=== PATIENT | female | born 1960 | race Caucasian/White ===

== ENCOUNTER 2017-10-02 09:56 | Emergency (ER) | payer MEDICARE, MEDICAID, SELFPAY ==
[2017-10-02 10:23] VITALS: BP 128/69; PULSE 80; RESP 22; TEMP 39.1; O2SAT 97; BMI 37.1
--- NOTE | 2017-10-02 10:34 | HMH.EDUTC ---
[facility] [place] Disposition Clinical Impression: Influenza Disposition: Home, Self-Care Condition on Discharge: Good Instructions: Influenza (Alternative Therapy), Influenza, DI for Influenza -- Adult Additional Instructions: Take Tamiflu as prescribed, although there is no cure for the flu Tamiflu may help to lesson the days of the flu by 1-1 1/2 days Over the counter Motrin or Tylenol as needed for fever Follow up with family doctor Rest Drink plenty of fluids REturn if needed Straight to ER if you began to have any trouble breathing or worsening symptoms Prescriptions: Dextromethorphan Polistirex [Delsym] 10 ml PO NEEDED PRN #200 [email or web address] PRN Reason: Cough Oseltamivir Phosphate [Tamiflu 75mg Capsule] 75 mg PO BID 5 Days #10 capsule Referrals: Reny Del Rio APRN [Primary Care Provider] - Time of Disposition: 10:56 Medical Decision Making Vital Signs: 10/02/17 10:23 Temperature 102.3 F H Temperature Source Oral Pulse Rate [Right Brachial] 80 Respiratory Rate 22 Blood Pressure [Right Arm] 128/69 Blood Pressure Mean [Right Arm] 88 Blood Pressure Source [Right Arm] Automatic Cuff Blood Pressure Position [Right Arm] Sitting 02 Sat by Pulse Oximetry 97 Oxygen Delivery Method Room Air - Lab Data Lab results reviewed: Yes: I reviewed the patient's lab results. - Bryan Inquiry Pt receiving controlled substance: No Bryan was queried for this patient: No [facility] [place] HPI - General Chief complaint: Urgent Treatment Center Stated complaint: fever diarrhea cough Time Seen by Provider: 10/02/17 10:37 Mode of Arrival: Ambulatory Source of Information: Patient Limitations: No Limitations Description of Symptoms (Recalled from Triage Doc. by RN): FEVER, CHILLS, COUGH, VOMITIING, AND DIARRHEA FOR 2 DAYS. HEENT Symptoms (Recalled from RN notes): Yes (sore throat runny nose) Resp Symptoms (Recalled from RN notes): Yes (COUGH) Skin Symptoms (Recalled from RN notes): Yes (FEVER, CHILLS) GI/ Symptoms (Recalled from RN notes): No MS Symptoms (Recalled from RN notes): No Functional Status (Recalled from RN notes): NA - History of Present Illness Provider Complaint: Patient state that she has been having flu like symptoms since yesterday that has contined to get worse over night State that she began running a fever in the middle of the night and this morning she felt worse so she came in to get checked for the flu Onset (ago): day(s) (1) Location: head Radiation: non-radiation Severity: mild, moderate Severity scale (1-10): 5 Consistency: constant, intermittent Exacerbating factors: other (has been taking over the counter Motrin and Tylenol as needed for fever) - Related Data Previous Rx's Medication Instructions Recorded Dextromethorphan Polistirex 10 ml PO NEEDED PRN #200 10/02/17 [Delsym] [email or web address] Oseltamivir Phosphate [Tamiflu 75 mg PO BID 5 Days #10 capsule 10/02/17 75mg Capsule] Allergies Allergy/AdvReac Type Severity Reaction Status Date / Time levofloxacin [From LEVAQUIN] Allergy Unknown Unverified 09/18/17 15:09 Sulfa (Sulfonamide Allergy Unknown Verified 10/02/17 10:21 Antibiotics) [SULFA (SULFONAMIDE ANTIBIOTICS)] - Worker's Comp Is this a Worker's Comp case?: No Is this an [employer] Worker's Comp?: No Is this a [employer] Worker's Comp?: No [facility] History Medical History: Reports:: Diabetes Mellitus Type 2 Amputation: No Fractures: No - *Social History Smoking Status: Current every day smoker Tobacco Type: cigarettes Alcohol Intake: never - Psychiatric History Expresses thoughts of harming self/others: None Suicide Plan Description: No Plan *Family Hx:: Unable to obtain - Constitutional Reports body ache(s), Reports chills, Reports fever(s), Reports headache(s) - Eyes Denies change in vision - ENT Reports headache(s), Reports nasal congestion, Reports nasal discharge, Reports sinus pain, Reports sore throat - Cardiovascular Denies bluish discoloration of h
--- NOTE | 2017-10-02 10:37 | ED_ITS ---
[facility] [place] Clinical Impression: Influenza Disposition: Home, Self-Care Condition on Discharge: Good Instructions: Influenza (Alternative Therapy), Influenza, DI for Influenza -- Adult Additional Instructions: Take Tamiflu as prescribed, although there is no cure for the flu Tamiflu may help to lesson the days of the flu by 1-1 1/2 days Over the counter Motrin or Tylenol as needed for fever Follow up with family doctor Rest Drink plenty of fluids REturn if needed Straight to ER if you began to have any trouble breathing or worsening symptoms Prescriptions: Dextromethorphan Polistirex [Delsym] 10 ml PO NEEDED PRN #200 [email or web address] PRN Reason: Cough Oseltamivir Phosphate [Tamiflu 75mg Capsule] 75 mg PO BID 5 Days #10 capsule Referrals: Reny Del Rio APRN [Primary Care Provider] - Time of Disposition: 10:56 Medical Decision Making Vital Signs: 10/02/17 10:23 Temperature 102.3 F H Temperature Source Oral Pulse Rate [Right Brachial] 80 Respiratory Rate 22 Blood Pressure [Right Arm] 128/69 Blood Pressure Mean [Right Arm] 88 Blood Pressure Source [Right Arm] Automatic Cuff Blood Pressure Position [Right Arm] Sitting 02 Sat by Pulse Oximetry 97 Oxygen Delivery Method Room Air - Lab Data Lab results reviewed: Yes: I reviewed the patient's lab results. - Bryan Inquiry Pt receiving controlled substance: No Bryan was queried for this patient: No [facility] [place] - General Chief complaint: Urgent [facility] Stated complaint: fever diarrhea cough Time Seen by Provider: 10/02/17 10:37 Mode of Arrival: Ambulatory Source of Information: Patient Limitations: No Limitations Description of Symptoms (Recalled from Triage Doc. by RN): FEVER, CHILLS, COUGH , VOMITIING, AND DIARRHEA FOR 2 DAYS. HEENT Symptoms (Recalled from RN notes): Yes (sore throat runny nose) Resp Symptoms (Recalled from RN notes): Yes (COUGH) Skin Symptoms (Recalled from RN notes): Yes (FEVER, CHILLS) GI/ Symptoms (Recalled from RN notes): No MS Symptoms (Recalled from RN notes): No Functional Status (Recalled from RN notes): NA - History of Present Illness Provider Complaint: Patient state that she has been having flu like symptoms since yesterday that has contined to get worse over night State that she began running a fever in the middle of the night and this morning she felt worse so she came in to get checked for the flu Onset (ago): day(s) (1) Location: head Radiation: non-radiation Severity: mild, moderate Severity scale (1-10): 5 Consistency: constant, intermittent Exacerbating factors: other (has been taking over the counter Motrin and Tylenol as needed for fever) - Related Data Previous Rx's Medication Instructions Recorded Dextromethorphan Polistirex 10 ml PO NEEDED PRN #200 10/02/17 [Delsym] [email or web address] Oseltamivir Phosphate [Tamiflu 75 mg PO BID 5 Days #10 capsule 10/02/17 75mg Capsule] Allergies Allergy/AdvReac Type Severity Reaction Status Date / Time levofloxacin [From LEVAQUIN] Allergy Unknown Unverified 09/18/17 15:09 Sulfa (Sulfonamide Allergy Unknown Verified 10/02/17 10:21 Antibiotics) [SULFA (SULFONAMIDE ANTIBIOTICS)] - Worker's Comp Is this a Worker's Comp case?: No Is this an H Worker's Comp?: No Is this a [employer] Worker's Comp?: No [facility] History Medical Hi
[2017-10-02 10:50] LABS: UTC Influenza A Antigen Negative (Negative); UTC Influenza B Antigen Negative (Negative)
== END 2017-10-02 11:11 | disposition home or self-care (01) ==
LOC: UTC 10:53
PROVIDERS: Emergency Provider Nurse Practitioner; Family Provider Nurse Practitioner Family; PCP Nurse Practitioner Family
DX: J11.1 Influenza due to unidentified influenza virus with other respiratory manifestations (principal); Z88.2 Allergy status to sulfonamides; R50.9 Fever, unspecified
CPT/HCPCS: 87276; 87804; 99201

== ENCOUNTER 2017-10-06 00:21 | Emergency (ER) | payer MEDICARE, MEDICAID, SELFPAY ==
[2017-10-06 00:31] VITALS: BP 114/60; PULSE 67; RESP 22; TEMP 36.9; O2SAT 96; BMI 37.1
--- NOTE | 2017-10-06 01:01 | XR_ITS ---
XR chest 2V HISTORY: ITS.REASON: cough ORDERING PHYSICIAN: Andrea Blackburn MD PATIENT AGE: 56 years COMPARISON: 04/11/2017 FINDINGS: The cardiomediastinal silhouette and pulmonary vascularity are within normal limits. The lungs are clear without infiltrates, suspicious nodules, or pleural effusions. No acute bony abnormalities. IMPRESSION: No change with no acute finding
--- NOTE | 2017-10-06 01:22 | HMH.EDGENADL ---
ED Disposition Clinical Impression: Serous otitis media Qualifiers: Chronicity: acute Laterality: bilateral Recurrence: not specified as recurrent Qualified Code(s): H65.03 - Acute serous otitis media, bilateral Acute bronchitis Qualifiers: Bronchitis organism: unspecified organism Qualified Code(s): J20.9 - Acute bronchitis, unspecified Acute sinusitis Qualifiers: Sinusitis location: unspecified location Recurrence: not specified as recurrent Qualified Code(s): J01.90 - Acute sinusitis, unspecified Disposition: Home, Self-Care Condition on Discharge: Good Instructions: Middle Ear Infection, DI for Sinusitis, DI for Acute Bronchitis Additional Instructions: Use your inhaler and nebulizer for wheezing. Tylenol for fever. Zithromax and Tessalon Perles as prescribed. Additional instructions for ACUTE BRONCHITIS: Rest and plenty of fluids. Return immediately if you have an uncontrollable fever greater than 102 degrees, severe headache or neck stiffness, difficulty breathing or shortness of breath, persistent vomiting, severe sore throat or inability to swallow. See your physician if not improving in 4-5 days. Prescriptions: Azithromycin [Zithromax 250mg tab] 250 mg PO DAILY #4 tablet Benzonatate [Tessalon Perle 100mg Cap] 100 mg PO TIDP PRN #20 cap PRN Reason: Cough Referrals: Reny Del Rio APRN [Primary Care Provider] - - Critical Care Critical Care Time: No Attestation: On 10/06/17, the high probability of a clinically significant, sudden or life threatening deterioration of the following system(s) required my full and direct attention, intervention and personal management. The time I documented below is in addition to time spent performing reported procedures but includes the following listed in this critical care notation. Medical Decision Making Vital Signs: 10/06/17 00:31 Temperature 98.5 F Temperature Source Oral Pulse Rate [Left Radial] 67 Respiratory Rate 22 Blood Pressure [Right Arm] 114/60 Blood Pressure Mean [Right Arm] 78 Blood Pressure Source [Right Arm] Automatic Cuff Blood Pressure Position [Right Arm] Sitting 02 Sat by Pulse Oximetry 96 Oxygen Delivery Method Room Air - Lab Data Lab Results 10/06/17 01:03: Influenza Type A Ag Negative, Influenza Type B Ag Negative Orders (Tests/Meds): ED MEDICATIONS Discontinued Medications Generic Name Dose Route Start Last Admin Trade Name Freq PRN Reason Stop Dose Admin Albuterol Sulfate 2.5 mg 10/06/17 00:48 10/06/17 01:04 Albuterol 0.083% 2.5mg/3ml Neb IH 10/06/17 00:49 2.5 mg ONCE ONE Administration Azithromycin 500 mg 10/06/17 01:49 Zithromax 250mg Tablet PO 10/06/17 01:50 ONCE ONE Benzonatate 100 mg 10/06/17 01:50 Tessalon Perles 100mg Capsule PO 10/06/17 01:51 ONCE ONE ORDERS Category Date Time Status XR chest 2V Stat Exams 10/06/17 01:01 Taken - Radiology Data #1 Image(s): Chest Chest x-ray interpreted by Andrea Blackburn M.D. No infiltrate, pneumothorax, pleural effusion, or wide mediastinum. - Bryan Inquiry Pt receiving controlled substance: No Medical Decision Making Narrative: states improved with Albuterol HHN tx in ED. General Adult HPI - General Chief complaint: Weakness Stated complaint: HEADACHE,COUGHING Mode of Arrival: Ambulatory Limitations: No Limitations Description of Symptoms (Recalled from ER Triage Doc. by RN): flu dx 3 days ago, cough , sternal rib pain - History of Present Illness HPI narrative: The patient states that she was diagnosed with influenza at the urgent treatment center on 10/02/17. She was started on Tamiflu, but states she is no better. She complains of a productive cough, rhinorrhea, sinus pain, congested ears, wheezing, and tussive vomiting. She is a smoker and has COPD. She has an albuterol inhaler and a nebulizer with medication, but says she has not been using them. - Related Data Home Medic
[2017-10-06 02:13] LABS: POC Glucose,Bedside 203 mg/dL
[2017-10-06 02:24] VITALS: BP 178/82; PULSE 72; RESP 22; TEMP 36.9; O2SAT 97
== END 2017-10-06 02:25 | disposition home or self-care (01) ==
PROVIDERS: Emergency Provider Emergency Medicine; Family Provider Internal Medicine Adolescent Medicine; PCP Nurse Practitioner Family
DX: J20.9 Acute bronchitis, unspecified (principal); J44.0 Chronic obstructive pulmonary disease with (acute) lower respiratory infection; F17.210 Nicotine dependence, cigarettes, uncomplicated; H65.03 Acute serous otitis media, bilateral; J01.90 Acute sinusitis, unspecified; E11.9 Type 2 diabetes mellitus without complications; Z79.4 Long term (current) use of insulin
CPT/HCPCS: 71046; 82962; 87275; 87276; 99282

== ENCOUNTER → 2017-10-23 15:05 | Outpatient (CLI) | payer MEDICARE, MEDICAID, SELFPAY ==
--- NOTE | 2017-10-23 15:32 | XR_ITS ---
XR chest 2V HISTORY: ITS.REASON: LEFT CHEST PAIN,COUGH,COPD ORDERING PHYSICIAN: Jesus Ott PATIENT AGE: 56 years COMPARISON: 10/06/2017 FINDINGS: The cardiomediastinal silhouette and pulmonary vascularity are within normal limits. The lungs are clear without infiltrates, suspicious nodules, or pleural effusions. There are degenerative changes in the thoracic spine with mild thoracic curvature convex right. Surgical clips are present in the left paratracheal region.. IMPRESSION: No acute finding
[2017-10-23 15:48] LABS: Troponin I < 0.02 ng/ml (0.00-0.06)
== END ==
PROVIDERS: PCP Internal Medicine; Visit Provider Internal Medicine
DX: R07.89 Other chest pain (principal); R05 Cough; J44.9 Chronic obstructive pulmonary disease, unspecified
CPT/HCPCS: 36415; 71046; 84484; 93005

== ENCOUNTER → 2017-11-05 10:35 | Outpatient (CLI) | payer MEDICARE, MEDICAID, SELFPAY ==
--- NOTE | 2017-11-05 10:40 | XR_ITS ---
XR DEXA axial skeleton HISTORY: ITS.REASON: POST MENOPAUSAL ORDERING PHYSICIAN: Jesus Ott PATIENT AGE: 56 years COMPARISON: 02/19/2013 FINDINGS: The BMD measured at the Right femoral neck is 0.700 g/cm squared with a T score of -2.4 . This is considered Osteopenic according to the World Health Organization criteria. Fracture risk is Moderate. Treatment is advised. The hip density has decreased 12% compared to the previous exam. L-spine density has a T score of 0.0. IMPRESSION: Osteopenia with moderate fracture risk with decrease in the hip density by 12% compared to the previous exam. Recommend follow-up exam November 2019
== END ==
PROVIDERS: Family Provider Internal Medicine Adolescent Medicine; PCP Internal Medicine; Visit Provider Internal Medicine
DX: Z78.0 Asymptomatic menopausal state (principal); M48.56XA Collapsed vertebra, not elsewhere classified, lumbar region, initial encounter for fracture
CPT/HCPCS: 77080

== ENCOUNTER 2017-11-05 17:45 | Emergency (ER) | payer MEDICARE, MEDICAID, SELFPAY ==
[2017-11-05 17:45] VITALS: BP 150/64; PULSE 69; RESP 18; TEMP 36.8; O2SAT 96; BMI 36.6
--- NOTE | 2017-11-05 17:51 | XR_ITS ---
XR chest portable Ordering Physician: Percy Argueta MD Patient Age: 56 years: Female HISTORY: ITS.REASON: chest pain. Chest pain TECHNIQUE: AP portable upright chest COMPARISON : 10/23/1979 CXR FINDINGS No significant change lungs otherwise fairly clear with nothing definitely acute. Heart, polly and mediastinal structures satisfactory.. Normal pulmonary vascularity. No pleural effusion no pneumothorax. Chest wall unremarkable on this limited portable study. Mild dextroscoliosis and marginal osteophytes throughout T-spine IMPRESSION: Stable chest with nothing definitely acute
--- NOTE | 2017-11-05 18:07 | HMH.EDCP ---
ED Disposition Clinical Impression: Chest pain Qualifiers: Chest pain type: chest pain on breathing Qualified Code(s): R07.1 - Chest pain on breathing; R07.81 - Pleurodynia Disposition: Admitted As Inpatient Condition on Discharge: Good Referrals: Jesus Ott [Primary Care Provider] - Time of Disposition: 18:45 - Critical Care Critical Care Time: No Attestation: On , the high probability of a clinically significant, sudden or life threatening deterioration of the following system(s) required my full and direct attention, intervention and personal management. The time I documented below is in addition to time spent performing reported procedures but includes the following listed in this critical care notation. Medical Decision Making - Medical Records Medical records reviewed: Yes: I reviewed the patient's medical records. Vital Signs: 11/05/17 17:45 Temperature 98.2 F Temperature Source Oral Pulse Rate [Right Brachial] 69 Respiratory Rate 18 Blood Pressure [Right Arm] 150/64 Blood Pressure Mean [Right Arm] 92 Blood Pressure Source [Right Arm] Automatic Cuff Blood Pressure Position [Right Arm] Sitting 02 Sat by Pulse Oximetry 96 Oxygen Delivery Method Room Air - Lab Data Lab results reviewed: Yes: I reviewed the patient's lab results. Lab Results 11/05/17 18:15: WBC 15.9 H, RBC 4.36, Hgb 12.0 L, Hct 36.0 L, MCV 82.6, MCH 27.7, MCHC 33.5, RDW 14.9, Plt Count 385, MPV 6.7 L, Neut % (Auto) 57.8, Lymph % (Auto) 34.7, [place] % (Auto) 5.2, Eos % (Auto) 1.9, Baso % (Auto) 0.5, Neut # (Auto) 9.2 H, Lymph # (Auto) 5.5 H, [place] # (Auto) 0.8, Eos # (Auto) 0.3, Baso # (Auto) 0.1 Result diagrams: 11/05/17 18:15 Orders (Tests/Meds): ED MEDICATIONS Discontinued Medications Generic Name Dose Route Start Last Admin Trade Name Freq PRN Reason Stop Dose Admin Ceftriaxone Sodium 1 gm/ 50 mls @ 100 mls/hr 11/05/17 18:07 Sodium Chloride IV 11/05/17 18:36 ONCE ONE Ketorolac Tromethamine 30 mg 11/05/17 18:06 Toradol 30mg/Ml Vial IV 11/05/17 18:07 ONCE ONE Ondansetron HCl 4 mg 11/05/17 18:06 Zofran 4mg/2ml Vial IV 11/05/17 18:07 ONCE ONE ORDERS Category Date Time Status XR chest portable Stat Exams 11/05/17 17:51 Taken Cardiac Enzymes Stat Lab 11/05/17 18:15 Received Complete Blood Count Auto Diff Stat Lab 11/05/17 18:15 Results Comprehensive Metabolic Panel Stat Lab 11/05/17 18:15 Received Lactic Acid Stat Lab 11/05/17 18:30 Received Blood Culture Stat Micro 11/05/17 18:30 Received - Radiology Data #1 Image(s): Chest Image Reviewed: Yes I reviewed the patient's radiology results no significant changes from previous - ECG Data Tracing #1 I reviewed this ECG and interpreted as documented below: ECG normal with no acute: arrhythmias, ischemia, conduction abnormalities, chamber hypertrophy Normal Sinus Rhythm: Yes - Physician Consults Physician Consulted: Dr Vázquez Time: 19:00 Reason -: Pt condition, Other (assumed care of this patient) - Bryan Inquiry Pt receiving controlled substance: No - Reevaluation(s) Time: 18:46 Reevaluation #1: Patient reevaluated, seems less discomfort after resolved Zofran. Workup pending at this turned over to Dr. Vázquez at 7 PM. Chest Pain HPI - General Chief Complaint: Chest Pain Stated Complaint: chest pain Time Seen by Provider: 11/05/17 18:00 Mode of Arrival: Family Vehicle Source of Information: Patient Limitations: No Limitations Description of Symptoms (Recalled from ER Triage Doc. by RN): hurting in my titties and around below them and through chest - History of Present Illness HPI narrative: This is a 56-year-old female patient presenting to the emergency room by POV complaining with not feeling well for the past 3 weeks. She had the flu 2-3 weeks ago, and afterwards fluid in both my ears . Since then patient has been feeling weak, hoarse voice, nonprod
[2017-11-05 18:29] LABS: Basophils # 0.1 K/mm3 (0-0.2); Basophils % 0.5 % (0.1-2.0); Eosinophils # 0.3 K/mm3 (0.0-0.4); Eosinophils % 1.9 % (0.1-12.0); Lymphocytes # 5.5 K/mm3 (0.7-4.5); Lymphocytes % 34.7 K/mm3 (10-50); Mean Corpuscular HGB Conc 33.5 g/dL (31.8-35.4); Mean Corpuscular Hemoglobin 27.7 pg (27.0-31.2); Mean Corpuscular Volume 82.6 fl (81-99); Mean Platelet Volume 6.7 fl (7.4-10.4); Monocytes # 0.8 K/mm3 (0.1-1.0); Monocytes % 5.2 % (1.7-9.3); Neutrophils # 9.2 K/mm3 (1.8-7.8); Neutrophils % 57.8 % (37.0-80.0); Platelet Count 385 K/mm3 (142-424); Red Blood Count 4.36 M/mm3 (4.20-5.40); Red Cell Distribution Width 14.9 % (11.5-17.5); White Blood Count 15.9 K/mm3 (4.8-10.8)
[2017-11-05 18:30] LABS: MANUAL DIFFERENTIAL MANUAL DIFFERENTIAL (MANUAL DIFF)
[2017-11-05 18:51] LABS: Alanine Aminotransferase 21 U/L (12-78); Albumin/Globulin Ratio 1.2 (1.1-1.8); Alkaline Phosphatase 75 U/L (46-116); Anion Gap 9.1 mEq/L (5-15); Aspartate Amino Transferase 6 U/L (15-37); Bilirubin,Total 0.4 mg/dL (0.2-1.0); Blood Urea Nitrogen 15 mg/dL (7-18); Calcium 9.2 mg/dL (8.5-10.1); Carbon Dioxide 27 mmol/L (21.0-32.0); Chloride 100 mmol/L (98-107); Creatine Kinase 44 U/L (26-192); Creatinine Clearance Estimated 122 mL/min (0-300); Creatinine,Serum 0.82 mg/dL (0.55-1.02); Estimated Glomerular Filt Rate 72 ml/min (>60); GFR (African American) 87 ML/MIN (>60); Globulin 3.3 gm/dl (1.3-3.2); Glucose 167 mg/dL (74-106); Potassium 3.1 mmoL/L (3.5-5.1); Sodium 133 mmol/L (136-145); Total Protein,Serum 7.3 gm/dL (6.4-8.2); Troponin I < 0.02 ng/ml (0.00-0.06)
[2017-11-05 18:53] LABS: CKMB Relative Index 1.1 U/L (0-4.0); Creatine Kinase MB < 0.5 mg/ml (0.0-3.6)
[2017-11-05 18:56] LABS: Lactic Acid 1.8 mmol/L (0.4-2.0)
[2017-11-05 19:13] LABS: Eosinophils % 2 % (0-3); Lymphocytes % 32 % (10-50); Monocytes % 4 % (2-9); Neutrophils % 62 % (42-76); Platelet Estimate Normal; Total Cells Counted 100
[2017-11-05 19:53] VITALS: BP 113/67; PULSE 62; RESP 20; O2SAT 96
[2017-11-05 20:25] VITALS: BP 113/67; PULSE 62; RESP 16; TEMP 36.8; O2SAT 96
== END 2017-11-05 20:27 | disposition admitted as inpatient to this hospital (09) ==
PROVIDERS: Emergency Medicine; Emergency Provider Emergency Medicine; Family Provider Internal Medicine Adolescent Medicine; PCP Internal Medicine
DX: R07.1 Chest pain on breathing (principal); R07.81 Pleurodynia; I10 Essential (primary) hypertension; Z82.49 Family history of ischemic heart disease and other diseases of the circulatory system; Z72.0 Tobacco use
CPT/HCPCS: 71045; 77080; 80053; 82550; 82553; 83605; 84484; 85007; 85025; 87040; 87275; 87276; 93005; 96365; 96375; 99282; 99283; J2405

== ENCOUNTER → 2017-11-17 20:00 | Outpatient (CLI) | payer MEDICARE, MEDICAID, SELFPAY | PROVIDERS: PCP Internal Medicine; Visit Provider Internal Medicine | DX: K42.9 Umbilical hernia without obstruction or gangrene (principal) | CPT/HCPCS: 87205 ==

== ENCOUNTER → 2017-11-19 15:05 | Outpatient (CLI) | payer MEDICARE, MEDICAID, SELFPAY ==
[2017-11-19 15:30] VITALS: BP 95/45; PULSE 54; RESP 18; TEMP 36.5; O2SAT 96
[2017-11-19 15:58] VITALS: BMI 35.8
[2017-11-19 16:00] VITALS: BP 102/54; PULSE 56; RESP 18; O2SAT 95
[2017-11-19 16:04] LABS: Adenovirus F 40/41, stool Not Detected (NotDetected); Astrovirus Not Detected (NotDetected); Campylobacter Not Detected (NotDetected); Clostridium Difficile A/B, PCR Not Detected (NotDetected); Cryptosporidium Not Detected (NotDetected); Cyclospora Cayetanesis Not Detected (NotDetected); Entamoeba histolytica Not Detected (NotDetected); Enteroaggregative E coli Not Detected (NotDetected); Enteropathogenic E coli Not Detected (NotDetected); Enterotoxigenic E coli Not Detected (NotDetected); Giardia lamblia Not Detected (NotDetected); Norovirus Not Detected (NotDetected); Plesimonas Shigalloides, PCR Not Detected (NotDetected); Rotavirus A Not Detected (NotDetected); Salmonella, PCR Not Detected (NotDetected); Sapovirus Not Detected (NotDetected); Shiga-like toxin E coli Not Detected (NotDetected); Shigella Enterovasive E coli Not Detected (NotDetected); Vibrio Cholerae Not Detected (NotDetected); Vibrio, PCR Not Detected (NotDetected); Yersinia Entercolitica, PCR Not Detected (NotDetected)
[2017-11-19 16:10] LABS: Basophils # 0.1 K/mm3 (0-0.2); Basophils % 0.6 % (0.1-2.0); Eosinophils # 0.4 K/mm3 (0.0-0.4); Eosinophils % 3.6 % (0.1-12.0); Hematocrit 34.6 % (37.0-47.0); Hemoglobin 11.8 g/dL (12.2-16.2); Lymphocytes # 2.6 K/mm3 (0.7-4.5); Lymphocytes % 26.9 K/mm3 (10-50); Mean Corpuscular HGB Conc 34.1 g/dL (31.8-35.4); Mean Corpuscular Hemoglobin 27.9 pg (27.0-31.2); Mean Corpuscular Volume 81.9 fl (81-99); Mean Platelet Volume 7.5 fl (7.4-10.4); Monocytes # 0.3 K/mm3 (0.1-1.0); Monocytes % 3.4 % (1.7-9.3); Neutrophils # 6.4 K/mm3 (1.8-7.8); Neutrophils % 65.3 % (37.0-80.0); Platelet Count 331 K/mm3 (142-424); Red Blood Count 4.23 M/mm3 (4.20-5.40); Red Cell Distribution Width 14.5 % (11.5-17.5); White Blood Count 9.8 K/mm3 (4.8-10.8)
[2017-11-19 16:30] VITALS: BP 98/55; PULSE 54; RESP 18; O2SAT 96
[2017-11-19 17:00] VITALS: BP 97/58; PULSE 58; RESP 16; TEMP 36.6; O2SAT 95
[2017-11-19 17:20] LABS: Anion Gap 14.1 mEq/L (5-15); Blood Urea Nitrogen 10 mg/dL (7-18); Carbon Dioxide 22 mmol/L (21.0-32.0); Chloride 107 mmol/L (98-107); Creatinine Clearance Estimated 104 mL/min (0-300); Creatinine,Serum 0.94 mg/dL (0.55-1.02); Estimated Glomerular Filt Rate 61 ml/min (>60); GFR (African American) 74 ML/MIN (>60); Glucose 187 mg/dL (74-106); Potassium 4.1 mmoL/L (3.5-5.1); Sodium 139 mmol/L (136-145)
[2017-11-19 17:25] VITALS: BP 99/52; PULSE 59; RESP 18; TEMP 36.7; O2SAT 96
--- NOTE | 2017-11-19 18:03 | PC.NURSE ---
11/19/17 [id number] Report called to En Eisenberg RN 2nd floor med surg at this time. Pt transported via wheelchair to 2nd floor per QAMAR Cifuentes for continuation of IVF infusion as ordered. Pt stable/talking with staff. Pt left in care of En Eisenberg RN at bedside/stable.
[2017-11-19 20:12] VITALS: BP 95/61; PULSE 61; RESP 18; TEMP 37.1; O2SAT 99
== END ==
PROVIDERS: PCP Internal Medicine; Visit Provider Internal Medicine
DX: A09 Infectious gastroenteritis and colitis, unspecified (principal); E86.0 Dehydration
CPT/HCPCS: 80048; 85025; 87507; J2405

== ENCOUNTER 2017-11-27 09:35 | Outpatient (CLI) | payer MEDICARE, MEDICAID, SELFPAY ==
[2017-11-27 09:45] VITALS: BMI 36.4
[2017-11-27 10:00] VITALS: BP 85/51; PULSE 68; RESP 20; TEMP 36.3; O2SAT 96
[2017-11-27 10:21] LABS: Hematocrit 31.8 % (37.0-47.0)
[2017-11-27 10:22] LABS: Anion Gap 12.3 mEq/L (5-15); Blood Urea Nitrogen 19 mg/dL (7-18); Carbon Dioxide 28 mmol/L (21.0-32.0); Chloride 103 mmol/L (98-107); Creatinine Clearance Estimated 131 mL/min (0-300); Creatinine,Serum 0.76 mg/dL (0.55-1.02); Estimated Glomerular Filt Rate 78 ml/min (>60); GFR (African American) 95 ML/MIN (>60); Glucose 110 mg/dL (74-106); Potassium 4.3 mmoL/L (3.5-5.1); Sodium 139 mmol/L (136-145)
[2017-11-27 11:00] VITALS: BP 120/57; PULSE 68; RESP 20; TEMP 36.6; O2SAT 96
[2017-11-27 12:00] VITALS: BP 105/57; PULSE 66; RESP 20; TEMP 36.4; O2SAT 96
[2017-11-27 13:00] VITALS: BP 106/78; PULSE 68; RESP 20; TEMP 36.4; O2SAT 96
[2017-11-27 14:05] VITALS: BP 108/70; PULSE 68; RESP 20; TEMP 36.9; O2SAT 96
== END 2017-11-27 14:10 | disposition home or self-care (01) ==
LOC: INF 09:36
PROVIDERS: PCP Internal Medicine; Visit Provider Internal Medicine
DX: E86.0 Dehydration (principal)
CPT/HCPCS: 80048; 85014; 96365; 96366; J2405

== ENCOUNTER 2017-12-06 14:29 | Emergency (ER) | payer MEDICARE, MEDICAID, SELFPAY ==
[2017-12-06 14:42] VITALS: BP 114/47; PULSE 61; RESP 20; TEMP 36.5; O2SAT 99; BMI 36.6
--- NOTE | 2017-12-06 15:04 | HMH.EDUTC ---
[facility] [place] Clinical Impression: Insulin dependent diabetes mellitus, Vomiting and diarrhea Abdominal pain Qualifiers: Abdominal location: unspecified location Qualified Code(s): R10.9 - Unspecified abdominal pain Decubitus ulcer Qualifiers: Pressure ulcer location: other site Pressure ulcer stage: unspecified pressure ulcer stage Qualified Code(s): L89.899 - Pressure ulcer of other site, unspecified stage Disposition: Still a Patient Condition on Discharge: Fair Time of Disposition: 15:35 (transfer to ER bed 10) Medical Decision Making Vital Signs: 12/06/17 14:42 Temperature 97.7 F Temperature Source Temporal Artery Scan Pulse Rate [Brachial] 61 Respiratory Rate 20 Blood Pressure [Right Arm] 114/47 Blood Pressure Mean [Right Arm] 69 Blood Pressure Source [Right Arm] Automatic Cuff Blood Pressure Position [Right Arm] Sitting 02 Sat by Pulse Oximetry 99 Oxygen Delivery Method Room Air - Bryan Inquiry Pt receiving controlled substance: No - Reevaluation(s) Time: 15:10 Reevaluation #1: Discussed HPI, PMHx, possible differentials and [facility] guidelines with patient. Agreeable to transfer to ER. Attempted to call report. No staff available to take call. 1521: Report called to WALE Manuel RN. Bed 10 available. Report also given to Dr. carr ER . Pt assisted over by Sheila [facility] monty. [facility] [place] - General Stated complaint: v/d Time Seen by Provider: 12/06/17 15:04 Mode of Arrival: Ambulatory Source of Information: Patient Limitations: No Limitations Description of Symptoms (Recalled from Triage Doc. by RN): V/D X 1 WEEK. SPOT ON ABD THAT CAME UP 2 DAYS AGO HEENT Symptoms (Recalled from RN notes): No Resp Symptoms (Recalled from RN notes): No Skin Symptoms (Recalled from RN notes): Yes MS Symptoms (Recalled from RN notes): No Functional Status (Recalled from RN notes): NA - History of Present Illness Provider Complaint: c/o nonstop vomiting and diarrhea again for 2-3 days. Pt reports started with flu 2 weeks ago. That resolved then virus in my gut last week. Saw Dr. Ott. Got medicine for diarrhea. Seemed to improve. Sunday symptoms returned. Saw Dr. Ott again and got more unknown medication for vomiting and diarrhea but not getting any better. Abdominal pain with Watery diarrhea and now dry heaving every 5 minutes . Unable to tolerate any food and minimal fluids. Hx of IDDM. FSBG this morning 94. 2-3 days ago, noticed a wound to abdomen. Has continued to get larger since first noticing it. No fever. - Related Data Home Medications Medication Instructions Recorded Confirmed Furosemide [Furosemide 40MG tAB] 1 tab PO DAILY 10/06/17 11/19/17 Ibuprofen [Ibuprofen 600mg Tab] 1 tab PO Q6HP PRN 10/06/17 11/19/17 Insulin NPH Human Isophane 60 unit SQ BID 10/06/17 11/19/17 [Humulin N] Lisinopril [Lisinopril 5mg Tablet] 1 tab PO DAILY 10/06/17 11/19/17 Lovastatin [Lovastatin] 1 tab PO DAILY 10/06/17 11/19/17 Metformin HCl [Metformin HCl] 1 tab PO BID 10/06/17 11/19/17 Oxybutynin Chloride [Oxybutynin 10 mg PO DAILY 10/06/17 11/19/17 Chloride ER] Potassium Chloride [Micro-K 10mEq 1 tab PO DAILY 10/06/17 11/19/17 cap] hydrOXYzine HCl [Hydroxyzine HCl] 25 mg PO Q8HP PRN 10/06/17 11/19/17 raNITIdine HCl [Ranitidine HCl] 150 mg PO DAILY 10/06/17 11/19/17 aspirin 81 mg tablet,delayed 81 mg PO ONCE 11/06/17 11/19/17 release Isosorbide Mononitrate [Imdur 30mg 30 mg PO QAM 11/19/17 11/19/17 ER tablet] Previous Rx's Medication Instructions Recorded Benzonatate [Tessalon Perle 100mg 100 mg PO TIDP PRN #20 cap 10/06/17 Cap] levothyroxine 100 mcg tablet 100 mcg PO DAILY #90 tab 11/09/17 bisoprolol fumarate 5 mg tablet 5 mg PO DAILY #90 tab 12/03/17 escitalopram 20 mg tablet 20 mg PO QDAY 90 Days #90 tab 12/03/17 Allergies Allergy/AdvReac Type Severity Reaction Status Date / Time Sulfa (Sulfonamide Allergy Mild Verified 11/05/17 18:06 Antibiotics) [SULFA (SULFONAMI
--- NOTE | 2017-12-06 15:11 | ED_ITS ---
[facility] [place] Clinical Impression: Insulin dependent diabetes mellitus, Vomiting and diarrhea Abdominal pain Qualifiers: Abdominal location: unspecified location Qualified Code(s): R10.9 - Unspecified abdominal pain Decubitus ulcer Qualifiers: Pressure ulcer location: other site Pressure ulcer stage: unspecified pressure ulcer stage Qualified Code(s): L89.899 - Pressure ulcer of other site, unspecified stage Disposition: Still a Patient Condition on Discharge: Fair Time of Disposition: 15:35 (transfer to ER bed 10) Medical Decision Making Vital Signs: 12/06/17 14:42 Temperature 97.7 F Temperature Source Temporal Artery Scan Pulse Rate [Brachial] 61 Respiratory Rate 20 Blood Pressure [Right Arm] 114/47 Blood Pressure Mean [Right Arm] 69 Blood Pressure Source [Right Arm] Automatic Cuff Blood Pressure Position [Right Arm] Sitting 02 Sat by Pulse Oximetry 99 Oxygen Delivery Method Room Air - Bryan Inquiry Pt receiving controlled substance: No - Reevaluation(s) Time: 15:10 Reevaluation #1: Discussed HPI, PMHx, possible differentials and [facility] guidelines with patient. Agreeable to transfer to ER. Attempted to call report. No staff available to take call. 1521: Report called to WALE Manuel RN. Bed 10 available. Report also given to Dr. carr ER . Pt assisted over by Sheila [facility] monty. [facility] [place] - General Stated complaint: v/d Time Seen by Provider: 12/06/17 15:04 Mode of Arrival: Ambulatory Source of Information: Patient Limitations: No Limitations Description of Symptoms (Recalled from Triage Doc. by RN): V/D X 1 WEEK. SPOT ON ABD THAT CAME UP 2 DAYS AGO HEENT Symptoms (Recalled from RN notes): No Resp Symptoms (Recalled from RN notes): No Skin Symptoms (Recalled from RN notes): Yes MS Symptoms (Recalled from RN notes): No Functional Status (Recalled from RN notes): NA - History of Present Illness Provider Complaint: c/o nonstop vomiting and diarrhea again for 2-3 days. Pt reports started with flu 2 weeks ago. That resolved then virus in my gut last week. Saw Dr. Ott. Got medicine for diarrhea. Seemed to improve. Sunday symptoms returned. Saw Dr. Ott again and got more unknown medication for vomiting and diarrhea but not getting any better. Abdominal pain with Watery diarrhea and now dry heaving every 5 minutes . Unable to tolerate any food and minimal fluids. Hx of IDDM. FSBG this morning 94. 2-3 days ago, noticed a wound to abdomen. Has continued to get larger since first noticing it. No fever. - Related Data Home Medications Medication Instructions Recorded Confirmed Furosemide [Furosemide 40MG tAB] 1 tab PO DAILY 10/06/17 11/19/17 Ibuprofen [Ibuprofen 600mg Tab] 1 tab PO Q6HP PRN 10/06/17 11/19/17 Insulin NPH Human Isophane 60 unit SQ BID 10/06/17 11/19/17 [Humulin N] Lisinopril [Lisinopril 5mg Tablet] 1 tab PO DAILY 10/06/17 11/19/17 Lovastatin [Lovastatin] 1 tab PO DAILY 10/06/17 11/19/17 Metformin HCl [Metformin HCl] 1 tab PO BID 10/06/17 11/19/17 Oxybutynin Chloride [Oxybutynin 10 mg PO DAILY 10/06/17 11/19/17 Chloride ER] Potassium Chloride [Micro-K 10mEq 1 tab PO DAILY 10/06/17 11/19/17 cap] hydrOXYzine HCl [Hydroxyzine HCl] 25 mg PO Q8HP PRN 10/06/17 11/19/17 raNITIdine HCl [Ranitidine HCl] 150 mg PO DAILY 10/06/17 11/19/17 aspirin 81 mg tablet,delayed 81 mg PO ONCE 11/06/17 11/19/17 re
[2017-12-06 15:33] VITALS: BP 88/38; PULSE 57; RESP 20; TEMP 37.3; O2SAT 97; BMI 36.4
--- NOTE | 2017-12-06 15:52 | CT_ITS ---
CT abdomen pelvis wo con CLINICAL INDICATION: Nausea, vomiting, diarrhea ITS.REASON: n/v/d ORDERING PHYSICIAN: Anaid Diggs MD PATIENT AGE: 56 years COMPARISON: 09/06/2017 TECHNIQUE: Axial images obtained with sagittal and coronal reformats. PROCEDURE: Oral Contrast: None IV Contrast: None . FINDINGS: No acute finding Bases. Prior cholecystectomy without ductal dilatation. The liver, spleen, adrenal glands, and left kidney have an unremarkable unenhanced CT appearance. There is cortical scarring of the right kidney. No hydronephrosis or ureteral calculi. There is fatty infiltration of the pancreas. No intestinal obstruction or free air is evident. No evidence of appendicitis. No evidence of diverticulitis. There has been prior hysterectomy. No pelvic mass or abnormal fluid collection. There is mild stranding of the anterior abdominal wall fat not significantly changed consistent with postsurgical changes. No acute bony anomalies. IMPRESSION: 1. No acute abdominal or pelvic findings. 2. Postsurgical changes
[2017-12-06 16:15] LABS: Hematocrit 33.4 % (37.0-47.0); Hemoglobin 11.2 g/dL (12.2-16.2); Mean Corpuscular Volume 87.1 fl (81-99); Red Blood Count 3.84 M/mm3 (4.20-5.40); White Blood Count 10.8 K/mm3 (4.8-10.8)
[2017-12-06 16:16] LABS: Basophils % 0.7 % (0.1-2.0); Eosinophils # 0.4 K/mm3 (0.0-0.4); Eosinophils % 3.5 % (0.1-12.0); Lymphocytes # 3.3 K/mm3 (0.7-4.5); Lymphocytes % 30.2 K/mm3 (10-50); Mean Corpuscular HGB Conc 33.5 g/dL (31.8-35.4); Mean Corpuscular Hemoglobin 29.2 pg (27.0-31.2); Mean Platelet Volume 7.4 fl (7.4-10.4); Monocytes # 0.4 K/mm3 (0.1-1.0); Monocytes % 4.1 % (1.7-9.3); Neutrophils # 6.7 K/mm3 (1.8-7.8); Neutrophils % 61.6 % (37.0-80.0); Platelet Count 272 K/mm3 (142-424); Red Cell Distribution Width 14.2 % (11.5-17.5)
[2017-12-06 16:17] LABS: Basophils # 0.1 K/mm3 (0-0.2)
[2017-12-06 16:27] LABS: Lipase 64 u/L (73-393)
[2017-12-06 16:34] LABS: Alanine Aminotransferase 25 U/L (12-78); Albumin Level 3.3 gm/dL (3.4-5.0); Alkaline Phosphatase 70 U/L (46-116); Anion Gap 11.1 mEq/L (5-15); Aspartate Amino Transferase 10 U/L (15-37); Bilirubin,Total 0.1 mg/dL (0.2-1.0); Blood Urea Nitrogen 10 mg/dL (7-18); Calcium 8.8 mg/dL (8.5-10.1); Carbon Dioxide 26 mmol/L (21.0-32.0); Chloride 105 mmol/L (98-107); Creatinine Clearance Estimated 106 mL/min (0-300); Creatinine,Serum 0.94 mg/dL (0.55-1.02); Estimated Glomerular Filt Rate 61 ml/min (>60); GFR (African American) 74 ML/MIN (>60); Globulin 3.4 gm/dl (1.3-3.2); Glucose 175 mg/dL (74-106); Potassium 4.1 mmoL/L (3.5-5.1); Sodium 138 mmol/L (136-145); Total Protein,Serum 6.7 gm/dL (6.4-8.2)
--- NOTE | 2017-12-06 17:15 | HMH.EDNVD ---
ED Disposition Clinical Impression: Insulin dependent diabetes mellitus, Vomiting and diarrhea, UTI (urinary tract infection) Abdominal pain Qualifiers: Abdominal location: unspecified location Qualified Code(s): R10.9 - Unspecified abdominal pain Decubitus ulcer Qualifiers: Pressure ulcer location: other site Pressure ulcer stage: unspecified pressure ulcer stage Qualified Code(s): L89.899 - Pressure ulcer of other site, unspecified stage Disposition: Home, Self-Care Condition on Discharge: Good Instructions: DI for Diarrhea and Traveler's Diarrhea -- Adult, How to Prevent Pressure Ulcers, Pressure Sores Additional Instructions: Bentyl for cramping, Rx Keflex, see Dr. Ott one to three days for recheck abdomen and recheck ulcer Prescriptions: Ondansetron [Zofran 4mg ODT] 4 mg PO Q8HP PRN #10 tab.rapdis PRN Reason: nausea/vomiting cephALEXin [Keflex 500mg Cap] 500 mg PO QID #40 cap cephALEXin [Keflex 500mg Cap] 500 mg PO QID #40 cap Dicyclomine HCl [Bentyl 10mg capsule] 0 mg PO TID PRN #10 cap PRN Reason: Cramping Referrals: Jesus Ott [Staff Physician] - - Critical Care Critical Care Time: No Attestation: On 12/06/17, the high probability of a clinically significant, sudden or life threatening deterioration of the following system(s) required my full and direct attention, intervention and personal management. The time I documented below is in addition to time spent performing reported procedures but includes the following listed in this critical care notation. Medical Decision Making - Medical Records Medical records reviewed: Yes: I reviewed the patient's medical records. Vital Signs: 12/06/17 14:42 12/06/17 15:33 Temperature 97.7 F 99.1 F Temperature Source Temporal Artery Scan Oral Pulse Rate [Brachial] 61 57 L Respiratory Rate 20 20 Blood Pressure [Right Arm] 114/47 88/38 Blood Pressure Mean [Right Arm] 69 54 Blood Pressure Source [Right Arm] Automatic Cuff Automatic Cuff Blood Pressure Position [Right Arm] Sitting Supine 02 Sat by Pulse Oximetry 99 97 Oxygen Delivery Method Room Air Room Air - Lab Data Lab results reviewed: Yes: I reviewed the patient's lab results. Lab Results 12/06/17 16:05: WBC 10.8, RBC 3.84 L, Hgb 11.2 L, Hct 33.4 L, MCV 87.1, MCH 29.2, MCHC 33.5, RDW 14.2, Plt Count 272, MPV 7.4, Neut % (Auto) 61.6, Lymph % (Auto) 30.2, [place] % (Auto) 4.1, Eos % (Auto) 3.5, Baso % (Auto) 0.7, Neut # (Auto) 6.7, Lymph # (Auto) 3.3, [place] # (Auto) 0.4, Eos # (Auto) 0.4, Baso # (Auto) 0.1 12/06/17 16:05: Sodium 138, Potassium 4.1, Chloride 105, Carbon Dioxide 26, Anion Gap 11.1, BUN 10, Creatinine 0.94, Estimated Creat Clear 106, Estimated GFR 61, Est GFR ( Amer) 74, Glucose 175 H, Calcium 8.8, Total Bilirubin 0.1 L, AST 10 L, ALT 25, Alkaline Phosphatase 70, Total Protein 6.7, Albumin 3.3 L, Globulin 3.4 H, Albumin/Globulin Ratio 1.0 L 12/06/17 16:05: Lipase 64 L 12/06/17 17:30: Urine Color Yellow, Urine Appearance Cloudy, Urine pH 5.5, Ur Specific [place] 1.025, Urine Protein 1+, Urine Glucose (UA) Negative, Urine Ketones Trace, Urine Blood Negative, Urine Nitrate Negative, Urine Bilirubin Negative, Urine Urobilinogen 0.2, Ur Leukocyte Esterase 3+ A Result diagrams: 12/06/17 16:05 12/06/17 16:05 Orders (Tests/Meds): ED MEDICATIONS Discontinued Medications Generic Name Dose Route Start Last Admin Trade Name Freq PRN Reason Stop Dose Admin Dicyclomine HCl 20 mg 12/06/17 17:18 12/06/17 17:22 Bentyl 10mg Capsule PO 12/06/17 17:19 20 mg ONCE ONE Administration Sodium Chloride 1,000 mls @ 999 mls/hr 12/06/17 16:15 12/06/17 16:45 Sod Chlor 0.9% 1000ml Bag IV 12/06/17 17:15 999 mls/hr .Q1H1M CARLITOS Administration Ondansetron HCl 4 mg 12/06/17 17:18 12/06/17 17:22 Zofran 4mg/2ml Vial IV 12/06/17 17:19 4 mg ONCE ONE Administration ORDERS Category Date Time Status CT abdomen pelvis wo con Stat Cat Scan 12/06/17 15:52 Taken U
--- NOTE | 2017-12-06 17:18 | ED_ITS ---
ED Disposition Clinical Impression: Insulin dependent diabetes mellitus, Vomiting and diarrhea, UTI (urinary tract infection) Abdominal pain Qualifiers: Abdominal location: unspecified location Qualified Code(s): R10.9 - Unspecified abdominal pain Decubitus ulcer Qualifiers: Pressure ulcer location: other site Pressure ulcer stage: unspecified pressure ulcer stage Qualified Code(s): L89.899 - Pressure ulcer of other site, unspecified stage Disposition: Home, Self-Care Condition on Discharge: Good Instructions: DI for Diarrhea and Traveler's Diarrhea -- Adult, How to Prevent Pressure Ulcers, Pressure Sores Additional Instructions: Bentyl for cramping, Rx Keflex, see Dr. Ott one to three days for recheck abdomen and recheck ulcer Prescriptions: Ondansetron [Zofran 4mg ODT] 4 mg PO Q8HP PRN #10 tab.rapdis PRN Reason: nausea/vomiting cephALEXin [Keflex 500mg Cap] 500 mg PO QID #40 cap cephALEXin [Keflex 500mg Cap] 500 mg PO QID #40 cap Dicyclomine HCl [Bentyl 10mg capsule] 0 mg PO TID PRN #10 cap PRN Reason: Cramping Referrals: Jesus Ott [Staff Physician] - - Critical Care Critical Care Time: No Attestation: On 12/06/17, the high probability of a clinically significant, sudden or life threatening deterioration of the following system(s) required my full and direct attention, intervention and personal management. The time I documented below is in addition to time spent performing reported procedures but includes the following listed in this critical care notation. Medical Decision Making - Medical Records Medical records reviewed: Yes: I reviewed the patient's medical records. Vital Signs: 12/06/17 14:42 12/06/17 15:33 Temperature 97.7 F 99.1 F Temperature Source Temporal Artery Scan Oral Pulse Rate [Brachial] 61 57 L Respiratory Rate 20 20 Blood Pressure [Right Arm] 114/47 88/38 Blood Pressure Mean [Right Arm] 69 54 Blood Pressure Source [Right Arm] Automatic Cuff Automatic Cuff Blood Pressure Position [Right Arm] Sitting Supine 02 Sat by Pulse Oximetry 99 97 Oxygen Delivery Method Room Air Room Air - Lab Data Lab results reviewed: Yes: I reviewed the patient's lab results. Lab Results 12/06/17 16:05: WBC 10.8, RBC 3.84 L, Hgb 11.2 L, Hct 33.4 L, MCV 87.1, MCH 29.2 , MCHC 33.5, RDW 14.2, Plt Count 272, MPV 7.4, Neut % (Auto) 61.6, Lymph % (Auto ) 30.2, [place] % (Auto) 4.1, Eos % (Auto) 3.5, Baso % (Auto) 0.7, Neut # (Auto) 6.7, Lymph # (Auto) 3.3, [place] # (Auto) 0.4, Eos # (Auto) 0.4, Baso # (Auto) 0.1 12/06/17 16:05: Sodium 138, Potassium 4.1, Chloride 105, Carbon Dioxide 26, Anion Gap 11.1, BUN 10, Creatinine 0.94, Estimated Creat Clear 106, Estimated GFR 61, Est GFR ( Amer) 74, Glucose 175 H, Calcium 8.8, Total Bilirubin 0.1 L, AST 10 L, ALT 25, Alkaline Phosphatase 70, Total Protein 6.7, Albumin 3.3 L, Globulin 3.4 H, Albumin/Globulin Ratio 1.0 L 12/06/17 16:05: Lipase 64 L 12/06/17 17:30: Urine Color Yellow, Urine Appearance Cloudy, Urine pH 5.5, Ur Specific [place] 1.025, Urine Protein 1+, Urine Glucose (UA) Negative, Urine Ketones Trace, Urine Blood Negative, Urine Nitrate Negative, Urine Bilirubin Negative, Urine Urobilinogen 0.2, Ur Leukocyte Esterase 3+ A Result diagrams: 12/06/17 16:05 12/06/17 16:05 Orders (Tests/Meds): ED MEDICATIONS Discontinued Medications Generic Name Dose Route Start Last Admin Trade Name Freq PRN Reason Stop Dose Admin Dicy
[2017-12-06 18:15] LABS: Microscopic, Urine URINE MICROSCOPIC (MICROSCOPIC)
[2017-12-06 18:20] LABS: Appearance,Urine CLOUDY (Clear); Bilirubin,Urine Negative (Negative); Blood, Urine Negative (Negative); Color,Urine YELLOW (Yellow); Glucose,Urine (UA) Negative (Negative); Ketones,Urine TRACE (Negative); Leukocyte Esterase,Urine 3+ (Negative); Nitrate,Urine Negative (Negative); PH,Urine 5.5 (5.0-8.5); Protein,Urine 1+ (Negative); Specific Gravity, Urine 1.025 (1.005-1.030); Urobilinogen,Urine 0.2 EU/dl (0.2)
[2017-12-06 18:43] LABS: Bacteria,Urine 4+ /lpf; WBC,Urine TNTC #/hpf (0-3)
[2017-12-06 19:09] VITALS: BP 113/57; PULSE 50; RESP 16; TEMP 37.2; O2SAT 97
== END 2017-12-06 18:15 | disposition home or self-care (01) ==
LOC: UTC 14:40 → ER 15:25
PROVIDERS: Emergency Provider Emergency Medicine
DX: N39.0 Urinary tract infection, site not specified (principal); E11.65 Type 2 diabetes mellitus with hyperglycemia; Z79.4 Long term (current) use of insulin; Z79.84 Long term (current) use of oral hypoglycemic drugs; L89.899 Pressure ulcer of other site, unspecified stage; I10 Essential (primary) hypertension; K21.9 Gastro-esophageal reflux disease without esophagitis; I50.9 Heart failure, unspecified; J44.9 Chronic obstructive pulmonary disease, unspecified; Z79.82 Long term (current) use of aspirin; Z88.2 Allergy status to sulfonamides; Z88.1 Allergy status to other antibiotic agents
CPT/HCPCS: 74176; 80053; 81001; 83690; 85025; 87070; 87077; 87086; 87088; 87186; 87205; 96365; 96375; 99291; J2405

== ENCOUNTER → 2017-12-11 10:04 | Outpatient (CLI) | payer MEDICARE, MEDICAID, SELFPAY ==
--- NOTE | 2017-12-11 10:14 | XR_ITS ---
XR hip LT 2-3V w/pelvis HISTORY: Left hip pain ORDERING PHYSICIAN: Jesus Ott PATIENT AGE: 56 years COMPARISON: 05/18/2016 FINDINGS: No acute fracture or dislocation. There are mild osteoarthritic changes of the left hip with either ununited ossification centers or old avulsion fracture of the greater tuberosity superiorly and hypertrophic changes of the greater tuberosity inferiorly. These findings are unchanged IMPRESSION: 1. No acute fracture. 2. Osteoarthritis
--- NOTE | 2017-12-11 10:14 | XR_ITS ---
XR chest 2V HISTORY: ITS.REASON: COUGH,SOA,COPD ORDERING PHYSICIAN: Jesus Ott PATIENT AGE: 56 years COMPARISON: 11/05/2017 FINDINGS: The cardiomediastinal silhouette and pulmonary vascularity are within normal limits. Multiple calcified nodes are present in the polly. The right CP angle is omitted from the exam. The remaining lungs are clear. Degenerative changes are present in the thoracic spine. IMPRESSION: No acute finding.
== END ==
PROVIDERS: PCP Internal Medicine; Visit Provider Internal Medicine
DX: R05 Cough (principal); R06.02 Shortness of breath; J44.0 Chronic obstructive pulmonary disease with (acute) lower respiratory infection; M25.552 Pain in left hip
CPT/HCPCS: 71046; 73502

== ENCOUNTER → 2017-12-25 09:13 | Outpatient (CLI) | payer MEDICARE, MEDICAID, SELFPAY | PROVIDERS: Visit Provider Podiatrist | DX: E11.621 Type 2 diabetes mellitus with foot ulcer (principal); L97.509 Non-pressure chronic ulcer of other part of unspecified foot with unspecified severity ==

== ENCOUNTER 2018-01-08 10:47 | Outpatient (CLI) | payer MEDICARE, MEDICAID, SELFPAY ==
[2018-01-08 11:00] VITALS: BMI 35.5
[2018-01-08 11:45] VITALS: BP 102/78; PULSE 66; RESP 20; TEMP 36.9; O2SAT 96
[2018-01-08 12:01] LABS: Basophils # 0.1 K/mm3 (0-0.2); Basophils % 0.7 % (0.1-2.0); Eosinophils # 0.2 K/mm3 (0.0-0.4); Eosinophils % 2.1 % (0.1-12.0); Hematocrit 35.9 % (37.0-47.0); Hemoglobin 11.7 g/dL (12.2-16.2); Lymphocytes # 3.1 K/mm3 (0.7-4.5); Mean Corpuscular HGB Conc 32.4 g/dL (31.8-35.4); Mean Corpuscular Hemoglobin 28.4 pg (27.0-31.2); Mean Corpuscular Volume 87.6 fl (81-99); Mean Platelet Volume 7.1 fl (7.4-10.4); Monocytes # 0.4 K/mm3 (0.1-1.0); Monocytes % 3.6 % (1.7-9.3); Neutrophils # 6.2 K/mm3 (1.8-7.8); Neutrophils % 62.6 % (37.0-80.0); Platelet Count 322 K/mm3 (142-424); Red Cell Distribution Width 12.9 % (11.5-17.5); White Blood Count 9.9 K/mm3 (4.8-10.8)
[2018-01-08 12:22] LABS: Alanine Aminotransferase 16 U/L (12-78); Albumin Level 3.6 gm/dL (3.4-5.0); Albumin/Globulin Ratio 1.2 (1.1-1.8); Alkaline Phosphatase 70 U/L (46-116); Anion Gap 15.3 mEq/L (5-15); Aspartate Amino Transferase 8 U/L (15-37); Bilirubin,Total 0.2 mg/dL (0.2-1.0); Blood Urea Nitrogen 9 mg/dL (7-18); Calcium 8.8 mg/dL (8.5-10.1); Carbon Dioxide 24 mmol/L (21.0-32.0); Chloride 108 mmol/L (98-107); Chol/HDL Ratio 5.1 (1-3.5); Cholesterol 178 mg/dL (140-200); Creatinine Clearance Estimated 110 mL/min (0-300); Creatinine,Serum 0.87 mg/dL (0.55-1.02); Estimated Glomerular Filt Rate 67 ml/min (>60); GFR (African American) 81 ML/MIN (>60); Glucose 175 mg/dL (74-106); HDL Cholesterol 35 mg/dL (29-89); Potassium 4.3 mmoL/L (3.5-5.1); Sodium 143 mmol/L (136-145); Thyroid Stimulating Hormone 0.96 uIU/ml (0.358-3.740); Total Protein,Serum 6.6 gm/dL (6.4-8.2); Triglycerides 400 mg/dL (30-200)
[2018-01-08 12:28] LABS: Hemoglobin A1C 6.8 % (0.0-7.0)
[2018-01-08 12:45] VITALS: BP 102/58; PULSE 66; RESP 20; TEMP 36.9; O2SAT 96
[2018-01-08 13:45] VITALS: BP 125/74; PULSE 68; RESP 20; TEMP 36.9; O2SAT 96
[2018-01-08 14:45] VITALS: BP 100/56; PULSE 66; RESP 20; TEMP 36.4; O2SAT 96
[2018-01-08 15:25] VITALS: BP 102/55; PULSE 66; RESP 20; TEMP 36.4; O2SAT 96
== END 2018-01-08 15:30 | disposition home or self-care (01) ==
LOC: INF 10:48
PROVIDERS: PCP Internal Medicine; Visit Provider Internal Medicine
DX: J44.1 Chronic obstructive pulmonary disease with (acute) exacerbation (principal); I25.10 Atherosclerotic heart disease of native coronary artery without angina pectoris; E11.59 Type 2 diabetes mellitus with other circulatory complications
CPT/HCPCS: 80053; 80061; 82533; 83036; 84443; 85025; 96360; 96361

== ENCOUNTER → 2018-01-15 11:04 | Outpatient (CLI) | payer MEDICARE, MEDICAID, SELFPAY ==
[2018-01-16 16:17] LABS: HIV Screen 4th Generation wRfx Non Reactive (Non Reactive)
== END ==
PROVIDERS: Visit Provider Internal Medicine
DX: Z11.4 Encounter for screening for human immunodeficiency virus [HIV] (principal)
CPT/HCPCS: 36415; 86703; G0432

== ENCOUNTER → 2018-01-22 10:58 | Outpatient (CLI) | payer MEDICARE, MEDICAID, SELFPAY | PROVIDERS: PCP Internal Medicine; Visit Provider Internal Medicine | DX: R42 Dizziness and giddiness (principal); R07.9 Chest pain, unspecified; R00.1 Bradycardia, unspecified | CPT/HCPCS: 93225; 93226 ==

== ENCOUNTER → 2018-01-25 14:32 | Outpatient (REF) | payer MEDICARE, MEDICAID, SELFPAY | LOC: LAB 14:32 | PROVIDERS: Visit Provider Internal Medicine | DX: L97.523 Non-pressure chronic ulcer of other part of left foot with necrosis of muscle (principal) | CPT/HCPCS: 87070; 87077; 87186; 87205 ==

== ENCOUNTER → 2018-02-01 13:06 | Outpatient (CLI) | payer MEDICARE, MEDICAID, SELFPAY ==
--- NOTE | 2018-02-01 13:17 | XR_ITS ---
XR foot wt bearing LT 3V HISTORY: ITS.REASON: left foot diabetic ulcer ORDERING PHYSICIAN: Linda Huddleston DPM PATIENT AGE: 57 years COMPARISON: None FINDINGS: No fracture or dislocation. No lytic or blastic change. There is normal mineralization.. The joint spaces are well-preserved. No significant degenerative/arthritic changes. No erosive changes evident. There are hypertrophic changes along the distal and medial aspect of the proximal phalanx of the great toe IMPRESSION: Negative, no acute finding
--- NOTE | 2018-02-01 13:17 | XR_ITS ---
XR foot wt bearing RT 3V HISTORY: Diabetic ulcer ITS.REASON: Left foot diabetic ulcer ORDERING PHYSICIAN: Linda Huddleston DPM PATIENT AGE: 57 years COMPARISON: None FINDINGS: There has been prior amputation at the mid aspect of the proximal phalanx of the third toe. No bony erosive changes are evident. Normal alignment with no fracture or dislocation. Flexion deformity involving the second and fourth toes. IMPRESSION: No acute finding. Prior amputation of the third toe. Flexion deformity of second and fourth toes
[2018-02-01 14:05] LABS: Hemoglobin A1C 6.6 % (0.0-7.0)
[2018-02-01 14:56] LABS: Basophils # 0.1 K/mm3 (0-0.2); Basophils % 0.7 % (0.1-2.0); Eosinophils # 0.4 K/mm3 (0.0-0.4); Eosinophils % 5.8 % (0.1-12.0); Hematocrit 35.2 % (37.0-47.0); Hemoglobin 11.8 g/dL (12.2-16.2); Lymphocytes # 2.5 K/mm3 (0.7-4.5); Lymphocytes % 34.6 K/mm3 (10-50); Mean Corpuscular HGB Conc 33.4 g/dL (31.8-35.4); Mean Corpuscular Hemoglobin 28.9 pg (27.0-31.2); Mean Corpuscular Volume 86.5 fl (81-99); Mean Platelet Volume 6.9 fl (7.4-10.4); Monocytes # 0.3 K/mm3 (0.1-1.0); Monocytes % 3.9 % (1.7-9.3); Neutrophils % 54.9 % (37.0-80.0); Platelet Count 329 K/mm3 (142-424); Red Blood Count 4.07 M/mm3 (4.20-5.40); Red Cell Distribution Width 12.7 % (11.5-17.5); White Blood Count 7.2 K/mm3 (4.8-10.8)
[2018-02-01 16:09] LABS: Alanine Aminotransferase 18 U/L (12-78); Albumin Level 3.6 gm/dL (3.4-5.0); Albumin/Globulin Ratio 1.2 (1.1-1.8); Alkaline Phosphatase 73 U/L (46-116); Anion Gap 15.5 mEq/L (5-15); Aspartate Amino Transferase 12 U/L (15-37); Bilirubin,Total 0.2 mg/dL (0.2-1.0); Blood Urea Nitrogen 10 mg/dL (7-18); Calcium 9.2 mg/dL (8.5-10.1); Carbon Dioxide 24 mmol/L (21.0-32.0); Chloride 105 mmol/L (98-107); Estimated Glomerular Filt Rate 86 ml/min (>60); GFR (African American) 104 ML/MIN (>60); Globulin 3.1 gm/dl (1.3-3.2); Glucose 163 mg/dL (74-106); Potassium 4.5 mmoL/L (3.5-5.1); Sodium 140 mmol/L (136-145); Total Protein,Serum 6.7 gm/dL (6.4-8.2)
[2018-02-01 16:24] LABS: C-Reactive Protein < 0.2 mg/L (0.0-0.9)
[2018-02-01 18:12] LABS: Erythrocyte Sedimentation Rate 21 mm/hr (0-30)
== END ==
PROVIDERS: Visit Provider Podiatrist
DX: E11.621 Type 2 diabetes mellitus with foot ulcer (principal); E11.9 Type 2 diabetes mellitus without complications
CPT/HCPCS: 36415; 73630; 80053; 83036; 85025; 85651; 86140

== ENCOUNTER 2018-02-23 10:43 | Outpatient (CLI) | payer MEDICARE, MEDICAID, SELFPAY ==
[2018-02-23 11:03] VITALS: BP 114/52; PULSE 67; RESP 18; TEMP 36.6; O2SAT 98; BMI 36.1
--- NOTE | 2018-02-23 11:31 | PC.NURSE ---
injections administered in gil buttocks
--- NOTE | 2018-02-23 11:52 | PC.NURSE ---
pt requests clarification as to if she needs to continue the abx that had previously been started for the infection. per millie phillips aprn, stop cephalexin, directions on med passed on to pt. information about infection provided to patient as well.
== END 2018-02-23 11:45 | disposition home or self-care (01) ==
LOC: INF 10:45
PROVIDERS: PCP Emergency Medicine; Visit Provider Emergency Medicine
DX: N39.0 Urinary tract infection, site not specified (principal)
CPT/HCPCS: 96372; J1335

== ENCOUNTER 2018-02-24 12:06 | Outpatient (CLI) | payer MEDICARE, MEDICAID, SELFPAY ==
[2018-02-24 12:19] VITALS: BP 109/65; PULSE 78; RESP 18; O2SAT 93; BMI 36.1
--- NOTE | 2018-02-24 12:31 | PC.NURSE ---
medication split into 2 injections. given in gil buttock area
== END 2018-02-24 12:30 | disposition home or self-care (01) ==
PROVIDERS: PCP Emergency Medicine; Visit Provider Emergency Medicine
DX: N39.0 Urinary tract infection, site not specified (principal)
CPT/HCPCS: 96372; J1335

== ENCOUNTER 2018-02-25 08:53 | Outpatient (CLI) | payer MEDICARE, MEDICAID, SELFPAY ==
[2018-02-25 09:14] VITALS: BP 124/69; PULSE 62; RESP 20; TEMP 36.6; O2SAT 99
== END 2018-02-25 09:35 | disposition home or self-care (01) ==
LOC: INF 08:55
PROVIDERS: PCP Internal Medicine; Visit Provider Emergency Medicine
DX: N39.0 Urinary tract infection, site not specified (principal)
CPT/HCPCS: 96372; J1335

== ENCOUNTER 2018-02-26 13:48 | Outpatient (CLI) | payer MEDICARE, MEDICAID, SELFPAY ==
[2018-02-26] VITALS (7 sets, daily range): BP systolic 86–110; BP diastolic 40–56; PULSE 65–74; RESP 18; TEMP 36.6–37.2; O2SAT 96–97
== END 2018-02-26 17:42 | disposition home or self-care (01) ==
LOC: INF 13:49
PROVIDERS: PCP Emergency Medicine; Visit Provider Emergency Medicine
DX: N39.0 Urinary tract infection, site not specified (principal)
CPT/HCPCS: 96360; 96361; 96372; J1335

== ENCOUNTER 2018-02-27 15:45 | Outpatient (CLI) | payer MEDICARE, MEDICAID, SELFPAY ==
[2018-02-27 16:15] VITALS: BP 123/79; PULSE 75; RESP 18; TEMP 37.2; O2SAT 99
== END 2018-02-27 16:30 | disposition home or self-care (01) ==
LOC: INF 15:51
PROVIDERS: Family Provider Internal Medicine Adolescent Medicine; PCP Emergency Medicine; Visit Provider Emergency Medicine
DX: N39.0 Urinary tract infection, site not specified (principal)
CPT/HCPCS: 96372; J1335

== ENCOUNTER 2018-02-28 14:00 | Outpatient (RCR) | payer MEDICARE, MEDICAID, SELFPAY ==
--- NOTE | 2017-12-28 15:49 | HMH.PTOPEV ---
Rehab Outpatient Evaluation Rehab OP Evaluation Start: 12/28/17 14:12 Freq: Status: Active Protocol: Document 12/28/17 15:32 PHORNE (Rec: 12/28/17 15:46 PHORNE [id number]) Electronically Signed By Jaron Prince, PT 12/28/17 15:32 Outpatient Therapy Subjective History Subjective History Pt presents with c/o left side hip and back pain x 6 mos S/P fall. Pt states, I just passed out and fell over onto my left hip and it has hurt ever since. Pt has hx of chronic back pain as well as DM, COPD, CHF, Cirrhosis, OA, DDD, and is current smoker. She reports pain is constant and worse when bending over. Chief Complaint Pain Symptom Type Ache Throb Symptoms Relieved By Nothing Symptoms Aggravated By Bending/Stooping Prior Functional Limitations Walking Current Functional Limitations Sleeping Walking Bending/Stooping Symptom Description Constant and Continuous Level of pain today (0-10) 9 Pain scale - at its worst (0-10) 10 Hip/Knee Eval Gait Observation General Gait Pattern Observation Antalgic Gait Palpation Tenderness left Hip Palpation Findings Tenderness MMT Hip Flexion Strength Grade 3 Fair Hip Abduction Strength Grade 3 Fair Hip Adduction Strength Grade 5 Normal Hip Extension Strength Grade 5 Normal Gluteus Bassem Strength Grade 5 Normal Hip External Rotation Strength Grade 5 Normal Hip Internal Rotation Strength Grade 5 Normal Special Tests Hip Lenore Test Positive Left Outpatient Therapy Assessment Impairments Problems/Impairmments Palpation Tenderness Impaired Walking Impaired Standing Impaired Bending Subjective C/O Pain Impaired Self Care/Self Management Prognosis Rehab Potential Fair Clinical Impression Consistent with Diagnosis Yes Short Term Goals Number of Weeks 4 Decreased Palpation Tenderness Yes: to min Increase Strength Yes: left LE 4/5 throughout Decrease Subjective C/O Pain Yes: 04/09 Patient to be Ind w/ HEP Yes Custodial Goals Number of Weeks 8 Decreased Palpation Tenderness Yes: to none Increase Strength Yes: left LE 4+/5 th
== END 2018-02-28 14:01 | disposition home or self-care (01) ==
LOC: PT 14:00
PROVIDERS: Family Provider Internal Medicine Adolescent Medicine; PCP Nurse Practitioner Family; Visit Provider Orthopaedic Surgery
DX: M54.5 Low back pain (principal); M70.62 Trochanteric bursitis, left hip
CPT/HCPCS: 97010; 97014; 97033; 97035; 97110; G0283

== ENCOUNTER 2018-02-28 14:00 | Outpatient (RCR) | payer MEDICARE, MEDICAID, SELFPAY ==
--- NOTE | 2017-12-28 15:31 | HMH.PTOPWND ---
Rehab Outpt Wound Evaluation Rehab OP Wound Evaluation Start: 12/28/17 14:56 Freq: Status: Active Protocol: Document 12/28/17 14:57 PHORFELIPE (Rec: 12/28/17 15:29 PHORNE [id number]) Electronically Signed By Jaron Prince, PT 12/28/17 14:57 Subjective/History History History Pt presents with c/o left foot and abdomen wounds present x 2-3 wks with insidious onset. Pt reports hx of DM, CHF, COPD , Cirrhosis, Osteoporosis, DDD , and is current 1 pk/day smoker. She reports tenderness around the abdominal wound, but limited sensatipon around her left foot wound. Wound Eval Wound Right Lower Abdomen Wound Staging Unstageable Query Text:Stage I - Unbroken, red skin, no blanching. Stage II - Skin broken, superficial skin loss involving epidermis alone or also dermis. Partial loss of skin layers. Stage III - Pressure area involves epidermis, dermis and subcutaneous tissue, full thickness skin loss. Stage IV - Pressure area involves epidermis, subcutaneous tissue, bone and other supportive tissue. Full thickness skin loss with extensive destruction of underlying tissue and structures. Wound Length (cm) 3.3 Wound Width (cm) 2.5 Wound Bed Appearance Yellow Percentage of Eschar (Yellow) (%) 100 Wound Margins Description Well Defined Surrounding Tissue Appearance [place] Drainage Description Serosanguineous Drainage Amount Small Primary Dressing Silver Dressing Comment Opticell Ag Wound Secondary Dressing Type Hydrocolloid Wound Debridement Method Forceps Wound Debridement Result Necrotic Tissue Remains Left Anterior Toe - 5th Digit Wound Type Diabetic Foot Ulcer Wound Length (cm) 1.0 Wound Width (cm) 0.6 Wound Bed Appearance Yellow White Percentage of Eschar (Yellow) (%) 100 Wound Margins Description Well Defined Surrounding Tissue Appearance [place] Drainage Description Serous Primary Dressing Composite Wound Debridement Method Forceps Wound Problems/Impairments Impairments Problems/Impairmments Palpation Tenderness Wound Care Needs Subjective C/O Pain Impaired
== END 2018-02-28 14:01 | disposition home or self-care (01) ==
LOC: PT 14:00
PROVIDERS: Family Provider Internal Medicine Adolescent Medicine; PCP Nurse Practitioner Family; Visit Provider Internal Medicine
DX: L98.491 Non-pressure chronic ulcer of skin of other sites limited to breakdown of skin (principal); L97.521 Non-pressure chronic ulcer of other part of left foot limited to breakdown of skin; L97.511 Non-pressure chronic ulcer of other part of right foot limited to breakdown of skin
CPT/HCPCS: 97162; 97597

== ENCOUNTER 2018-02-28 14:20 | Outpatient (CLI) | payer MEDICARE, MEDICAID, SELFPAY ==
[2018-02-28 14:40] VITALS: BP 145/74; PULSE 85; RESP 20; TEMP 37.2; O2SAT 97
== END 2018-02-28 14:55 | disposition home or self-care (01) ==
LOC: INF 14:26
PROVIDERS: Family Provider Internal Medicine Adolescent Medicine; PCP Emergency Medicine; Visit Provider Emergency Medicine
DX: N39.0 Urinary tract infection, site not specified (principal)
CPT/HCPCS: 96372; J1335

== ENCOUNTER 2018-03-01 15:06 | Outpatient (CLI) | payer MEDICARE, MEDICAID, SELFPAY ==
[2018-03-01 15:20] VITALS: BP 111/61; PULSE 82; RESP 20; TEMP 36.9; O2SAT 96
[2018-03-01 15:30] VITALS: BP 111/61; PULSE 82; RESP 20; TEMP 36.9; O2SAT 96
--- NOTE | 2018-03-01 16:51 | PC.NURSE ---
given in each buttocks
== END 2018-03-01 15:30 | disposition home or self-care (01) ==
LOC: INF 15:06
PROVIDERS: Family Provider Internal Medicine Adolescent Medicine; PCP Emergency Medicine; Visit Provider Emergency Medicine
DX: N39.0 Urinary tract infection, site not specified (principal)
CPT/HCPCS: 96372; J1335

== ENCOUNTER → 2018-03-02 12:09 | Outpatient (CLI) | payer MEDICARE, MEDICAID, SELFPAY ==
[2018-03-02 15:38] VITALS: BP 141/80; PULSE 70; RESP 18; TEMP 36.4; O2SAT 97; BMI 41.1
== END ==
PROVIDERS: Family Provider Internal Medicine Adolescent Medicine; PCP Emergency Medicine; Visit Provider Emergency Medicine
DX: N39.0 Urinary tract infection, site not specified (principal)
CPT/HCPCS: 96372; G0463; J1335

== ENCOUNTER → 2018-03-03 14:33 | Outpatient (CLI) | payer MEDICARE, MEDICAID, SELFPAY ==
[2018-03-03 14:33] VITALS: BP 97/53; PULSE 86; RESP 18; TEMP 36.7; O2SAT 98
[2018-03-03 16:19] VITALS: BP 97/53; PULSE 86; RESP 18; TEMP 36.7; O2SAT 98; BMI 37.9
== END ==
PROVIDERS: Family Provider Internal Medicine Adolescent Medicine; PCP Emergency Medicine; Visit Provider Emergency Medicine
DX: N39.0 Urinary tract infection, site not specified (principal)
CPT/HCPCS: 96372; G0463; J1335

== ENCOUNTER 2018-03-04 16:15 | Outpatient (CLI) | payer MEDICARE, MEDICAID, SELFPAY ==
[2018-03-04 16:25] VITALS: BP 148/76; PULSE 68; RESP 20; TEMP 36.9; O2SAT 96
[2018-03-04 17:10] VITALS: BP 148/76; PULSE 68; RESP 20; TEMP 36.9; O2SAT 96
== END 2018-03-04 16:45 | disposition home or self-care (01) ==
LOC: INF 16:52
PROVIDERS: Family Provider Internal Medicine Adolescent Medicine; PCP Emergency Medicine; Visit Provider Emergency Medicine
DX: N39.0 Urinary tract infection, site not specified (principal)
CPT/HCPCS: 96372; J1335

== ENCOUNTER → 2018-03-06 10:16 | Outpatient (CLI) | payer MEDICARE, MEDICAID, SELFPAY ==
--- NOTE | 2018-03-06 10:21 | XR_ITS ---
XR shoulder LT min 2V HISTORY: ITS.REASON: LT SHOULDER PAIN ORDERING PHYSICIAN: Jesus Ott PATIENT AGE: 57 years FINDINGS: Minimal osteoarthritic changes are present at the acromioclavicular joint. The glenohumeral joint has an unremarkable appearance. No fracture or dislocation. No lytic or blastic change. No change from 06/23/2016. Mild osteoarthritis of the acromioclavicular joint otherwise negative left shoulder.
[2018-03-06 11:08] LABS: Microscopic, Urine URINE MICROSCOPIC (MICROSCOPIC)
[2018-03-06 11:33] LABS: Appearance,Urine CLEAR (Clear); Bilirubin,Urine Negative (Negative); Blood, Urine Negative (Negative); Color,Urine YELLOW (Yellow); Glucose,Urine (UA) Negative (Negative); Ketones,Urine Negative (Negative); Leukocyte Esterase,Urine 1+ (Negative); Nitrate,Urine Negative (Negative); PH,Urine 5.5 (5.0-8.5); Protein,Urine Negative (Negative); Specific Gravity, Urine <= 1.005 (1.005-1.030); Urobilinogen,Urine 0.2 EU/dl (0.2)
[2018-03-06 11:55] LABS: Bacteria,Urine Trace /lpf
[2018-03-06 13:18] LABS: Anion Gap 12.8 mEq/L (5-15); Blood Urea Nitrogen 8 mg/dL (7-18); Carbon Dioxide 28 mmol/L (21.0-32.0); Chloride 105 mmol/L (98-107); Creatinine,Serum 0.93 mg/dL (0.55-1.02); Estimated Glomerular Filt Rate 62 ml/min (>60); GFR (African American) 75 ML/MIN (>60); Glucose 157 mg/dL (74-106); Potassium 3.8 mmoL/L (3.5-5.1); Sodium 142 mmol/L (136-145)
[2018-03-06 14:20] LABS: Basophils # 0.1 K/mm3 (0-0.2); Eosinophils # 0.6 K/mm3 (0.0-0.4); Eosinophils % 7.6 % (0.1-12.0); Hematocrit 35.9 % (37.0-47.0); Hemoglobin 11.4 g/dL (12.2-16.2); Lymphocytes # 2.1 K/mm3 (0.7-4.5); Lymphocytes % 27.4 K/mm3 (10-50); Mean Corpuscular HGB Conc 31.9 g/dL (31.8-35.4); Mean Corpuscular Hemoglobin 27.3 pg (27.0-31.2); Mean Corpuscular Volume 85.6 fl (81-99); Mean Platelet Volume 7.2 fl (7.4-10.4); Monocytes # 0.3 K/mm3 (0.1-1.0); Monocytes % 4.4 % (1.7-9.3); Neutrophils # 4.6 K/mm3 (1.8-7.8); Neutrophils % 59.6 % (37.0-80.0); Platelet Count 322 K/mm3 (142-424); Red Blood Count 4.19 M/mm3 (4.20-5.40); Red Cell Distribution Width 13.1 % (11.5-17.5); Reticulocyte % (Auto) 1.9 % (0.9-3.2); White Blood Count 7.7 K/mm3 (4.8-10.8)
[2018-03-07 09:23] LABS: Iron 43 ug/dL (27-159); UIBC 306 ug/dL (131-425)
[2018-03-07 11:17] LABS: Iron Saturation 12 % (15-55)
== END ==
PROVIDERS: PCP Internal Medicine; Visit Provider Internal Medicine
DX: M25.512 Pain in left shoulder (principal); D64.9 Anemia, unspecified; I10 Essential (primary) hypertension; I95.1 Orthostatic hypotension; N39.0 Urinary tract infection, site not specified
CPT/HCPCS: 36415; 73030; 80048; 81001; 83550; 85025; 85044; 87086

== ENCOUNTER → 2018-03-14 13:46 | Outpatient (CLI) | payer MEDICARE, MEDICAID, SELFPAY ==
--- NOTE | 2018-03-14 13:50 | MR_ITS ---
MR lumbar spine wo con, MR 3-d myelogram/MRCP HISTORY: Left-sided low back pain with bilateral leg pain and numbness and tingling Fell [id number] ago and fell on back. LT sided LBP. Bilateral Leg pain, numbness, and tingling. ITS.REASON: HEADACHE, HX HEAD TRAUMA, LBP ORDERING PHYSICIAN: Jesus Ott PATIENT AGE: 57 years Comparison: X-RAY 07-22-17, MRI 08/23/2016. TECHNIQUE: Standard multiplanar multiecho sequences are performed without contrast. 3-D MIP and myelographic images are also rendered and reviewed FINDINGS: There is normal alignment. Spinal cord ends at the L2 level. There is mild lumbar scoliosis convex left T11-T12: Degenerative disc disease with bulging disc along with facet and ligamentum flavum hypertrophy with moderate bilateral lateral recess narrowing. There is canal stenosis at 8 mm similar to the previous exam. T12-L1: Unremarkable. L1-L2: Degenerative disc disease with bulging disc along with facet and ligamentum flavum hypertrophy with bilateral lateral recess narrowing and bilateral foraminal narrowing. The disc is somewhat eccentric towards the right with moderate right lateral recess narrowing. There is mild wedging of L1 chest developed since 08/23/2016. This however does not demonstrate increase in STIR signal and does not appear acute. L2-L3: Mild facet and ligamentum hypertrophy with mild bilateral lateral recess narrowing. L3-L4: Moderate facet and ligamentum flavum hypertrophy with moderate bilateral lateral recess narrowing and moderate bilateral foraminal narrowing greater on the right. There is bulging disc at this level. There is transverse narrowing of the canal at 9 mm. Not signally change. L4-L5: Bulging disc with degenerative disc disease and facet and ligamentum hypertrophy with bilateral lateral recess narrowing and bilateral foraminal narrowing left greater than right not significant change. L5-S1: Degenerative disc disease with bulging disc and small broad-based central disc protrusion along with facet and ligamentum flavum hypertrophy. Central protruding disc is abutting the anteromedial aspect of both S1 nerve roots slightly more so towards the left. There is moderate facet ligamentous hypertrophy with bilateral foraminal narrowing left greater than right. These findings are not significant change. IMPRESSION: 1. There is mild wedging of L1 which is developed since the previous exam. No other significant changes are evident. 2. Multilevel degenerative disc disease with facet and ligamentum hypertrophy with lateral recess and foraminal narrowing and borderline canal stenosis along with bulging discs. These are described in detail above. Please see above for detailed description. These findings are overall not significant changed. 3. Bulging disc with central disc protrusion at L5-S1 not significantly changed
--- NOTE | 2018-03-14 13:50 | MR_ITS ---
MR head/brain wo con HISTORY: Headache nausea and dizziness and blurred vision ITS.REASON: HEADACHE, HX HEAD TRAUMA, LBP ORDERING PHYSICIAN: Jesus Ott PATIENT AGE: 57 years Comparison: None TECHNIQUE: Standard multiplanar multiecho sequences are performed without contrast. FINDINGS: No midline shift, mass effect, intracranial hemorrhage, hydrocephalus, or acute cortical infarction is evident. There are few scattered periventricular and subcortical T2 white matter hyperintensities which are nonspecific. Can't gyri and temporal horns are symmetric. No acute intracranial hemorrhage. The to therapy and optic chiasm are unremarkable. No cerebellar ectopia. No mastoid effusion or sinus air-fluid level. Small retention cyst or polyp is present in the left sphenoid sinus at 7 mm IMPRESSION: 1. No acute intracranial findings. 2. Minimal nonspecific T2 white matter hyperintensities and may be related to minor microangiopathic changes
== END ==
PROVIDERS: Family Provider Internal Medicine Adolescent Medicine; PCP Internal Medicine; Visit Provider Internal Medicine
DX: R51 Headache (principal); Z87.820 Personal history of traumatic brain injury; M54.5 Low back pain
CPT/HCPCS: 70551; 72148; 76376

== ENCOUNTER → 2018-03-29 06:25 | Outpatient (CLI) | payer MEDICARE, MEDICAID, SELFPAY ==
--- NOTE | 2018-03-29 06:27 | NM_ITS ---
History and Indications: Congestive heart failure, diabetes, hyperlipidemia, tobacco use, family history, chest pain, shortness of breath and fatigue Procedure: Patient received a 0.4 mg of Lexiscan, resting heart rate was 64 bpm resting blood pressure 141/74, with Lexiscan maximum heart rate achieved was 79 bpm which is 85% of the maximum predicted heart rate and a blood pressure was 138/63. With Lexiscan patient complained of shortness of breath. Electrocardiogram: Resting electrocardiogram showed sinus rhythm poor R wave progression, with Lexiscan there is less than 1.[address] segment depression noted from the baseline EKG. The EKG portion of the Lexiscan Myoview is nondiagnostic. Cardiac stress and resting SPECT images: Cardiac stress and rest SPECT images were obtained using technetium 99 Myoview 31.3 mCi at .1 millicuries at rest. Gated SPECT further analysis of segmental wall motion and calculation of the ejection fraction also done. Cardiac stress and rest images show uniform myocardial activity without any segmental perfusion abnormality, computer derived ejection fraction is 62% with no obvious regional wall motion abnormality, right ventricle is normal size and contractility. Conclusion: 1. The EKG portion of the Lexiscan Myoview is nondiagnostic. 2. No obvious scintigraphic evidence of reversible ischemia seen, computer derived ejection fraction is 62% with no obvious regional wall motion abnormality, right ventricle is normal size and contractility.
--- NOTE | 2018-03-29 09:40 | XR_ITS ---
XR shoulder LT min 2V HISTORY: ITS.REASON: left shoulder pain/ ORDERING PHYSICIAN: Jose Ramon Matta MD PATIENT AGE: 57 years Comparison: 03/06/2018 FINDINGS: There are mild osteoarthritic changes of the acromioclavicular joint. No fracture or dislocation. No lytic or blastic change. No significant subacromial stenosis. IMPRESSION: No change with no acute finding. Minimal osteoarthritic change acromioclavicular joint
--- NOTE | 2018-03-29 09:54 | HMH.ITSHM ---
ranitidine potassium ondansetron levothyroxine furosemide metformin lovastatin dicyclomine cyclobenaprine
== END ==
PROVIDERS: Family Provider Internal Medicine Adolescent Medicine; PCP Internal Medicine; Visit Provider Internal Medicine
DX: R07.9 Chest pain, unspecified (principal); R42 Dizziness and giddiness; I73.9 Peripheral vascular disease, unspecified; R53.1 Weakness; E11.9 Type 2 diabetes mellitus without complications; Z79.4 Long term (current) use of insulin
CPT/HCPCS: 73030; 78452; 93017; A9502; J2785

== ENCOUNTER → 2018-04-22 15:13 | Outpatient (CLI) | payer MEDICARE, MEDICAID, SELFPAY ==
[2018-04-22 15:16] LABS: Microscopic, Urine URINE MICROSCOPIC (MICROSCOPIC)
[2018-04-22 15:30] LABS: Basophils # 0.1 K/mm3 (0-0.2); Basophils % 0.6 % (0.1-2.0); Eosinophils # 0.3 K/mm3 (0.0-0.4); Eosinophils % 2.3 % (0.1-12.0); Hematocrit 38.4 % (37.0-47.0); Hemoglobin 12.6 g/dL (12.2-16.2); Lymphocytes # 2.7 K/mm3 (0.7-4.5); Lymphocytes % 24.5 K/mm3 (10-50); Mean Corpuscular HGB Conc 32.9 g/dL (31.8-35.4); Mean Corpuscular Hemoglobin 27.3 pg (27.0-31.2); Mean Corpuscular Volume 83.1 fl (81-99); Mean Platelet Volume 6.7 fl (7.4-10.4); Monocytes # 0.5 K/mm3 (0.1-1.0); Monocytes % 4.1 % (1.7-9.3); Neutrophils # 7.5 K/mm3 (1.8-7.8); Neutrophils % 68.4 % (37.0-80.0); Platelet Count 364 K/mm3 (142-424); Red Blood Count 4.62 M/mm3 (4.20-5.40); Red Cell Distribution Width 13.7 % (11.5-17.5)
[2018-04-22 15:39] LABS: Appearance,Urine CLEAR (Clear); Bilirubin,Urine Negative (Negative); Blood, Urine Negative (Negative); Color,Urine YELLOW (Yellow); Glucose,Urine (UA) Negative (Negative); Ketones,Urine Negative (Negative); Leukocyte Esterase,Urine 1+ (Negative); Nitrate,Urine Negative (Negative); Protein,Urine Negative (Negative); Urobilinogen,Urine 0.2 EU/dl (0.2)
[2018-04-22 15:59] LABS: Bacteria,Urine Trace /lpf
[2018-04-22 16:02] LABS: Blood Urea Nitrogen 9 mg/dL (7-18); Calcium 9.2 mg/dL (8.5-10.1); Carbon Dioxide 27 mmol/L (21.0-32.0); Chloride 106 mmol/L (98-107); Creatinine,Serum 0.63 mg/dL (0.55-1.02); Estimated Glomerular Filt Rate 97 ml/min (>60); GFR (African American) 117 ML/MIN (>60); Glucose 146 mg/dL (74-106); Sodium 144 mmol/L (136-145)
[2018-04-22 16:30] LABS: Adenovirus F 40/41, stool Not Detected (NotDetected); Astrovirus Not Detected (NotDetected); Campylobacter Not Detected (NotDetected); Clostridium Difficile A/B, PCR Not Detected (NotDetected); Cryptosporidium Not Detected (NotDetected); Cyclospora Cayetanesis Not Detected (NotDetected); Entamoeba histolytica Not Detected (NotDetected); Enteropathogenic E coli Not Detected (NotDetected); Enterotoxigenic E coli Not Detected (NotDetected); Giardia lamblia Not Detected (NotDetected); Norovirus Not Detected (NotDetected); Plesimonas Shigalloides, PCR Not Detected (NotDetected); Rotavirus A Not Detected (NotDetected); Salmonella, PCR Not Detected (NotDetected); Sapovirus Not Detected (NotDetected); Shiga-like toxin E coli Not Detected (NotDetected); Shigella Enterovasive E coli Not Detected (NotDetected); Vibrio Cholerae Not Detected (NotDetected); Vibrio, PCR Not Detected (NotDetected); Yersinia Entercolitica, PCR Not Detected (NotDetected)
[2018-04-22 19:38] LABS: Enteroaggregative E coli Detected (NotDetected)
== END ==
PROVIDERS: Visit Provider Internal Medicine
DX: R10.13 Epigastric pain (principal); R19.7 Diarrhea, unspecified; N39.0 Urinary tract infection, site not specified
CPT/HCPCS: 36415; 80048; 81001; 85025; 87086; 87088; 87186; 87507

== ENCOUNTER → 2018-05-07 15:03 | Outpatient (REF) | payer MEDICARE, MEDICAID, SELFPAY | LOC: LAB 15:03 | PROVIDERS: Visit Provider Internal Medicine | DX: N39.0 Urinary tract infection, site not specified (principal) | CPT/HCPCS: 87086; 87088; 87186 ==

== ENCOUNTER → 2018-06-04 09:34 | Outpatient (POV) | payer MEDICARE, MEDICAID, SELFPAY | PROVIDERS: Family Provider Internal Medicine Adolescent Medicine; PCP Internal Medicine; Visit Provider Otolaryngology | DX: Z00.00 Encounter for general adult medical examination without abnormal findings (principal) ==

== ENCOUNTER → 2018-06-11 12:56 | Outpatient (CLI) | payer MEDICARE, MEDICAID, SELFPAY ==
--- NOTE | 2018-06-11 12:58 | FL_ITS ---
FL barium swallow modified: 06/11/2018 12:58 PM CLINICAL HISTORY: Dysphasia ORDERING PHYSICIAN: Mariam Norris MD PATIENT AGE: 57 years Comparison: None TECHNIQUE: Patient administered varying consistencies of barium contrast, while viewed in lateral position under real-time fluoroscopy with cine recording. FLUOROSCOPY TIME: 3 minutes and 23 seconds The study was performed in conjunction with speech pathologist. Please see that report & recommendations. FINDINGS: Patient was given varying consistencies of barium. There was penetration into the vestibule with thin liquids and nectar consistency. No aspiration apparent. There was some pharyngeal and vallecular residual IMPRESSION: Vestibular penetration with thin and nectar consistency, no aspiration Please see speech pathologist report and recommendations.
== END ==
PROVIDERS: Family Provider Internal Medicine Adolescent Medicine; PCP Internal Medicine; Visit Provider Otolaryngology
DX: N39.0 Urinary tract infection, site not specified (principal); R13.10 Dysphagia, unspecified; K21.9 Gastro-esophageal reflux disease without esophagitis; R49.0 Dysphonia
CPT/HCPCS: 70371; 87086; 87088; 87186; 92611

== ENCOUNTER 2018-06-19 11:08 | Outpatient (CLI) | payer MEDICARE, MEDICAID, SELFPAY ==
[2018-06-19 11:42] VITALS: BP 132/71; PULSE 74; RESP 18; TEMP 36.6; O2SAT 99
== END 2018-06-19 11:45 | disposition home or self-care (01) ==
LOC: INF 11:08
PROVIDERS: Family Provider Internal Medicine Adolescent Medicine; PCP Internal Medicine; Visit Provider Internal Medicine
DX: N39.0 Urinary tract infection, site not specified (principal)
CPT/HCPCS: 96372

== ENCOUNTER → 2018-06-20 18:21 | Outpatient (CLI) | payer MEDICARE, MEDICAID, SELFPAY ==
[2018-06-20 18:40] VITALS: BP 143/83; PULSE 82; RESP 17; TEMP 37.1; O2SAT 94; BMI 34.5
== END ==
PROVIDERS: Family Provider Internal Medicine Adolescent Medicine; PCP Internal Medicine; Visit Provider Internal Medicine
DX: N39.0 Urinary tract infection, site not specified (principal)
CPT/HCPCS: 96372

== ENCOUNTER 2018-06-21 12:05 | Outpatient (CLI) | payer MEDICARE, MEDICAID, SELFPAY ==
[2018-06-21 12:20] VITALS: BP 130/76; PULSE 80; RESP 18; TEMP 36.2; O2SAT 95
[2018-06-21 12:25] VITALS: BP 130/76; PULSE 80; RESP 18; TEMP 36.2; O2SAT 95
== END 2018-06-21 12:25 | disposition home or self-care (01) ==
LOC: INF 12:18
PROVIDERS: Family Provider Internal Medicine Adolescent Medicine; PCP Internal Medicine; Visit Provider Internal Medicine
DX: N39.0 Urinary tract infection, site not specified (principal)
CPT/HCPCS: 96372

== ENCOUNTER → 2018-06-22 11:54 | Outpatient (CLI) | payer MEDICARE, MEDICAID, SELFPAY ==
[2018-06-22 12:16] VITALS: BMI 34.5
[2018-06-22 12:20] VITALS: BP 110/50; PULSE 83; RESP 18; TEMP 36.8; O2SAT 99
[2018-06-22 12:50] VITALS: BP 110/50; PULSE 83; RESP 18; TEMP 36.8; O2SAT 99
== END ==
PROVIDERS: Family Provider Internal Medicine Adolescent Medicine; PCP Internal Medicine; Visit Provider Internal Medicine
DX: N39.0 Urinary tract infection, site not specified (principal)
CPT/HCPCS: 96372

== ENCOUNTER → 2018-06-23 12:19 | Outpatient (CLI) | payer MEDICARE, MEDICAID, SELFPAY ==
[2018-06-23 12:43] VITALS: BP 133/71; PULSE 80; RESP 18; TEMP 36.8; O2SAT 95; BMI 34.5
== END ==
PROVIDERS: Family Provider Internal Medicine Adolescent Medicine; PCP Internal Medicine; Visit Provider Internal Medicine
DX: N39.0 Urinary tract infection, site not specified (principal)
CPT/HCPCS: 96372

== ENCOUNTER 2018-06-24 11:00 | Outpatient (CLI) | payer MEDICARE, MEDICAID, SELFPAY ==
[2018-06-24 11:15] VITALS: BP 112/71; PULSE 76; RESP 18; TEMP 36.6; O2SAT 95
== END 2018-06-24 11:30 | disposition home or self-care (01) ==
LOC: INF 11:10
PROVIDERS: PCP Internal Medicine; Visit Provider Internal Medicine
DX: N39.0 Urinary tract infection, site not specified (principal)
CPT/HCPCS: 96401

== ENCOUNTER 2018-07-05 14:00 | Outpatient (RCR) | payer MEDICARE, MEDICAID, SELFPAY ==
--- NOTE | 2018-07-01 11:38 | HMH.PTOPEV ---
PT Outpatient Evaluation Rehab PT Outpatient Evaluation Start: 07/01/18 11:20 Freq: Status: Active Protocol: Document 07/01/18 11:21 TACOS (Rec: 07/01/18 11:38 TACOS [id number]) Electronically Signed By Ashwin Ann, PT 07/01/18 11:21 Outpatient Therapy Subjective History Subjective History Pt reports h/o chronic L sided neck pain and L shoulder pain since falling ~8 months ago. Pt reports pain starts in neck and radiates down L UE to elbow level. Pt also reports L UE weakness and pain, and 'I think my rotary cup is damaged '. Chief Complaint Pain Stiff Paresthesia Weakness Symptom Type Ache Throb Sharp Dull Stabbing Burning Numbness Tingling Shooting Symptoms Relieved By Rest/Positioning Heat Symptoms Aggravated By Physical Activity Lifting Prior Functional Limitations Reaching Lifting Housework Current Functional Limitations Reaching Lifting Housework Symptom Description Constant but Variable Level of pain today (0-10) 10 Pain scale - at its best (0-10) 10 Pain scale - at its worst (0-10) 10 Cervical Eval Palpation Cervical Muscles L CT Junction L Upper Trapezius L Thoracic Paraspinals Cervical/Thoracic Palpation Findings Tenderness Posture Head/C-Spine Posture Sitting Position Flexed Head/C-Spine Posture Standing Position Flexed Flexibility Deficits Upper Trapezius Muscle Length (L) Moderate Tightness Levaetor Scapulae Muscle Length (L) Moderate Tightness Scalene Group Muscle Length (L) Moderate Tightness Passive Joint Mobility Cervical PIVM Dec: R OA L OA R AA L AA R C2/3 L C2/3 R C3/4 L C3/4
== END 2018-07-05 14:01 | disposition home or self-care (01) ==
LOC: PT 14:00
PROVIDERS: Family Provider Internal Medicine Adolescent Medicine; PCP Internal Medicine; Visit Provider Internal Medicine
DX: M75.102 Unspecified rotator cuff tear or rupture of left shoulder, not specified as traumatic (principal); M54.2 Cervicalgia
CPT/HCPCS: 97010; 97014; 97035; 97163; G0283

== ENCOUNTER 2018-07-22 08:43 | Outpatient (RCR) | payer MEDICARE, MEDICAID, SELFPAY ==
--- NOTE | 2018-07-22 09:53 | HMH.SLDYSPHA ---
Speech & Language Evaluation Speech/Language Dysphagia Evaluation Start: 07/22/18 09:33 Freq: ONCE Status: Active Protocol: Document 07/22/18 09:34 MARTHA (Rec: 07/22/18 09:53 MARTHA [id number]) Dysphagia Assess/Goals/Plan Assessment Date of Evaluation: 07/22/18 Evaluation Type Initial Certification Assessment/Problems Dysphagia Does Patient Qualify for Service Yes Qualify/Failure Comment Modified barium swallow dated: 06/11/2018 recommended therapy and diet modifications Recommendations PHYSICIAN CERTIFICATION: The specified therapy services are required, authorized, and reviewed every 30 days. Pt will be seen # times/week 2 for # weeks 4 Diet Recommendations Dysphagia Mechanical Soft Liquid Type Recommendations Normal/Thin SL Swallow Guidelines Alt bite w/sip thru meal Crush Meds Crush lge pills w/applesa Dysphagia Swallow Precautions/Strategies Sitting Upright (90 deg) Chin Tuck Supraglottic Swallow No Straw Liquids from Cup Small Bites and Sips Alternate Liquids/Solids Plan Anticipate reaching STG in # weeks 2 Anticipate reaching LTG in # weeks 4 Pt/Guardian verbally ack understanding Yes of dx/prognosis/goals G -code Required Yes G-CODES ST Current Status [id number] ST Current Status Modifier CJ-At least 20% but less than 40% impaired, limited or restricted ST Goal Status [id number] ST Goal Status Modifier CI-At least 1% but less than 20% impaired, limited or restricted STG-Asp Before/Tongue Control Produce a forceful fk/ at the end of 5 words in #trials STG-Asp During/Laryngeal Closure Use chin-down position w/wo cues #trials 3 Use supraglottic swallow for specified 3 consitencies w/wo cues in #trials Use Valsalva maneuver w/wo cues in # 5 trials STG-Asp Aft/Pyrif.-Laryn.Elevation Produce i/in continuous fashion, incl. 10 fasetto in # trials Education Pt/Caregiver able to recall information Able to recall/restate Speech & Language HPI History Present Illness Description of Patient Problem Choking with food and drinks Pt/Caregiver Concerns Coughing while eating or drinking Is this evaluation r/t stroke? No General Information General Current Food Consistancy Mechanical Soft Thin Liquids Denture Type NA Facial Symmetry
== END 2018-07-22 08:44 | disposition home or self-care (01) ==
LOC: ST 08:43
PROVIDERS: Family Provider Internal Medicine Adolescent Medicine; PCP Internal Medicine; Visit Provider Otolaryngology
DX: R13.10 Dysphagia, unspecified (principal)
CPT/HCPCS: 92610

== ENCOUNTER → 2018-07-29 14:15 | Outpatient (POV) | payer MEDICARE, MEDICAID, SELFPAY ==
[2018-07-29 14:28] VITALS: BP 109/67; PULSE 90; RESP 18; O2SAT 98
--- NOTE | 2018-07-29 15:40 | HMH.PMCON ---
Assessment and Plan (1) Degenerative disc disease, cervical Current visit: Yes Status: Chronic Category: Medical Code(s): M50.30 - Other cervical disc degeneration, unspecified cervical region (2) Degenerative disc disease, lumbar Current visit: Yes Status: Chronic Category: Medical Code(s): M51.36 - Other intervertebral disc degeneration, lumbar region (3) Lumbar radiculopathy Current visit: Yes Status: Chronic Category: Medical Code(s): M54.16 - Radiculopathy, lumbar region - Assessment and plan all Dx Assessment and Plan for all problems:: Patient and I had a discussion in regards to neuro stimulation. Patient would like to move forward with this. Patient's tried and failed conservative measures such as physical therapy, anti-inflammatories, medications, injections. Patient is not a narcotic candidate given her ORT scale. I will follow-up with the patient after her trial. We will send her for a psychological evaluation to determine if she is a good candidate. This note was dictated using voice recognition software and may contain errors or omissions HPI - Data of Consult Consult date: 07/29/18 Requesting Physician: Rosa Perez APRN Primary Care Provider: Jesus Ott - Consult Narrative Reason for consult: Back pain History of present illness: Ms. Healy is a 57 year old female presents today for consultation in regards to her back pain. Patient rates her pain today a 6 out of 10. She states is constant, achy, dull. She states that she has had no relief with injections, RFA, chiropractic therapy, physical therapy. Patient has had a compression fracture in the past. Patient states that standing and walking increases her pain while heat, ice, epen-hpi-dxeujoc creams and tramadol decreases her pain. Patient currently utilizes a back brace as needed. Patient does have an MRI showing multilevel degeneration along with facet arthropathy and other issues. CC: Rosa Perez APRN [facility] History I have reviewed the patient's past medical history: Yes Medical History: Reports:: Asthma (lung disease), Congestive Heart Failure, Chronic Obstructive Pulmonary Disease (COPD), Diabetes Mellitus Type 2, Gastroesophageal Reflux Disease(GERD), Hyperlipidemia, Hypertension Denies:: Cancer, Diabetes Mellitus Type 1, MRSA Other Medical History: Reports: Arthritis Other Surgeries: Yes: Cholecystectomy, Dilation and Curettage, Hernia Repair, Hysterectomy-Total, Hysterectomy-Partial, Thyroidectomy, Tubal Ligation, Other Amputation: Yes Fractures: No - *Social History Smoking Status: Current every day smoker Tobacco Type: cigarettes # Packs/Day (cigarettes): 1 Alcohol Intake: never Alcohol Intake Frequency:: other Substance Use Type: former substance user, crack/cocaine Occupational Status: other Housing: house - Psychiatric History Expresses thoughts of harming self/others: None Suicide Plan Description: No Plan *Family Hx:: Cancer Review of Systems - Review of Systems ROS General: no recent weight change, no fever, no sleep disturbances Respiratory: no cough, no shortness of air, no recurring pulmonary infections Cardiovascular/Peripheral Vascular: No chest pain, No palpitations, no edema, no shortness of breath. Gastrointestinal: no incontinence, normal bowel movements reported Genitourinary: no incontinence Musculoskeletal: Back pain, leg pain Psychiatric: normal mood/ affect Neurological: [denies weakness in extremities], [denies balance issues] Meds Home Medications Medication Instructions Recorded Confirmed Type Insulin NPH Human Isophane 60 unit SQ BID 10/06/17 07/23/18 History [Humulin N] Lovastatin 1 tab PO DAILY 10/06/17 07/23/18 History Metformin HCl 1 tab PO BID 10/06/17 07/23/18 History Oxybutynin Chloride [Oxybutynin 10 mg PO DAILY 10/06/17 07/23/18 History Chloride ER] raNITIdine HCl [Ranitidine HCl] 150 mg PO DAILY 10/06/17 07/23/18 History
--- NOTE | 2018-07-29 15:44 | P.CONS_ITS ---
Assessment and Plan (1) Degenerative disc disease, cervical Current visit: Yes Status: Chronic Category: Medical Code(s): M50.30 - Other cervical disc degeneration, unspecified cervical region (2) Degenerative disc disease, lumbar Current visit: Yes Status: Chronic Category: Medical Code(s): M51.36 - Other intervertebral disc degeneration, lumbar region (3) Lumbar radiculopathy Current visit: Yes Status: Chronic Category: Medical Code(s): M54.16 - Radiculopathy, lumbar region - Assessment and plan all Dx Assessment and Plan for all problems:: Patient and I had a discussion in regards to neuro stimulation. Patient would like to move forward with this. Patient's tried and failed conservative measures such as physical therapy, anti-inflammatories, medications, injections. Patient is not a narcotic candidate given her ORT scale. I will follow-up with the patient after her trial. We will send her for a psychological evaluation to determine if she is a good candidate. This note was dictated using voice recognition software and may contain errors or omissions HPI - Data of Consult Consult date: 07/29/18 Requesting Physician: Rosa Perez APRN Primary Care Provider: Jesus Ott - Consult Narrative Reason for consult: Back pain History of present illness: Ms. Healy is a 57 year old female presents today for consultation in regards to her back pain. Patient rates her pain today a 6 out of 10. She states is constant, achy, dull. She states that she has had no relief with injections, RFA, chiropractic therapy, physical therapy. Patient has had a compression fracture in the past. Patient states that standing and walking increases her pain while heat, ice, rvuy-evh-jsafnqc creams and tramadol decreases her pain. Patient currently utilizes a back brace as needed. Patient does have an MRI showing multilevel degeneration along with facet arthropathy and other issues. CC: Rosa Perez APRN [facility] History I have reviewed the patient's past medical history: Yes Medical History: Reports:: Asthma (lung disease), Congestive Heart Failure, Chronic Obstructive Pulmonary Disease (COPD), Diabetes Mellitus Type 2, Gastroesophageal Reflux Disease(GERD), Hyperlipidemia, Hypertension Denies:: Cancer, Diabetes Mellitus Type 1, MRSA Other Medical History: Reports: Arthritis Other Surgeries: Yes: Cholecystectomy, Dilation and Curettage, Hernia Repair, Hysterectomy-Total, Hysterectomy-Partial, Thyroidectomy, Tubal Ligation, Other Amputation: Yes Fractures: No - *Social History Smoking Status: Current every day smoker Tobacco Type: cigarettes # Packs/Day (cigarettes): 1 Alcohol Intake: never Alcohol Intake Frequency:: other Substance Use Type: former substance user, crack/cocaine Occupational Status: other Housing: house - Psychiatric History Expresses thoughts of harming self/others: None Suicide Plan Description: No Plan *Family Hx:: Cancer Review of Systems - Review of Systems ROS General: no recent weight change, no fever, no sleep disturbances Respiratory: no cough, no shortness of air, no recurring pulmonary infections Cardiovascular/Peripheral Vascular: No chest pain, No palpitations, no edema, no shortness of breath. Gastrointestinal: no incontinence, normal bowel movements reported Genitourinary: no incontinence Musculoskeletal: Back pain, leg pain Psychiatric: normal mood/ affect Neurological: [denies weakness in extremities], [denies balance issues] Meds
== END ==
PROVIDERS: PCP Internal Medicine; Visit Provider Clinical Nurse Specialist Family Health
DX: M50.30 Other cervical disc degeneration, unspecified cervical region (principal); M51.16 Intervertebral disc disorders with radiculopathy, lumbar region
CPT/HCPCS: 99202

== ENCOUNTER → 2018-08-20 14:44 | Outpatient (CLI) | payer MEDICARE, MEDICAID, SELFPAY ==
--- NOTE | 2018-08-20 14:54 | CT_ITS ---
CT head/brain wo con HISTORY: Headache, pain, dizziness with nausea and vomiting following injury ITS.REASON: CONCUSSION,HEADACHES,N/V ORDERING PHYSICIAN: Jesus Ott PATIENT AGE: 57 years COMPARISON: 07/23/2018 TECHNIQUE: Axial images obtained without contrast. Brain and bone windows reviewed. All CT scans at the facility use one or more dose reduction, viz: automated exposure control, ma/kV adjustment per patient size (including targeted exams where dose is matched to indication, i.e. head), or iterative reconstruction technique. FINDINGS: No midline shift, mass effect, intracranial hemorrhage, hydrocephalus, or extra-axial fluid collection is evident. There is some asymmetry in the occipital horns of the lateral ventricles with the right side being smaller than the left. This is of questioned clinical significance and is not significant changed and could be better evaluated with outpatient MRI if clinically desired. The calvarium has an unremarkable appearance. No mastoid effusion. No sinus air-fluid levels.. IMPRESSION: No acute intracranial findings with no significant change
== END ==
PROVIDERS: PCP Internal Medicine; Visit Provider Internal Medicine
DX: S06.0X0A Concussion without loss of consciousness, initial encounter (principal); R51 Headache; R11.0 Nausea; R42 Dizziness and giddiness
CPT/HCPCS: 70450

== ENCOUNTER → 2018-09-09 14:38 | Outpatient (CLI) | payer MEDICARE, MEDICAID, SELFPAY ==
[2018-09-09 14:55] LABS: Basophils # 0.1 K/mm3 (0-0.2); Basophils % 0.9 % (0.1-2.0); Eosinophils # 0.3 K/mm3 (0.0-0.4); Eosinophils % 2.9 % (0.1-12.0); Hematocrit 34.7 % (37.0-47.0); Hemoglobin 11.3 g/dL (12.2-16.2); Lymphocytes # 3.5 K/mm3 (0.7-4.5); Lymphocytes % 36.1 % (10-50); Mean Corpuscular HGB Conc 32.6 g/dL (31.8-35.4); Mean Corpuscular Hemoglobin 27.2 pg (27.0-31.2); Mean Corpuscular Volume 83.5 fl (81-99); Mean Platelet Volume 7.5 fl (7.4-10.4); Monocytes # 0.4 K/mm3 (0.1-1.0); Monocytes % 4.3 % (1.7-9.3); Neutrophils # 5.3 K/mm3 (1.8-7.8); Neutrophils % 55.7 % (37.0-80.0); Platelet Count 374 K/mm3 (142-424); Red Blood Count 4.15 M/mm3 (4.20-5.40); White Blood Count 9.6 K/mm3 (4.8-10.8)
[2018-09-09 16:31] LABS: Alanine Aminotransferase 18 U/L (12-78); Albumin Level 4.1 gm/dL (3.4-5.0); Albumin/Globulin Ratio 1.3 (1.1-1.8); Alkaline Phosphatase 81 U/L (46-116); Anion Gap 13.5 mEq/L (5-15); Aspartate Amino Transferase 11 U/L (15-37); Bilirubin,Total 0.3 mg/dL (0.2-1.0); Blood Urea Nitrogen 11 mg/dL (7-18); Calcium 8.7 mg/dL (8.5-10.1); Carbon Dioxide 26 mmol/L (21.0-32.0); Chloride 104 mmol/L (98-107); Chol/HDL Ratio 4.7 (1-3.5); Cholesterol 182 mg/dL (140-200); Creatinine,Serum 0.79 mg/dL (0.55-1.02); Estimated Glomerular Filt Rate 74 ml/min (>60); GFR (African American) 90 ML/MIN (>60); Globulin 3.2 gm/dl (1.3-3.2); Glucose 93 mg/dL (74-106); HDL Cholesterol 39 mg/dL (29-89); LDL Cholesterol 78 mg/dL (0-130); Potassium 3.5 mmoL/L (3.5-5.1); Sodium 140 mmol/L (136-145); Thyroid Stimulating Hormone 5.34 uIU/ml (0.358-3.740); Total Protein,Serum 7.3 gm/dL (6.4-8.2); Triglycerides 327 mg/dL (30-200); VLDL Cholesterol 65 mg/dL (0-40)
[2018-09-09 23:41] LABS: Hemoglobin A1C 6.3 % (0.0-7.0)
== END ==
PROVIDERS: Visit Provider Internal Medicine
DX: E11.59 Type 2 diabetes mellitus with other circulatory complications (principal); E78.5 Hyperlipidemia, unspecified; I10 Essential (primary) hypertension; J44.9 Chronic obstructive pulmonary disease, unspecified; R51 Headache
CPT/HCPCS: 36415; 80053; 80061; 83036; 84443; 85025

== ENCOUNTER → 2018-09-17 09:19 | Outpatient (POV) | payer MEDICARE, MEDICAID, SELFPAY | PROVIDERS: Visit Provider Otolaryngology | DX: Z00.00 Encounter for general adult medical examination without abnormal findings (principal) ==

== ENCOUNTER → 2018-10-28 16:15 | Outpatient (CLI) | payer MEDICARE, MEDICAID, SELFPAY ==
[2018-10-28 17:53] LABS: Blood Urea Nitrogen 16 mg/dL (7-18); Calcium 9.7 mg/dL (8.5-10.1); Carbon Dioxide 26 mmol/L (21.0-32.0); Chloride 108 mmol/L (98-107); Creatinine,Serum 0.71 mg/dL (0.55-1.02); Estimated Glomerular Filt Rate 84 ml/min (>60); GFR (African American) 102 ML/MIN (>60); Glucose 89 mg/dL (74-106); Sodium 144 mmol/L (136-145)
== END ==
PROVIDERS: Visit Provider Internal Medicine
DX: L85.3 Xerosis cutis (principal); E11.59 Type 2 diabetes mellitus with other circulatory complications; I10 Essential (primary) hypertension
CPT/HCPCS: 80048

== ENCOUNTER → 2019-02-03 14:38 | Outpatient (CLI) | payer MEDICARE, SELFPAY ==
[2019-02-03 15:33] LABS: Basophils # 0.1 K/mm3 (0-0.2); Basophils % 0.7 % (0.1-2.0); Eosinophils # 0.2 K/mm3 (0.0-0.4); Eosinophils % 2.9 % (0.1-12.0); Hematocrit 37.4 % (37.0-47.0); Lymphocytes # 2.4 K/mm3 (0.7-4.5); Lymphocytes % 34.1 % (10-50); Mean Corpuscular HGB Conc 32.2 g/dL (31.8-35.4); Mean Corpuscular Hemoglobin 27.4 pg (27.0-31.2); Mean Platelet Volume 6.6 fl (7.4-10.4); Monocytes # 0.3 K/mm3 (0.1-1.0); Monocytes % 3.6 % (1.7-9.3); Neutrophils # 4.2 K/mm3 (1.8-7.8); Neutrophils % 58.7 % (37.0-80.0); Platelet Count 335 K/mm3 (142-424); Red Cell Distribution Width 14.6 % (11.5-17.5); White Blood Count 7.1 K/mm3 (4.8-10.8)
[2019-02-03 16:28] LABS: Anion Gap 14.8 mEq/L (5-15); Blood Urea Nitrogen 13 mg/dL (7-18); Calcium 9.1 mg/dL (8.5-10.1); Carbon Dioxide 23 mmol/L (21.0-32.0); Chloride 107 mmol/L (98-107); Creatinine,Serum 0.66 mg/dL (0.55-1.02); Estimated Glomerular Filt Rate 91 ml/min (>60); GFR (African American) 111 ML/MIN (>60); Glucose 161 mg/dL (74-106); Potassium 3.8 mmoL/L (3.5-5.1); Sodium 141 mmol/L (136-145)
== END ==
PROVIDERS: Visit Provider Internal Medicine
DX: R60.9 Edema, unspecified (principal); R23.3 Spontaneous ecchymoses
CPT/HCPCS: 36415; 80048; 85025

== ENCOUNTER → 2019-02-11 14:41 | Outpatient (CLI) | payer MEDICARE, SELFPAY ==
--- NOTE | 2019-02-11 14:55 | XR_ITS ---
XR knee LT 3V HISTORY: ITS.REASON: DERIC KNEE PAIN ORDERING PHYSICIAN: Jesus Ott PATIENT AGE: 58 years COMPARISON: 06/20/2017 FINDINGS: There are mild osteoarthritic changes of the medial compartment and patellofemoral joint. No fracture or dislocation. Overall no change IMPRESSION: Mild osteoarthritis.
--- NOTE | 2019-02-11 14:55 | XR_ITS ---
XR knee RT 3V HISTORY: ITS.REASON: DERIC KNEE PAIN ORDERING PHYSICIAN: Jesus Ott PATIENT AGE: 58 years COMPARISON: None FINDINGS: There is mild osteoarthritis of the medial compartment and patellofemoral joint. No fracture or dislocation. No lytic or blastic change. IMPRESSION: Mild osteoarthritis
== END ==
PROVIDERS: PCP Internal Medicine; Visit Provider Internal Medicine
DX: M25.562 Pain in left knee (principal); M25.561 Pain in right knee
CPT/HCPCS: 73562

== ENCOUNTER 2019-03-13 13:30 | Outpatient (RCR) | payer MEDICARE, SELFPAY ==
--- NOTE | 2019-02-27 15:30 | HMH.PTOPEV ---
PT Outpatient Evaluation Rehab PT Outpatient Evaluation Start: 02/27/19 15:10 Freq: Status: Active Protocol: Document 02/27/19 15:11 CHANTEL (Rec: 02/27/19 15:30 CHANTEL [id number]) Electronically Signed By Krunal Gipson, PT 02/27/19 15:11 Outpatient Therapy Subjective History Subjective History Patient is a 58 year old female presenting to outpatient PT with reports of chronic cervical and lumbar spine pain, as well as bilateral knee weakness. Main concern at this time is cervical spine pain. Pt reports hx of chronic cervical pain with most recent exacerbation starting 2 weeks ago after a change made in medication by her psychiatrist . Pt reports having multiple spasms and tremors since addition of new medication. Pt reports chronic lumbar spine pain of insidious onset starting approximately 15 years ago. No LE radiucular symptoms to report. Pt reports a fall most recently involving her landing on her knee. My knees give out on me. Comorbidities include hx of multiple hernias/sx, diabetes, cholecystectomy. Pt reports frequent falls over the past 15 years. Chief Complaint Pain,Stiff,Clicks,Gives out/ Unstable,Paresthesia,Weakness Symptom Type Ache,Throb,Sharp,Dull,Stabbing ,Burning,Numbness,Tingling, Shooting,Other Symptoms Relieved By Nothing Symptoms Aggravated By Prone,Supine,Sitting,Standing, Bending/Stooping,Physical Activity,Twisting,Walking, Lifting,Sneeze/Coughing Prior Functional Limitations Reaching,Lifting,Housework, Driving,Sleeping,Standing, Sitting,Squatting,Recreation Activity,Walking,Stairs, Balance,Bending/Stooping Current Functional Limitations Reaching,Lifting,Housework, Driving,Sleeping,Standi
== END 2019-03-13 13:35 | disposition home or self-care (01) ==
LOC: PT 13:30
PROVIDERS: Visit Provider Internal Medicine
DX: M25.562 Pain in left knee (principal); M25.561 Pain in right knee; M54.5 Low back pain; M54.2 Cervicalgia
CPT/HCPCS: 97010; 97012; 97014; 97033; 97110; 97163; G0283

== ENCOUNTER → 2019-03-28 10:35 | Outpatient (CLI) | payer MEDICARE, SELFPAY ==
[2019-03-28 10:38] LABS: Microscopic, Urine URINE MICROSCOPIC (MICROSCOPIC)
[2019-03-28 10:50] LABS: Appearance,Urine CLEAR (Clear); Bilirubin,Urine Negative (Negative); Blood, Urine Negative (Negative); Color,Urine YELLOW (Yellow); Glucose,Urine (UA) Negative (Negative); Ketones,Urine Negative (Negative); Leukocyte Esterase,Urine 2+ (Negative); Nitrate,Urine Negative (Negative); PH,Urine 5.5 (5.0-8.5); Protein,Urine Negative (Negative); Specific Gravity, Urine 1.015 (1.005-1.030); Urobilinogen,Urine 0.2 EU/dl (0.2)
[2019-03-28 10:52] LABS: Basophils # 0.1 K/mm3 (0-0.2); Basophils % 0.6 % (0.1-2.0); Eosinophils # 0.3 K/mm3 (0.0-0.4); Hematocrit 39.2 % (37.0-47.0); Hemoglobin 12.8 g/dL (12.2-16.2); Lymphocytes # 4.6 K/mm3 (0.7-4.5); Mean Corpuscular HGB Conc 32.6 g/dL (31.8-35.4); Mean Corpuscular Hemoglobin 28.9 pg (27.0-31.2); Mean Corpuscular Volume 88.9 fl (81-99); Monocytes # 0.5 K/mm3 (0.1-1.0); Monocytes % 4.4 % (1.7-9.3); Neutrophils # 5.7 K/mm3 (1.8-7.8); Neutrophils % 50.8 % (37.0-80.0); Platelet Count 373 K/mm3 (142-424); Red Blood Count 4.42 M/mm3 (4.20-5.40); Red Cell Distribution Width 14.6 % (11.5-17.5); White Blood Count 11.2 K/mm3 (4.8-10.8)
[2019-03-28 11:05] LABS: Squamous Epithelial Cell,Urine Occasional #/hpf (0-5)
[2019-03-28 11:10] LABS: Alanine Aminotransferase 19 U/L (12-78); Albumin Level 3.9 gm/dL (3.4-5.0); Albumin/Globulin Ratio 1.1 (1.1-1.8); Alkaline Phosphatase 70 U/L (46-116); Amylase 42 U/L (25-115); Aspartate Amino Transferase 11 U/L (15-37); Bilirubin,Total 0.2 mg/dL (0.2-1.0); Blood Urea Nitrogen 17 mg/dL (7-18); Calcium 9.3 mg/dL (8.5-10.1); Carbon Dioxide 28 mmol/L (21.0-32.0); Chloride 100 mmol/L (98-107); Creatinine,Serum 0.99 mg/dL (0.55-1.02); Estimated Glomerular Filt Rate 57 ml/min (>60); GFR (African American) 69 ML/MIN (>60); Globulin 3.7 gm/dl (1.3-3.2); Glucose 89 mg/dL (74-106); Sodium 140 mmol/L (136-145); Total Protein,Serum 7.6 gm/dL (6.4-8.2)
== END ==
PROVIDERS: Visit Provider Internal Medicine
DX: R10.13 Epigastric pain (principal); R10.12 Left upper quadrant pain; R11.2 Nausea with vomiting, unspecified
CPT/HCPCS: 36415; 80053; 81001; 82150; 85025; 87086; 87088; 87186

== ENCOUNTER 2019-03-31 14:11 | Outpatient (CLI) | payer MEDICARE, SELFPAY ==
[2019-03-31 14:27] VITALS: BP 100/68; PULSE 71; RESP 16; TEMP 36.5; O2SAT 97; BMI 33.0
[2019-03-31 14:52] VITALS: BP 90/68; PULSE 72; RESP 18; TEMP 36.6; O2SAT 99
--- NOTE | 2019-03-31 14:56 | PC.NURSE ---
pt requested to have 1 injection per hip. mar would not allow me to select both left and right hip.
== END 2019-03-31 14:57 | disposition home or self-care (01) ==
LOC: INF 14:12
PROVIDERS: PCP Internal Medicine; Visit Provider Internal Medicine
DX: N39.0 Urinary tract infection, site not specified (principal)
CPT/HCPCS: 96372; J1335

== ENCOUNTER 2019-04-01 14:17 | Outpatient (CLI) | payer MEDICARE, SELFPAY ==
[2019-04-01 14:33] VITALS: BP 106/68; PULSE 74; RESP 18; TEMP 36.6; O2SAT 98
== END 2019-04-01 14:42 | disposition home or self-care (01) ==
LOC: INF 14:17
PROVIDERS: Visit Provider Internal Medicine
DX: N39.0 Urinary tract infection, site not specified (principal)
CPT/HCPCS: 96372; J1335

== ENCOUNTER 2019-04-02 15:25 | Outpatient (CLI) | payer MEDICARE, SELFPAY ==
[2019-04-02 15:25] VITALS: BP 138/79; PULSE 73; RESP 20; O2SAT 97
[2019-04-02 15:27] VITALS: BMI 33.0
[2019-04-02 15:48] LABS: Anion Gap 15.1 mEq/L (5-15); Blood Urea Nitrogen 14 mg/dL (7-18); Calcium 8.9 mg/dL (8.5-10.1); Carbon Dioxide 23 mmol/L (21.0-32.0); Chloride 105 mmol/L (98-107); Creatinine Clearance Estimated 99 mL/min (50-200); Creatinine,Serum 0.89 mg/dL (0.55-1.02); Estimated Glomerular Filt Rate 65 ml/min (>60); GFR (African American) 78 ML/MIN (>60); Glucose 131 mg/dL (74-106); Potassium 4.1 mmoL/L (3.5-5.1); Sodium 139 mmol/L (136-145)
== END 2019-04-02 15:50 | disposition home or self-care (01) ==
LOC: INF 15:26
PROVIDERS: Visit Provider Internal Medicine
DX: N39.0 Urinary tract infection, site not specified (principal)
CPT/HCPCS: 36415; 80048; 96372; J1335

== ENCOUNTER 2019-04-03 13:42 | Outpatient (CLI) | payer MEDICARE, SELFPAY ==
[2019-04-03 13:52] VITALS: BMI 37.0
[2019-04-03 13:53] VITALS: BP 138/74; PULSE 84; RESP 16; O2SAT 97
== END 2019-04-03 14:35 | disposition home or self-care (01) ==
LOC: INF 13:44
PROVIDERS: PCP Internal Medicine; Visit Provider Internal Medicine
DX: N39.0 Urinary tract infection, site not specified (principal)
CPT/HCPCS: 96372; J1335

== ENCOUNTER 2019-04-04 14:25 | Outpatient (CLI) | payer MEDICARE, SELFPAY ==
[2019-04-04 14:50] VITALS: BP 114/70; PULSE 76; RESP 18; O2SAT 96
== END 2019-04-04 15:05 | disposition home or self-care (01) ==
LOC: INF 14:33
PROVIDERS: Visit Provider Internal Medicine
DX: N39.0 Urinary tract infection, site not specified (principal)
CPT/HCPCS: 96372; J1335

== ENCOUNTER 2019-04-05 14:11 | Outpatient (CLI) | payer MEDICARE, SELFPAY ==
[2019-04-05 14:11] VITALS: RESP 16; TEMP 36.8; O2SAT 100
[2019-04-05 14:46] VITALS: BMI 33.2
[2019-04-05 14:55] VITALS: BP 118/79; PULSE 72; RESP 16; TEMP 36.8; O2SAT 100
== END 2019-04-05 14:15 | disposition home or self-care (01) ==
PROVIDERS: PCP Internal Medicine; Visit Provider Internal Medicine
DX: N39.0 Urinary tract infection, site not specified (principal)
CPT/HCPCS: 96372; J1335

== ENCOUNTER 2019-04-06 15:10 | Outpatient (CLI) | payer MEDICARE, SELFPAY ==
[2019-04-06 16:24] VITALS: BP 146/70; PULSE 72; RESP 16
[2019-04-06 16:25] VITALS: BP 146/70; PULSE 72; RESP 16
== END 2019-04-06 16:25 | disposition home or self-care (01) ==
PROVIDERS: PCP Internal Medicine; Visit Provider Internal Medicine
DX: N39.0 Urinary tract infection, site not specified (principal)
CPT/HCPCS: 96372; J1335

== ENCOUNTER 2019-04-16 09:44 | Outpatient (CLI) | payer MEDICARE, SELFPAY ==
[2019-04-16 10:57] VITALS: BP 122/72; PULSE 69; RESP 16; TEMP 36.1; O2SAT 98; BMI 33.9
== END 2019-04-16 14:20 | disposition home or self-care (01) ==
LOC: INF 09:46
PROVIDERS: PCP Internal Medicine; Visit Provider Internal Medicine
DX: E86.0 Dehydration (principal); R19.7 Diarrhea, unspecified; E11.9 Type 2 diabetes mellitus without complications
CPT/HCPCS: 96360; 96361; 96375; J2405

== ENCOUNTER → 2019-04-25 09:14 | Outpatient (CLI) | payer MEDICARE, SELFPAY ==
--- NOTE | 2019-04-25 09:18 | US_ITS ---
US abdomen complete HISTORY: ITS.REASON: RUQ PAIN,LT PELVIC PAIN, H/O HERNIA REPAIR ORDERING PHYSICIAN: Jesus Ott PATIENT AGE: 58 years COMPARISON: 04/20/2019. FINDINGS: Common bile duct is normal measuring 6.0 mm. Length of the right and left kidneys are 9.6 cm and 12.5 cm respectively. Patient underwent prior cholecystectomy. The visualized portions of the pancreas are somewhat hyperechoic consistent with fatty infiltration which is verified on the CT scan. Visualized portions of the IVC and aorta appear normal. The echogenic appearance of the liver is normal without focal abnormality. Patient has a normal right L lobe and the AP diameter is 14.3 cm which is normal. The length of the spleen is 12.9 cm which is near the upper limits of normal and by CT scan the length of the spleen is 14 cm and therefore is probably mildly enlarged. The left kidney appears normal. There is a smaller lobulated contour the right kidney suggesting probable combination of developmentally smaller right kidney although there could be sequela of chronic hilar nephritis. There is no evidence of ascites. Impression: No acute process. Cholecystectomy. Borderline mild splenomegaly. Right renal findings are likely from changes of chronic pyelonephritis. Also further review of the CT scan shows that there is a patent smaller right renal artery which is associated with a small right kidney and therefore developmental as well.
--- NOTE | 2019-04-25 09:18 | US_ITS ---
US transvaginal HISTORY: ITS.REASON: RUQ PAIN,LT PELVIC PAIN,H/O HERNIA REPAIR ORDERING PHYSICIAN: Jesus Ott PATIENT AGE: 58 years Comparison: 04/20/2019. FINDINGS: Uterus and right ovary not visualized and may have been removed. The area on the left likely related to left ovary is normal measuring 1.2 cm in maximal diameter. There is no lower pelvic fluid collection or abnormal echogenicity. Impression: Prior hysterectomy and right salpingo-oophorectomy. No acute process.
== END ==
PROVIDERS: PCP Internal Medicine; Visit Provider Internal Medicine
DX: R10.11 Right upper quadrant pain (principal); R10.2 Pelvic and perineal pain
CPT/HCPCS: 76700; 76830

== ENCOUNTER → 2019-05-13 11:04 | Outpatient (POV) | payer MEDICARE, SELFPAY ==
[2019-05-13 11:12] VITALS: BP 180/81; PULSE 71; RESP 18; O2SAT 98; BMI 33.0
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
== END ==
PROVIDERS: PCP Internal Medicine; Visit Provider Clinical Nurse Specialist Family Health
DX: M50.30 Other cervical disc degeneration, unspecified cervical region (principal); M51.16 Intervertebral disc disorders with radiculopathy, lumbar region
CPT/HCPCS: 99212

== ENCOUNTER 2019-05-28 10:53 | Outpatient (CLI) | payer MEDICARE, SELFPAY ==
[2019-05-28] VITALS (7 sets, daily range): BP systolic 94–114; BP diastolic 52–66; PULSE 64–75; RESP 18–20; O2SAT 95; BMI 33.0
[2019-05-28 11:18] LABS: Basophils # 0.1 K/mm3 (0-0.2); Basophils % 0.9 % (0.1-2.0); Eosinophils # 0.4 K/mm3 (0.0-0.4); Eosinophils % 3.6 % (0.1-12.0); Hematocrit 38.8 % (37.0-47.0); Hemoglobin 12.7 g/dL (12.2-16.2); Lymphocytes # 4.1 K/mm3 (0.7-4.5); Lymphocytes % 42.1 % (10-50); Mean Corpuscular HGB Conc 32.7 g/dL (31.8-35.4); Mean Corpuscular Hemoglobin 28.3 pg (27.0-31.2); Mean Corpuscular Volume 86.6 fl (81-99); Mean Platelet Volume 7.1 fl (7.4-10.4); Monocytes # 0.5 K/mm3 (0.1-1.0); Monocytes % 5.3 % (1.7-9.3); Neutrophils # 4.7 K/mm3 (1.8-7.8); Neutrophils % 48.1 % (37.0-80.0); Platelet Count 379 K/mm3 (142-424); Red Blood Count 4.48 M/mm3 (4.20-5.40); Red Cell Distribution Width 13.7 % (11.5-17.5); White Blood Count 9.7 K/mm3 (4.8-10.8)
[2019-05-28 11:30] LABS: Alanine Aminotransferase 14 U/L (12-78); Albumin Level 3.7 gm/dL (3.4-5.0); Alkaline Phosphatase 65 U/L (46-116); Anion Gap 12.9 mEq/L (5-15); Aspartate Amino Transferase 10 U/L (15-37); Bilirubin,Total 0.5 mg/dL (0.2-1.0); Blood Urea Nitrogen 27 mg/dL (7-18); Calcium 9.2 mg/dL (8.5-10.1); Carbon Dioxide 27 mmol/L (21.0-32.0); Chloride 103 mmol/L (98-107); Creatinine Clearance Estimated 62 mL/min (50-200); Creatinine,Serum 1.42 mg/dL (0.55-1.02); Estimated Glomerular Filt Rate 38 ml/min (>60); GFR (African American) 46 ML/MIN (>60); Globulin 3.6 gm/dl (1.3-3.2); Glucose 99 mg/dL (74-106); Potassium 3.9 mmoL/L (3.5-5.1); Sodium 139 mmol/L (136-145); Total Protein,Serum 7.3 gm/dL (6.4-8.2)
== END 2019-05-28 15:15 | disposition home or self-care (01) ==
LOC: INF 10:55
PROVIDERS: PCP Internal Medicine; Visit Provider Internal Medicine
DX: A04.9 Bacterial intestinal infection, unspecified (principal); E86.0 Dehydration
CPT/HCPCS: 80053; 85025; 96360; 96361; 96375; J2405

== ENCOUNTER → 2019-05-31 13:05 | Outpatient (CLI) | payer MEDICARE, SELFPAY | PROVIDERS: Visit Provider Internal Medicine | DX: A04.9 Bacterial intestinal infection, unspecified (principal) ==

== ENCOUNTER → 2019-07-14 10:40 | Outpatient (POV) | payer MEDICARE, MEDICAID, SELFPAY | PROVIDERS: PCP Internal Medicine; Visit Provider Nurse Practitioner Family | DX: Z00.00 Encounter for general adult medical examination without abnormal findings (principal) ==

== ENCOUNTER → 2019-07-25 10:54 | Outpatient (CLI) | payer MEDICARE, MEDICAID, SELFPAY ==
--- NOTE | 2019-07-25 11:27 | XR_ITS ---
PROCEDURE: XR HIP RT 2-3V W/PELVIS CLINICAL INDICATION: S/P FALL,RT HIP PAIN,TYPE II DM, Right hip pain following injury COMPARISON: HIPCMLT XR hip LT 2-3V w/pelvis from 12/11/[id number] abdomen pelvis w con from 04/20/2019 FINDINGS: There are mild osteoarthritic changes of the hips and SI joints. There is exostosis involving the greater trochanter along its lateral and inferior aspect with an accessory area of ossification along the superior lateral aspect of the greater trochanter. This may represent an old fracture. This is well-circumscribed and does not appear to represent an acute injury and was present on a previous CT scan of 04/20/2019. IMPRESSION: Chronic changes with mild osteoarthritis, no acute finding Dictated by: Michele Zimmerman MD 07/25/2019 12:00 Electronically signed by Michele Zimmerman MD in [place] 07/25/2019 12:00
[2019-07-25 11:54] LABS: Hemoglobin A1C 5.6 % (0.0-7.0)
[2019-07-25 11:58] LABS: Alanine Aminotransferase 20 U/L (12-78); Albumin Level 3.5 gm/dL (3.4-5.0); Albumin/Globulin Ratio 1.2 (1.1-1.8); Alkaline Phosphatase 66 U/L (46-116); Anion Gap 13.3 mEq/L (5-15); Aspartate Amino Transferase 13 U/L (15-37); Bilirubin,Total 0.2 mg/dL (0.2-1.0); Blood Urea Nitrogen 14 mg/dL (7-18); Calcium 8.7 mg/dL (8.5-10.1); Carbon Dioxide 26 mmol/L (21.0-32.0); Chloride 102 mmol/L (98-107); Chol/HDL Ratio 5.3 (1-3.5); Cholesterol 185 mg/dL (140-200); Creatinine,Serum 0.77 mg/dL (0.55-1.02); Estimated Glomerular Filt Rate 76 ml/min (>60); GFR (African American) 93 ML/MIN (>60); Glucose 92 mg/dL (74-106); HDL Cholesterol 35 mg/dL (29-89); LDL Cholesterol 80 mg/dL (0-130); Potassium 4.3 mmoL/L (3.5-5.1); Sodium 137 mmol/L (136-145); Total Protein,Serum 6.5 gm/dL (6.4-8.2); Triglycerides 349 mg/dL (30-200); VLDL Cholesterol 70 mg/dL (0-40)
== END ==
PROVIDERS: PCP Internal Medicine; Visit Provider Internal Medicine
DX: E11.9 Type 2 diabetes mellitus without complications (principal); Z79.4 Long term (current) use of insulin; I10 Essential (primary) hypertension; I73.9 Peripheral vascular disease, unspecified; M25.511 Pain in right shoulder
CPT/HCPCS: 36415; 73502; 80053; 80061; 83036

== ENCOUNTER → 2019-08-15 11:17 | Outpatient (CLI) | payer MEDICARE, MEDICAID, SELFPAY ==
[2019-08-15 11:58] LABS: Basophils # 0.1 K/mm3 (0-0.2); Basophils % 1.1 % (0.1-2.0); Eosinophils # 0.4 K/mm3 (0.0-0.4); Eosinophils % 4.1 % (0.1-12.0); Hematocrit 37.3 % (37.0-47.0); Hemoglobin 12.4 g/dL (12.2-16.2); Lymphocytes # 3.6 K/mm3 (0.7-4.5); Lymphocytes % 40.9 % (10-50); Mean Corpuscular HGB Conc 33.2 g/dL (31.8-35.4); Mean Corpuscular Hemoglobin 29.5 pg (27.0-31.2); Mean Corpuscular Volume 88.8 fl (81-99); Monocytes # 0.4 K/mm3 (0.1-1.0); Monocytes % 4.7 % (1.7-9.3); Neutrophils # 4.4 K/mm3 (1.8-7.8); Neutrophils % 49.2 % (37.0-80.0); Platelet Count 416 K/mm3 (142-424); Red Blood Count 4.19 M/mm3 (4.20-5.40); Red Cell Distribution Width 13.2 % (11.5-17.5); White Blood Count 8.9 K/mm3 (4.8-10.8)
[2019-08-15 12:32] LABS: Alanine Aminotransferase 13 U/L (12-78); Albumin Level 3.8 gm/dL (3.4-5.0); Albumin/Globulin Ratio 1.2 (1.1-1.8); Alkaline Phosphatase 75 U/L (46-116); Amylase 56 U/L (25-115); Anion Gap 10.1 mEq/L (5-15); Aspartate Amino Transferase 16 U/L (15-37); Bilirubin,Total 0.2 mg/dL (0.2-1.0); Blood Urea Nitrogen 17 mg/dL (7-18); Calcium 9.1 mg/dL (8.5-10.1); Carbon Dioxide 29 mmol/L (21.0-32.0); Chloride 101 mmol/L (98-107); Creatinine,Serum 0.82 mg/dL (0.55-1.02); Estimated Glomerular Filt Rate 71 ml/min (>60); GFR (African American) 86 ML/MIN (>60); Globulin 3.3 gm/dl (1.3-3.2); Glucose 87 mg/dL (74-106); Potassium 4.1 mmoL/L (3.5-5.1); Sodium 136 mmol/L (136-145); Total Protein,Serum 7.1 gm/dL (6.4-8.2)
== END ==
PROVIDERS: Visit Provider Internal Medicine
DX: R10.13 Epigastric pain (principal); R60.9 Edema, unspecified; E11.59 Type 2 diabetes mellitus with other circulatory complications
CPT/HCPCS: 36415; 80053; 82150; 83036; 85025

== ENCOUNTER 2019-09-13 14:59 | Observation (INO) ==
--- NOTE | 2019-09-13 15:21 | Emergency Department Note ---
ED Disposition Clinical Impression: Hypoglycemia, Acute kidney injury, Dehydration UTI (urinary tract infection) Qualifiers: Urinary tract infection type: site unspecified Hematuria presence: without hematuria Qualified Code(s): N39.0 - Urinary tract infection, site not specified Disposition: Admitted as Observation Condition on Discharge: Fair - Critical Care Critical Care Time: No Attestation: On 09/13/19, the high probability of a clinically significant, sudden or life threatening deterioration of the following system(s) required my full and direct attention, intervention and personal management. The time I documented below is in addition to time spent performing reported procedures but includes the following listed in this critical care notation. Medical Decision Making - Bryan Inquiry Pt receiving controlled substance: No Vital Signs: 09/13/19 15:00 09/13/19 18:23 09/13/19 18:49 Temperature 98.3 F 98.3 F Temperature Source Oral Pulse Rate 78 Pulse Rate [Right Radial] 72 68 Respiratory Rate 14 16 Blood Pressure 128/79 Blood Pressure [Right Arm] 138/67 122/67 Blood Pressure Mean [Right Arm] 90 85 Blood Pressure Source [Right Arm] Automatic Cuff Automatic Cuff Blood Pressure Position [Right Arm] Sitting Sitting 02 Sat by Pulse Oximetry 97 98 Oxygen Delivery Method Room Air - Lab Data Lab Results 09/13/19 15:06: POC Glucose 57 L 09/13/19 15:15: WBC 12.0 H, RBC 4.40, Hgb 12.9, Hct 38.0, MCV 86.3, MCH 29.3, MCHC 34.0, RDW 13.5, Plt Count 351, MPV 7.1 L, Neut % (Auto) 73.8, Lymph % (Auto) 19.0, [place] % (Auto) 4.9, Eos % (Auto) 1.8, Baso % (Auto) 0.6, Neut # (Auto) 8.9 H, Lymph # (Auto) 2.3, [place] # (Auto) 0.6, Eos # (Auto) 0.2, Baso # (Auto) 0.1 09/13/19 15:15: Sodium 142, Potassium 3.7, Chloride 101, Carbon Dioxide 26, Anion Gap 18.7 H, BUN 29 H, Creatinine 2.42 H, Estimated Creat Clear 37, Estimated GFR 20 L, Est GFR ( Amer) 25 L, Glucose 34 L*, Calcium 8.8, Total Bilirubin 0.3, AST 22, ALT 20, Alkaline Phosphatase 62, Troponin I < 0.02, Total Protein 8.0, Albumin 4.2, Globulin 3.8 H, Albumin/Globulin Ratio 1.1 09/13/19 16:08: POC Glucose 92 09/13/19 16:18: Urine Color Yellow, Urine Appearance Sl cloudy, Urine pH 5.0, Ur Specific [place] 1.015, Urine Protein Negative, Urine Glucose (UA) Negative, Urine Ketones Negative, Urine Blood Negative, Urine Nitrate Negative, Urine Bilirubin Negative, Urine Urobilinogen 0.2, Ur Leukocyte Esterase 3+ A, Urine RBC None, Urine WBC Tntc, Ur Squamous Epith Cells 5-10, Amorphous Sediment 1+, Urine Bacteria 1+ 09/13/19 16:19: Specimen Source Right radial, O2 % Room air, ABG pH 7.30 L, ABG pCO2 39.2, ABG pO2 149.3 H, ABG HCO3 18.9 L, ABG Total CO2 20.1 L, ABG O2 Saturation 98, ABG Base Excess -7.4 L, Michele Test Acceptable 09/13/19 18:43: Troponin I < 0.02 09/13/19 18:46: POC Glucose 63 L Result diagrams: 09/13/19 15:15 09/13/19 15:15 Orders (Tests/Meds): ED MEDICATIONS Generic Name Dose Route Start Last Admin Trade Name Freq PRN Reason Stop Dose Admin Acetaminophen 650 mg 09/13/19 19:51 Acetaminophen 325mg Tab PO 10/13/19 19:50 Q4HP PRN As Needed for Fever or Pain Ceftriaxone Sodium 1 gm/ 50 mls @ 100 mls/hr 09/14/19 16:45 Sodium Chloride IV 09/27/19 16:44 Q24H CARLITOS Protocol Potassium Chloride/Dextrose/Sod Cl 1,000 mls @ 100 mls/hr 09/13/19 19:51 Kcl 20meq In D5w-0.45% Nacl IV 10/13/19 17:44 .Q10H CARLITOS Insulin Human Lispro 0 unit 09/13/19 21:00 Humalog 100 Units/Ml 3ml Vial (Ssi) SQ 10/13/19 20:59 ACHS CARLITOS Protocol Ondansetron HCl 4 mg 09/13/19 19:51 Zofran 4mg/2ml Vial IV 10/13/19 19:50 Q8HP PRN Nausea Discontinued Medications Generic Name Dose Route Start Last Admin Trade Name Freq PRN Reason Stop Dose Admin Dextrose 50 ml 09/13/19 15:27 09/13/19 15:36 Dextrose 50% 50ml Syringe IVP 09/13/19 15:28 50 ml ONCE ONE Administration Dextrose 50 ml 09/13/19 17:35 09/13/19 17:43 Dextrose 50% 50ml Syringe IVP 09/13/19 17:36 50 ml ONCE ONE Administration Dextrose 50 ml 09/13/19 18:49 09/13/19 19:02 Dextrose 50% 50ml Syringe IVP 09/13/19 18:50 50 ml ONCE ONE Administration Ceftriaxone Sodium 1 gm/ 50 mls @ 100 mls/hr 09/13/19 16:45 09/13/19 16:56 Sodium Chloride IV 09/27/19 16:44 100 mls/hr Q24H CARLITOS Administration Protocol Potassium Chloride/Dextrose/Sod Cl 1,000 mls @ 100 mls/hr 09/13/19 17:45 09/13/19 18:35 Kcl 20meq In D5w-0.45% Nacl IV 10/13/19 17:44 100 mls/hr .Q10H CARLITOS Administration Sodium Chloride 1,000 ml 09/13/19 16:17 09/13/19 16:36 Sod Chlor 0.9% 1000ml Bag IV 09/13/19 16:18 1,000 ml BOLUS ONE Administration ORDERS Category Date Time Status Basic Metabolic Panel AMLAB Lab 09/14/19 06:00 Ordered Complete Blood Count Auto Diff AMLAB Lab 09/14/19 06:00 Ordered Diarrhea 6-11 Panel, Cdiff PCR Routine Lab 09/13/19 Ordered Urine Culture Stat Micro 09/13/19 16:18 Received - Radiology Data #1 Image(s): Chest Image Reviewed: Yes I reviewed the patient's radiology image Scoliosis. No acute process. - ECG Data Tracing #1 EKG interpreted by Andrea Blackburn MD: Rhythm: sinus Rate: 65 [place]: Leftward Ectopy: none Conduction: normal ST Segment Changes: none T Wave Changes: none Q Waves: none Voltage criteria for LVH Poor R wave progression no evidence of acute ischemia or injury General Adult HPI - General Stated complaint: Blood sugar has dropped to 55 Time Seen by Provider: 09/13/19 15:20 - History of Present Illness HPI narrative: Complains of low blood sugar. Says that her blood sugar has been dropping low for the past 3 days or so. It has been as low as 40. Today it was 55. She says that she ate about a teaspoon of sugar but it did not help. She says that she is having trouble staying awake and it feels shaky. Also states that she has had diarrhea for about 3 or 4 weeks and a cough. She saw Dr. Ott in the office yesterday and she says her insulin dose was lowered from 60 units twice a day to 50 units twice a day, but her blood sugar has dropped again. She says that he gave her pills for diarrhea and told her her cough was due to COPD. She denies any fever. - Related Data Home Medications Medication Instructions Recorded Confirmed Metformin HCl 1 tab PO BID 10/06/17 09/13/19 furosemide 40 mg tablet 40 mg PO DAILY tab 03/14/18 09/13/19 hydrOXYzine pamoate [Vistaril] 25 mg PO Q6H 06/09/18 09/13/19 Aspirin [Aspir 81] 81 mg PO DAILY 07/23/18 09/13/19 insulin NPH isophane U-100 human 60 unit SQ BID 02/05/19 09/13/19 100 unit/mL subcutaneous suspension potassium chloride ER 20 mEq 20 meq PO DAILY tab 02/05/19 09/13/19 tablet,extended release topiramate 50 mg tablet 50 mg PO BID #90 tab 02/05/19 09/13/19 Famotidine [Acid Controller] 20 mg PO BID 08/13/19 09/13/19 Spironolactone [Spironolactone 25 mg PO DAILY 08/13/19 09/13/19 25mg Tablet] Previous Rx's Medication Instructions Recorded levothyroxine 100 mcg tablet 100 mcg PO DAILY #90 tab 11/09/17 Ibuprofen [Ibuprofen 800mg Tab] 800 mg PO Q8HP PRN #15 tab 07/23/18 Allergies Allergy/AdvReac Type Severity Reaction Status Date / Time Sulfa (Sulfonamide Allergy Mild Verified 08/18/19 11:46 Antibiotics) [SULFA (SULFONAMIDE ANTIBIOTICS)] levofloxacin [From LEVAQUIN] Allergy Unknown Verified 08/18/19 11:46 [facility] History - Hepatitis A Screen Attestation statement:: This patient has been screened for Hepatitis A risk factors. I have reviewed the patient's past medical history: Yes Medical History: Reports:: Asthma, Congestive Heart Failure, Chronic Obstructive Pulmonary Disease (COPD), Diabetes Mellitus Type 2, Gastroesophageal Reflux Disease(GERD), Hyperlipidemia, Hypertension Denies:: Cancer, Diabetes Mellitus Type 1, Internal Pacemaker, MRSA, Seizures Other Medical History: Reports: Anemia, Arthritis, Hormone Therapy, Liver Disease Comment: obesity, JONATHAN Other Surgeries: Yes: Cholecystectomy, Dilation and Curettage, Hernia Repair, Hysterectomy-Total, Hysterectomy-Partial, Thyroidectomy, Tubal Ligation, Other. No: Pacemaker Amputation: Yes Fractures: No Comment: Liver biopsy. 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 Denies: abdominal pain, vomiting - Endocrine Endocrine: Reports as per HPI Physical Exam - General General appearance: other Comment: Drowsy, but awakens and answers questions appropriately - Head Head exam: atraumatic - Eye Eye exam: Present: normal appearance, EOMI - ENT ENT exam: Present: mucous membranes moist - Neck Neck exam: Present: normal inspection, trachea midline - Chest Chest inspection: Present: normal inspection, symmetric chest wall rise - Respiratory Respiratory exam: Present: normal lung sounds bilaterally. Absent: respiratory distress - Cardiovascular Cardiovascular exam: Present: regular rate, normal rhythm, normal heart sounds - Abdominal Exam Abdominal exam: Present: soft, normal bowel sounds. Absent: distention, te nderness - Extremities Exam Extremities exam: Present: normal inspection - Neurological Exam Neurological exam: Present: oriented X3, CN II-XII intact. Absent: motor sensory deficit - Psychiatric Psychiatric exam: Present: flat affect - Skin Skin exam: Present: warm, dry
[2019-09-13 15:33] LABS: Basophils # 0.1 K/mm3 (0-0.2); Basophils % 0.6 % (0.1-2.0); Eosinophils # 0.2 K/mm3 (0.0-0.4); Eosinophils % 1.8 % (0.1-12.0); Hemoglobin 12.9 g/dL (12.2-16.2); Lymphocytes # 2.3 K/mm3 (0.7-4.5); Mean Corpuscular Volume 86.3 fl (81-99); Mean Platelet Volume 7.1 fl (7.4-10.4); Monocytes # 0.6 K/mm3 (0.1-1.0); Monocytes % 4.9 % (1.7-9.3); Neutrophils # 8.9 K/mm3 (1.8-7.8); Neutrophils % 73.8 % (37.0-80.0); Platelet Count 351 K/mm3 (142-424); Red Cell Distribution Width 13.5 % (11.5-17.5)
[2019-09-13 15:50] LABS: Alanine Aminotransferase 20 U/L (12-78); Albumin Level 4.2 gm/dL (3.4-5.0); Albumin/Globulin Ratio 1.1 (1.1-1.8); Alkaline Phosphatase 62 U/L (46-116); Anion Gap 18.7 mEq/L (5-15); Aspartate Amino Transferase 22 U/L (15-37); Bilirubin,Total 0.3 mg/dL (0.2-1.0); Calcium 8.8 mg/dL (8.5-10.1); Carbon Dioxide 26 mmol/L (21.0-32.0); Chloride 101 mmol/L (98-107); Globulin 3.8 gm/dl (1.3-3.2); Sodium 142 mmol/L (136-145)
[2019-09-13 16:04] LABS: Blood Urea Nitrogen 29 mg/dL (7-18)
[2019-09-13 16:06] LABS: Glucose 34 mg/dL (74-106)
[2019-09-13 16:24] LABS: Appearance,Urine SL CLOUDY (Clear); Bilirubin,Urine Negative (Negative); Blood, Urine Negative (Negative); Color,Urine YELLOW (Yellow); Glucose,Urine (UA) Negative (Negative); Ketones,Urine Negative (Negative); Leukocyte Esterase,Urine 3+ (Negative); Microscopic, Urine URINE MICROSCOPIC (MICROSCOPIC); Protein,Urine Negative (Negative); Specific Gravity, Urine 1.015 (1.005-1.030); Urobilinogen,Urine 0.2 EU/dl (0.2)
[2019-09-13 16:34] LABS: Amorphous Sediment,Urine 1+ /lpf; Bacteria,Urine 1+ /lpf; WBC,Urine TNTC #/hpf (0-3)
[2019-09-13 16:45] LABS: ABG Base Excess -7.4 mmol/L (-2.4-2.3); ABG HCO3 18.9 mmhg (22.0-26.0); ABG Oxygen Saturation 98 % (90-100); ABG PCO2 39.2 mmhg (35.0-45.0); ABG PO2 149.3 mmhg (80-100); ABG TCO2 20.1 mmhg (23-27)
[2019-09-13 16:46] LABS: Allen's Test Acceptable; Oxygen ROOM AIR %
[2019-09-14 07:20] LABS: Basophils # 0.1 K/mm3 (0-0.2); Eosinophils # 0.4 K/mm3 (0.0-0.4); Eosinophils % 5.9 % (0.1-12.0); Lymphocytes # 3.2 K/mm3 (0.7-4.5); Monocytes # 0.4 K/mm3 (0.1-1.0); Neutrophils # 3.2 K/mm3 (1.8-7.8)
[2019-09-14 07:25] LABS: Basophils % 0.7 % (0.1-2.0); Hematocrit 32.9 % (37.0-47.0); Lymphocytes % 43.5 % (10-50); Mean Corpuscular HGB Conc 33.9 g/dL (31.8-35.4); Mean Platelet Volume 7.5 fl (7.4-10.4); Neutrophils % 43.9 % (37.0-80.0); Platelet Count 297 K/mm3 (142-424); Red Blood Count 3.82 M/mm3 (4.20-5.40); Red Cell Distribution Width 13.5 % (11.5-17.5); White Blood Count 7.4 K/mm3 (4.8-10.8)
[2019-09-14 07:26] LABS: Hemoglobin 11.1 g/dL (12.2-16.2)
[2019-09-14 07:42] LABS: Anion Gap 15.9 mEq/L (5-15)
[2019-09-14 07:57] LABS: Calcium 7.6 mg/dL (8.5-10.1)
--- NOTE | 2019-09-14 08:52 | History & Physical Report ---
*Admission Date: 09/13/19 *Chief complaint: Weakness and low blood sugar *History of present illness: 58-year-old white female with long past medical history of insulin requiring type 2 diabetes, obesity, fatty liver disease, chronic pain syndrome and GERD, who presented to the emergency department with low blood sugar over the past couple of days into the 40 and 50 range. She reports that her physician has been titrating down her insulin dosage because of progressive hypoglycemia and has gotten blood work recently, but she felt significantly worse and reported to the emergency department. Blood sugar was low normal but she was also found to have significant elevation of creatinine above 2.5, with baseline normal creatinine 1 month ago. She was also found to have evidence of a urinary tract infection, admitted to hospital for monitoring of hypoglycemia, IV antibiotics and IV fluids given her significant acute kidney injury. She reports that she has had 2 to 3 months of worsening oral intake because of nausea, chronic abdominal pain. She has chronic liver disease sees GI at [facility], states that she has been ruled out for hepatitis A/B/C but is being monitored for fatty liver and liver swelling. She is on no medications, simply monitoring through GI. [facility] History I have reviewed the patient's past medical history: Yes Medical History: Reports:: Asthma, Congestive Heart Failure, Chronic Obstructive Pulmonary Disease (COPD), Diabetes Mellitus Type 2, Gastroesophageal Reflux Disease(GERD), Hyperlipidemia, Hypertension Denies:: Cancer, Diabetes Mellitus Type 1, Internal Pacemaker, MRSA, Seizures *Have you ever received a pneumonia vaccine?: Yes *Have you received a flu vaccine this season?: Yes Other Medical History: Reports: Anemia, Arthritis, Hormone Therapy, Hypothyroidism, Liver Disease Other Surgeries: Yes: Cholecystectomy, Colonoscopy, Dilation and Curettage, Hernia Repair, Hysterectomy-Total, Hysterectomy-Partial, Thyroidectomy, Tubal Ligation, Other. No: Pacemaker Amputation: Yes Fractures: Yes - *Social History Educational Level: Completed High School Smoking Status: Current every day smoker Tobacco Type: cigarettes # Packs/Day (cigarettes): 1 Alcohol Intake: former Alcohol Intake Frequency:: other Substance Use Type: former substance user *Occupational Status:: disabled Housing: house Household Members: children *Travel in the last 8 weeks: None Family Hx:: Diabetes Review of Systems - Review of Systems Review of systems:: pertinent systems reviewed and negative unless documented below Denies cardiac or pulmonary symptoms. GI symptoms as noted. Denies melena or hematochezia. Chronic pain "overall my body over the past 10 years." Negative for new skin rashes. Otherwise 10 point review of systems negative Meds Home Medications Medication Instructions Recorded Confirmed Type Metformin HCl 1 tab PO BID 10/06/17 09/13/19 History levothyroxine 100 mcg tablet 100 mcg PO DAILY #90 tab 11/09/17 09/13/19 Rx furosemide 40 mg tablet 40 mg PO DAILY tab 03/14/18 09/13/19 History hydrOXYzine pamoate [Vistaril] 25 mg PO Q6H 06/09/18 09/13/19 History Aspirin [Aspir 81] 81 mg PO DAILY 07/23/18 09/13/19 History Ibuprofen [Ibuprofen 800mg Tab] 800 mg PO Q8HP PRN #15 tab 07/23/18 09/13/19 Rx insulin NPH isophane U-100 human 60 unit SQ BID 02/05/19 09/13/19 History 100 unit/mL subcutaneous suspension potassium chloride ER 20 mEq 20 meq PO DAILY tab 02/05/19 09/13/19 History tablet,extended release Famotidine [Acid Controller] 20 mg PO BID 08/13/19 09/13/19 History Spironolactone [Spironolactone 25 mg PO DAILY 08/13/19 09/13/19 History 25mg Tablet] Allergies Allergy/AdvReac Type Severity Reaction Status Date / Time Sulfa (Sulfonamide Allergy Mild Verified 08/18/19 11:46 Antibiotics) [SULFA (SULFONAMIDE ANTIBIOTICS)] levofloxacin [From LEVAQUIN] Allergy Unknown Verified 08/18/19 11:46 Exam Vital signs and Labs for Last 24 Hours: Temp Pulse Resp BP Pulse Ox 98.4 F 68 16 111/59 L 96 09/14/19 04:00 09/14/19 04:00 09/14/19 04:00 09/14/19 04:00 09/14/19 04:00 Laboratory Results - last 24 hr 09/13/19 15:06: POC Glucose 57 L 09/13/19 15:15: WBC 12.0 H, RBC 4.40, Hgb 12.9, Hct 38.0, MCV 86.3, MCH 29.3, MCHC 34.0, RDW 13.5, Plt Count 351, MPV 7.1 L, Neut % (Auto) 73.8, Lymph % ( Auto) 19.0, [place] % (Auto) 4.9, Eos % (Auto) 1.8, Baso % (Auto) 0.6, Neut # (Auto) 8.9 H, Lymph # (Auto) 2.3, [place] # (Auto) 0.6, Eos # (Auto) 0.2, Baso # (Auto) 0.1 09/13/19 15:15: Sodium 142, Potassium 3.7, Chloride 101, Carbon Dioxide 26, Anion Gap 18.7 H, BUN 29 H, Creatinine 2.42 H, Estimated Creat Clear 37, Estimated GFR 20 L, Est GFR ( Amer) 25 L, Glucose 34 L*, Calcium 8.8, Total Bilirubin 0.3, AST 22, ALT 20, Alkaline Phosphatase 62, Troponin I < 0.02, Total Protein 8.0, Albumin 4.2, Globulin 3.8 H, Albumin/Globulin Ratio 1.1 09/13/19 16:08: POC Glucose 92 09/13/19 16:18: Urine Color Yellow, Urine Appearance Sl cloudy, Urine pH 5.0, Ur Specific [place] 1.015, Urine Protein Negative, Urine Glucose (UA) Negative, Urine Ketones Negative, Urine Blood Negative, Urine Nitrate Negative, Urine Bilirubin Negative, Urine Urobilinogen 0.2, Ur Leukocyte Esterase 3+ A, Urine RBC None, Urine WBC Tntc, Ur Squamous Epith Cells 5-10, Amorphous Sediment 1+, Urine Bacteria 1+ 09/13/19 16:19: Specimen Source Right radial, O2 % Room air, ABG pH 7.30 L, ABG pCO2 39.2, ABG pO2 149.3 H, ABG HCO3 18.9 L, ABG Total CO2 20.1 L, ABG O2 Saturation 98, ABG Base Excess -7.4 L, Michele Test Acceptable 09/13/19 18:43: Troponin I < 0.02 09/13/19 18:46: POC Glucose 63 L 09/13/19 19:42: POC Glucose 82 09/13/19 21:45: Lactate 0.9 09/13/19 22:02: POC Glucose 58 L 09/13/19 22:42: POC Glucose 55 L 09/13/19 23:06: POC Glucose 75 09/14/19 00:15: POC Glucose 110 09/14/19 01:49: POC Glucose 113 H 09/14/19 03:45: POC Glucose 95 09/14/19 05:39: POC Glucose 89 09/14/19 06:18: WBC 7.4 D, RBC 3.82 L, Hgb 11.1 L D, Hct 32.9 L, MCV 86.0, MCH 29.1, MCHC 33.9, RDW 13.5, Plt Count 297, MPV 7.5, Neut % (Auto) 43.9, Lymph % (Auto) 43.5, [place] % (Auto) 6.0, Eos % (Auto) 5.9, Baso % (Auto) 0.7, Neut # (Auto) 3.2, Lymph # (Auto) 3.2, [place] # (Auto) 0.4, Eos # (Auto) 0.4, Baso # (Auto) 0.1 09/14/19 06:18: Sodium 139, Potassium 3.9, Chloride 102, Carbon Dioxide 25, Anion Gap 15.9 H, BUN 23 H, Creatinine 1.38 H D, Estimated Creat Clear 65, Estimated GFR 39 L, Est GFR ( Amer) 47 L D, Glucose 58 L D, Calcium 7.6 L D 09/14/19 08:31: POC Glucose 107 I & O for Last 24 hours: Intake & Output 09/11/19 09/12/19 09/13/19 09/14/19 11:59 11:59 11:59 11:59 Intake Total 1301 / 1301 Balance 1301 / 1301 Weight 209 lb 4 oz Narrative: Patient is pleasant, talkative, when awake and remembers me, is alert and orien samantha x3. Has a significant number of homemade tattoos over forearms, neck and face. Oropharynx dry but clear, no JVD. Lungs have good air movement, heart rate regular, no murmurs. Abdomen soft, diffuse tenderness, slightly worse in the right lower quadrant but no masses. No edema, clubbing or cyanosis. Neurologic exam intact. Assessment and Plan (1) Acute kidney injury Current visit: Yes Status: Acute Category: Medical Code(s): N17.9 - Acute kidney failure, unspecified Improving overnight, switch fluids to normal saline given resolution of hypoglycemia, watch closely. (2) Dehydration Current visit: Yes Status: Acute Category: Medical Code(s): E86.0 - Dehydration See plan as above (3) Hypoglycemia Current visit: Yes Status: Acute Category: Medical Code(s): E16.2 - Hypoglycemia, unspecified Improving, continue current therapy, when discharged will need significantly less glucose medication (4) UTI (urinary tract infection) Current visit: Yes Status: Acute Qualifiers: Urinary tract infection type: site unspecified Hematuria presence: without hematuria Qualified Code(s): N39.0 - Urinary tract infection, site not specified Category: Medical Code(s): N39.0 - Urinary tract infection, site not specified Antibiotics as noted, await culture results.
--- NOTE | 2019-09-14 11:47 | Pharmacy Consult Notes ---
[facility] VTE Monitoring - Patient Demographics Admission date: 09/14/19 Report Date: 09/14/19 Time: 11:47 Allergies/Adverse Reactions: Patient Allergies Sulfa (Sulfonamide Antibiotics) [SULFA (SULFONAMIDE ANTIBIOTICS)] Allergy (Mild, Verified 08/18/19 11:46) levofloxacin [From LEVAQUIN] Allergy (Unknown, Verified 08/18/19 11:46) Height: 1.68 m Weight: 94.914 kg Patient Problems: Current Active Problems UTI (urinary tract infection) (Acute) Hypoglycemia (Acute) Acute kidney injury (Acute) Dehydration (Acute) - VTE Risk Labs: VTE Related Lab Results Hgb 11.1 g/dL (12.2-16.2) L D 09/14/19 06:18 Hct 32.9 % (37.0-47.0) L 09/14/19 06:18 Plt Count 297 K/mm3 (142-424) 09/14/19 06:18 BUN 23 mg/dL (7-18) H 09/14/19 06:18 Creatinine 1.38 mg/dL (0.55-1.02) H D 09/14/19 06:18 Estimated Creat Clear 65 mL/min (50-200) 09/14/19 06:18 Was VTE Risk Assessment Performed: Yes VTE Score: 10 VTE Risk Level: Moderate Risk - Prophylaxis Types of VTE Prophylaxis: TEDS Knee High (ELOINA HOSE ORDERED)
[2019-09-15 07:16] LABS: Basophils % 0.7 % (0.1-2.0); Eosinophils # 0.3 K/mm3 (0.0-0.4); Eosinophils % 4.5 % (0.1-12.0); Hematocrit 32.3 % (37.0-47.0); Hemoglobin 11.1 g/dL (12.2-16.2); Lymphocytes # 2.8 K/mm3 (0.7-4.5); Lymphocytes % 47.1 % (10-50); Mean Corpuscular HGB Conc 34.3 g/dL (31.8-35.4); Mean Corpuscular Volume 85.2 fl (81-99); Mean Platelet Volume 7.4 fl (7.4-10.4); Monocytes # 0.3 K/mm3 (0.1-1.0); Monocytes % 5.1 % (1.7-9.3); Neutrophils # 2.5 K/mm3 (1.8-7.8); Neutrophils % 42.6 % (37.0-80.0); Platelet Count 277 K/mm3 (142-424); Red Blood Count 3.79 M/mm3 (4.20-5.40); Red Cell Distribution Width 13.4 % (11.5-17.5); White Blood Count 5.9 K/mm3 (4.8-10.8)
[2019-09-15 07:40] LABS: Albumin Level 2.9 gm/dL (3.4-5.0); Albumin/Globulin Ratio 0.9 (1.1-1.8); Anion Gap 12.2 mEq/L (5-15); Bilirubin,Total 0.2 mg/dL (0.2-1.0); Calcium 7.9 mg/dL (8.5-10.1); Globulin 3.2 gm/dl (1.3-3.2); Total Protein,Serum 6.1 gm/dL (6.4-8.2)
--- NOTE | 2019-09-15 08:52 | Discharge Summary ---
General - General Admission date:: 09/13/19 Discharge date: 09/15/19 HPI HPI: 58-year-old white female with long past medical history of insulin requiring type 2 diabetes, obesity, fatty liver disease, chronic pain syndrome and GERD, who presented to the emergency department with low blood sugar over the past couple of days into the 40 and 50 range. She reports that her physician has been titrating down her insulin dosage because of progressive hypoglycemia and has gotten blood work recently, but she felt significantly worse and reported to the emergency department. Blood sugar was low normal but she was also found to have significant elevation of creatinine above 2.5, with baseline normal creatinine 1 month ago. She was also found to have evidence of a urinary tract infection, admitted to hospital for monitoring of hypoglycemia, IV antibiotics and IV fluids given her significant acute kidney injury. She reports that she has had 2 to 3 months of worsening oral intake because of nausea, chronic abdominal pain. She has chronic liver disease sees GI at [facility], states that she has been ruled out for hepatitis A/B/C but is being monitored for fatty liver and liver swelling. She is on no medications, simply monitoring through GI. Hospital Course Hospital Course: Patient was admitted to hospital. She was placed on IV fluids, acute kidney injury resolved very nicely and this morning has normalized. Her hypoglycemia was normalized by stopping her medications and using only sliding scale insulin. She feels much better this morning and was able to eat 100% of her breakfast. Exam normalized. Patient will be discharged home today on minimized medications. I believe she became hypoglycemic and dehydrated from continuing her multiple medication regimen in the face of diminished p.o. intake because of her chronic abdominal pain/right upper quadrant pain. We will give her a significantly reduced medication list and short-term follow- up with her physician. Of note, given her hypoglycemia and YUDELKA I have changed her diabetic management to Januvia only, 100 mg and discontinued her insulin and metformin given its risk for hypoglycemia and renal dysfunction respectively. I also held her diuretics and these can be restarted as indicated as an outpatient. Objective Vital signs: Temp Pulse Resp BP Pulse Ox 97.8 F 65 16 112/57 L 98 09/15/19 04:00 09/15/19 04:00 09/15/19 04:00 09/15/19 04:00 09/15/19 04:00 Narrative: Patient is pleasant and talkative. Abdomen soft and nontender. Lungs have good air movement. Heart rate regular. No change in skin exam. Moving all extremities well. No neurologic deficits. Oropharynx moist and clear. Results Labs on day of discharge: Labs from last 24 hours 09/15/19 09/15/19 09/15/19 06:17 06:17 00:29 WBC 5.9 RBC 3.79 L Hgb 11.1 L Hct 32.3 L MCV 85.2 MCH 29.2 MCHC 34.3 RDW 13.4 Plt Count 277 MPV 7.4 Neut % (Auto) 42.6 Lymph % (Auto) 47.1 [place] % (Auto) 5.1 Eos % (Auto) 4.5 Baso % (Auto) 0.7 Neut # (Auto) 2.5 Lymph # (Auto) 2.8 [place] # (Auto) 0.3 Eos # (Auto) 0.3 Baso # (Auto) 0.0 Sodium 141 Potassium 4.2 Chloride 107 Carbon Dioxide 26 Anion Gap 12.2 BUN 10 D Creatinine 0.65 D Estimated Creat Clear 138 Estimated GFR 93 Est GFR ( Amer) 113 D Glucose 133 H D POC Glucose 134 H Calcium 7.9 L Total Bilirubin 0.2 AST 9 L D ALT 14 D Alkaline Phosphatase 57 Total Protein 6.1 L Albumin 2.9 L Globulin 3.2 Albumin/Globulin Ratio 0.9 L 09/14/19 09/14/19 09/14/19 20:12 16:42 11:10 WBC RBC Hgb Hct MCV MCH MCHC RDW Plt Count MPV Neut % (Auto) Lymph % (Auto) [place] % (Auto) Eos % (Auto) Baso % (Auto) Neut # (Auto) Lymph # (Auto) [place] # (Auto) Eos # (Auto) Baso # (Auto) Sodium Potassium Chloride Carbon Dioxide Anion Gap BUN Creatinine Estimated Creat Clear Estimated GFR Est GFR ( Amer) Glucose POC Glucose 160 H 123 H 109 Calcium Total Bilirubin AST ALT Alkaline Phosphatase Total Protein Albumin Globulin Albumin/Globulin Ratio Preliminary micro results at discharge 09/13/19 16:18 Urine Culture - Preliminary Urine,Catheterized NO GROWTH AFTER 24 HOURS DS: Diagnosis - Discharge Diagnosis (1) Acute kidney injury Status: Resolved (2) Dehydration Status: Resolved (3) Hypoglycemia Status: Resolved (4) UTI (urinary tract infection) Status: Acute Discharge Plan - Patient Discharge Instructions ACTIVITY: Continue current activity DIET: continue same diet Patient Instructions: Hypoglycemia, DI for Hypoglycemia - Follow up Plan Follow up with: Jesus Ott [Primary Care Provider] - Disposition: Home, Self-Correction Medications: Home Medications Medication Instructions Recorded Confirmed Type furosemide 40 mg tablet 40 mg PO DAILY tab 03/14/18 09/13/19 History hydrOXYzine pamoate [Vistaril] 25 mg PO Q6H 06/09/18 09/13/19 History Aspirin [Aspir 81] 81 mg PO DAILY 07/23/18 09/13/19 History Ibuprofen [Ibuprofen 800mg Tab] 800 mg PO Q8HP PRN #15 tab 07/23/18 09/13/19 Rx insulin NPH isoph U-100 human 100 60 unit SQ BID 02/05/19 09/13/19 History unit/mL subcutaneous suspension Famotidine [Acid Controller] 20 mg PO BID 08/13/19 09/13/19 History Spironolactone [Spironolactone 25 mg PO DAILY 08/13/19 09/13/19 History 25mg Tablet] Albuterol Sulfate [Albuterol HFA 2 puffs INHALATION QIDP PRN 09/14/19 09/14/19 History Inhaler] Atorvastatin Calcium [Atorvastatin 10 mg PO HS 09/14/19 09/14/19 History 10mg Tab] Cetirizine HCl 10 mg PO DAILY 09/14/19 09/14/19 History Duloxetine HCl 30 mg PO DAILY 09/14/19 09/14/19 History Fluticasone/Vilanterol [Breo 1 inh INHALATION DAILY 09/14/19 09/14/19 History Ellipta 200-25 Mcg INH] Levothyroxine Sodium 112 mcg PO DAILY 09/14/19 09/14/19 History [Levothyroxine 112mcg (0.112mg) Tab] Metformin HCl [Metformin 1000mg 1,000 mg PO BID 09/14/19 09/14/19 History Tablets] Potassium Chloride 10 meq PO BID 09/14/19 09/14/19 History Tiotropium [place] [Spiriva 1 inh INHALATION DAILY 09/14/19 09/14/19 History 18mcg/puff inhaler] Tramadol HCl [Tramadol 50mg 50 mg PO Q6HP PRN 09/14/19 09/14/19 History Tab] Sitagliptin Phosphate [Januvia 100 mg PO DAILY #30 tab 09/15/19 Rx 100mg tablet] clonazePAM [Klonopin 0.5mg tablet] 0.5 mg PO BID #60 tab 09/15/19 Rx Prescriptions/Medication Reconciliation: New Sitagliptin Phosphate [Januvia 100mg tablet] 100 mg PO DAILY #30 tab Continued Aspirin [Aspir 81] 81 mg PO DAILY Famotidine [Acid Controller] 20 mg PO BID Atorvastatin Calcium [Atorvastatin 10mg Tab] 10 mg PO HS Fluticasone/Vilanterol [Breo Ellipta 200-25 Mcg INH] 1 inh INHALATION DAILY Tiotropium [place] [Spiriva 18mcg/puff inhaler] 1 inh INHALATION DAILY Albuterol Sulfate [Albuterol HFA Inhaler] 2 puffs INHALATION QIDP PRN PRN Reason: SOA Cetirizine HCl 10 mg PO DAILY clonazePAM [Klonopin 0.5mg tablet] 0.5 mg PO BID #60 tab Discontinued furosemide 40 mg tablet 40 mg PO DAILY tab insulin NPH isoph U-100 human 100 unit/mL subcutaneous suspension 60 unit SQ BID Ibuprofen [Ibuprofen 800mg Tab] 800 mg PO Q8HP PRN #15 tab PRN Reason: Moderate Pain Spironolactone [Spironolactone 25mg Tablet] 25 mg PO DAILY Potassium Chloride 10 meq PO BID Tramadol HCl [Tramadol 50mg Tab] 50 mg PO Q6HP PRN PRN Reason: Moderate Pain Duloxetine HCl 30 mg PO DAILY Levothyroxine Sodium [Levothyroxine 112mcg (0.112mg) Tab] 112 mcg PO DAILY Metformin HCl [Metformin 1000mg Tablets] 1,000 mg PO BID hydrOXYzine pamoate [Vistaril] 25 mg PO Q6H - Problem Reconciliation Problems Reviewed?: Yes
--- NOTE | 2019-09-15 17:00 | Electrocardiograph Report ---
APPROVED REPORT Exam: Resting ECG HR:65 bpm ECG Measurements Heart Rate 65 AXES DE 144 P 1 QRSd 94 QRS -10 QT 438 T56 QTc 455 <Conclusion> Normal sinus rhythm with sinus arrhythmia Moderate voltage criteria for LVH, may be normal variant Borderline ECG Electronically signed by : Jesus Ott, 09/15/2019 17:00:11
== END 2019-09-15 10:30 | disposition home or self-care (01) ==
LOC: 2ND 14:59 → ER 14:59 → 2ND 19:20
PROVIDERS: ADMIT Family Medicine; ATTEND Internal Medicine Adolescent Medicine
CPT/HCPCS: 36415; 71020; 71046; 80048; 80053; 81001; 82803; 82962; 83605; 84484; 85025; 87040; 87086; 93005; 96365; 96367; 96375; 96376; 99284; G0378

== ENCOUNTER → 2019-10-27 09:50 | Outpatient (CLI) | payer MEDICARE, MEDICAID, SELFPAY ==
[2019-10-27 11:32] LABS: Basophils # 0.1 K/mm3 (0-0.2); Basophils % 0.7 % (0.1-2.0); Eosinophils # 0.5 K/mm3 (0.0-0.4); Eosinophils % 4.1 % (0.1-12.0); Hemoglobin 12.3 g/dL (12.2-16.2); Lymphocytes # 2.9 K/mm3 (0.7-4.5); Mean Corpuscular HGB Conc 32.4 g/dL (31.8-35.4); Mean Corpuscular Volume 86.6 fl (81-99); Mean Platelet Volume 6.9 fl (7.4-10.4); Monocytes # 0.5 K/mm3 (0.1-1.0); Monocytes % 4.7 % (1.7-9.3); Neutrophils # 7.1 K/mm3 (1.8-7.8); Neutrophils % 64.4 % (37.0-80.0); Platelet Count 338 K/mm3 (142-424); Red Blood Count 4.38 M/mm3 (4.20-5.40); Red Cell Distribution Width 14.9 % (11.5-17.5)
[2019-10-27 12:36] LABS: Alanine Aminotransferase 15 U/L (12-78); Albumin Level 3.7 gm/dL (3.4-5.0); Albumin/Globulin Ratio 1.2 (1.1-1.8); Alkaline Phosphatase 88 U/L (46-116); Anion Gap 14.1 mEq/L (5-15); Aspartate Amino Transferase 16 U/L (15-37); Bilirubin,Total 0.4 mg/dL (0.2-1.0); Blood Urea Nitrogen 15 mg/dL (7-18); Calcium 8.9 mg/dL (8.5-10.1); Carbon Dioxide 28 mmol/L (21.0-32.0); Chloride 103 mmol/L (98-107); Creatinine,Serum 0.89 mg/dL (0.55-1.02); Estimated Glomerular Filt Rate 65 ml/min (>60); GFR (African American) 78 ML/MIN (>60); Glucose 111 mg/dL (74-106); Potassium 4.1 mmoL/L (3.5-5.1); Sodium 141 mmol/L (136-145); Total Protein,Serum 6.7 gm/dL (6.4-8.2)
--- NOTE | 2019-10-27 14:45 | XR_ITS ---
PROCEDURE: XR HIP RT 2-3V W/PELVIS CLINICAL INDICATION: RT HIP PAIN COMPARISON: HIP2R HIP-2 VIEWS-RT from 06/11/2015 [id number] HIP LT 2-3V W/PELVIS IF PERFOR from 05/18/2016 HIPCMLT XR hip LT 2-3V w/pelvis from 12/11/2017 XR HIP RT 2-3V W/PELVIS from 07/25/2019 FINDINGS: There are mild osteoarthritic changes of the right hip. No acute fracture or dislocation. Exostosis once again noted involving the greater trochanter with an accessory center of ossification once again noted. This is not significantly changed. A similar finding is also noted and the left hip with exostosis an ununited ossification center. IMPRESSION: Mild osteoarthritic change, no acute finding Dictated by: Michele Zimmerman MD 10/27/2019 15:20 Electronically signed by Michele Zimmerman MD in [place] 10/27/2019 15:20
== END ==
LOC: SC 14:35 → RAD 14:39
PROVIDERS: Visit Provider Nurse Practitioner Family
DX: K62.5 Hemorrhage of anus and rectum (principal); R19.4 Change in bowel habit; R19.7 Diarrhea, unspecified; R10.84 Generalized abdominal pain; R14.0 Abdominal distension (gaseous)
CPT/HCPCS: 36415; 73502; 80053; 85025

== ENCOUNTER → 2019-10-28 16:47 | Outpatient (CLI) | payer MEDICARE, MEDICAID, SELFPAY ==
[2019-10-28 16:50] LABS: Adenovirus F 40/41, stool Not Detected (NotDetected); Astrovirus Not Detected (NotDetected); Campylobacter Not Detected (NotDetected); Cryptosporidium Not Detected (NotDetected); Cyclospora Cayetanesis Not Detected (NotDetected); Entamoeba histolytica Not Detected (NotDetected); Enteroaggregative E coli Not Detected (NotDetected); Enteropathogenic E coli Not Detected (NotDetected); Enterotoxigenic E coli Not Detected (NotDetected); Giardia lamblia Not Detected (NotDetected); Norovirus Not Detected (NotDetected); Plesimonas Shigalloides, PCR Not Detected (NotDetected); Rotavirus A Not Detected (NotDetected); Salmonella, PCR Not Detected (NotDetected); Sapovirus Not Detected (NotDetected); Shiga-like toxin E coli Not Detected (NotDetected); Shigella Enterovasive E coli Not Detected (NotDetected); Vibrio Cholerae Not Detected (NotDetected); Vibrio, PCR Not Detected (NotDetected); Yersinia Entercolitica, PCR Not Detected (NotDetected)
[2019-10-28 19:41] LABS: Clostridium Difficile A/B, PCR Detected (NotDetected)
== END ==
PROVIDERS: Visit Provider Nurse Practitioner Family
DX: R19.7 Diarrhea, unspecified (principal); A04.72 Enterocolitis due to Clostridium difficile, not specified as recurrent
CPT/HCPCS: 87506

== ENCOUNTER → 2019-11-17 09:02 | Outpatient (CLI) | payer MEDICARE, MEDICAID, SELFPAY ==
--- NOTE | 2019-11-17 09:39 | XR_ITS ---
PROCEDURE: XR SHOULDER LT MIN 2V CLINICAL INDICATION: left shoulder pain COMPARISON: SHOU3R [id number] VIEWS from 03/25/2015 SHOU3L [id number] VIEWS from 06/23/2016 SHOULDCMLT XR shoulder LT min 2V from 03/06/2018 SHOULDCMLT XR shoulder LT min 2V from 03/29/2018 FINDINGS: There is diffuse demineralization. No acute fracture dislocation or other focal bony lesion is apparent. Joint space is preserved. IMPRESSION: No acute findings. Dictated by: Bruno Gonzales 11/17/2019 13:40 Electronically signed by Bruno Gonzales in [place] 11/17/2019 13:40
--- NOTE | 2019-11-17 09:39 | XR_ITS ---
PROCEDURE: XR SHOULDER RT MIN 2V CLINICAL INDICATION: right shoulder pain COMPARISON: SHOU3R [id number] VIEWS from 03/25/2015 SHOU3L [id number]-[id number] VIEWS from 06/23/2016 SHOULDCMLT XR shoulder LT min 2V from 03/06/2018 SHOULDCMLT XR shoulder LT min 2V from 03/29/2018 FINDINGS: There is demineralization. No acute fracture dislocation or destructive lesion. Mild AC joint arthropathy is noted. IMPRESSION: No acute findings. Dictated by: Bruno Gonzales 11/17/2019 14:20 Electronically signed by Bruno Gonzales in [place] 11/17/2019 14:20
--- NOTE | 2019-11-17 09:55 | CT_ITS ---
PROCEDURE: C scarred a trophic right Kidney similar in appearance to previous exam. T ABDOMEN PELVIS W CON CLINICAL INDICATION: ALTERED BOWEL FUNCTION,DIARRHEA,ABD PAIN,BLOATING COMPARISON: [id number] CT abdomen pelvis w con from 04/20/2019 TECHNIQUE: IV Contrast: 75ML OPTIRAY 350 Oral Contrast 20ml Gastroview Axial images obtained with sagittal and coronal reformats. All CT scans at the facility use one or more dose reduction, viz: automated exposure control, ma/kV adjustment per patient size (including targeted exams where dose is matched to indication, i.e. head), or iterative reconstruction technique. FINDINGS: LOWER THORAX: No acute finding ABDOMEN & PELVIS: There is mild fatty infiltration there is a of the liver status post cholecystectomy. Calcified splenic granulomas are noted. 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 The liver, spleen, pancreas, adrenal glands, and kidneys show no acute finding. No intestinal obstruction or free air. No evidence of appendicitis or diverticulitis. No pelvic mass, abnormal fluid collection, or focal inflammatory change of the pelvis. Gonadal organs are not identified. There is some linear soft tissue density likely scarring in the left pelvis. Multilevel degenerative changes seen in the spine with levoscoliosis. No acute bony anomalies. IMPRESSION: No acute findings. Dictated by: Bruno Gonzales 11/17/2019 11:47 Electronically signed by Bruno Gonzales in [place] 11/17/2019 11:47
[2019-11-17 10:05] LABS: Blood Urea Nitrogen 16 mg/dL (7-18); Creatinine,Serum 0.79 mg/dL (0.55-1.02); Estimated Glomerular Filt Rate 74 ml/min (>60); GFR (African American) 90 ML/MIN (>60)
== END ==
PROVIDERS: PCP Internal Medicine; Visit Provider Nurse Practitioner Family
DX: G89.29 Other chronic pain (principal); M25.512 Pain in left shoulder; M25.511 Pain in right shoulder; R19.4 Change in bowel habit; R19.7 Diarrhea, unspecified; R10.84 Generalized abdominal pain; R14.0 Abdominal distension (gaseous); K62.5 Hemorrhage of anus and rectum
CPT/HCPCS: 36415; 73030; 74177; 82565; 84520; Q9967

== ENCOUNTER → 2019-12-01 15:06 | Outpatient (POV) | payer MEDICARE, MEDICAID, SELFPAY | PROVIDERS: PCP Nurse Practitioner Family; Visit Provider Nurse Practitioner Family | DX: Z00.00 Encounter for general adult medical examination without abnormal findings (principal) ==

== ENCOUNTER → 2019-12-25 14:20 | Outpatient (CLI) | payer MEDICARE, MEDICAID, SELFPAY | PROVIDERS: PCP Internal Medicine; Visit Provider Nurse Practitioner Family | DX: G47.33 Obstructive sleep apnea (adult) (pediatric) (principal); R06.83 Snoring ==

== ENCOUNTER 2020-01-10 12:12 | Emergency (ER) | payer MEDICARE, MEDICAID, SELFPAY ==
[2020-01-10 12:23] VITALS: BP 119/55; PULSE 78; RESP 17; TEMP 37.1; O2SAT 96; BMI 33.9
--- NOTE | 2020-01-10 12:28 | XR_ITS ---
PROCEDURE: XR PELVIS 1-2V CLINICAL INDICATION: fall , Generalized pelvic pain COMPARISON: XR HIP RT 2-3V W/PELVIS from 10/27/2019 TECHNIQUE: XR Pelvis AP View FINDINGS: No fracture or dislocation is evident. Again noted is a prominent exostosis adjacent to the greater trochanter right hip as noted on the previous study. There is a similar but smaller exostosis adjacent to the greater trochanter left hip. 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 There is no significant joint space narrowing of either hip. The SI joints and symphysis pubis appear normal. No significant degenerative change. No lytic or blastic change. IMPRESSION: No acute findings. Dictated by: Dr. Percy France MD 01/10/2020 13:[address] Percy France MD in [place] 01/10/2020 13:33
--- NOTE | 2020-01-10 12:29 | CT_ITS ---
PROCEDURE: CT CHEST WO CON CLINICAL INDICATION: fall Generalized chest pain COMPARISON: [facility] CT CHEST W/O CONTRAST from 10/04/2016 TECHNIQUE: Axial images obtained with sagittal and coronal reformats. All CT scans at the facility use one or more dose reduction, viz: automated exposure control, ma/kV adjustment per patient size (including targeted exams where dose is matched to indication, i.e. head), or iterative reconstruction technique. FINDINGS: HEART AND MEDIASTINAL STRUCTURES: There is mild generalized cardiomegaly with aortic tortuosity. There is mild coronary artery calcification. LUNGS AND PLEURAL SPACES: Unremarkable. There is stable mild postinflammatory scarring at the left cardiophrenic angle. There is no pleural fluid. There is no evidence of pulmonary contusion. There is a calcified left hilar node. BONY STRUCTURES: No acute bony abnormalities apparent. UPPER ABDOMEN: Unremarkable. The stomach is distended with ingested food particles. ADDITIONAL FINDINGS: No other significant abnormalities. IMPRESSION: Mild cardiomegaly, no acute cardiopulmonary pathology identified Dictated by: Dr. Percy France MD 01/10/2020 13:[address] Percy France MD in [place] 01/10/2020 13:42
--- NOTE | 2020-01-10 12:29 | CT_ITS ---
PROCEDURE: CT THORACIC SPINE WO CON CLINICAL HISTORY: fall Generalized back pain after recent fall COMPARISON: No exams were available for comparison TECHNIQUE: Axial images obtained with sagittal and coronal reformats. All CT scans at the facility use one or more dose reduction, viz: automated exposure control, ma/kV adjustment per patient size (including targeted exams where dose is matched to indication, i.e. head), or iterative reconstruction technique. FINDINGS: There is mild diffuse dextroscoliotic curvature of the midthoracic spine. There is generalized osteopenia. There is multilevel degenerate changes with anterior and lateral osteophytic spurring at several levels. There is no evidence of recent or old compression fracture. There is no paraspinal mass. The spinal canal is lower limits of normal in size throughout. IMPRESSION: Generalized osteopenia and mild multilevel degenerate changes as noted, no acute bony pathology seen Dictated by: Dr. Percy France MD 01/10/2020 13:[address] Percy France MD in [place] 01/10/2020 13:27
--- NOTE | 2020-01-10 12:29 | CT_ITS ---
PROCEDURE: CT HEAD/BRAIN WO CON CLINICAL INDICATION: fall headaches, had a fall recently COMPARISON: HEADWO CT head/brain wo con from 08/20/2018 TECHNIQUE: Axial images obtained. All CT scans at the facility use one or more dose reduction, viz: automated exposure control, ma/kV adjustment per patient size (including targeted exams where dose is matched to indication, i.e. head), or iterative reconstruction technique. FINDINGS: No midline shift, mass effect, intracranial hemorrhage, hydrocephalus, or extra-axial fluid collection is evident. There are mild bilateral periventricular hypodensities consistent with mild chronic ischemic white matter changes. There is no significant cerebellar or cortical atrophy. The calvarium has an unremarkable appearance. No mastoid effusion. No sinus air-fluid level. IMPRESSION: No acute intracranial finding Dictated by: Dr. Percy France MD 01/10/2020 13:[address] Percy France MD in [place] 01/10/2020 13:15
--- NOTE | 2020-01-10 12:29 | CT_ITS ---
PROCEDURE: CT CERVICAL SPINE WO CON CLINICAL INDICATION: fall Generalized neck pain after recent fall COMPARISON: [facility] CT cervical spine wo con from 07/23/2018 TECHNIQUE: Axial images obtained with sagittal and coronal reformats. All CT scans at the facility use one or more dose reduction, viz: automated exposure control, ma/kV adjustment per patient size (including targeted exams where dose is matched to indication, i.e. head), or iterative reconstruction technique. Axial spiral CT scanning performed of the cervical spine beginning at the base of the skull and continuing to the upper T-spine. 3-D multiplanar reconstruction with 3-D manipulation of volumetric data set in image rendering was completed by the radiologist and/or technologist with the supervision of the radiologist on independent workstation. FINDINGS: There is normal curvature and alignment. C1 through C7 appear intact. There is mild disc space narrowing at C5-6 level with mild posterior osteophytic spurring noted along with mild narrowing of the neural foramen left side at this level. There is mild disc space narrowing at the C6-7 level with anterior osteophytic spurring. The prevertebral soft tissues are normal. There are mild arthritic changes of the atlantoaxial joint with spurring of the tip of the odontoid and spurring of the adjacent anterior arch of C1. IMPRESSION: Cervical spine intact with no fracture nor subluxation. There are findings of mild degenerate disc disease C5-6 and C6-7 Dictated by: Dr. Percy France MD 01/10/2020 13:[address] Percy France MD in [place] 01/10/2020 13:19
--- NOTE | 2020-01-10 12:30 | CT_ITS ---
PROCEDURE: CT LUMBAR SPINE WO CON CLINICAL HISTORY: fall Low back pain after recent fall COMPARISON: No exams were available for comparison TECHNIQUE: Axial images obtained with sagittal and coronal reformats. All CT scans at the facility use one or more dose reduction, viz: automated exposure control, ma/kV adjustment per patient size (including targeted exams where dose is matched to indication, i.e. head), or iterative reconstruction technique. FINDINGS: There is mild diffuse dextroscoliotic curvature lumbar spine.. All lumbar vertebrae appear intact. There is mild generalized osteopenia. There is mild diffuse bulging of the annulus fibrosus at the L4-5 level. There are mild hypertrophic facet changes at the L3-4 L4-5 and L5-S1 levels. There is minimal arthrosclerotic calcification of the abdominal aorta. IMPRESSION: No acute findings identified Dictated by: Dr. Percy France MD 01/10/2020 13:[address] Percy France MD in [place] 01/10/2020 13:47
--- NOTE | 2020-01-10 13:56 | HMH.EDFALL ---
ED Disposition Clinical Impression: Multiple contusions Disposition: Home, Self-Care Condition on Discharge: Good Instructions: How to Prevent Falls Additional Instructions: Please follow-up with primary care. Referrals: Jesus Ott [Primary Care Provider] - - Critical Care Critical Care Time: No Attestation: On 01/10/20, the high probability of a clinically significant, sudden or life threatening deterioration of the following system(s) required my full and direct attention, intervention and personal management. The time I documented below is in addition to time spent performing reported procedures but includes the following listed in this critical care notation. Medical Decision Making - Medical Records Medical records reviewed: Yes: I reviewed the patient's medical records. - Bryan Inquiry Pt receiving controlled substance: No Vital Signs: 01/10/20 12:23 Temperature 98.7 F Temperature Source Oral Pulse Rate [Right Radial] 78 Respiratory Rate 17 Blood Pressure [Right Arm] 119/55 L Blood Pressure Mean [Right Arm] 76 02 Sat by Pulse Oximetry 96 Oxygen Delivery Method Room Air - Lab Data Lab results reviewed: Yes: I reviewed the patient's lab results. Orders (Tests/Meds): ED MEDICATIONS Discontinued Medications Generic Name Dose Route Start Last Admin Trade Name Freq PRN Reason Stop Dose Admin Acetaminophen 650 mg 01/10/20 13:20 01/10/20 13:21 Acetaminophen 325mg Tab PO 01/10/20 13:21 650 mg ONCE ONE Administration Ibuprofen 600 mg 01/10/20 13:20 01/10/20 13:21 Motrin 600mg Tablet PO 01/10/20 13:21 600 mg ONCE ONE Administration - CT Data CT Scan: Head, C-Spine, Chest, T-Spine, L-Spine Time Received: 13:[address] Reviewed: Yes: I have reviewed the patient's CT results Preliminary Findings: Normal/NAD Fall HPI - General Chief Complaint: Fall Stated Complaint: back and left leg pain Time Seen by Provider: 01/10/20 13:57 Mode of Arrival: Ambulatory Limitations: No Limitations Description of Symptoms (Recalled from ER Triage Doc. by RN): pt presents to ed with c/o fall x 2 weeks ago after slipping on her wet dog pad. pt states that she seen her doctor and was told she was bruised up. pt c/o head pain, lung pain, and states that her back pain runs down her legs. pt states she usually takes tramadol for pain but is out. - History of Present Illness HPI Narrative: 59-year-old female comes in complaining of head pain mid back pain and lower back pain. She states that she fell 2 days ago and her lower back, and then she raised up and hit her head on a drawer. Since then she has been having headaches. She states that she has had no nausea or vomiting. She denies having any loss of consciousness. She denies any dizziness lightheadedness or vertigo and she also denies any loss of balance. She rates her pain all over as 4 out of 10 sharp pressure-like sensation. She does not complain of any pain radiating to any specific location. Exacerbating factors include movement and alleviating factors include rest. Patient denies any recent fever shakes or chills. Patient also denies any shortness of breath or cough. - Related Data Home Medications Medication Instructions Recorded Confirmed Albuterol Sulfate [Albuterol HFA 2 puffs INHALATION QIDP PRN 09/14/19 12/03/19 Inhaler] Cetirizine HCl 10 mg PO DAILY 09/14/19 12/03/19 Fluticasone/Vilanterol [Breo 1 inh INHALATION DAILY 09/14/19 12/03/19 Ellipta 200-25 Mcg INH] Tiotropium [place] [Spiriva 1 inh INHALATION DAILY 09/14/19 12/03/19 18mcg/puff inhaler] Sitagliptin Phosphate [Januvia 100 mg PO DAILY 09/27/19 12/03/19 100mg tablet] hydroxyzine pamoate 25 mg capsule 25 mg PO DAILY cap 11/27/19 12/03/19 tramadol 50 mg tablet 50 mg PO DAILY tab 11/27/19 12/03/19 Duloxetine HCl 30 mg PO DAILY 12/03/19 12/03/19 Levothyroxine Sodium 112 mcg PO DAILY 12/03/19 12/03/19 [Levothyroxine 11
[2020-01-10 14:49] VITALS: BP 133/78; PULSE 78; RESP 16; TEMP 36.6; O2SAT 98
== END 2020-01-10 14:50 | disposition home or self-care (01) ==
PROVIDERS: Emergency Provider Family Medicine; PCP Internal Medicine
DX: S00.93XA Contusion of unspecified part of head, initial encounter; S30.0XXA Contusion of lower back and pelvis, initial encounter; W18.39XA Other fall on same level, initial encounter; Z79.84 Long term (current) use of oral hypoglycemic drugs; Z79.891 Long term (current) use of opiate analgesic; Z79.51 Long term (current) use of inhaled steroids; Z88.1 Allergy status to other antibiotic agents; Z88.2 Allergy status to sulfonamides; F41.9 Anxiety disorder, unspecified; J44.9 Chronic obstructive pulmonary disease, unspecified; E11.9 Type 2 diabetes mellitus without complications; F32.9 Major depressive disorder, single episode, unspecified; E78.5 Hyperlipidemia, unspecified; I10 Essential (primary) hypertension; Z72.0 Tobacco use
CPT/HCPCS: 70450; 71250; 72125; 72128; 72131; 72170; 99282

== ENCOUNTER 2020-01-16 13:59 | Emergency (ER) | payer MEDICARE, MEDICAID, SELFPAY ==
[2020-01-16 14:07] VITALS: BP 159/96; PULSE 73; RESP 20; TEMP 36.7; O2SAT 98; BMI 33.9
--- NOTE | 2020-01-16 14:11 | XR_ITS ---
PROCEDURE: XR CHEST PORTABLE CLINICAL HISTORY: cough/respiratory symptoms COMPARISON: XR CHEST 2V from 09/13/2019 XR CHEST 2V from 09/27/2019 XR CHEST 2V from 11/21/2019 CT CHEST WO CON from 01/10/2020 FINDINGS: Borderline cardiomegaly without failure. The lungs are clear without infiltrates, suspicious nodules, or pleural effusions. No acute bony abnormalities. IMPRESSION: No acute findings. Dictated by: Michele Zimmerman MD 01/16/2020 15:06 Electronically signed by Michele Zimmerman MD in [place] 01/16/2020 15:06
--- NOTE | 2020-01-16 14:12 | HMH.COUGH ---
Cough Clinic HPI - History of Present Illness Complaint:: Cough, GI symptoms HPI:: Pleasant 59-year-old female with greater than 30-year history of smoking who presents with persistent cough that is slightly worse than her baseline over the past 2 months. Additionally has had multiple episodes over the past month including bronchitis and stomach infection necessitating antibiotics. Denies any fevers, cough at baseline production, no shortness of breath. Chest pain, nausea, vomiting. No known coronavirus contacts. Onset (ago): week(s) Severity: mild Home Medications: Home Medications Medication Instructions Recorded Confirmed Type Albuterol Sulfate [Albuterol HFA 2 puffs INHALATION QIDP PRN 09/14/19 01/16/20 History Inhaler] Cetirizine HCl 10 mg PO DAILY 09/14/19 01/16/20 History Fluticasone/Vilanterol [Breo 1 inh INHALATION DAILY 09/14/19 01/16/20 History Ellipta 200-25 Mcg INH] Tiotropium [place] [Spiriva 1 inh INHALATION DAILY 09/14/19 01/16/20 History 18mcg/puff inhaler] clonazePAM [Klonopin 0.5mg tablet] 0.5 mg PO BID #60 tab 09/15/19 01/16/20 Rx Sitagliptin Phosphate [Januvia 100 mg PO DAILY 09/27/19 01/16/20 History 100mg tablet] hydroxyzine pamoate 25 mg capsule 25 mg PO DAILY cap 11/27/19 01/16/20 History tramadol 50 mg tablet 50 mg PO DAILY tab 11/27/19 01/16/20 History Duloxetine HCl 30 mg PO DAILY 12/03/19 01/16/20 History Levothyroxine Sodium 112 mcg PO DAILY 12/03/19 01/16/20 History [Levothyroxine 112mcg (0.112mg) Tab] Allergies/Adverse Reactions: Allergies Allergy/AdvReac Type Severity Reaction Status Date / Time Sulfa (Sulfonamide Allergy Mild Verified 01/16/20 14:05 Antibiotics) [SULFA (SULFONAMIDE ANTIBIOTICS)] levofloxacin [From LEVAQUIN] Allergy Unknown Verified 01/16/20 14:05 Cough Clinic Triage - Symptoms Fever History: Yes Chills: No Myalgia: No Nasal Drainage: Yes Sore Throat: No Productive Cough: No Non-productive Cough: Yes Ear or Sinus Pain: No Joint Pain: Yes Chest Pain: Yes (chest pressure) Rash: Yes (both arms) Shortness of Breath: Yes Nausea or Vomitting: Yes (nausea) Headache: Yes Abdominal Pain: No Diarrhea: No - Exposure History Foreign Travel: No Direct Contact with COVID-19 Patient: No - Risk Factors Greater than 60 Years Old: Yes COPD: Yes Diabetes: Yes Heart Disease: Yes Home Oxygen Use: No Chronic Renal Disease: No Chronic Liver Disease: No Neurologic/Neurodevelopmental/intellectual disability: No Other Chronic Diseases: Yes (back) Current Smoker: Yes Former Smoker: No Cough Clinic History I have reviewed the patient's past medical history: Yes Medical History: Reports:: Anxiety, Asthma, Congestive Heart Failure, Chronic Obstructive Pulmonary Disease (COPD), Depression, Diabetes Mellitus Type 2, Gastroesophageal Reflux Disease(GERD), Hyperlipidemia, Hypertension Denies:: Cancer, Diabetes Mellitus Type 1, Internal Pacemaker, MRSA, Seizures Other Medical History: Reports: Anemia, Arthritis, Hormone Therapy, Hypothyroidism, Liver Disease, Other Comment: obesity, JONATHAN Other Surgeries: Yes: Cardiac Catheterization, Cholecystectomy, Colonoscopy, Dilation and Curettage, Hernia Repair, Hysterectomy-Total, Hysterectomy-Partial, Thyroidectomy, Tubal Ligation, Other. No: Pacemaker Amputation: Yes Fractures: Yes Comment: Liver biopsy. Urethal dilation - Social History Smoking Status: Current every day smoker Tobacco Type: cigarettes # Packs/Day (cigarettes): 1 Alcohol Intake: never Alcohol Intake Frequency:: other Substance Use Type: former substance user Occupational Status: other Housing: house Household Members: children - Psychiatric History Pschychiatric History:: Reports:: Anxiety, Depression Family Hx:: Unable to obtain Comment: Hx of family heart problems ROS Obtained: Yes Systems reviewed as appropriate & no additional complaints Cough Clinic Exam - General General appearance: alert, in no appa
[2020-01-16 14:26] LABS: Basophils # 0.1 K/mm3 (0-0.2); Basophils % 0.8 % (0.1-2.0); Eosinophils # 0.2 K/mm3 (0.0-0.4); Eosinophils % 2.1 % (0.1-12.0); Hematocrit 38.5 % (37.0-47.0); Lymphocytes # 2.7 K/mm3 (0.7-4.5); Lymphocytes % 30.5 % (10-50); Mean Corpuscular HGB Conc 31.3 g/dL (31.8-35.4); Mean Corpuscular Hemoglobin 27.1 pg (27.0-31.2); Mean Corpuscular Volume 86.8 fl (81-99); Mean Platelet Volume 7.3 fl (7.4-10.4); Monocytes # 0.6 K/mm3 (0.1-1.0); Monocytes % 6.3 % (1.7-9.3); Neutrophils # 5.3 K/mm3 (1.8-7.8); Neutrophils % 60.2 % (37.0-80.0); Platelet Count 427 K/mm3 (142-424); Red Blood Count 4.44 M/mm3 (4.20-5.40); White Blood Count 8.8 K/mm3 (4.8-10.8)
[2020-01-16 14:41] VITALS: BP 159/96; PULSE 73; RESP 18; TEMP 36.7; O2SAT 98
== END 2020-01-16 14:39 | disposition home or self-care (01) ==
PROVIDERS: Emergency Provider Internal Medicine Adolescent Medicine; PCP Internal Medicine
DX: I50.23 Acute on chronic systolic (congestive) heart failure (principal); I10 Essential (primary) hypertension; K21.9 Gastro-esophageal reflux disease without esophagitis; E78.5 Hyperlipidemia, unspecified; E03.9 Hypothyroidism, unspecified; E11.9 Type 2 diabetes mellitus without complications; J44.9 Chronic obstructive pulmonary disease, unspecified; F41.8 Other specified anxiety disorders; F17.210 Nicotine dependence, cigarettes, uncomplicated; Z79.899 Other long term (current) drug therapy; Z88.2 Allergy status to sulfonamides
CPT/HCPCS: G0463; 36415; 71045; 85025; 87275; 87276; 99201; 99213

== ENCOUNTER 2020-01-20 02:31 | Emergency (ER) | payer MEDICARE, MEDICAID, SELFPAY ==
[2020-01-20 02:32] VITALS: BP 159/70; PULSE 76; RESP 16; TEMP 36.6; O2SAT 98; BMI 33.0
[2020-01-20 02:57] LABS: Basophils # 0.1 K/mm3 (0-0.2); Basophils % 0.6 % (0.1-2.0); Eosinophils # 0.1 K/mm3 (0.0-0.4); Eosinophils % 0.9 % (0.1-12.0); Hematocrit 41.7 % (37.0-47.0); Lymphocytes # 5.9 K/mm3 (0.7-4.5); Lymphocytes % 38.1 % (10-50); Mean Corpuscular HGB Conc 31.2 g/dL (31.8-35.4); Mean Corpuscular Hemoglobin 27.9 pg (27.0-31.2); Mean Corpuscular Volume 89.4 fl (81-99); Mean Platelet Volume 7.3 fl (7.4-10.4); Monocytes % 6.3 % (1.7-9.3); Neutrophils # 8.4 K/mm3 (1.8-7.8); Neutrophils % 54.2 % (37.0-80.0); Platelet Count 555 K/mm3 (142-424); Red Blood Count 4.66 M/mm3 (4.20-5.40); Red Cell Distribution Width 13.5 % (11.5-17.5); White Blood Count 15.6 K/mm3 (4.8-10.8)
[2020-01-20 02:59] LABS: Chloride 103 mmol/L (98-107)
--- NOTE | 2020-01-20 02:59 | PC.NURSE ---
fsbs was obtained upon pt's arrival. fsbs was 45. STAT blood glucose was obtained at this time.
[2020-01-20 03:00] LABS: Sodium 141 mmol/L (136-145)
--- NOTE | 2020-01-20 03:00 | PC.NURSE ---
pr provided with orange juice and crackers and peanut butter
[2020-01-20 03:02] LABS: Alanine Aminotransferase 17 U/L (12-78); Albumin Level 4.5 g/dl (3.5-5.0); Albumin/Globulin Ratio 1.2 (1.1-1.8); Alkaline Phosphatase 86 U/L (38-126); Anion Gap 10.7 mEq/L (5-15); Aspartate Amino Transferase 23 U/L (14-36); Bilirubin,Total 0.4 mg/dl (0.2-1.3); Blood Urea Nitrogen 17 mg/dl (7-17); Carbon Dioxide 30 mmol/L (22.0-30.0); Creatinine Clearance Estimated 87 mL/min (50-200); Estimated Glomerular Filt Rate 102 ml/min (>60); GFR (African American) 123 ML/MIN (>60); Globulin 3.7 g/dL (1.3-3.2); Total Protein,Serum 8.2 g/dl (6.3-8.2)
[2020-01-20 03:03] LABS: Calcium 9.9 mg/dl (8.4-10.2); Glucose 59 mg/dl (74-100)
[2020-01-20 03:04] LABS: MANUAL DIFFERENTIAL MANUAL DIFFERENTIAL (MANUAL DIFF); Potassium 2.7 mmoL/L (3.5-5.1)
--- NOTE | 2020-01-20 03:07 | PC.NURSE ---
critical potassium called to richard per lab staff
[2020-01-20 03:10] LABS: Acetone, Serum (Rapid) None Detected (None Detect); Hemoglobin A1C 6.4 % (4.0-6.0)
[2020-01-20 03:46] LABS: Eosinophils % 1 % (0-3); Lymphocytes % 51 % (10-50); Neutrophils % 46 % (42-76); Total Cells Counted 100
[2020-01-20 03:47] LABS: Platelet Estimate Normal; Stomatocytes 1+
[2020-01-20 03:57] LABS: POC Glucose,Bedside 73 (70-110)
[2020-01-20 04:00] VITALS: BP 98/63; PULSE 72; RESP 16; O2SAT 100
--- NOTE | 2020-01-20 04:04 | HMH.EDGENADL ---
ED Disposition Clinical Impression: Hypoglycemia, Hypokalemia Diabetes mellitus Qualifiers: Diabetes mellitus type: type 2 Diabetes mellitus group home insulin use: unspecified ad terminal makeup operator insulin use status Diabetes mellitus complication status: with other specified complication Qualified Code(s): E11.69 - Type 2 diabetes mellitus with other specified complication Disposition: Home, Self-Care Condition on Discharge: Good Instructions: DI for Hyperglycemia -- Adult, DI for Hypoglycemia Additional Instructions: call pcp for follow up Referrals: Jesus Ott [Primary Care Provider] - - Critical Care Critical Care Time: No Attestation: On 01/20/20, the high probability of a clinically significant, sudden or life threatening deterioration of the following system(s) required my full and direct attention, intervention and personal management. The time I documented below is in addition to time spent performing reported procedures but includes the following listed in this critical care notation. Medical Decision Making - Medical Records Medical records reviewed: Yes: I reviewed the patient's medical records. - Bryan Inquiry Pt receiving controlled substance: No Vital Signs: 01/20/20 02:32 01/20/20 04:00 Temperature 97.9 F Temperature Source Oral Pulse Rate [Left Radial] 76 72 Respiratory Rate 16 16 Blood Pressure [Right Radial Artery] 159/70 H 98/63 L Blood Pressure Mean [Right Radial Artery] 99 74 Blood Pressure Source [Right Radial Artery] Automatic Cuff Blood Pressure Position [Right Radial Artery] Sitting 02 Sat by Pulse Oximetry 98 100 Oxygen Delivery Method Room Air Room Air - Lab Data Lab results reviewed: Yes: I reviewed the patient's lab results. Lab Results 01/20/20 02:45: WBC 15.6 H, RBC 4.66, Hgb 13.0, Hct 41.7, MCV 89.4, MCH 27.9, MCHC 31.2 L, RDW 13.5, Plt Count 555 H D, MPV 7.3 L, Neut % (Auto) 54.2, Lymph % (Auto) 38.1, [place] % (Auto) 6.3, Eos % (Auto) 0.9, Baso % (Auto) 0.6, Neut # (Auto) 8.4 H, Lymph # (Auto) 5.9 H, [place] # (Auto) 1.0, Eos # (Auto) 0.1, Baso # (Auto) 0.1, Total Counted 100, Neutrophils % (Manual) 46, Lymphocytes % (Manual) 51 H, Eosinophils % (Manual) 1, Basophils % (Manual) 2.0 H, Platelet Estimate Normal, Stomatocytes 1+ 01/20/20 02:45: Sodium 141, Potassium 2.7 L*, Chloride 103, Carbon Dioxide 30, Anion Gap 10.7, BUN 17, Creatinine 0.60, Estimated Creat Clear 87, Estimated GFR 102, Est GFR ( Amer) 123, Glucose 59 L, Calcium 9.9, Total Bilirubin 0.4, AST 23, ALT 17, Alkaline Phosphatase 86, Total Protein 8.2, Albumin 4.5, Globulin 3.7 H, Albumin/Globulin Ratio 1.2 01/20/20 02:45: Hemoglobin A1c 6.4 H 01/20/20 02:45: Acetone Level None detected 01/20/20 03:35: POC Glucose 73 Result diagrams: 01/20/20 02:45 01/20/20 02:45 General Adult HPI - General Chief complaint: Hyper/Hypoglycemia Stated complaint: Low blood sugar Time Seen by Provider: 01/20/20 03:00 Mode of Arrival: Wheelchair Source of Information: Patient, Medical Record Limitations: No Limitations Description of Symptoms (Recalled from ER Triage Doc. by RN): pt stated she cant get her blood sugar up pt stated all she ate yesterday was an omlette and she attempted to eat some cereal before coming in tonight. - History of Present Illness HPI narrative: pt with hx of niddm with low glu - no fever or exposure to covid- Onset (ago): hour(s) Severity: moderate Associated symptoms: denies other symptoms Treatments prior to arrival: none - Related Data Home Medications Medication Instructions Recorded Confirmed Albuterol Sulfate [Albuterol HFA 2 puffs INHALATION QIDP PRN 09/14/19 01/16/20 Inhaler] Cetirizine HCl 10 mg PO DAILY 09/14/19 01/16/20 Fluticasone/Vilanterol [Breo 1 inh INHALATION DAILY 09/14/19 01/16/20 Ellipta 200-25 Mcg INH] Tiotropium [place] [Spiriva 1 inh INHALATION DAILY 09/14/19 01/16/20 18mcg/puff inhaler] Sitagliptin Phosphate [Januvia 100 mg PO DAILY 12
[2020-01-20 04:23] VITALS: BP 115/71; PULSE 73; RESP 15; TEMP 36.7; O2SAT 96
[2020-01-20 08:25] LABS: POC Glucose,Bedside 45 (70-110)
== END 2020-01-20 04:26 | disposition home or self-care (01) ==
PROVIDERS: Emergency Provider Emergency Medicine; PCP Internal Medicine
DX: E11.69 Type 2 diabetes mellitus with other specified complication (principal); E87.6 Hypokalemia; K21.9 Gastro-esophageal reflux disease without esophagitis; E78.5 Hyperlipidemia, unspecified; I10 Essential (primary) hypertension; E03.9 Hypothyroidism, unspecified; J44.9 Chronic obstructive pulmonary disease, unspecified; F41.8 Other specified anxiety disorders; F17.210 Nicotine dependence, cigarettes, uncomplicated; Z79.899 Other long term (current) drug therapy; Z88.1 Allergy status to other antibiotic agents; Z88.2 Allergy status to sulfonamides
CPT/HCPCS: 80053; 82009; 82962; 83036; 85007; 85025; 99283

== ENCOUNTER 2020-01-22 01:50 | Emergency (ER) | payer MEDICARE, MEDICAID, SELFPAY ==
[2020-01-22 02:01] VITALS: BP 144/65; PULSE 69; RESP 16; TEMP 36.4; O2SAT 97; BMI 33.9
--- NOTE | 2020-01-22 02:14 | XR_ITS ---
PROCEDURE: XR KNEE LT 3V CLINICAL INDICATION: fall Injury with pain COMPARISON: KNEE3R KNEE-3 VIEWS-RT from 08/19/2016 KNEE3R KNEE-3 VIEWS-RT from 04/17/2017 [id number] KNEE-4 OR 5 VIEWS-RT from 06/20/2017 [id number] KNEE-4 OR 5 VIEWS-LT from 06/20/2017 FINDINGS: No fracture or dislocation. No lytic or blastic change. There is normal mineralization. There are mild osteoarthritic changes of the knee joint of the medial and lateral compartment. Other findings:None. IMPRESSION: No acute findings. Dictated by: Michele Zimmerman MD 01/22/2020 07:38 Electronically signed by Michele Zimmerman MD in [place] 01/22/2020 07:38
--- NOTE | 2020-01-22 02:14 | XR_ITS ---
PROCEDURE: XR CHEST AP CLINICAL HISTORY: fall Posttraumatic pain COMPARISON: XR CHEST 2V from 09/27/2019 XR CHEST 2V from 11/21/2019 CT CHEST WO CON from 01/10/2020 XR CHEST PORTABLE from 01/16/2020 CT ANGIO CHEST from 01/22/2020 FINDINGS: Mild cardiomegaly without failure. The lungs are clear without infiltrates, suspicious nodules, or pleural effusions. No acute bony abnormalities. IMPRESSION: No acute findings. Dictated by: Michele Zimmerman MD 01/22/2020 07:33 Electronically signed by Michele Zimmerman MD in [facility] 01/22/2020 07:33
--- NOTE | 2020-01-22 02:14 | CT_ITS ---
PROCEDURE: CT ANGIO CHEST CLINCIAL INDICATION: fall Fall with injury and pain, blunt trauma with contusion or hematoma, right-sided chest and rib pain, right upper quadrant pain COMPARISON: ABDPELWO CT abdomen pelvis wo con from 12/06/2017 CT CHEST WO CON from 01/10/2020 TECHNIQUE: IV Contrast: 70ML OPTIRAY 350 Axial images obtained with sagittal and coronal reformats. All CT scans at the facility use one or more dose reduction, viz: automated exposure control, ma/kV adjustment per patient size (including targeted exams where dose is matched to indication, i.e. head), or iterative reconstruction technique. FINDINGS: HEART AND MEDIASTINAL STRUCTURES: Surgical clips are present in the upper and anterior mediastinum. No evidence of aortic aneurysm or dissection. No evidence of pulmonary embolus. There are coronary artery calcifications LUNGS AND PLEURAL SPACES: No lobar consolidation or collapse is evident. There is a 5 mm nodule in the left lower lobe image 44 series 4 not significantly changed BONY STRUCTURES: No displaced rib fractures are evident. There is some minimal angulation of the anterior aspect of the right 8th and 7th ribs which may be due to old fractures not significantly changed 01/10/2020. UPPER ABDOMEN: See abdomen report ADDITIONAL FINDINGS: No other significant abnormalities. IMPRESSION: No acute finding. Stable left lower lobe nodule Old right-sided rib fractures nondisplaced Dictated by: Michele Zimmerman MD 01/22/2020 07:45 Electronically signed by Michele Zimmerman MD in [place] 01/22/2020 07:45
--- NOTE | 2020-01-22 02:14 | XR_ITS ---
PROCEDURE: XR PELVIS 1-2V CLINICAL INDICATION: fall Posttraumatic pain COMPARISON: XR PELVIS 1-2V from 01/10/2020 TECHNIQUE: XR Pelvis AP View FINDINGS: No fracture or dislocation is evident. Heterotopic ossification along the greater trochanter on the right and left. Mild degenerative changes of the hips and lumbar spine. No lytic or blastic change. IMPRESSION: No acute findings. Dictated by: Michele Zimmerman MD 01/22/2020 07:37 Electronically signed by Michele Zimmerman MD in [place] 01/22/2020 07:37
--- NOTE | 2020-01-22 02:14 | CT_ITS ---
PROCEDURE: CT ABDOMEN PELVIS W CON CLINICAL INDICATION: fall Posttraumatic pain, right upper quadrant pain following injury, blunt trauma with injury and pain COMPARISON: CT ABDOMEN PELVIS W CON from 11/17/2019 TECHNIQUE: IV Contrast: 75ML OPTIRAY 350 Oral Contrast 20ml Gastroview Axial images obtained with sagittal and coronal reformats. All CT scans at the facility use one or more dose reduction, viz: automated exposure control, ma/kV adjustment per patient size (including targeted exams where dose is matched to indication, i.e. head), or iterative reconstruction technique. FINDINGS: LOWER THORAX: No acute finding ABDOMEN & PELVIS: Post cholecystectomy change. The liver, adrenal glands, and left kidney have an unremarkable appearance. There is cortical scarring of the right kidney in there is diffuse fatty infiltration of the pancreas. There is mild splenomegaly at 14 cm. Splenic artery aneurysm is present along the medial aspect of the spleen anteriorly unchanged. No perihepatic or perisplenic fluid collections are evident. There is a moderate amount of retained colonic feces. No evidence of appendicitis diverticulitis intestinal obstruction or free air. There are post hysterectomy changes and postsurgical changes of the anterior abdominal wall. There is mild chronic wedge compression changes of L1. Bony hypertrophic changes and heterotopic ossification noted at the greater trochanter on both sides and of the anterior and superior ilium IMPRESSION: 1. No acute finding. 2. Mild splenomegaly Dictated by: Michele Zimmerman MD 01/22/2020 07:50 Electronically signed by Michele Zimmerman MD in [place] 01/22/2020 07:50
[2020-01-22 02:25] LABS: Basophils # 0.1 K/mm3 (0-0.2); Basophils % 0.7 % (0.1-2.0); Eosinophils # 0.2 K/mm3 (0.0-0.4); Eosinophils % 1.7 % (0.1-12.0); Hematocrit 37.7 % (37.0-47.0); Hemoglobin 12.2 g/dL (12.2-16.2); Lymphocytes % 30.7 % (10-50); Mean Corpuscular HGB Conc 32.3 g/dL (31.8-35.4); Mean Corpuscular Hemoglobin 28.2 pg (27.0-31.2); Mean Corpuscular Volume 87.5 fl (81-99); Mean Platelet Volume 7.6 fl (7.4-10.4); Monocytes # 0.7 K/mm3 (0.1-1.0); Monocytes % 5.7 % (1.7-9.3); Neutrophils % 61.2 % (37.0-80.0); Platelet Count 401 K/mm3 (142-424); Red Blood Count 4.31 M/mm3 (4.20-5.40); Red Cell Distribution Width 13.5 % (11.5-17.5)
[2020-01-22 02:28] LABS: Chloride 103 mmol/L (98-107); Potassium 3.6 mmoL/L (3.5-5.1); Sodium 137 mmol/L (136-145)
[2020-01-22 02:30] LABS: Blood Urea Nitrogen 16 mg/dl (7-17)
[2020-01-22 02:31] LABS: Alanine Aminotransferase 20 U/L (12-78); Albumin Level 3.9 g/dl (3.5-5.0); Albumin/Globulin Ratio 1.2 (1.1-1.8); Alkaline Phosphatase 88 U/L (38-126); Anion Gap 10.6 mEq/L (5-15); Aspartate Amino Transferase 22 U/L (14-36); Calcium 9.4 mg/dl (8.4-10.2); Carbon Dioxide 27 mmol/L (22.0-30.0); Creatinine Clearance Estimated 89 mL/min (50-200); Estimated Glomerular Filt Rate 102 ml/min (>60); GFR (African American) 123 ML/MIN (>60); Globulin 3.2 g/dL (1.3-3.2); Glucose 191 mg/dl (74-100); Total Protein,Serum 7.1 g/dl (6.3-8.2)
[2020-01-22 02:35] LABS: Bilirubin,Total 0.1 mg/dl (0.2-1.3)
--- NOTE | 2020-01-22 03:40 | PC.NURSE ---
Respiratory at bedside providing education for Ensentive spirometer
--- NOTE | 2020-01-22 03:49 | HMH.EDFALL ---
ED Disposition Clinical Impression: Closed rib fracture Qualifiers: Encounter type: initial encounter Rib fracture type: single rib Laterality: right Qualified Code(s): S22.31XA - Fracture of one rib, right side, initial encounter for closed fracture Abdominal contusion Qualifiers: Encounter type: initial encounter Qualified Code(s): S30.1XXA - Contusion of abdominal wall, initial encounter Contusion of knee Qualifiers: Encounter type: initial encounter Laterality: right Qualified Code(s): S80.01XA - Contusion of right knee, initial encounter Disposition: Home, Self-Care Condition on Discharge: Good Instructions: DI for Rib Fracture Additional Instructions: call pcp for follow up Referrals: Jesus Ott [Primary Care Provider] - - Critical Care Critical Care Time: No Attestation: On 01/22/20, the high probability of a clinically significant, sudden or life threatening deterioration of the following system(s) required my full and direct attention, intervention and personal management. The time I documented below is in addition to time spent performing reported procedures but includes the following listed in this critical care notation. Medical Decision Making - Medical Records Medical records reviewed: Yes: I reviewed the patient's medical records. - Bryan Inquiry Pt receiving controlled substance: No Vital Signs: 01/22/20 02:01 Temperature 97.5 F L Temperature Source Oral Pulse Rate [Right] 69 Respiratory Rate 16 Blood Pressure [Right Arm] 144/65 H Blood Pressure Mean [Right Arm] 91 Blood Pressure Source [Right Arm] Automatic Cuff Blood Pressure Position [Right Arm] Supine 02 Sat by Pulse Oximetry 97 Oxygen Delivery Method Room Air - Lab Data Lab results reviewed: Yes: I reviewed the patient's lab results. Lab Results 01/22/20 02:15: WBC 13.0 H, RBC 4.31, Hgb 12.2, Hct 37.7, MCV 87.5, MCH 28.2, MCHC 32.3, RDW 13.5, Plt Count 401 D, MPV 7.6, Neut % (Auto) 61.2, Lymph % (Auto) 30.7, [place] % (Auto) 5.7, Eos % (Auto) 1.7, Baso % (Auto) 0.7, Neut # (Auto) 8.0 H, Lymph # (Auto) 4.0, [place] # (Auto) 0.7, Eos # (Auto) 0.2, Baso # (Auto) 0.1 01/22/20 02:15: Sodium 137, Potassium 3.6 D, Chloride 103, Carbon Dioxide 27, Anion Gap 10.6, BUN 16, Creatinine 0.60, Estimated Creat Clear 89, Estimated GFR 102, Est GFR ( Amer) 123, Glucose 191 H, Calcium 9.4, Total Bilirubin 0.1 L, AST 22, ALT 20, Alkaline Phosphatase 88, Total Protein 7.1, Albumin 3.9, Globulin 3.2, Albumin/Globulin Ratio 1.2 Result diagrams: 01/22/20 02:15 01/22/20 02:15 Orders (Tests/Meds): ED MEDICATIONS Generic Name Dose Route Start Last Admin Trade Name Freq PRN Reason Stop Dose Admin Sodium Chloride 1,000 mls @ 999 mls/hr 01/22/20 02:15 01/22/20 02:29 Sod Chlor 0.9% 1000ml Bag IV 01/22/20 03:15 999 mls/hr .Q1H1M CARLITOS Administration Discontinued Medications Generic Name Dose Route Start Last Admin Trade Name Freq PRN Reason Stop Dose Admin Ioversol 100 ml 01/22/20 03:42 01/22/20 03:44 Rad-Optiray 350 100ml Vial IV 01/22/20 03:43 100 ml ONCE ONE Administration Protocol Ketorolac Tromethamine 30 mg 01/22/20 02:14 01/22/20 02:28 Toradol 30mg/Ml Vial IV 01/22/20 02:15 30 mg ONCE ONE Administration Sodium Chloride 40 ml 01/22/20 03:42 01/22/20 03:43 Rad-Ns 50ml Vial IV 01/22/20 03:43 40 ml ONCE ONE Administration Sodium Chloride 10 ml 01/22/20 03:42 01/22/20 03:44 Rad-Saline Flush 10ml Syringe IV 01/22/20 03:43 10 ml ONCE ONE Administration ORDERS Category Date Time Status CT abdomen pelvis w con Stat Cat Scan 01/22/20 02:[address] angio chest Stat Cat Scan 01/22/20 02:14 Taken XR chest AP Stat Exams 01/22/20 02:14 Taken XR knee LT 3V Stat Exams 01/22/20 02:14 Taken XR pelvis 1-2V Stat Exams 01/22/20 02:14 Taken - Radiology Data #1 Image(s): Chest, Pelvis Image Reviewed: Yes I reviewed the patient's radiology image Preli
[2020-01-22 04:02] VITALS: BP 136/62; PULSE 64; RESP 16; TEMP 36.4; O2SAT 97
== END 2020-01-22 04:09 | disposition home or self-care (01) ==
PROVIDERS: Emergency Provider Emergency Medicine; PCP Internal Medicine
DX: S80.01XA Contusion of right knee, initial encounter (principal); S30.1XXA Contusion of abdominal wall, initial encounter; S22.31XA Fracture of one rib, right side, initial encounter for closed fracture; W01.0XXA Fall on same level from slipping, tripping and stumbling without subsequent striking against object, initial encounter; Y92.019 Unspecified place in single-family (private) house as the place of occurrence of the external cause; J44.9 Chronic obstructive pulmonary disease, unspecified; F41.8 Other specified anxiety disorders; E78.5 Hyperlipidemia, unspecified; E11.9 Type 2 diabetes mellitus without complications; K21.9 Gastro-esophageal reflux disease without esophagitis; I10 Essential (primary) hypertension; F17.210 Nicotine dependence, cigarettes, uncomplicated; Z79.899 Other long term (current) drug therapy; Z90.79 Acquired absence of other genital organ(s); Z90.49 Acquired absence of other specified parts of digestive tract
CPT/HCPCS: 71045; 71275; 72170; 73562; 74177; 80053; 85025; 96365; 96375; 99283; Q9967

== ENCOUNTER → 2020-02-13 16:01 | Outpatient (CLI) | payer MEDICARE, MEDICAID, SELFPAY ==
[2020-02-13 16:36] LABS: Basophils % 0.4 % (0.1-2.0); Eosinophils # 0.2 K/mm3 (0.0-0.4); Eosinophils % 1.8 % (0.1-12.0); Hematocrit 37.6 % (37.0-47.0); Hemoglobin 12.3 g/dL (12.2-16.2); Lymphocytes # 2.5 K/mm3 (0.7-4.5); Mean Corpuscular HGB Conc 32.6 g/dL (31.8-35.4); Mean Corpuscular Hemoglobin 26.8 pg (27.0-31.2); Mean Corpuscular Volume 82.3 fl (81-99); Mean Platelet Volume 6.9 fl (7.4-10.4); Monocytes # 0.4 K/mm3 (0.1-1.0); Neutrophils # 7.7 K/mm3 (1.8-7.8); Neutrophils % 70.7 % (37.0-80.0); Platelet Count 406 K/mm3 (142-424); Red Blood Count 4.57 M/mm3 (4.20-5.40); Red Cell Distribution Width 14.9 % (11.5-17.5); White Blood Count 10.8 K/mm3 (4.8-10.8)
[2020-02-13 18:44] LABS: Alanine Aminotransferase 13 U/L (12-78); Albumin Level 4.4 g/dl (3.5-5.0); Albumin/Globulin Ratio 1.4 (1.1-1.8); Alkaline Phosphatase 98 U/L (38-126); Anion Gap 12.2 mEq/L (5-15); Aspartate Amino Transferase 18 U/L (14-36); Blood Urea Nitrogen 16 mg/dl (7-17); Calcium 10.1 mg/dl (8.4-10.2); Carbon Dioxide 24 mmol/L (22.0-30.0); Chloride 103 mmol/L (98-107); Chol/HDL Ratio 3.6 (1-3.5); Cholesterol 207 mg/dl (140-200); Estimated Glomerular Filt Rate 102 ml/min (>60); GFR (African American) 123 ML/MIN (>60); Globulin 3.2 g/dL (1.3-3.2); Glucose 153 mg/dl (74-100); HDL Cholesterol 57 mg/dl (40-60); Potassium 4.2 mmoL/L (3.5-5.1); Sodium 135 mmol/L (136-145); Total Protein,Serum 7.6 g/dl (6.3-8.2); Triglycerides 223 mg/dl (30-150); VLDL Cholesterol 45 mg/dL (0-40)
[2020-02-13 18:45] LABS: Hemoglobin A1C 6.5 % (4.0-6.0)
[2020-02-13 18:46] LABS: Bilirubin,Total 0.1 mg/dl (0.2-1.3)
[2020-02-13 18:55] LABS: Direct LDL Cholesterol 153.62 mg/dL (100-129)
== END ==
PROVIDERS: Visit Provider Internal Medicine
DX: E11.59 Type 2 diabetes mellitus with other circulatory complications (principal); I25.10 Atherosclerotic heart disease of native coronary artery without angina pectoris; I10 Essential (primary) hypertension; E78.5 Hyperlipidemia, unspecified; D64.9 Anemia, unspecified
CPT/HCPCS: 36415; 80053; 80061; 83036; 85025

== ENCOUNTER → 2020-03-10 16:09 | Outpatient (CLI) | payer MEDICARE, MEDICAID, SELFPAY ==
[2020-03-10 16:22] LABS: Basophils # 0.1 K/mm3 (0-0.2); Basophils % 0.6 % (0.1-2.0); Eosinophils # 0.2 K/mm3 (0.0-0.4); Eosinophils % 1.9 % (0.1-12.0); Hematocrit 40.8 % (37.0-47.0); Hemoglobin 13.7 g/dL (12.2-16.2); Lymphocytes % 32.3 % (10-50); Mean Corpuscular HGB Conc 33.6 g/dL (31.8-35.4); Mean Corpuscular Hemoglobin 28.4 pg (27.0-31.2); Mean Corpuscular Volume 84.6 fl (81-99); Mean Platelet Volume 6.9 fl (7.4-10.4); Monocytes # 0.4 K/mm3 (0.1-1.0); Monocytes % 4.3 % (1.7-9.3); Neutrophils # 5.6 K/mm3 (1.8-7.8); Neutrophils % 60.9 % (37.0-80.0); Platelet Count 335 K/mm3 (142-424); Red Blood Count 4.82 M/mm3 (4.20-5.40); Red Cell Distribution Width 14.8 % (11.5-17.5); White Blood Count 9.2 K/mm3 (4.8-10.8)
[2020-03-10 18:41] LABS: Alanine Aminotransferase 10 U/L (12-78); Albumin Level 4.1 g/dl (3.5-5.0); Albumin/Globulin Ratio 1.3 (1.1-1.8); Alkaline Phosphatase 123 U/L (38-126); Anion Gap 13.7 mEq/L (5-15); Aspartate Amino Transferase 18 U/L (14-36); Bilirubin,Total 0.2 mg/dl (0.2-1.3); Blood Urea Nitrogen 14 mg/dl (7-17); Calcium 9.8 mg/dl (8.4-10.2); Carbon Dioxide 27 mmol/L (22.0-30.0); Chloride 101 mmol/L (98-107); Estimated Glomerular Filt Rate 102 ml/min (>60); GFR (African American) 123 ML/MIN (>60); Globulin 3.1 g/dL (1.3-3.2); Glucose 150 mg/dl (74-100); Potassium 4.7 mmoL/L (3.5-5.1); Sodium 137 mmol/L (136-145); Total Protein,Serum 7.2 g/dl (6.3-8.2)
[2020-03-10 19:12] LABS: Thyroid Stimulating Hormone 0.66 uIU/mL (0.465-4.68)
== END ==
PROVIDERS: Visit Provider Internal Medicine
DX: E11.59 Type 2 diabetes mellitus with other circulatory complications (principal); E11.42 Type 2 diabetes mellitus with diabetic polyneuropathy; D64.9 Anemia, unspecified; K75.81 Nonalcoholic steatohepatitis (NASH); Z79.84 Long term (current) use of oral hypoglycemic drugs
CPT/HCPCS: 36415; 80053; 84443; 85025

== ENCOUNTER 2020-03-19 01:48 | Emergency (ER) | payer MEDICARE, MEDICAID, SELFPAY ==
--- NOTE | 2020-03-19 01:55 | PC.NURSE ---
c collar placed on patient
[2020-03-19 01:56] VITALS: BP 171/81; PULSE 73; RESP 19; TEMP 37; O2SAT 96; BMI 40.3
--- NOTE | 2020-03-19 02:06 | XR_ITS ---
PROCEDURE: XR CHEST PORTABLE CLINICAL HISTORY: fall Pain, left-sided chest pain following injury COMPARISON: XR CHEST 2V from 11/21/2019 XR CHEST PORTABLE from 01/16/2020 XR CHEST AP from 01/22/2020 CT CHEST WO CON from 03/19/2020 FINDINGS: Cardiomegaly without failure The lungs are clear without infiltrates, suspicious nodules, or pleural effusions. No acute bony abnormalities. IMPRESSION: No acute findings. Dictated by: Michele Zimmerman MD 03/19/2020 07:08 Electronically signed by Michele Zimmerman MD in [place] 03/19/2020 07:08
--- NOTE | 2020-03-19 02:06 | XR_ITS ---
PROCEDURE: XR PELVIS 1-2V CLINICAL INDICATION: fall Pain COMPARISON: XR PELVIS 1-2V from 01/22/2020 TECHNIQUE: XR Pelvis AP View FINDINGS: No fracture or dislocation is evident. Heterotopic ossification noted along the greater trochanter on both sides with mild osteoarthritic change of the hips No lytic or blastic change. IMPRESSION: No acute findings. Dictated by: Michele Zimmerman MD 03/19/2020 07:07 Electronically signed by Michele Zimmerman MD in [place] 03/19/2020 07:07
--- NOTE | 2020-03-19 02:06 | CT_ITS ---
PROCEDURE: CT CERVICAL SPINE WO CON CLINICAL INDICATION: fall Neck injury with pain, contusion/abrasion or hematoma, cervical sprain/strain the COMPARISON: CT CERVICAL SPINE WO CON from 01/10/2020 TECHNIQUE: Axial images obtained with sagittal and coronal reformats. All CT scans at the facility use one or more dose reduction, viz: automated exposure control, ma/kV adjustment per patient size (including targeted exams where dose is matched to indication, i.e. head), or iterative reconstruction technique. Axial spiral CT scanning performed of the cervical spine beginning at the base of the skull and continuing to the upper T-spine. 3-D multiplanar reconstruction with 3-D manipulation of volumetric data set in image rendering was completed by the radiologist and/or technologist with the supervision of the radiologist on independent workstation. FINDINGS: Normal alignment. No acute fracture or dislocation. C2-C3: Left-sided facet hypertrophic change with mild foraminal narrowing. C3-C4: Unremarkable. C4-C5: Unremarkable. C5-C6: Degenerate disc disease with endplate and uncovertebral hypertrophy greater on the left with bilateral lateral recess and foraminal narrowing greater on the left with canal stenosis C6-C7: Degenerative disc disease with bulging disc with uncovertebral hypertrophy and bilateral foraminal narrowing right greater than left. Lung apices are clear. Minimal right sphenoid mucosal thickening. IMPRESSION: 1. No acute fracture. 2. Degenerative changes Dictated by: Michele Zimmerman MD 03/19/2020 06:14 Electronically signed by Michele Zimmerman MD in [facility] 03/19/2020 06:14
--- NOTE | 2020-03-19 02:06 | CT_ITS ---
PROCEDURE: CT HEAD/BRAIN WO CON CLINICAL INDICATION: fall Head injury with headache/pain, contusion, abrasion or hematoma COMPARISON: CT HEAD/BRAIN WO CON from 01/10/2020 TECHNIQUE: Axial images obtained. All CT scans at the facility use one or more dose reduction, viz: automated exposure control, ma/kV adjustment per patient size (including targeted exams where dose is matched to indication, i.e. head), or iterative reconstruction technique. FINDINGS: No midline shift, mass effect, intracranial hemorrhage, hydrocephalus, or extra-axial fluid collection is evident. The calvarium has an unremarkable appearance. No mastoid effusion. No sinus air-fluid level. IMPRESSION: No acute intracranial finding Dictated by: Michele Zimmerman MD 03/19/2020 06:09 Electronically signed by Michele Zimmerman MD in [facility] 03/19/2020 06:09
--- NOTE | 2020-03-19 02:21 | PC.NURSE ---
pt to rad at this time.
[2020-03-19 02:23] LABS: Microscopic, Urine URINE MICROSCOPIC (MICROSCOPIC)
--- NOTE | 2020-03-19 02:28 | CT_ITS ---
PROCEDURE: CT CHEST WO CON CLINICAL INDICATION: fall Left-sided chest pain, fall with injury and pain, blunt trauma with contusion or hematoma COMPARISON: CT ANGIO CHEST from 01/22/2020 CT ABDOMEN PELVIS W CON from 01/22/2020 TECHNIQUE: Axial images obtained with sagittal and coronal reformats. All CT scans at the facility use one or more dose reduction, viz: automated exposure control, ma/kV adjustment per patient size (including targeted exams where dose is matched to indication, i.e. head), or iterative reconstruction technique. FINDINGS: HEART AND MEDIASTINAL STRUCTURES: Limited evaluation of mediastinal and vascular structures without IV contrast. There is scattered small mediastinal lymph nodes. Coronary artery calcifications are present. There is normal heart size. No obvious mediastinal hematoma LUNGS AND PLEURAL SPACES: 4 mm noncalcified nodules image 22 series 3 left upper lobe laterally nonspecific probably not significantly changed. No evidence of pneumothorax or pulmonary contusion. BONY STRUCTURES: Nondisplaced fracture of the 8th and 9th ribs on both sides with some minimal cortical contour deformity. Nondisplaced right 9th rib fracture laterally. These appear old. UPPER ABDOMEN: Splenic artery aneurysm at 11 mm. ADDITIONAL FINDINGS: No other significant abnormalities. IMPRESSION: Subacute or old bilateral rib fractures involving the right 8th and 9th ribs on both sides. Coronary artery calcification. No acute finding. Dictated by: Michele Zimmerman MD 03/19/2020 06:39 Electronically signed by Michele Zimmerman MD in [facility] 03/19/2020 06:39
[2020-03-19 02:32] LABS: Alanine Aminotransferase 19 U/L (12-78); Albumin Level 4.9 g/dl (3.5-5.0); Albumin/Globulin Ratio 1.3 (1.1-1.8); Alkaline Phosphatase 113 U/L (38-126); Anion Gap 12.2 mEq/L (5-15); Aspartate Amino Transferase 31 U/L (14-36); Bilirubin,Total 0.2 mg/dl (0.2-1.3); Blood Urea Nitrogen 29 mg/dl (7-17); Calcium 10.2 mg/dl (8.4-10.2); Carbon Dioxide 30 mmol/L (22.0-30.0); Chloride 98 mmol/L (98-107); Creatinine Clearance Estimated 106 mL/min (50-200); Estimated Glomerular Filt Rate 64 ml/min (>60); GFR (African American) 77 ML/MIN (>60); Globulin 3.7 g/dL (1.3-3.2); Glucose 94 mg/dl (74-100); Potassium 3.2 mmoL/L (3.5-5.1); Sodium 137 mmol/L (136-145); Total Protein,Serum 8.6 g/dl (6.3-8.2)
[2020-03-19 02:34] LABS: Appearance,Urine CLEAR (Clear); Basophils # 0.1 K/mm3 (0-0.2); Basophils % 0.6 % (0.1-2.0); Bilirubin,Urine Negative (Negative); Blood, Urine TRACE-L (Negative); Color,Urine YELLOW (Yellow); Eosinophils # 0.4 K/mm3 (0.0-0.4); Eosinophils % 2.8 % (0.1-12.0); Glucose,Urine (UA) Negative (Negative); Hematocrit 40.5 % (37.0-47.0); Hemoglobin 13.9 g/dL (12.2-16.2); Ketones,Urine Negative (Negative); Leukocyte Esterase,Urine 1+ (Negative); Lymphocytes # 5.4 K/mm3 (0.7-4.5); Lymphocytes % 34.4 % (10-50); Mean Corpuscular HGB Conc 34.2 g/dL (31.8-35.4); Mean Corpuscular Hemoglobin 28.5 pg (27.0-31.2); Mean Corpuscular Volume 83.3 fl (81-99); Mean Platelet Volume 6.8 fl (7.4-10.4); Monocytes # 0.9 K/mm3 (0.1-1.0); Monocytes % 5.4 % (1.7-9.3); Neutrophils # 8.8 K/mm3 (1.8-7.8); Neutrophils % 56.9 % (37.0-80.0); Nitrate,Urine POSITIVE (Negative); Platelet Count 387 K/mm3 (142-424); Protein,Urine 1+ (Negative); Red Blood Count 4.87 M/mm3 (4.20-5.40); Red Cell Distribution Width 14.7 % (11.5-17.5); Urobilinogen,Urine 0.2 EU/dl (0.2); White Blood Count 15.5 K/mm3 (4.8-10.8)
[2020-03-19 02:37] LABS: MANUAL DIFFERENTIAL MANUAL DIFFERENTIAL (MANUAL DIFF)
[2020-03-19 02:43] LABS: Bacteria,Urine 4+ /lpf; Mucus,Urine 2+ /lpf; WBC,Urine TNTC #/hpf (0-3)
[2020-03-19 03:05] LABS: Eosinophils % 2 % (0-3); Lymphocytes % 34 % (10-50); Monocytes % 4 % (2-9); Neutrophils % 58 % (42-76); Total Cells Counted 100
--- NOTE | 2020-03-19 03:05 | PC.NURSE ---
Patient back from CT at this time
[2020-03-19 03:06] LABS: Ovalocytes 1+; Platelet Estimate Normal; Stomatocytes 1+
[2020-03-19 03:20] VITALS: BP 143/69; PULSE 68; O2SAT 93
--- NOTE | 2020-03-19 03:24 | HMH.EDFALL ---
ED Disposition Clinical Impression: Fall Qualifiers: Encounter type: initial encounter Qualified Code(s): W19.XXXA - Unspecified fall, initial encounter UTI (urinary tract infection) Qualifiers: Urinary tract infection type: site unspecified Hematuria presence: without hematuria Qualified Code(s): N39.0 - Urinary tract infection, site not specified Contusion of rib on left side Qualifiers: Encounter type: initial encounter Qualified Code(s): S20.212A - Contusion of left front wall of thorax, initial encounter Fracture of rib of right side with routine healing Qualifiers: Rib fracture type: multiple ribs Fracture type: open Qualified Code(s): S22.41XD - Multiple fractures of ribs, right side, subsequent encounter for fracture with routine healing Obesity Qualifiers: Obesity type: due to excess calories Obesity classification: adult class 3 (BMI >= 40) Serious obesity comorbidity presence: with serious comorbidity Body mass index: BMI 40.0-44.9 Qualified Code(s): E66.01 - Morbid (severe) obesity due to excess calories; Z68.41 - Body mass index (BMI) 40.0-44.9, adult Disposition: Home, Self-Care Condition on Discharge: Good Instructions: DI for Urinary Tract Infection (UTI) Additional Instructions: fluids and call pcp in am for follow up and urine culture Referrals: Jesus Ott [Primary Care Provider] - - Critical Care Critical Care Time: No Attestation: On 03/19/20, the high probability of a clinically significant, sudden or life threatening deterioration of the following system(s) required my full and direct attention, intervention and personal management. The time I documented below is in addition to time spent performing reported procedures but includes the following listed in this critical care notation. Medical Decision Making - Medical Records Medical records reviewed: Yes: I reviewed the patient's medical records. - Bryan Inquiry Pt receiving controlled substance: No Vital Signs: 03/19/20 01:56 03/19/20 03:20 Temperature 98.6 F Temperature Source Oral Pulse Rate [Right Brachial] 73 68 Respiratory Rate 19 Blood Pressure [Right Arm] 171/81 H 143/69 H Blood Pressure Mean [Right Arm] 111 93 Blood Pressure Source [Right Arm] Automatic Cuff Automatic Cuff Blood Pressure Position [Right Arm] Sitting Supine 02 Sat by Pulse Oximetry 96 93 L Oxygen Delivery Method Room Air Room Air - Lab Data Lab results reviewed: Yes: I reviewed the patient's lab results. Lab Results 03/19/20 02:08: WBC 15.5 H, RBC 4.87, Hgb 13.9, Hct 40.5, MCV 83.3, MCH 28.5, MCHC 34.2, RDW 14.7, Plt Count 387, MPV 6.8 L, Neut % (Auto) 56.9, Lymph % (Auto) 34.4, Teton % (Auto) 5.4, Eos % (Auto) 2.8, Baso % (Auto) 0.6, Neut # (Auto) 8.8 H, Lymph # (Auto) 5.4 H, Teton # (Auto) 0.9, Eos # (Auto) 0.4, Baso # (Auto) 0.1, Total Counted 100, Neutrophils % (Manual) 58, Lymphocytes % (Manual) 34, Monocytes % (Manual) 4, Eosinophils % (Manual) 2, Basophils % (Manual) 2.0 H, Platelet Estimate Normal, Ovalocytes 1+, Stomatocytes 1+ 03/19/20 02:08: Sodium 137, Potassium 3.2 L, Chloride 98, Carbon Dioxide 30, Anion Gap 12.2, BUN 29 H, Creatinine 0.90, Estimated Creat Clear 106, Estimated GFR 64, Est GFR ( Amer) 77, Glucose 94, Calcium 10.2, Total Bilirubin 0.2, AST 31, ALT 19, Alkaline Phosphatase 113, Total Protein 8.6 H, Albumin 4.9, Globulin 3.7 H, Albumin/Globulin Ratio 1.3 03/19/20 02:08: Urine Color Yellow, Urine Appearance Clear, Urine pH 6.0, Ur Specific Lovell 1.020, Urine Protein 1+, Urine Glucose (UA) Negative, Urine Ketones Negative, Urine Blood Trace-l, Urine Nitrate Positive, Urine Bilirubin Negative, Urine Urobilinogen 0.2, Ur Leukocyte Esterase 1+ A, Urine WBC Tntc, Ur Squamous Epith Cells 5-10, Urine Bacteria 4+, Urine Mucus 2+ Result diagrams: 03/19/20 02:08 03/19/20 02:08 Orders (Tests/Meds): ORDERS Category Date Time Status CT cervical spine wo con Stat Cat Scan 03/19/20 02:[address] chest wo con Stat Ca
[2020-03-19 03:52] VITALS: BP 133/65; PULSE 68; RESP 17; TEMP 36.6; O2SAT 96
== END 2020-03-19 04:03 | disposition home or self-care (01) ==
PROVIDERS: Emergency Provider Emergency Medicine; PCP Internal Medicine
DX: S20.212A Contusion of left front wall of thorax, initial encounter (principal); S22.41XD Multiple fractures of ribs, right side, subsequent encounter for fracture with routine healing; N30.00 Acute cystitis without hematuria; W18.12XA Fall from or off toilet with subsequent striking against object, initial encounter; Y92.012 Bathroom of single-family (private) house as the place of occurrence of the external cause; E66.01 Morbid (severe) obesity due to excess calories; Z68.41 Body mass index [BMI] 40.0-44.9, adult; K21.9 Gastro-esophageal reflux disease without esophagitis; E78.5 Hyperlipidemia, unspecified; I10 Essential (primary) hypertension; F17.210 Nicotine dependence, cigarettes, uncomplicated; F19.11 Other psychoactive substance abuse, in remission; I50.9 Heart failure, unspecified; F41.8 Other specified anxiety disorders; E11.9 Type 2 diabetes mellitus without complications; Z90.49 Acquired absence of other specified parts of digestive tract; Z90.79 Acquired absence of other genital organ(s); Z79.899 Other long term (current) drug therapy
CPT/HCPCS: 70450; 71045; 71250; 72125; 72170; 80053; 81001; 85007; 85025; 87086; 87088; 87186; 96365; 96375; 99283; J1335

== ENCOUNTER 2020-03-22 12:28 | Outpatient (CLI) | payer MEDICARE, MEDICAID, SELFPAY ==
[2020-03-22 12:48] VITALS: BP 115/53; PULSE 65; RESP 18; TEMP 36.6; O2SAT 100
== END 2020-03-22 13:10 | disposition home or self-care (01) ==
LOC: INF 12:28
PROVIDERS: Visit Provider Emergency Medicine
DX: N39.0 Urinary tract infection, site not specified (principal); Z16.12 Extended spectrum beta lactamase (ESBL) resistance
CPT/HCPCS: 96372; J1335

== ENCOUNTER 2020-03-23 12:00 | Outpatient (CLI) | payer MEDICARE, MEDICAID, SELFPAY ==
[2020-03-23 12:20] VITALS: BP 167/76; PULSE 71; RESP 18; TEMP 36.7; O2SAT 97
== END 2020-03-23 12:20 | disposition home or self-care (01) ==
LOC: INF 12:07
PROVIDERS: Visit Provider Emergency Medicine
DX: N39.0 Urinary tract infection, site not specified (principal); Z16.12 Extended spectrum beta lactamase (ESBL) resistance
CPT/HCPCS: 96372; J1335

== ENCOUNTER 2020-03-24 12:35 | Outpatient (CLI) | payer MEDICARE, MEDICAID, SELFPAY ==
[2020-03-24 12:49] VITALS: BP 114/48; PULSE 71; RESP 18; TEMP 36.9; O2SAT 98
== END 2020-03-24 12:49 | disposition home or self-care (01) ==
LOC: INF 12:35
PROVIDERS: Visit Provider Emergency Medicine
DX: N39.0 Urinary tract infection, site not specified (principal); Z16.12 Extended spectrum beta lactamase (ESBL) resistance
CPT/HCPCS: 96372; J1335

== ENCOUNTER 2020-03-25 12:24 | Outpatient (CLI) | payer MEDICARE, MEDICAID, SELFPAY ==
[2020-03-25 12:33] VITALS: BP 130/64; PULSE 65; RESP 20; TEMP 36.8; O2SAT 96
== END 2020-03-25 12:42 | disposition home or self-care (01) ==
LOC: INF 12:24
PROVIDERS: Visit Provider Emergency Medicine
DX: N39.0 Urinary tract infection, site not specified (principal); Z16.12 Extended spectrum beta lactamase (ESBL) resistance
CPT/HCPCS: 96372; J1335

== ENCOUNTER 2020-03-26 14:03 | Outpatient (CLI) | payer MEDICARE, MEDICAID, SELFPAY ==
[2020-03-26 14:03] VITALS: BP 122/74; PULSE 68; RESP 20; TEMP 36.9; O2SAT 95
--- NOTE | 2020-03-26 14:25 | PC.NURSE ---
given in both hips
== END 2020-03-26 14:25 | disposition home or self-care (01) ==
LOC: INF 14:03
PROVIDERS: Visit Provider Emergency Medicine
DX: N39.0 Urinary tract infection, site not specified (principal); Z16.12 Extended spectrum beta lactamase (ESBL) resistance
CPT/HCPCS: 96372; J1335

== ENCOUNTER → 2020-03-27 13:51 | Outpatient (CLI) | payer MEDICARE, MEDICAID, SELFPAY ==
[2020-03-27 14:00] VITALS: BP 99/55; PULSE 68; RESP 20; TEMP 37.1; O2SAT 93
== END ==
PROVIDERS: PCP Internal Medicine; Visit Provider Emergency Medicine
DX: N39.0 Urinary tract infection, site not specified (principal); Z16.12 Extended spectrum beta lactamase (ESBL) resistance
CPT/HCPCS: 96372; G0463; J1335

== ENCOUNTER → 2020-03-28 12:32 | Outpatient (CLI) | payer MEDICARE, MEDICAID, SELFPAY | PROVIDERS: PCP Internal Medicine; Visit Provider Emergency Medicine | DX: N39.0 Urinary tract infection, site not specified (principal); Z16.12 Extended spectrum beta lactamase (ESBL) resistance | CPT/HCPCS: 96372; J1335 ==

== ENCOUNTER 2020-05-02 21:00 | Emergency (ER) | payer MEDICARE, MEDICAID, SELFPAY ==
[2020-05-02 21:00] VITALS: BP 101/56; PULSE 70; RESP 17; TEMP 36.9; O2SAT 98; BMI 33.9
--- NOTE | 2020-05-02 21:21 | XR_ITS ---
PROCEDURE: XR LUMBAR SPINE 2-3V CLINICAL INDICATION: low back pain, began while mopping The COMPARISON: LS5 LUMBAR SPINE 5 VIEWS from 07/22/2017 FINDINGS: There is normal alignment. There is mild wedging of L1 which is slightly increased compared to 07/22/2017 with loss of height anteriorly of approximately 30 percent. No obvious retropulsion. Mild multilevel degenerative disc disease and facet arthritic changes noted. IMPRESSION: Degenerative changes with some slight increase wedging of L1 Dictated by: Michele Zimmerman MD 05/03/2020 08:26 Electronically signed by Michele Zimmerman MD in [place] 05/03/2020 08:26
--- NOTE | 2020-05-02 21:33 | HMH.EDBACK ---
ED Disposition Clinical Impression: Sciatica, SI (sacroiliac) joint dysfunction Disposition: Home, Self-Care Condition on Discharge: Good Instructions: DI for Low Back Pain Prescriptions: Nabumetone 750 mg PO BID 10 Days #20 tab Transmission Status: Pending to [facility] Tizanidine HCl [Zanaflex 4mg tablet] 4 mg PO TID 10 Days #30 tab Transmission Status: Pending to [facility] Referrals: Jesus Ott [Primary Care Provider] - - Critical Care Critical Care Time: No Attestation: On 05/02/20, the high probability of a clinically significant, sudden or life threatening deterioration of the following system(s) required my full and direct attention, intervention and personal management. The time I documented below is in addition to time spent performing reported procedures but includes the following listed in this critical care notation. Medical Decision Making - Medical Records Medical records reviewed: Yes: I reviewed the patient's medical records. - Bryan Inquiry Pt receiving controlled substance: No Vital Signs: 05/02/20 21:00 Temperature 98.4 F Temperature Source Oral Pulse Rate [Right Brachial] 70 Respiratory Rate 17 Blood Pressure [Right Arm] 101/56 L Blood Pressure Mean [Right Arm] 71 Blood Pressure Source [Right Arm] Automatic Cuff Blood Pressure Position [Right Arm] Sitting 02 Sat by Pulse Oximetry 98 Oxygen Delivery Method Room Air - Lab Data Lab results reviewed: Yes: I reviewed the patient's lab results. Orders (Tests/Meds): ORDERS Category Date Time Status XR lumbar spine 2-3V Stat Exams 05/02/20 21:21 Ordered Back Pain HPI - General Chief Complaint: Back Pain/Injury Stated Complaint: back pain Time Seen by Provider: 05/02/20 21:33 Mode of Arrival: Ambulatory Limitations: Physical Limitations Description of Symptoms (Recalled from ER Triage Doc. by RN): She reports back pain that began 2 days ago and reports that it is radiating down her right leg. She reports a hx of back pain and was mopping the floor when the pain began. States she has taken tylenol for the pain. Reports having 2 bulging and 2 herinated disks. - History of Present Illness HPI Narrative: A pleasant 59-year-old female presents the emergency department with an acute onset of chronic back pain. Patient states on Sunday she was sweeping her porch and more active than her normal baseline. She woke up on Sunday and she had acute pain on the right side of her lower back with some pain going down to the back of her leg all the way to her knee. Patient denies any bowel or bladder incontinence. Patient denies any recent fever. Patient denies any acute warm like sensation going down the back of her leg. Patient presently rates her pain 6 out of 10 and classifies it as sharp. Patient states alleviating factors include sitting and lying down and exacerbating factors include movement.Patient denies any recent cough or shortness of breath, patient denies any sore throat or headache, patient denies any loss of taste or smell, patient denies any malaise or fatigue, patient denies any abdominal pain nausea vomiting or diarrhea. - Related Data Home Medications Medication Instructions Recorded Confirmed Albuterol Sulfate [Ventolin HFA 2 puffs INHALATION QIDP PRN 09/14/19 03/26/20 Inhaler] Cetirizine HCl 10 mg PO DAILY 09/14/19 03/26/20 Fluticasone/Vilanterol [Breo 1 inh INHALATION DAILY 09/14/19 03/26/20 Ellipta 200-25 Mcg INH] Tiotropium Hominy [Spiriva 1 inh INHALATION DAILY 09/14/19 03/26/20 18mcg/puff inhaler] Sitagliptin Phosphate [Januvia 100 mg PO DAILY 09/27/19 03/26/20 100mg tablet] hydroxyzine pamoate 25 mg capsule 25 mg PO DAILY cap 11/27/19 03/26/20 Duloxetine HCl 30 mg PO DAILY 12/03/19 03/26/20 Levothyroxine Sodium 112 mcg PO DAILY 12/03/19 03/26/20 [Levothyroxine 112mcg (0.112mg) Tab] Previous Rx's Medication Instructions Recorded Joby
[2020-05-02 22:09] VITALS: BP 122/61; PULSE 68; RESP 17; TEMP 36.9; O2SAT 98
== END 2020-05-02 22:18 | disposition home or self-care (01) ==
PROVIDERS: Emergency Provider Family Medicine; PCP Internal Medicine
DX: M54.31 Sciatica, right side (principal); M53.3 Sacrococcygeal disorders, not elsewhere classified; I10 Essential (primary) hypertension; E11.9 Type 2 diabetes mellitus without complications; J44.9 Chronic obstructive pulmonary disease, unspecified; K21.9 Gastro-esophageal reflux disease without esophagitis; E78.5 Hyperlipidemia, unspecified; F41.8 Other specified anxiety disorders; E03.9 Hypothyroidism, unspecified; Z79.899 Other long term (current) drug therapy; Z90.79 Acquired absence of other genital organ(s); Z87.891 Personal history of nicotine dependence; Z88.2 Allergy status to sulfonamides; Z88.1 Allergy status to other antibiotic agents
CPT/HCPCS: 20552; 72100; 96372; 99282

== ENCOUNTER 2020-05-13 13:33 | Emergency (ER) | payer MEDICARE, MEDICAID, SELFPAY ==
[2020-05-13 13:34] VITALS: BP 149/64; PULSE 64; RESP 17; TEMP 36.9; O2SAT 95; BMI 25.5
--- NOTE | 2020-05-13 13:42 | XR_ITS ---
PROCEDURE: XR PELVIS 1-2V CLINICAL INDICATION: fall Posttraumatic pain COMPARISON: CR XR PELVIS 1-2V from 03/19/2020 TECHNIQUE: XR Pelvis AP View FINDINGS: No fracture or dislocation is evident. There are mild osteoarthritic changes of the hips. Heterotopic ossification noted at the greater trochanters on both sides. Surgical clips are present in the lower pelvis and there is ossification at the anterior superior iliac spines on both sides. Mild amount of retained colonic feces. No lytic or blastic change. IMPRESSION: No acute findings. Dictated b Michele Zimmerman MD 05/13/2020 15:05 Michele Zimmerman MD in [place] 05/13/2020 15:05
--- NOTE | 2020-05-13 13:43 | XR_ITS ---
PROCEDURE: XR KNEE LT 3V CLINICAL INDICATION: fall Posttraumatic pain COMPARISON: CR [id number] KNEE-3 VIEWS-RT from 04/17/2017 CR [id number] KNEE-4 OR 5 VIEWS-RT from 06/20/2017 CR [id number] KNEE-4 OR 5 VIEWS-LT from 06/20/2017 CR XR KNEE LT 3V from 01/22/2020 FINDINGS: No fracture or dislocation. No lytic or blastic change. There is normal mineralization. Minimal osteoarthritic changes are present involving all 3 compartments. There is prominent soft tissue swelling in the prepatellar region but no underlying fracture Other findings:None. IMPRESSION: Soft tissue swelling with mild osteoarthritis, no acute Dictated b Michele Zimmerman MD 05/13/2020 15:03 Michele Zimmerman MD in [place] 05/13/2020 15:03
--- NOTE | 2020-05-13 13:43 | XR_ITS ---
PROCEDURE: XR ELBOW LT MIN 3V CLINICAL INDICATION: fall Posttraumatic pain, fall with injury and pain COMPARISON: CR ELBL3 ELBOW-LT-3 VIEWS from 11/28/2016 CR ELBR2 ELBOW-RT-2 VIEWS from 06/20/2017 FINDINGS: No fracture or dislocation. No lytic or blastic change. There is normal mineralization. There are mild osteoarthritic changes. IV cannula artifact is present in the antecubital region. Other findings:None. IMPRESSION: No acute findings. Dictated b Michele Zimmerman MD 05/13/2020 14:58 Michele Zimmeramn MD in [place] 05/13/2020 14:58
--- NOTE | 2020-05-13 13:45 | XR_ITS ---
PROCEDURE: XR RIBS LT MIN 3V W CXR1V CLINICAL INDICATION: fall Posttraumatic pain COMPARISON: CR XR CHEST PORTABLE from 01/16/2020 CR XR CHEST AP from 01/22/[address] CHEST WO CON from 03/19/2020 CR XR CHEST PORTABLE from 03/19/2020 FINDINGS: Minimally offset fracture noted involving the lateral aspect of the left 8th rib. Frontal view of the chest shows no acute finding. No evidence of pneumothorax.. Surgical clips are present over the tracheal region on the left with faint calcification noted to the left of the lower cervical spine IMPRESSION: Minimally displaced left 8th rib fracture Dictated b Michele Zimmerman MD 05/13/2020 15:01 Michele Zimmerman MD in [place] 05/13/2020 15:01
--- NOTE | 2020-05-13 13:56 | PC.NURSE ---
Pt to rad.
[2020-05-13 14:22] VITALS: BP 209/104; PULSE 78; O2SAT 100
[2020-05-13 15:02] VITALS: BP 171/78; PULSE 70; O2SAT 96
--- NOTE | 2020-05-13 15:14 | HMH.EDGENADL ---
ED Disposition Clinical Impression: Hematoma of left knee region Left rib fracture Qualifiers: Encounter type: initial encounter Rib fracture type: single rib Fracture type: closed Qualified Code(s): S22.32XA - Fracture of one rib, left side, initial encounter for closed fracture Elbow abrasion Qualifiers: Encounter type: initial encounter Laterality: left Qualified Code(s): S50.312A - Abrasion of left elbow, initial encounter Fall Qualifiers: Encounter type: initial encounter Qualified Code(s): W19.XXXA - Unspecified fall, initial encounter Disposition: Home, Self-Care Condition on Discharge: Fair Instructions: How to Prevent Falls, DI for Hematoma (Bruise), DI for Rib Fracture, How to Use a Knee Immobilizer, How to Apply an Elastic Wrap on Knee Additional Instructions: Follow-up with orthopedics, call for appointment. Nikolai wrap, knee immobilizer until seen by orthopedics. Ice 20 minutes 4-5 times a day to reduce swelling. Elevate your leg to reduce swelling. Gobles as needed for pain. Additional instructions for RIB INJURIES: See your physician as soon as possible for further evaluation. Hold a pillow against your injured ribs to help with pain when coughing or sneezing. Sleep with several pillows to help support you in the most comfortable position. Take deep breaths frequently. Return immediately if shortness of breath, intolerable pain, coughing of blood, abdominal pain or vomiting. Additional instructions for CONTROLLED SUBSTANCES: You have been prescribed a medication that is a controlled substance. Controlled substances include pain medications known as opiates and sedative nerve medications known as benzodiazepines. Tramadol, fioricet, and gabapentin are also controlled substances. Some common opiates include: Codeine (such as Tylenol #3) Hydrocodone (Vicodin, Lortab, Lorcet, Gobles) Oxycodone (Percocet, Percodan, Oxycodone, Oxy IR) Some common benzodiazepines include: Diazepam (Valium) Lorazepam (Ativan) Alprazolam (Xanax) Clonazepam (Klonopin) Oxazepam (Serax) All of these controlled substances are highly addictive and frequently abused. Misuse can and frequently does lead to addiction as well as overdose and . Medication should be stored in a locked cabinet or other secure storage unit. Do not store the medication in a motor vehicle. Short term supplies, 3 days or less, are prescribed because of the highly addictive nature of the medication. Any of the controlled substance medication NOT taken should be disposed of properly and NOT SAVED. The recommended method of disposing of unused medications is: Place the medicines in a sealable plastic bag. If the medicine is a solid, crush it or add water to dissolve it. Add something undesirable (cat litter, coffee grounds, etc.) Dispose of sealed bag in household trash Do not flush or pour unused medicines down a sink or drain. Controlled substances should not be shared, given away or sold. Because of the addictive nature and frequent abuse, these medications are sometimes stolen. These medications should be kept in a safe place where they cannot be stolen. Do not keep them in your car or purse. Lost or stolen prescriptions for controlled substances WILL NOT BE REFILLED in this emergency department, regardless of whether a police report was filed. Prescriptions: Hydrocod/Acet 5/325 mg [Gobles 5/325mg tablet] 1 tab PO Q6HP PRN #20 tab PRN Reason: Pain Transmission Status: Sent to [facility] Referrals: Jesus Ott [Primary Care Provider] - Mariam Myers MD [Physician] - - Critical Care Critical Care Time: No Attestation: On 05/13/20, the high probability of a clinically significant, sudden or life threatening deterioration of the following system(s) required my full and direct attention, intervention and personal management. The time I documented below is in addition to time spent performing rep
[2020-05-13 16:21] VITALS: BP 132/74; PULSE 78; RESP 16; TEMP 36.6; O2SAT 98
== END 2020-05-13 16:23 | disposition home or self-care (01) ==
PROVIDERS: Emergency Provider Emergency Medicine; PCP Internal Medicine
DX: S22.32XA Fracture of one rib, left side, initial encounter for closed fracture (principal); S50.312A Abrasion of left elbow, initial encounter; S80.02XA Contusion of left knee, initial encounter; W01.0XXA Fall on same level from slipping, tripping and stumbling without subsequent striking against object, initial encounter; Y92.481 Parking lot as the place of occurrence of the external cause; E11.9 Type 2 diabetes mellitus without complications; E03.9 Hypothyroidism, unspecified; E78.5 Hyperlipidemia, unspecified; I10 Essential (primary) hypertension; K21.9 Gastro-esophageal reflux disease without esophagitis; J44.9 Chronic obstructive pulmonary disease, unspecified; F41.8 Other specified anxiety disorders; Z87.891 Personal history of nicotine dependence; Z88.2 Allergy status to sulfonamides; Z79.899 Other long term (current) drug therapy; Z90.49 Acquired absence of other specified parts of digestive tract; Z90.710 Acquired absence of both cervix and uterus
CPT/HCPCS: 29505; 71101; 72170; 73080; 73562; 96372; 99284; J2405

== ENCOUNTER → 2020-05-20 10:09 | Outpatient (CLI) | payer MEDICARE, MEDICAID, SELFPAY ==
--- NOTE | 2020-05-20 10:13 | XR_ITS ---
PROCEDURE: XR KNEE LT 4V CLINICAL INDICATION: left kne pain/ weightbearing Knee pain and swelling COMPARISON: CR [id number] KNEE-4 OR 5 VIEWS-RT from 06/20/2017 CR [id number] KNEE-4 OR 5 VIEWS-LT from 06/20/2017 CR XR KNEE LT 3V from 01/22/2020 CR XR KNEE LT 3V from 05/13/2020 FINDINGS: No fracture or dislocation. No lytic or blastic change. There is normal mineralization. There is minimal spurring at the tibial spines and the intercondylar notch of the distal femur. Other findings:Soft tissue swelling is present at the prepatellar region. There is slight decrease in the joint space medially. IMPRESSION: 1. Minimal osteoarthritic change. 2. Prepatellar soft tissue swelling which may be slightly decreased compared to 05/13/2020 Dictated by: Michele Zimmerman MD 05/20/2020 12:29 Michele Zimmerman MD in [place] 05/20/2020 12:29
== END ==
PROVIDERS: PCP Internal Medicine; Visit Provider Orthopaedic Surgery
DX: M25.562 Pain in left knee (principal)
CPT/HCPCS: 73564

== ENCOUNTER → 2020-05-24 15:39 | Outpatient (CLI) | payer MEDICARE, MEDICAID, SELFPAY ==
--- NOTE | 2020-05-24 15:42 | XR_ITS ---
PROCEDURE: XR ANKLE LT MIN 3V CLINICAL INDICATION: S/P FALL 05/13/2020 Posttraumatic pain COMPARISON: No exams were available for comparison FINDINGS: Soft tissue swelling is present at the lateral malleolar region. There are mild hypertrophic changes at the medial malleolus. No acute fracture or dislocation is evident. IMPRESSION: Soft tissue swelling otherwise negative Dictated by: Michele Zimmerman MD 05/24/2020 15:59 Michele Zimmerman MD in [place] 05/24/2020 15:59
== END ==
PROVIDERS: PCP Internal Medicine; Visit Provider Internal Medicine
DX: M25.572 Pain in left ankle and joints of left foot (principal); W19.XXXA Unspecified fall, initial encounter
CPT/HCPCS: 73610

== ENCOUNTER → 2020-06-10 14:33 | Outpatient (CLI) | payer MEDICARE, MEDICAID, SELFPAY ==
--- NOTE | 2020-06-10 14:42 | MR_ITS ---
PROCEDURE: MR KNEE LT WO CON CLINICAL INDICATION: Left knee pain Pt. fell 1 month ago c/o diffuse left knee pain. prior left knee xray done 05/20/20. COMPARISON: CR XR KNEE LT 4V from 05/20/2020 TECHNIQUE: Routine multiplanar multi echo sequences are performed without and with gadolinium enhancement. FINDINGS: The cruciate ligaments appear intact. The collateral ligaments appear intact. Patellar tendon and quadriceps tendon appear intact. No evidence of meniscal tear. There are mild osteoarthritic changes of the knee. The increased T2 signal involves the articular surface of the medial aspect of the lateral femoral condyle anteriorly. This is hypointense on T1 and hyperintense on T2. There is some prepatellar edema. Only small amount of fluid is present in the retropatellar region. Mild osteoarthritic changes are present involving the patellofemoral joint with thinning of the patellar cartilage IMPRESSION: 1. No evidence of internal derangement 2. Mild osteoarthritic changes with small knee joint effusion and some pre patellar edema. 3. Thinning of the patellar cartilage which could be due to osteoarthritis or chondromalacia patella. 4. Increased T2 signal involving the medial aspect of the lateral femoral condyle anteriorly which could be posttraumatic or degenerative. Osteochondrosis is a consideration. Dictated by: Michele Zimmerman MD 06/11/2020 09:57 Michele Zimmerman MD in [place] 06/11/2020 09:57
== END ==
PROVIDERS: PCP Internal Medicine; Visit Provider Orthopaedic Surgery
DX: M25.462 Effusion, left knee (principal); M25.562 Pain in left knee
CPT/HCPCS: 73721

== ENCOUNTER → 2020-08-09 12:50 | Outpatient (POV) | payer MEDICARE, MEDICAID, SELFPAY | PROVIDERS: Visit Provider Nurse Practitioner Family | DX: Z00.00 Encounter for general adult medical examination without abnormal findings (principal) ==

== ENCOUNTER 2020-08-13 14:00 | Outpatient (RCR) | payer MEDICARE, MEDICAID, SELFPAY ==
--- NOTE | 2020-07-28 15:01 | HMH.PTOPEV ---
PT Outpatient Evaluation Rehab PT Outpatient Evaluation Start: 07/28/20 14:11 Freq: Status: Active Protocol: Document 07/28/20 14:47 PHORNE (Rec: 07/28/20 15:00 PHORNE [id number]) Electronically Signed By Jaron Prince, PT 07/28/20 14:47 Outpatient Therapy Subjective History Subjective History Pt is 59 yowf who presents ~ 2 .5 mos S/P fall with resulting L knee contusion and edema. She reports significant pain remains in the L knee anteriorly with mild continued hematoma noted. She reports difficulty with walking long distances. She had MRI performed which shows no actue injury. She has PMH od anxiety, depression, COPD, asthma, CHF, DM-II, HL, HTN, PVD, and substance abuse. Chief Complaint Pain Symptom Type Ache,Sharp Symptoms Relieved By Rest/Positioning Symptoms Aggravated By Walking Prior Functional Limitations None Current Functional Limitations Standing,Walking Symptom Description Constant but Variable Level of pain today (0-10) 8 Pain scale - at its worst (0-10) 9 Hip/Knee Eval Gait Observation General Gait Pattern Observation Antalgic Gait Assistive Device Assistive Devices Straight Cane Palpation Tenderness left Knee Palpation Finding Tenderness MMT Hip Strength Reason Not Measured WFL Knee Strength Reason Not Measured WFL ROM Knee Extension Active Range of Motion ( 0 degrees) Knee Flexion Active Range of Motion ( 0-127 degrees) Special Tests Knee Anterior Drawer Test Negative Left,Negative Right Winston 90/90 Test (PCL) Negative Left,Negative Right Knee Valgus Stress Test Negative Left,Negative Right Knee Varus Stress Test Negative Left,Negative Right Knee Aiyana Test Negative Left,Negative Right Outpatient Therapy Assessment Impairments Problems/Impairmments Palpation Tenderness,Impaired Endurance,Impaired Walking, Impaired Standing,Increased Edema,Subjective C/O Pain, Impaired Self Care/Self Management Prognosis Rehab Potential Good Clinical Impression Consistent with Diagnosis Yes Short Term Goals Number of Weeks 4 Decreased Palpation Tenderness Yes: 2/4 L knee Improve Gait Pattern with Assistive Yes D
== END 2020-08-13 14:05 | disposition home or self-care (01) ==
LOC: PT 14:00
PROVIDERS: PCP Internal Medicine; Visit Provider Orthopaedic Surgery
DX: S80.12XA Contusion of left lower leg, initial encounter (principal)
CPT/HCPCS: 97010; 97014; 97033; 97110; 97140; 97163; 97760; G0283

== ENCOUNTER 2020-08-22 23:02 | Emergency (ER) | payer MEDICARE, MEDICAID, SELFPAY ==
[2020-08-22 23:04] VITALS: BP 122/52; PULSE 60; RESP 16; TEMP 36.8; O2SAT 97; BMI 34.7
--- NOTE | 2020-08-22 23:22 | XR_ITS ---
PROCEDURE: XR KNEE LT 3V CLINICAL INDICATION: contusion Posttraumatic pain COMPARISON: CR [id number] KNEE-4 OR 5 VIEWS-RT from 06/20/2017 CR XR KNEE LT 3V from 01/22/2020 CR XR KNEE LT 3V from 05/13/2020 CR XR KNEE LT 4V from 05/20/2020 FINDINGS: There are mild osteoarthritic changes involving all 3 compartments. No acute fracture or dislocation. No lytic or blastic change Other findings:None. IMPRESSION: Mild osteoarthritis, no significant change Dictated by: Michele Zimmerman MD 08/23/2020 05:25 Michele Zimmerman MD in [place] 08/23/2020 05:25
--- NOTE | 2020-08-22 23:22 | CT_ITS ---
PROCEDURE: CT LUMBAR SPINE WO CON CLINICAL HISTORY: fall 3 months ago with pain Posttraumatic pain, low back pain COMPARISON: CT CT LUMBAR SPINE WO CON from 01/10/2020 TECHNIQUE: Axial images obtained with sagittal and coronal reformats. All CT scans at the facility use one or more dose reduction, viz: automated exposure control, ma/kV adjustment per patient size (including targeted exams where dose is matched to indication, i.e. head), or iterative reconstruction technique. FINDINGS: There is generalized osteopenia. There is normal alignment. There is mild thoracic curvature convex left. Multilevel degenerative changes are present with osteophytes in the lower thoracic spine. T10-T11. Degenerative disc disease with anterior osteophytes and facet and ligamentum hypertrophy with bilateral lateral recess narrowing. T11-T12: Degenerative disc disease with anterior bridging osteophytes. Bilateral facet and ligamentum hypertrophy with bilateral lateral recess narrowing and bilateral foraminal narrowing. T12-L1: Degenerative disc disease. There is mild chronic wedging of L1 unchanged. L1-L2: Degenerative disc disease with some minimal ridging of the endplates posteriorly minimal bulging disc. L2-L3: Mild bulging disc. L3-L4: Degenerative disc disease with bulging disc along with facet and ligamentum hypertrophy with bilateral lateral recess and foraminal narrowing. L4-5: Degenerate disc disease with facet and ligamentum hypertrophy with bulging disc with mild bilateral foraminal narrowing. L5-S1: Degenerate disc disease with a broad-based central disc osteophyte complex IMPRESSION: Multilevel spondylosis of the lumbar spine as described above overall not significantly changed. Dictated by: Michele Zimmerman MD 08/23/2020 06:24 Michele Zimmerman MD in [place] 08/23/2020 06:24
[2020-08-22 23:36] VITALS: BP 103/54; PULSE 70; RESP 17; O2SAT 96
--- NOTE | 2020-08-22 23:37 | XR_ITS ---
PROCEDURE: XR CHEST 2V CLINICAL HISTORY: cough COMPARISON: CR XR CHEST AP from 01/22/[address] CHEST WO CON from 03/19/2020 CR XR CHEST PORTABLE from 03/19/2020 CR XR RIBS LT MIN 3V W CXR1V from 05/13/2020 FINDINGS: The cardiomediastinal silhouette and pulmonary vascularity are within normal limits. The lungs are clear without infiltrates, suspicious nodules, or pleural effusions. Degenerative changes thoracic spine with mild thoracic curvature convex right cyst by IMPRESSION: No acute findings. Dictated by: Michele Zimmerman MD 08/23/2020 05:22 Michele Zimmerman MD in [place] 08/23/2020 05:23
[2020-08-22 23:41] LABS: Basophils # 0.1 K/mm3 (0-0.2); Basophils % 0.7 % (0.1-2.0); Eosinophils # 0.5 K/mm3 (0.0-0.4); Eosinophils % 4.7 % (0.1-12.0); Hematocrit 39.3 % (37.0-47.0); Lymphocytes # 3.3 K/mm3 (0.7-4.5); Lymphocytes % 29.5 % (10-50); Mean Corpuscular Hemoglobin 28.7 pg (27.0-31.2); Mean Corpuscular Volume 86.9 fl (81-99); Mean Platelet Volume 7.2 fl (7.4-10.4); Monocytes # 0.7 K/mm3 (0.1-1.0); Monocytes % 5.9 % (1.7-9.3); Neutrophils # 6.6 K/mm3 (1.8-7.8); Neutrophils % 59.2 % (37.0-80.0); Platelet Count 262 K/mm3 (142-424); Red Blood Count 4.52 M/mm3 (4.20-5.40); White Blood Count 11.1 K/mm3 (4.8-10.8)
--- NOTE | 2020-08-22 23:44 | PC.NURSE ---
Pat requesting covid antibody testing d/t chronic cough. Pt to xray at this time.
[2020-08-22 23:50] LABS: Alanine Aminotransferase 15 U/L (12-78); Albumin Level 3.9 g/dl (3.5-5.0); Albumin/Globulin Ratio 1.3 (1.1-1.8); Alkaline Phosphatase 109 U/L (38-126); Anion Gap 9.1 mEq/L (5-15); Aspartate Amino Transferase 25 U/L (14-36); Bilirubin,Total 0.5 mg/dl (0.2-1.3); Blood Urea Nitrogen 17 mg/dl (7-17); Calcium 9.4 mg/dl (8.4-10.2); Carbon Dioxide 26 mmol/L (22.0-30.0); Chloride 106 mmol/L (98-107); Creatinine Clearance Estimated 91 mL/min (50-200); Estimated Glomerular Filt Rate 56 ml/min (>60); GFR (African American) 68 ML/MIN (>60); Globulin 3.1 g/dL (1.3-3.2); Glucose 203 mg/dl (74-100); Potassium 4.1 mmoL/L (3.5-5.1); Sodium 137 mmol/L (136-145)
[2020-08-22 23:54] LABS: C-Reactive Protein 8.8 mg/L (0-4)
[2020-08-23] LABS: Coronavirus 19 IgG Antibody Negative (Negative); Coronavirus 19 IgM Antibody Negative (Negative)
[2020-08-23 00:05] LABS: Erythrocyte Sedimentation Rate 38 mm/hr (0-30)
--- NOTE | 2020-08-23 00:20 | PC.NURSE ---
pt back from CT
[2020-08-23 00:21] VITALS: BP 147/60; PULSE 68; RESP 15; O2SAT 96
--- NOTE | 2020-08-23 00:26 | PC.NURSE ---
Patient updated on plan of care, pt is drowsy and appears to be resting comfortably at this time, no needs voiced.
--- NOTE | 2020-08-23 00:42 | HMH.EDBACK ---
ED Disposition Clinical Impression: Strain of lumbar region Qualifiers: Encounter type: initial encounter Qualified Code(s): S39.012A - Strain of muscle, fascia and tendon of lower back, initial encounter Disposition: Home, Self-Care Condition on Discharge: Good Instructions: DI for Back Pain With Sciatica Additional Instructions: call pcp in am for follow up Referrals: Jesus Ott [Primary Care Provider] - - Critical Care Critical Care Time: No Attestation: On 08/22/20, the high probability of a clinically significant, sudden or life threatening deterioration of the following system(s) required my full and direct attention, intervention and personal management. The time I documented below is in addition to time spent performing reported procedures but includes the following listed in this critical care notation. Medical Decision Making - Medical Records Medical records reviewed: Yes: I reviewed the patient's medical records. - Bryan Inquiry Pt receiving controlled substance: No Vital Signs: 08/22/20 23:04 08/22/20 23:36 08/23/20 00:21 Temperature 98.3 F Temperature Source Oral Pulse Rate [Right Brachial] 60 70 68 Respiratory Rate 16 17 15 Blood Pressure [Right Arm] 122/52 L 103/54 L 147/60 H Blood Pressure Mean [Right Arm] 75 70 89 02 Sat by Pulse Oximetry 97 96 96 Oxygen Delivery Method Room Air Room Air Room Air - Lab Data Lab results reviewed: Yes: I reviewed the patient's lab results. Lab Results 08/22/20 23:30: WBC 11.1 H, RBC 4.52, Hgb 13.0, Hct 39.3, MCV 86.9, MCH 28.7, MCHC 33.0, RDW 14.0, Plt Count 262, MPV 7.2 L, Neut % (Auto) 59.2, Lymph % (Auto) 29.5, [place] % (Auto) 5.9, Eos % (Auto) 4.7, Baso % (Auto) 0.7, Neut # (Auto) 6.6, Lymph # (Auto) 3.3, [place] # (Auto) 0.7, Eos # (Auto) 0.5 H, Baso # (Auto) 0.1, ESR 38 H 08/22/20 23:30: Sodium 137, Potassium 4.1, Chloride 106, Carbon Dioxide 26, Anion Gap 9.1, BUN 17, Creatinine 1.00, Estimated Creat Clear 91, Estimated GFR 56 L, Est GFR ( Amer) 68, Glucose 203 H, Calcium 9.4, Total Bilirubin 0.5, AST 25, ALT 15, Alkaline Phosphatase 109, C-Reactive Protein 8.8 H, Total Protein 7.0, Albumin 3.9, Globulin 3.1, Albumin/Globulin Ratio 1.3 08/22/20 23:30: SARS-CoV-2 IgG Ab (Rapid) Negative, SARS-CoV-2 IgM Ab (Rapid) Negative Result diagrams: 08/22/20 23:30 08/22/20 23:30 Orders (Tests/Meds): ED MEDICATIONS Discontinued Medications Generic Name Dose Route Start Last Admin Trade Name Freq PRN Reason Stop Dose Admin Methylprednisolone Sodium Succinate 125 mg 08/22/20 23:25 08/22/20 23:43 Methylprednisolone Sod Succ 125mg Vial IV 08/22/20 23:26 125 mg ONCE ONE Administration ORDERS Category Date Time Status CT lumbar spine wo con Stat Cat Scan 08/22/20 23:22 Taken Chest XR 2 view (NOT portable) [XR chest 2V] Stat Exams 08/22/20 23:37 Taken Knee XR left 3 views [XR knee LT 3V] Stat Exams 08/22/20 23:22 Taken - Radiology Data #1 Image(s): Chest, Knee Image Reviewed: Yes I reviewed the patient's radiology image Preliminary Findings: No Fracture Seen - CT Data CT Scan: L-Spine Time Received: 00:[address] Reviewed: Yes: I have viewed the radiologist's interpretation Preliminary Findings: No Fracture Seen Back Pain HPI - General Chief Complaint: Back Pain/Injury Stated Complaint: back pain, leg pain Time Seen by Provider: 08/23/20 00:00 Mode of Arrival: Ambulatory Source of Information: Patient, Medical Record Limitations: walks with a cane Description of Symptoms (Recalled from ER Triage Doc. by RN): Pt here with complaints of back and leg pain. Reports she fell 3 months ago, was seen here in the ED after the fall, had xrays, and followed up with Dr Ott. Reports that she has been seeing Dr Ott and he has been prescribing Lortabs for her but they aren't helping. She reports the pain is no different than previous, just worse, with shooting pains down both legs from lower back. - History of
[2020-08-23 01:02] VITALS: BP 132/57; PULSE 63; RESP 15; TEMP 37; O2SAT 96
== END 2020-08-23 01:04 | disposition home or self-care (01) ==
PROVIDERS: Emergency Provider Emergency Medicine; PCP Internal Medicine
DX: S39.012A Strain of muscle, fascia and tendon of lower back, initial encounter (principal); Z01.84 Encounter for antibody response examination; J44.9 Chronic obstructive pulmonary disease, unspecified; E03.9 Hypothyroidism, unspecified; F41.8 Other specified anxiety disorders; E11.65 Type 2 diabetes mellitus with hyperglycemia; I10 Essential (primary) hypertension; F17.210 Nicotine dependence, cigarettes, uncomplicated; Z88.2 Allergy status to sulfonamides; Z90.49 Acquired absence of other specified parts of digestive tract; Z90.710 Acquired absence of both cervix and uterus; Z79.899 Other long term (current) drug therapy
CPT/HCPCS: 71046; 72131; 73562; 80053; 85025; 85651; 86140; 86328; 96374; 99283

== ENCOUNTER 2020-09-01 19:53 | Emergency (ER) | payer MEDICARE, MEDICAID, SELFPAY ==
[2020-09-01 20:30] VITALS: BP 150/76; PULSE 73; RESP 20; TEMP 37.1; O2SAT 100; BMI 34.5
--- NOTE | 2020-09-01 20:35 | HMH.EDUTC ---
[facility] [place] Disposition Clinical Impression: Bronchitis Sinusitis Qualifiers: Sinusitis location: unspecified location Chronicity: unspecified Qualified Code(s): J32.9 - Chronic sinusitis, unspecified Disposition: Home, Self-Care Condition on Discharge: Good Instructions: Sinusitis, Acute Bronchitis, DI for Acute Bronchitis Additional Instructions: ? Start antibiotic today. Be sure to complete entire prescription even if feeling better ? Monitor temp. Tylenol every 4 hours as needed and / or ibuprofen every 6 hours as needed ( As long as your primary care physician has told you that it ok to take both. For fever/aches/pains ER if no less than 101 despite Tylenol or Motrin ? Humidifier/vaporizer or hot steamy shower ? Inhaler every 4-6 hours as needed like we discussed. If unsure how to use it, ask pharmacist to demonstrate how. Should help open airways and improve cough, wheezing, and shortness of breath ? Mucinex during the day for your cough and cough suppressant only at night. Be sure to drink lots of water. Insurance may not cover a prescriptions for mucinex. Might be cheaper to get 400mg tablets and take 2 tablet in the morning, mid-day and evening with lots of water. if your doctor has told you that you can take it *Continue with prescribed Prednisone. Helps with inflammation therefore, cough and wheezing. Follow directions on the package. Reviewed side effects. Patient reports taking them before. Follow up IMMEDIATELY for new or worsening of symptoms OR no noticeable improvement over the next 48-72 hours. 911 immediately for any life threatening symptoms such as chest pain or difficulty breathing Prescriptions: Azithromycin [Z-Hunter 250mg Tab] 250 mg PO DIRECTED #6 tab Transmission Status: Received by [facility] Referrals: Jesus Ott [Primary Care Provider] - As needed Time of Disposition: 20:58 Medical Decision Making - Bryan Inquiry Pt receiving controlled substance: No Bryan was queried for this patient: No Vital Signs: 09/01/20 20:30 09/01/20 21:11 Temperature 98.8 F 98.8 F Temperature Source Oral Pulse Rate 73 Pulse Rate [Left] 73 Respiratory Rate 20 20 Blood Pressure 150/76 H Blood Pressure [Right Arm] 150/76 H Blood Pressure Mean [Right Arm] 100 Blood Pressure Source [Right Arm] Automatic Cuff Blood Pressure Position [Right Arm] Sitting 02 Sat by Pulse Oximetry 100 Oxygen Delivery Method Room Air - Lab Data Lab results reviewed: Yes: I reviewed the patient's lab results. Lab Results 09/01/20 20:35: Influenza Type A Ag Negative, Influenza Type B Ag Negative Orders (Tests/Meds): ED MEDICATIONS Discontinued Medications Generic Name Dose Route Start Last Admin Trade Name Poppy PRN Reason Stop Dose Admin Ceftriaxone Sodium 1 gm 09/01/20 20:45 09/01/20 21:08 Ceftriaxone 1gm Vial IM 09/01/20 20:46 1 gm ONCE ONE Administration Protocol Lidocaine HCl 0 ml 09/01/20 20:45 09/01/20 21:08 Lidocaine 1% 5ml Pf Vial IM 09/01/20 20:46 2.3 ml ONCE ONE Administration ORDERS Category Date Time Status Covid-19 Nasal PCR Sendout Irvin Stat Lab 09/01/20 20:48 Ordered Medical Decision Narrative: Patient states that she is currently taking Prednisone and she has taken Rocephin and azithromycin before without complications or reactions Patient declined CXR reports just had one a week or so ago [facility] [place] HPI - General Stated complaint: SOB , Fever, Cannot taste, cough, weak Time Seen by Provider: 09/01/20 20:35 Mode of Arrival: Ambulatory Source of Information: Patient Limitations: No Limitations Description of Symptoms (Recalled from Triage Doc. by RN): Fever cough and congestion HEENT Symptoms (Recalled from RN notes): Yes Resp Symptoms (Recalled from RN notes): Yes Skin Symptoms (Recalled from RN notes): No MS Symptoms (Recalled from RN notes): No Functional Status (Recalled from RN notes): wnl - History of Present Illness Provider Complai
[2020-09-01 20:51] LABS: UTC Influenza A Antigen Negative (Negative)
[2020-09-01 20:52] LABS: UTC Influenza B Antigen Negative (Negative)
[2020-09-01 21:11] VITALS: BP 150/76; PULSE 73; RESP 20; TEMP 37.1; O2SAT 100
[2020-09-03 13:27] LABS: Covid-19 Nasal PCR Sendout Lex NOT DETECTED
== END 2020-09-01 21:17 | disposition home or self-care (01) ==
PROVIDERS: Emergency Provider Nurse Practitioner; PCP Internal Medicine
DX: Z20.828 Contact with and (suspected) exposure to other viral communicable diseases (principal); J20.9 Acute bronchitis, unspecified; J44.0 Chronic obstructive pulmonary disease with (acute) lower respiratory infection; J32.9 Chronic sinusitis, unspecified; F41.8 Other specified anxiety disorders; E11.9 Type 2 diabetes mellitus without complications; K21.9 Gastro-esophageal reflux disease without esophagitis; I10 Essential (primary) hypertension; E78.5 Hyperlipidemia, unspecified; Z79.899 Other long term (current) drug therapy; Z88.1 Allergy status to other antibiotic agents; Z88.2 Allergy status to sulfonamides
CPT/HCPCS: G0463; 87804; 96372; 99202; U0004

== ENCOUNTER → 2020-09-15 14:02 | Outpatient (CLI) | payer MEDICARE, MEDICAID, SELFPAY ==
[2020-09-15 14:50] VITALS: PULSE 73; PULSE 78
== END ==
PROVIDERS: PCP Internal Medicine; Visit Provider Internal Medicine
DX: R06.02 Shortness of breath (principal); J44.9 Chronic obstructive pulmonary disease, unspecified
CPT/HCPCS: 94060; 94640; 94762

== ENCOUNTER → 2020-11-01 14:47 | Outpatient (CLI) | payer MEDICARE, MEDICAID, SELFPAY ==
--- NOTE | 2020-11-01 15:09 | MR_ITS ---
PROCEDURE: MR LUMBAR SPINE WO CON CLINICAL INDICATION: LOW BACK PAIN LBP XYRS WITH BILATERAL HIP PAIN. PAIN RADIATES UP SPINE. PRIOR CT 58 >PRIOR MR 03-14-18 COMPARISON: MR MR KNEE LT WO CON from 06/10/[address] LUMBAR SPINE WO CON from 08/22/2020 TECHNIQUE: Standard multiplanar multiecho sequences are performed without contrast. 3-D MIP and myelographic images are also rendered and reviewed FINDINGS: Mild levoscoliosis at 9 degrees. The spinal cord ends at the L2 level. T11-T12: Mild degenerative disc disease with mild facet and ligamentum hypertrophy with bilateral lateral recess and foraminal narrowing and canal stenosis. T12-L1: Degenerative disc disease with minimal bulging disc with facet and ligamentum hypertrophy with bilateral foraminal narrowing. L1-L2: Concentric bulging disc with degenerative disc disease with facet and ligamentum hypertrophy with 2-3 mm retrolisthesis of L1 with bilateral lateral recess and foraminal narrowing. There is mild chronic wedging of L1. L2-L3: Mild facet and ligamentum hypertrophy. L3-L4: Bulging disc. There is small broad based central left paracentral lateral disc protrusion along with facet and ligamentum hypertrophy with severe left lateral recess and foraminal narrowing. There is severe right foraminal narrowing also at this level. There is impingement upon the L4 nerve root from the bulging disc and facet and ligamentum hypertrophy. Canal stenosis is present at this level. L4-5: Bulging disc with facet and ligamentum hypertrophy. There is severe left-sided foraminal narrowing from the bulging disc and facet hypertrophic change and moderate right-sided foraminal narrowing. L5-S1: Bulging disc with small broad-based central disc protrusion with degenerative disc disease. There is 2-3 mm anterolisthesis of L5. There is facet and ligamentum hypertrophy with resultant severe left-sided foraminal narrowing and moderate right foraminal narrowing. IMPRESSION: Multilevel lumbar spondylosis with bulging disc along with facet ligamentum hypertrophy with degenerative disc disease and disc protrusions resulting in lateral recess and foraminal narrowing as well as canal stenosis. Please see above for detailed description at each level. Dictated by: Michele Zimmerman MD 11/02/2020 10:39 Michele Zimmerman MD in [place] 11/02/2020 10:39
[2020-11-01 15:32] LABS: Basophils # 0.1 K/mm3 (0-0.2); Basophils % 0.5 % (0.1-2.0); Eosinophils # 0.2 K/mm3 (0.0-0.4); Eosinophils % 2.6 % (0.1-12.0); Hematocrit 40.7 % (37.0-47.0); Hemoglobin 13.6 g/dL (12.2-16.2); Lymphocytes # 2.8 K/mm3 (0.7-4.5); Lymphocytes % 30.3 % (10-50); Mean Corpuscular HGB Conc 33.4 g/dL (31.8-35.4); Mean Corpuscular Hemoglobin 29.4 pg (27.0-31.2); Mean Corpuscular Volume 88.1 fl (81-99); Mean Platelet Volume 7.4 fl (7.4-10.4); Monocytes # 0.5 K/mm3 (0.1-1.0); Monocytes % 5.2 % (1.7-9.3); Neutrophils # 5.7 K/mm3 (1.8-7.8); Neutrophils % 61.4 % (37.0-80.0); Platelet Count 304 K/mm3 (142-424); Red Blood Count 4.62 M/mm3 (4.20-5.40); Red Cell Distribution Width 14.9 % (11.5-17.5); White Blood Count 9.3 K/mm3 (4.8-10.8)
[2020-11-01 15:50] LABS: Chloride 106 mmol/L (98-107)
[2020-11-01 15:51] LABS: Potassium 3.8 mmoL/L (3.5-5.1); Sodium 140 mmol/L (136-145)
[2020-11-01 15:53] LABS: Alanine Aminotransferase 16 U/L (12-78); Anion Gap 8.8 mEq/L (5-15); Aspartate Amino Transferase 22 U/L (14-36); Blood Urea Nitrogen 7 mg/dl (7-17); Carbon Dioxide 29 mmol/L (22.0-30.0); Estimated Glomerular Filt Rate 102 ml/min (>60); GFR (African American) 123 ML/MIN (>60)
[2020-11-01 15:54] LABS: Albumin Level 4.1 g/dl (3.5-5.0); Albumin/Globulin Ratio 1.4 (1.1-1.8); Alkaline Phosphatase 94 U/L (38-126); Bilirubin,Total 0.5 mg/dl (0.2-1.3); Calcium 9.7 mg/dl (8.4-10.2); Chol/HDL Ratio 3.7 (1-3.5); Cholesterol 145 mg/dl (140-200); Glucose 118 mg/dl (74-100); HDL Cholesterol 39 mg/dl (40-60); Total Protein,Serum 7.1 g/dl (6.3-8.2); Triglycerides 148 mg/dl (30-150); VLDL Cholesterol 30 mg/dL (0-40)
[2020-11-01 15:58] LABS: Hemoglobin A1C 7.8 % (4.0-6.0)
[2020-11-01 16:05] LABS: Direct LDL Cholesterol 77.47 mg/dL (100-129)
[2020-11-01 16:24] LABS: Thyroid Stimulating Hormone 1.49 uIU/mL (0.465-4.68)
== END ==
PROVIDERS: PCP Internal Medicine; Visit Provider Internal Medicine
DX: M54.5 Low back pain (principal); I25.10 Atherosclerotic heart disease of native coronary artery without angina pectoris; E11.59 Type 2 diabetes mellitus with other circulatory complications; I10 Essential (primary) hypertension; E78.5 Hyperlipidemia, unspecified; E03.9 Hypothyroidism, unspecified; E11.42 Type 2 diabetes mellitus with diabetic polyneuropathy; D64.9 Anemia, unspecified
CPT/HCPCS: 36415; 72148; 76376; 80053; 80061; 83036; 84443; 85025

== ENCOUNTER → 2020-11-17 11:12 | Outpatient (CLI) | payer MEDICARE, MEDICAID, SELFPAY | PROVIDERS: PCP Internal Medicine; Visit Provider Internal Medicine | DX: Z20.822 Contact with and (suspected) exposure to COVID-19 (principal); R50.9 Fever, unspecified; R05 Cough | CPT/HCPCS: U0003 ==

== ENCOUNTER 2020-11-27 21:05 | Inpatient (IN) | payer MEDICARE, MEDICAID, SELFPAY ==
[2020-11-27 21:20] VITALS: BP 115/58; PULSE 114; RESP 26; TEMP 37.4; O2SAT 98; BMI 36.7
--- NOTE | 2020-11-27 21:25 | XR_ITS ---
PROCEDURE: XR CHEST PORTABLE CLINICAL HISTORY: cxr Shortness of air and fever COMPARISON: CT CT CHEST WO CON from 03/19/2020 CR XR CHEST PORTABLE from 03/19/2020 CR XR RIBS LT MIN 3V W CXR1V from 05/13/2020 CR XR CHEST 2V from 08/22/2020 FINDINGS: The cardiomediastinal silhouette and pulmonary vascularity are within normal limits. The lungs are clear without infiltrates, suspicious nodules, or pleural effusions. No acute bony abnormalities. IMPRESSION: No acute findings. Dictated by: Michele Zimmerman MD 11/28/2020 07:02 Michele Zimmerman MD in [place] 11/28/2020 07:02
[2020-11-27 22:07] VITALS: BP 121/73; PULSE 73; RESP 18; O2SAT 98
[2020-11-27 22:12] LABS: Basophils # 0.1 K/mm3 (0-0.2); Basophils % 0.2 % (0.1-2.0); Eosinophils # 0.2 K/mm3 (0.0-0.4); Eosinophils % 0.8 % (0.1-12.0); Hematocrit 36.7 % (37.0-47.0); Hemoglobin 12.2 g/dL (12.2-16.2); Lymphocytes # 0.9 K/mm3 (0.7-4.5); Lymphocytes % 4.3 % (10-50); Mean Corpuscular HGB Conc 33.3 g/dL (31.8-35.4); Mean Corpuscular Hemoglobin 29.5 pg (27.0-31.2); Mean Corpuscular Volume 88.6 fl (81-99); Mean Platelet Volume 7.2 fl (7.4-10.4); Monocytes # 0.8 K/mm3 (0.1-1.0); Monocytes % 4.1 % (1.7-9.3); Neutrophils # 18.4 K/mm3 (1.8-7.8); Neutrophils % 90.5 % (37.0-80.0); Platelet Count 245 K/mm3 (142-424); Red Blood Count 4.14 M/mm3 (4.20-5.40); Red Cell Distribution Width 13.7 % (11.5-17.5)
[2020-11-27 22:13] LABS: Chloride 102 mmol/L (98-107); MANUAL DIFFERENTIAL MANUAL DIFFERENTIAL (MANUAL DIFF); Potassium 3.2 mmoL/L (3.5-5.1); Sodium 134 mmol/L (136-145); White Blood Count 20.3 K/mm3 (4.8-10.8)
[2020-11-27 22:16] LABS: Alanine Aminotransferase 21 U/L (12-78); Albumin/Globulin Ratio 1.2 (1.1-1.8); Alkaline Phosphatase 88 U/L (38-126); Anion Gap 9.2 mEq/L (5-15); Aspartate Amino Transferase 25 U/L (14-36); Bilirubin,Total 0.5 mg/dl (0.2-1.3); Blood Urea Nitrogen 12 mg/dl (7-17); Calcium 9.8 mg/dl (8.4-10.2); Carbon Dioxide 26 mmol/L (22.0-30.0); Creatine Kinase 50 U/L (30-135); Creatinine Clearance Estimated 91 mL/min (50-200); Estimated Glomerular Filt Rate 73 ml/min (>60); GFR (African American) 88 ML/MIN (>60); Globulin 3.4 g/dL (1.3-3.2); Glucose 243 mg/dl (74-100); Lipase 31 U/L (23-300); Total Protein,Serum 7.4 g/dl (6.3-8.2)
[2020-11-27 22:34] LABS: Lymphocytes % 9 % (10-50); Neutrophils % 84 % (42-76); Platelet Estimate Normal; RBC Morphology Normal; Total Cells Counted 100
[2020-11-27 22:37] VITALS: BP 119/74; PULSE 73; RESP 16; O2SAT 98
[2020-11-27 23:07] VITALS: BP 125/75; PULSE 73; RESP 19; O2SAT 98
[2020-11-27 23:37] VITALS: BP 118/76; PULSE 73; RESP 18; O2SAT 98
[2020-11-28] VITALS (11 sets, daily range): BP systolic 100–152; BP diastolic 43–79; PULSE 67–107; RESP 17–20; TEMP 36.7–39.6; O2SAT 95–100; BMI 34.5
--- NOTE | 2020-11-28 00:15 | PC.NURSE ---
paged dr zamora
--- NOTE | 2020-11-28 00:18 | PC.NURSE ---
dr zamora returned car
--- NOTE | 2020-11-28 00:33 | HMH.EDGENADL ---
ED Disposition Clinical Impression: Sepsis Qualifiers: Sepsis type: sepsis due to unspecified organism Sepsis acute organ dysfunction status: without acute organ dysfunction Qualified Code(s): A41.9 - Sepsis, unspecified organism Disposition: Admitted As Inpatient Condition on Discharge: Good Referrals: Jesus Ott [Primary Care Provider] - - Critical Care Critical Care Time: No Attestation: On 11/27/20, the high probability of a clinically significant, sudden or life threatening deterioration of the following system(s) required my full and direct attention, intervention and personal management. The time I documented below is in addition to time spent performing reported procedures but includes the following listed in this critical care notation. Medical Decision Making - Medical Records Medical records reviewed: Yes: I reviewed the patient's medical records. - Bryan Inquiry Pt receiving controlled substance: No Vital Signs: 11/27/20 21:20 Temperature 99.3 F Temperature Source Oral Pulse Rate [Right Brachial] 114 H Respiratory Rate 26 H Blood Pressure [Right Arm] 115/58 L Blood Pressure Mean [Right Arm] 77 Blood Pressure Source [Right Arm] Automatic Cuff Blood Pressure Position [Right Arm] Sitting 02 Sat by Pulse Oximetry 98 Oxygen Delivery Method Room Air - Lab Data Lab Results 11/27/20 22:00: WBC 20.3 H*, RBC 4.14 L, Hgb 12.2, Hct 36.7 L, MCV 88.6, MCH 29.5, MCHC 33.3, RDW 13.7, Plt Count 245, MPV 7.2 L, Neut % (Auto) 90.5 H, Lymph % (Auto) 4.3 L, [place] % (Auto) 4.1, Eos % (Auto) 0.8, Baso % (Auto) 0.2, Neut # (Auto) 18.4 H, Lymph # (Auto) 0.9, [place] # (Auto) 0.8, Eos # (Auto) 0.2, Baso # (Auto) 0.1, Total Counted 100, Neutrophils % (Manual) 84 H, Band Neutrophils % 7.0, Lymphocytes % (Manual) 9 L, Platelet Estimate Normal, RBC Morphology Normal 11/27/20 22:00: Sodium 134 L, Potassium 3.2 L, Chloride 102, Carbon Dioxide 26, Anion Gap 9.2, BUN 12, Creatinine 0.80, Estimated Creat Clear 91, Estimated GFR 73, Est GFR ( Amer) 88, Glucose 243 H, Calcium 9.8, Total Bilirubin 0.5, AST 25, ALT 21, Alkaline Phosphatase 88, Total Creatine Kinase 50, Total Protein 7.4, Albumin 4.0, Globulin 3.4 H, Albumin/Globulin Ratio 1.2, Lipase 31 Result diagrams: 11/27/20 22:00 11/27/20 22:00 Orders (Tests/Meds): ED MEDICATIONS Generic Name Dose Route Start Last Admin Trade Name Freq PRN Reason Stop Dose Admin Lactated Ringer's 1,000 mls @ 999 mls/hr 11/27/20 21:30 11/27/20 21:45 Lactated Ringer's 1000 Ml Bag IV 11/27/20 22:30 999 mls/hr .Q1H1M CARLITOS Administration Lactated Ringer's 1,000 mls @ 50 mls/hr 11/28/20 00:30 Lactated Ringer's 1000 Ml Bag IV 12/28/20 00:29 .Q20H CARLITOS Lactated Ringer's 1,000 mls @ 999 mls/hr 11/28/20 00:30 Lactated Ringer's 1000 Ml Bag IV 11/28/20 01:30 .Q1H1M CARLITOS Discontinued Medications Generic Name Dose Route Start Last Admin Trade Name Freq PRN Reason Stop Dose Admin Acetaminophen 1,000 mg 11/27/20 21:25 11/27/20 21:45 Acetaminophen 500mg Tab PO 11/27/20 21:26 1,000 mg ONCE ONE Administration Ibuprofen 400 mg 11/27/20 21:25 11/28/20 00:04 Ibuprofen 200mg/10ml Susp Udc PO 11/27/20 21:26 400 mg ONCE ONE Administration Ibuprofen 400 mg 11/27/20 21:42 11/27/20 21:52 Ibuprofen 400 Mg Tablet PO 11/27/20 21:43 400 mg ONCE ONE Administration ORDERS Category Date Time Status XR chest portable Stat Exams 11/27/20 21:25 Taken Basic Metabolic Panel AMLAB Lab 11/28/20 06:00 Ordered Complete Blood Count Auto Diff AMLAB Lab 11/28/20 06:00 Ordered Covid-19 Nasal PCR ([facility]) Routine Lab 11/28/20 00:21 Received Urinalysis and Microscopic Stat Lab 11/27/20 21:25 Ordered Blood Culture Stat Micro 11/27/20 22:00 Received Medical Decision Narrative: 59-year-old female presenting for fevers, myalgias, patient on examination has vital signs that are stable, patient blood work significant for white blood jay
--- NOTE | 2020-11-28 01:02 | PC.NURSE ---
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
[2020-11-28 01:11] LABS: Microscopic, Urine URINE MICROSCOPIC (MICROSCOPIC)
[2020-11-28 01:15] LABS: Appearance,Urine CLOUDY (Clear); Bilirubin,Urine Negative (Negative); Blood, Urine Negative (Negative); Color,Urine YELLOW (Yellow); Glucose,Urine (UA) Negative (Negative); Ketones,Urine Negative (Negative); Leukocyte Esterase,Urine 2+ (Negative); Nitrate,Urine POSITIVE (Negative); Protein,Urine TRACE (Negative); Urobilinogen,Urine 0.2 EU/dl (0.2)
[2020-11-28 01:18] LABS: Squamous Epithelial Cell,Urine 20-50 #/hpf (0-5); WBC,Urine 20-50 #/hpf (0-3)
--- NOTE | 2020-11-28 04:23 | PC.NURSE ---
PT ARRIVED TO FLOOR VIA W/C FROM ED WITH STAFF AT 0082
[2020-11-28 07:59] LABS: Basophils # 0.1 K/mm3 (0-0.2); Basophils % 0.2 % (0.1-2.0); Eosinophils # 0.1 K/mm3 (0.0-0.4); Eosinophils % 0.5 % (0.1-12.0); Hematocrit 34.9 % (37.0-47.0); Hemoglobin 11.8 g/dL (12.2-16.2); Lymphocytes # 0.9 K/mm3 (0.7-4.5); Lymphocytes % 4.1 % (10-50); Mean Corpuscular HGB Conc 33.9 g/dL (31.8-35.4); Mean Corpuscular Hemoglobin 29.6 pg (27.0-31.2); Mean Corpuscular Volume 87.3 fl (81-99); Mean Platelet Volume 8.5 fl (7.4-10.4); Monocytes # 0.9 K/mm3 (0.1-1.0); Monocytes % 4.1 % (1.7-9.3); Neutrophils % 91.1 % (37.0-80.0); Platelet Count 218 K/mm3 (142-424); Red Cell Distribution Width 13.7 % (11.5-17.5); White Blood Count 21.9 K/mm3 (4.8-10.8)
[2020-11-28 08:01] LABS: MANUAL DIFFERENTIAL MANUAL DIFFERENTIAL (MANUAL DIFF)
[2020-11-28 08:03] LABS: Chloride 101 mmol/L (98-107); Potassium 3.9 mmoL/L (3.5-5.1); Sodium 133 mmol/L (136-145)
[2020-11-28 08:06] LABS: Anion Gap 7.9 mEq/L (5-15); Blood Urea Nitrogen 13 mg/dl (7-17); Carbon Dioxide 28 mmol/L (22.0-30.0); Creatinine Clearance Estimated 91 mL/min (50-200); Estimated Glomerular Filt Rate 64 ml/min (>60); GFR (African American) 77 ML/MIN (>60); Glucose 255 mg/dl (74-100)
[2020-11-28 08:07] LABS: Calcium 9.4 mg/dl (8.4-10.2)
[2020-11-28 08:42] LABS: Eosinophils % 1 % (0-3); Lymphocytes % 13 % (10-50); Monocytes % 2 % (2-9); Neutrophils % 84 % (42-76); Platelet Estimate Normal; RBC Morphology Normal; Total Cells Counted 100
--- NOTE | 2020-11-28 09:31 | HMH.ACPN2 ---
Internal Medicine - PN: Subj *Date: 11/28/20 *Time: 09:31 Interval history: This 59-year-old white female was admitted through the emergency room with sepsis and apparent urinary tract infection. The emergency room doctor spoke with Dr. Arechiga about the admission. He was uncertain of her site of infection at that point. Dr. Arechiga asked Dr. Ambrosio what antibiotics would be ordered. Dr. Ambrosio stated he was ordering Invanz and vancomycin. These medications were apparently never ordered. At the time I am seeing the patient 9:32 AM 11/28 showed her temperature is 103.4 and she is having shaking chills. Again no antibiotic has been administered. I have now ordered Invanz and vancomycin to be administered immediately. Apparently blood cultures were obtained. Complete H&P to follow. Exam Vital signs and Labs for Last 24 Hours: Temp Pulse Resp BP Pulse Ox 98.5 F 107 H 20 104/64 L 96 11/28/20 08:00 11/28/20 08:00 11/28/20 08:00 11/28/20 08:00 11/28/20 08:00 Laboratory Results - last 24 hr 11/27/20 22:00: WBC 20.3 H*, RBC 4.14 L, Hgb 12.2, Hct 36.7 L, MCV 88.6, MCH 29.5, MCHC 33.3, RDW 13.7, Plt Count 245, MPV 7.2 L, Neut % (Auto) 90.5 H, Lymph % (Auto) 4.3 L, [place] % (Auto) 4.1, Eos % (Auto) 0.8, Baso % (Auto) 0.2, Neut # (Auto) 18.4 H, Lymph # (Auto) 0.9, [place] # (Auto) 0.8, Eos # (Auto) 0.2, Baso # (Auto) 0.1, Total Counted 100, Neutrophils % (Manual) 84 H, Band Neutrophils % 7.0, Lymphocytes % (Manual) 9 L, Platelet Estimate Normal, RBC Morphology Normal 11/27/20 22:00: Sodium 134 L, Potassium 3.2 L, Chloride 102, Carbon Dioxide 26, Anion Gap 9.2, BUN 12, Creatinine 0.80, Estimated Creat Clear 91, Estimated GFR 73, Est GFR ( Amer) 88, Glucose 243 H, Calcium 9.8, Total Bilirubin 0.5, AST 25, ALT 21, Alkaline Phosphatase 88, Total Creatine Kinase 50, Total Protein 7.4, Albumin 4.0, Globulin 3.4 H, Albumin/Globulin Ratio 1.2, Lipase 31 11/28/20 01:00: Urine Color Yellow, Urine Appearance Cloudy, Urine pH 6.0, Ur Specific [place] 1.020, Urine Protein Trace, Urine Glucose (UA) Negative, Urine Ketones Negative, Urine Blood Negative, Urine Nitrate Positive, Urine Bilirubin Negative, Urine Urobilinogen 0.2, Ur Leukocyte Esterase 2+ A, Urine WBC 20-50, Ur Squamous Epith Cells 20-50 11/28/20 07:50: WBC 21.9 H*, RBC 4.00 L, Hgb 11.8 L, Hct 34.9 L, MCV 87.3, MCH 29.6, MCHC 33.9, RDW 13.7, Plt Count 218, MPV 8.5, Neut % (Auto) 91.1 H, Lymph % (Auto) 4.1 L, [place] % (Auto) 4.1, Eos % (Auto) 0.5, Baso % (Auto) 0.2, Neut # (Auto) 20.0 H, Lymph # (Auto) 0.9, [place] # (Auto) 0.9, Eos # (Auto) 0.1, Baso # (Auto) 0.1, Total Counted 100, Neutrophils % (Manual) 84 H, Lymphocytes % (Manual) 13, Monocytes % (Manual) 2, Eosinophils % (Manual) 1, Platelet Estimate Normal, RBC Morphology Normal 11/28/20 07:50: Sodium 133 L, Potassium 3.9 D, Chloride 101, Carbon Dioxide 28, Anion Gap 7.9, BUN 13, Creatinine 0.90, Estimated Creat Clear 91, Estimated GFR 64, Est GFR ( Amer) 77, Glucose 255 H, Calcium 9.4 I & O for Last 24 hours: Intake & Output 11/25/20 11/26/20 11/27/20 11/28/20 11:59 11:59 11:59 11:59 Intake Total 3240 / 3240 Balance 3240 / 3240 Weight 214 lb Microbiology Reports for the Last 24 Hours: Microbiology 11/28/20 00:21 Nasopharyngeal Coronavirus COVID-19 PCR - Final Assessment and Plan (1) Sepsis Status: Acute Qualifiers: Sepsis type: sepsis due to unspecified organism Sepsis acute organ dysfunction status: without acute organ dysfunction Qualified Code(s): A41.9 - Sepsis, unspecified organism Category: Medical Code(s): A41.9 - Sepsis, unspecified organism (2) Hypokalemia Status: Acute Category: Medical Code(s): E87.6 - Hypokalemia - Assessment and plan all Dx Assessment and Plan for all problems:: InVance and vancomycin ordered. Ibuprofen 600 mg every 6 hours. Tylenol 650 mg every 4 as needed
--- NOTE | 2020-11-28 10:06 | HMH.PHACONS ---
- Pharmacy Consult Date: 11/28/20 Time: 10:06 Referring provider: DR. ALEXANDER Reason for Consult:: VANCOMYCIN DOSING Allergies and ADEs:: Allergies Allergy/AdvReac Type Severity Reaction Status Date / Time Sulfa (Sulfonamide Allergy Mild Verified 08/22/20 23:19 Antibiotics) [SULFA (SULFONAMIDE ANTIBIOTICS)] levofloxacin [From LEVAQUIN] Allergy Unknown Verified 08/22/20 23:19 Home Medications:: Home Medications Medication Instructions Recorded Confirmed Type Albuterol Sulfate [Ventolin HFA 2 puffs INHALATION QIDP PRN 09/14/19 11/28/20 History Inhaler] Cetirizine HCl 10 mg PO DAILY 09/14/19 11/28/20 History Fluticasone/Vilanterol [Breo 1 inh INHALATION DAILY 09/14/19 11/28/20 History Ellipta 200-25 Mcg INH] Tiotropium Satin [Spiriva 1 inh INHALATION DAILY 09/14/19 11/28/20 History 18mcg/puff inhaler] Sitagliptin Phosphate [Januvia 100 mg PO DAILY 09/27/19 11/28/20 History 100mg tablet] hydroxyzine pamoate 25 mg capsule 25 mg PO DAILY cap 11/27/19 11/28/20 History Duloxetine HCl 30 mg PO DAILY 12/03/19 11/28/20 History Levothyroxine Sodium 112 mcg PO DAILY 12/03/19 11/28/20 History [Levothyroxine 112mcg (0.112mg) Tab] Hydrocod/Acet 5/325 mg [[place] 1 tab PO Q6HP PRN #20 tab 05/13/20 11/28/20 Rx 5/325mg tablet] ibuprofen 800 mg tablet 800 mg PO Q8H PRN #90 tab 05/20/20 11/28/20 Rx Nabumetone 750 mg PO BID 08/22/20 11/28/20 History Tizanidine HCl [Zanaflex 4mg 4 mg PO TID 08/22/20 11/28/20 History tablet] Azithromycin [Z-Hunter 250mg Tab] 250 mg PO DIRECTED 11/28/20 11/28/20 History Furosemide [Furosemide 80mg Tab] 80 mg PO DAILY 11/28/20 11/28/20 History Insulin NPH Hum/Reg Insulin Hm 60 unit SQ BID 11/28/20 11/28/20 History [Novolin 70-30 Flexpen] Losartan Potassium 25 mg PO DAILY 11/28/20 11/28/20 History Trazodone HCl 50 mg PO HS 11/28/20 11/28/20 History clonazePAM [Clonazepam] 0.5 mg PO DIRECTED 11/28/20 11/28/20 History Height: 1.68 m Weight: 97.069 kg Laboratory Results:: Laboratory Results - last 24 hr 11/27/20 22:00: WBC 20.3 H*, RBC 4.14 L, Hgb 12.2, Hct 36.7 L, MCV 88.6, MCH 29.5, MCHC 33.3, RDW 13.7, Plt Count 245, MPV 7.2 L, Neut % (Auto) 90.5 H, Lymph % (Auto) 4.3 L, [place] % (Auto) 4.1, Eos % (Auto) 0.8, Baso % (Auto) 0.2, Neut # (Auto) 18.4 H, Lymph # (Auto) 0.9, [place] # (Auto) 0.8, Eos # (Auto) 0.2, Baso # (Auto) 0.1, Total Counted 100, Neutrophils % (Manual) 84 H, Band Neutrophils % 7.0, Lymphocytes % (Manual) 9 L, Platelet Estimate Normal, RBC Morphology Normal 11/27/20 22:00: Sodium 134 L, Potassium 3.2 L, Chloride 102, Carbon Dioxide 26, Anion Gap 9.2, BUN 12, Creatinine 0.80, Estimated Creat Clear 91, Estimated GFR 73, Est GFR ( Amer) 88, Glucose 243 H, Calcium 9.8, Total Bilirubin 0.5, AST 25, ALT 21, Alkaline Phosphatase 88, Total Creatine Kinase 50, Total Protein 7.4, Albumin 4.0, Globulin 3.4 H, Albumin/Globulin Ratio 1.2, Lipase 31 11/28/20 01:00: Urine Color Yellow, Urine Appearance Cloudy, Urine pH 6.0, Ur Specific [place] 1.020, Urine Protein Trace, Urine Glucose (UA) Negative, Urine Ketones Negative, Urine Blood Negative, Urine Nitrate Positive, Urine Bilirubin Negative, Urine Urobilinogen 0.2, Ur Leukocyte Esterase 2+ A, Urine WBC 20-50, Ur Squamous Epith Cells 20-50 11/28/20 07:50: WBC 21.9 H*, RBC 4.00 L, Hgb 11.8 L, Hct 34.9 L, MCV 87.3, MCH 29.6, MCHC 33.9, RDW 13.7, Plt Count 218, MPV 8.5, Neut % (Auto) 91.1 H, Lymph % (Auto) 4.1 L, [place] % (Auto) 4.1, Eos % (Auto) 0.5, Baso % (Auto) 0.2, Neut # (Auto) 20.0 H, Lymph # (Auto) 0.9, [place] # (Auto) 0.9, Eos # (Auto) 0.1, Baso # (Auto) 0.1, Total Counted 100, Neutrophils % (Manual) 84 H, Lymphocytes % (Manual) 13, Monocytes % (Manual) 2, Eosinophils % (Manual) 1, Platelet Estimate Normal, RBC Morphology Normal 11/28/20 07:50: Sodium 133 L, Potassium 3.9 D, Chloride 101, Carbon Dioxide 28, Anion Gap 7.9, BUN 13, Creatinine 0.90, Estimated Creat Clear 91, Estimated GFR 64, Est GFR (Afric
[2020-11-28 11:28] LABS: POC Glucose,Bedside 246 (70-110)
[2020-11-28 11:28] LABS: POC Glucose,Bedside 266 (70-110)
--- NOTE | 2020-11-28 11:56 | PC.NURSE ---
this morning on md rounds noted patient to have fever. md was notified that abx had not been given to patient in er, and none ordered for up here. md placed order for antibiotics and gave okay to order ibuprofen scheduled and tylenol prn. also stated okay to order low intensity sliding scale achs.
--- NOTE | 2020-11-28 12:45 | HMH.HP ---
*Admission Date: 11/28/20 *Chief complaint: Fever and diarrhea *History of present illness: This 59-year-old white female is diabetic and is a patient of Dr. Jesus Ott. She is admitted to the hospital through the emergency room. She presented with fever and evidence of sepsis. She has a history of recurrent urinary tract infections and has been seen by Dr. Gutierrez. She states that she had diarrhea twice a day prior to admission. She denies abdominal pain. In the ER her white count was elevated. Her urine eventually came back showing evidence of urinary tract infection. Culture is pending. Unfortunately in the emergency room the patient did not receive any antibiotics though the ER physician's note indicates his desire to give her Zosyn and vancomycin. No orders for antibiotics were placed. Apparently blood cultures have been obtained. When I saw the patient on rounds she had shaking chills and a fever of greater than 103. Invanz and vancomycin were ordered. Tylenol and ibuprofen were ordered. [facility] History Medical History: Reports:: Anxiety, Asthma, Congestive Heart Failure, Chronic Obstructive Pulmonary Disease (COPD), Coronary Artery Disease, Depression, Diabetes Mellitus Type 2, Gastroesophageal Reflux Disease(GERD), Hyperlipidemia, Hypertension, Peripheral Vascular Disease, Urinary Tract Infection (Recurrent) Denies:: Cancer, Diabetes Mellitus Type 1, Internal Pacemaker, MRSA, Seizures *Have you ever received a pneumonia vaccine?: Yes *Have you received a flu vaccine this season?: Yes Other Medical History: Reports: Anemia, Arthritis, Hormone Therapy, Hypothyroidism, Liver Disease, Thyroid Disease, Other Laterality Cases: Bilateral: Tonsillectomy, Other (Bilateral knee problems. Left most recently) Other Surgeries: Yes: Appendectomy, Cardiac Catheterization, Cholecystectomy, Colonoscopy, , Dilation and Curettage, EGD, Hernia Repair, Hysterectomy-Total, Hysterectomy-Partial, Thyroidectomy, Tubal Ligation, Other (toe amputation, uretheral dilation). No: Pacemaker Amputation: No Fractures: Yes - *Social History Smoking Status: Current every day smoker Tobacco Type: cigarettes # Packs/Day (cigarettes): 1 Alcohol Intake: current Alcohol Intake Frequency:: other Substance Use Type: denies use, IV drugs *Occupational Status:: disabled Housing: apartment Household Members: children (She has 3 sons) *Travel in the last 8 weeks: None - Psychiatric History Pschychiatric History:: Reports:: Anxiety, Depression Family Hx:: Cancer, Coronary Artery Disease, Diabetes, Hyperlipidemia, Hypertension Review of Systems - Constitutional Reports body ache(s), Reports chills, Reports fever(s) - Eyes Denies change in vision - ENT Reports difficulty swallowing - *Cardiovascular Denies chest pain - *Respiratory Denies chest congestion, Denies cough - *Gastrointestinal Reports change in stools, Denies abdominal pain - *Musculoskeletal Reports back pain, Reports radiating pain into limb - Integumentary/Breasts Denies bleeding lesions - *Neurologic Reports abnormal walking, Denies seizure-like activity - Psychiatric Reports anxiety Meds Home Medications Medication Instructions Recorded Confirmed Type Albuterol Sulfate [Ventolin HFA 2 puffs INHALATION QIDP PRN 09/14/19 11/28/20 History Inhaler] Cetirizine HCl 10 mg PO DAILY 09/14/19 11/28/20 History Fluticasone/Vilanterol [Breo 1 inh INHALATION DAILY 09/14/19 11/28/20 History Ellipta 200-25 Mcg INH] Tiotropium [place] [Spiriva 1 inh INHALATION DAILY 09/14/19 11/28/20 History 18mcg/puff inhaler] Sitagliptin Phosphate [Januvia 100 mg PO DAILY 09/27/19 11/28/20 History 100mg tablet] hydroxyzine pamoate 25 mg capsule 25 mg PO DAILY cap 11/27/19 11/28/20 History Duloxetine HCl 30 mg PO DAILY 12/03/19 11/28/20 History Levothyroxine Sodium 112 mcg PO DAILY 12/03/19 11/28/20 History [Levothyroxine 112mcg (0.112mg) Tab] Hydrocod/Acet 5/325
[2020-11-28 13:19] LABS: Hemoglobin A1C 7.3 % (4.0-6.0)
[2020-11-28 13:26] LABS: Thyroid Stimulating Hormone 0.92 uIU/mL (0.465-4.68)
--- NOTE | 2020-11-28 14:17 | HMH.PHAVTE ---
[facility] Pharmacy VTE Monitoring - Patient Demographics Admission date: 11/28/20 Report Date: 11/28/20 Time: 14:17 Allergies/Adverse Reactions: Patient Allergies Sulfa (Sulfonamide Antibiotics) [SULFA (SULFONAMIDE ANTIBIOTICS)] Allergy (Mild, Verified 08/22/20 23:19) levofloxacin [From LEVAQUIN] Allergy (Unknown, Verified 08/22/20 23:19) Height: 1.68 m Weight: 97.069 kg Patient Problems: Current Active Problems Hypokalemia (Acute) Sepsis (Acute) Urinary tract infection (Acute) Recurrent urinary tract infection (Acute) Chronic low back pain (Acute) Type 2 diabetes mellitus (Acute) Hypothyroidism, postsurgical (Acute) Degenerative disc disease (Acute) - VTE Risk Labs: VTE Related Lab Results Hgb 11.8 g/dL (12.2-16.2) L 11/28/20 07:50 Hct 34.9 % (37.0-47.0) L 11/28/20 07:50 Plt Count 218 K/mm3 (142-424) 11/28/20 07:50 BUN 13 mg/dl (7-17) 11/28/20 07:50 Creatinine 0.90 mg/dl (0.52-1.04) 11/28/20 07:50 Estimated Creat Clear 91 mL/min (50-200) 11/28/20 07:50 VTE Score: 8 VTE Risk Level: Moderate Risk - Prophylaxis Types of VTE Prophylaxis: TEDS Knee High (ELOINA HOSE ORDER PLACED)
--- NOTE | 2020-11-28 16:06 | PC.NURSE ---
patient has had an okay day. rings out as needed. sat up in chair. did have some chilling earlier with a fever. has had no other complaints besides generalized chronic pain. has slept off and on. rings out as needed. vitals stable.
[2020-11-28 16:55] LABS: POC Glucose,Bedside 232 (70-110)
[2020-11-28 20:51] LABS: POC Glucose,Bedside 230 (70-110)
[2020-11-29] VITALS (7 sets, daily range): BP systolic 105–120; BP diastolic 50–65; PULSE 62–68; RESP 16–18; TEMP 36.5–36.9; O2SAT 95–98; BMI 35.5; BMI 35.4
--- NOTE | 2020-11-29 04:09 | PC.NURSE ---
No acute changes. Pt has rested well this shift. C/O chronic back and leg pain. Medicated per nov. Blood CX results reported to MD early this shift. AM labs ordered. VS have remained stable. Pt remains on RA. Rhonchi noted to anterior upper lobes. Pt has ambulated to BR. Tolerated well. Has had stress incontinence this shift. No other concerns. Call light within reach. Will continue to monitor.
[2020-11-29 05:19] LABS: POC Glucose,Bedside 229 (70-110)
[2020-11-29 06:40] LABS: Basophils % 0.3 % (0.1-2.0); Eosinophils # 0.2 K/mm3 (0.0-0.4); Eosinophils % 1.9 % (0.1-12.0); Hematocrit 34.2 % (37.0-47.0); Hemoglobin 11.4 g/dL (12.2-16.2); Lymphocytes % 10.9 % (10-50); Mean Corpuscular HGB Conc 33.3 g/dL (31.8-35.4); Mean Corpuscular Hemoglobin 29.2 pg (27.0-31.2); Mean Corpuscular Volume 87.8 fl (81-99); Mean Platelet Volume 7.5 fl (7.4-10.4); Monocytes # 0.5 K/mm3 (0.1-1.0); Monocytes % 5.7 % (1.7-9.3); Neutrophils # 7.7 K/mm3 (1.8-7.8); Neutrophils % 81.3 % (37.0-80.0); Platelet Count 183 K/mm3 (142-424); Red Cell Distribution Width 13.6 % (11.5-17.5); White Blood Count 9.4 K/mm3 (4.8-10.8)
[2020-11-29 06:43] LABS: Chloride 106 mmol/L (98-107)
[2020-11-29 06:44] LABS: Potassium 3.9 mmoL/L (3.5-5.1); Sodium 135 mmol/L (136-145)
[2020-11-29 06:47] LABS: Anion Gap 5.9 mEq/L (5-15); Blood Urea Nitrogen 10 mg/dl (7-17); Calcium 9.2 mg/dl (8.4-10.2); Carbon Dioxide 27 mmol/L (22.0-30.0); Creatinine Clearance Estimated 93 mL/min (50-200); Estimated Glomerular Filt Rate 102 ml/min (>60); GFR (African American) 123 ML/MIN (>60); Glucose 232 mg/dl (74-100)
--- NOTE | 2020-11-29 09:14 | HMH.ACPN2 ---
Internal Medicine - PN: Subj *Date: 11/29/20 *Time: 09:14 Interval history: The patient turned the corner pretty rapidly and feels much better at this time. Her white count has decreased to normal levels. She is afebrile. Her urine culture shows gram-negative rods greater than 100,000 colonies. Thus she was embarking on a gram-negative sepsis at the time of presentation. Her home medications were reviewed and she will be restarted on her diabetes regimen today. Exam Vital signs and Labs for Last 24 Hours: Temp Pulse Resp BP Pulse Ox 98.4 F 68 16 111/58 L 95 11/29/20 08:00 11/29/20 08:00 11/29/20 08:06 11/29/20 08:00 11/29/20 08:00 Laboratory Results - last 24 hr 11/28/20 01:00: Urine Color Yellow, Urine Appearance Cloudy, Urine pH 6.0, Ur Specific [place] 1.020, Urine Protein Trace, Urine Glucose (UA) Negative, Urine Ketones Negative, Urine Blood Negative, Urine Nitrate Positive, Urine Bilirubin Negative, Urine Urobilinogen 0.2, Ur Leukocyte Esterase 2+ A, Urine WBC 20-50, Ur Squamous Epith Cells 20-50 11/28/20 07:45: POC Glucose 266 H 11/28/20 07:50: Hemoglobin A1c 7.3 H 11/28/20 07:50: TSH 0.92 11/28/20 11:13: POC Glucose 246 H 11/28/20 16:40: POC Glucose 232 H 11/28/20 20:26: POC Glucose 230 H 11/29/20 05:09: POC Glucose 229 H 11/29/20 06:20: WBC 9.4 D, RBC 3.90 L, Hgb 11.4 L, Hct 34.2 L, MCV 87.8, MCH 29.2, MCHC 33.3, RDW 13.6, Plt Count 183, MPV 7.5, Neut % (Auto) 81.3 H, Lymph % (Auto) 10.9, [place] % (Auto) 5.7, Eos % (Auto) 1.9, Baso % (Auto) 0.3, Neut # (Auto) 7.7, Lymph # (Auto) 1.0, [place] # (Auto) 0.5, Eos # (Auto) 0.2, Baso # (Auto) 0.0 11/29/20 06:20: Sodium 135 L, Potassium 3.9, Chloride 106, Carbon Dioxide 27, Anion Gap 5.9, BUN 10, Creatinine 0.60 D, Estimated Creat Clear 93, Estimated GFR 102, Est GFR ( Amer) 123 D, Glucose 232 H, Calcium 9.2 I & O for Last 24 hours: Intake & Output 11/26/20 11/27/20 11/28/20 11/29/20 11:59 11:59 11:59 11:59 Intake Total 3240 / 3240 1330 / 1330 Balance 3240 / 3240 1330 / 1330 Weight 214 lb 221 lb Microbiology Reports for the Last 24 Hours: Microbiology 11/28/20 01:00 Urine,Clean Catch Urine Culture - Preliminary Gram Negative Rods 11/27/20 22:00 Blood Blood Culture - Preliminary 11/27/20 22:00 Blood Blood Culture - Preliminary - Constitutional no acute distress - *Routine HEENT Exam Head: Present: normocephalic Eye: Present: PERRL ENT: Present: mucous membranes moist - *Routine Respiratory Exam Present: CTA bilaterally - *Routine Cardiovascular Exam Present: RRR - *Routine Abdominal Exam Present: soft, obese. Absent: tenderness - *Routine Extremities Exam Absent: edema - *Routine Neurological Exam Present: alert, oriented X3. Absent: motor deficit, altered mental status Assessment and Plan (1) Sepsis due to gram-negative UTI Status: Acute Category: Medical Code(s): A41.50 - Gram-negative sepsis, unspecified; N39.0 - Urinary tract infection, site not specified (2) Sepsis Status: Acute Qualifiers: Sepsis type: sepsis due to unspecified organism Sepsis acute organ dysfunction status: without acute organ dysfunction Qualified Code(s): A41.9 - Sepsis, unspecified organism Category: Medical Code(s): A41.9 - Sepsis, unspecified organism (3) Hypokalemia Status: Acute Category: Medical Code(s): E87.6 - Hypokalemia (4) Urinary tract infection Status: Acute Category: Medical Code(s): N39.0 - Urinary tract infection, site not specified (5) Recurrent urinary tract infection Status: Acute Category: Medical Code(s): N39.0 - Urinary tract infection, site not specified (6) Type 2 diabetes mellitus Status: Acute Category: Medical Code(s): E11.9 - Type 2 diabetes mellitus without complications (7) Chronic low back pain Status: Acute Category: Medical Code(s): M54.5 - Low back pain; G89.29 - Other chronic pain (8) Denise
[2020-11-29 11:10] LABS: POC Glucose,Bedside 148 (70-110)
--- NOTE | 2020-11-29 15:08 | PC.NURSE ---
No complaints voiced this shift. Pt is independent w/ ADL's. Ambulates in room w/o safety concerns. Voiding w/o difficulty. Reports having a BM this morning. Diminished bilat upon auscultation of lungs. HR regular. No edema present. Abdomen soft, non-tender w/ active BS. Pt has ate most of her trays this shift. Remains afebrile. Has spent most of her day sitting up in chair visiting w/ family/friends. Call babita w/in reach. No needs @ this time.
[2020-11-29 15:47] LABS: POC Glucose,Bedside 68 (70-110)
--- NOTE | 2020-11-29 15:47 | PC.NURSE ---
Pt's FSBS @ 3812 = 68, pt is A&Ox4, sitting up in recliner having a conversation w/ family member. OJ and PB crackers given to pt, will recheck blood sugar.
[2020-11-29 16:42] LABS: POC Glucose,Bedside 75 (70-110)
[2020-11-29 20:49] LABS: POC Glucose,Bedside 122 (70-110)
--- NOTE | 2020-11-29 23:21 | PC.NURSE ---
2320 trudy from pharmacy called and stated that it was ok to give 2300 dose of vanc
[2020-11-29 23:22] LABS: POC Glucose,Bedside 108 (70-110)
[2020-11-30] VITALS (22 sets, daily range): BP systolic 113–167; BP diastolic 46–94; PULSE 58–98; RESP 16–20; TEMP 36.4–37.1; O2SAT 95–100; BMI 36.9
--- NOTE | 2020-11-30 06:13 | PC.NURSE ---
shift summary pts lung sounds are clear with sats maintained 95% or above on room air with a rate ranging from 16-18. pt is alert and oriented X4. pt is able to get up and walk to the restroom with a standby assist. pt denies any pain, nausea, vomiting, or diarrhea.
[2020-11-30 06:16] LABS: POC Glucose,Bedside 139 (70-110)
--- NOTE | 2020-11-30 08:13 | HMH.ACPN2 ---
Internal Medicine - PN: Subj *Date: 11/30/20 *Time: 08:28 Interval history: Patient is feeling well. She slept. She is eating well. She really wants to go home. She is voiding without difficulty. Bowels have moved. Urine culture final showing E. coli. ESBL positive. Blood cultures are positive as well showing Streptococcus species Exam Vital signs and Labs for Last 24 Hours: Temp Pulse Resp BP Pulse Ox 97.6 F 65 18 113/65 100 11/30/20 03:43 11/30/20 03:43 11/30/20 03:43 11/30/20 03:43 11/30/20 03:43 Laboratory Results - last 24 hr 11/28/20 01:00: Urine Color Yellow, Urine Appearance Cloudy, Urine pH 6.0, Ur Specific [place] 1.020, Urine Protein Trace, Urine Glucose (UA) Negative, Urine Ketones Negative, Urine Blood Negative, Urine Nitrate Positive, Urine Bilirubin Negative, Urine Urobilinogen 0.2, Ur Leukocyte Esterase 2+ A, Urine WBC 20-50, Ur Squamous Epith Cells 20-50 11/29/20 11:02: POC Glucose 148 H 11/29/20 15:39: POC Glucose 68 L 11/29/20 16:35: POC Glucose 75 11/29/20 20:34: POC Glucose 122 H 11/29/20 22:28: Vancomycin Trough 9.0 11/29/20 23:13: POC Glucose 108 11/30/20 06:04: POC Glucose 139 H I & O for Last 24 hours: Intake & Output 11/27/20 11/28/20 11/29/20 11/30/20 11:59 11:59 11:59 11:59 Intake Total 3240 / 3240 1380 / 1380 720 / 720 Balance 3240 / 3240 1380 / 1380 720 / 720 Weight 214 lb 221 lb 230 lb Microbiology Reports for the Last 24 Hours: Microbiology 11/28/20 01:00 Urine,Clean Catch Urine Culture - Final Escherichia coli 11/27/20 22:00 Blood Blood Culture - Preliminary - Constitutional no acute distress - *Routine Respiratory Exam Present: CTA bilaterally (Anteriorly and posteriorly) - *Routine Cardiovascular Exam Present: RRR - *Routine Abdominal Exam Present: soft, normoactive bowel sounds. Absent: tenderness - *Routine Extremities Exam Absent: edema, calf tenderness - *Routine Neurological Exam Present: alert, oriented X3 Assessment and Plan (1) Sepsis due to gram-negative UTI Status: Acute Category: Medical Code(s): A41.50 - Gram-negative sepsis, unspecified; N39.0 - Urinary tract infection, site not specified (2) Sepsis Status: Acute Qualifiers: Sepsis type: sepsis due to unspecified organism Sepsis acute organ dysfunction status: without acute organ dysfunction Qualified Code(s): A41.9 - Sepsis, unspecified organism Category: Medical Code(s): A41.9 - Sepsis, unspecified organism (3) Hypokalemia Status: Acute Category: Medical Code(s): E87.6 - Hypokalemia (4) Urinary tract infection Status: Acute Category: Medical Code(s): N39.0 - Urinary tract infection, site not specified (5) Recurrent urinary tract infection Status: Acute Category: Medical Code(s): N39.0 - Urinary tract infection, site not specified (6) Type 2 diabetes mellitus Status: Acute Category: Medical Code(s): E11.9 - Type 2 diabetes mellitus without complications (7) Chronic low back pain Status: Acute Category: Medical Code(s): M54.5 - Low back pain; G89.29 - Other chronic pain (8) Degenerative disc disease Status: Acute Category: Medical (9) Hypothyroidism, postsurgical Status: Acute Category: Medical Code(s): E89.0 - Postprocedural hypothyroidism - Assessment and plan all Dx Assessment and Plan for all problems:: We will discuss with Dr. Arechiga.
--- NOTE | 2020-11-30 09:11 | XR_ITS ---
PROCEDURE: XR CHEST PORTABLE PICC PLAC CLINICAL HISTORY: Confirm PICC line placement COMPARISON: No exams were available for comparison FINDINGS: Left upper extremity PICC line has been inserted. The line curls in the subclavian region and projects back down into the axillary area and could be withdrawn approximately 20 cm and readvanced. The lungs are clear without infiltrates, suspicious nodules, or pleural effusions. No acute bony abnormalities. IMPRESSION: Abnormal positioning of the left upper extremity PICC line Dictated by: Michele Zimmerman MD 11/30/2020 12:37 Michele Zimmerman MD in [place] 11/30/2020 12:37
--- NOTE | 2020-11-30 09:34 | XR_ITS ---
PROCEDURE: XR TOE RT MIN 2V CLINICAL INDICATION: Wound of right second digit in diabetic COMPARISON: No exams were available for comparison FINDINGS: Exam is limited secondary to overlying bandage artifact. There has been amputation at the mid aspect of the proximal phalanx of the 3rd toe. Lytic changes are present involving the tuft of the distal phalanx of the 2nd toe. There is overlying soft tissue swelling. There is also lucency involving the lateral aspect of the tuft of the distal phalanx of the great toe. Is this also in area of clinical concern? Osteomyelitis of the great toe is also a consideration. IMPRESSION: Osteomyelitis of the tuft of the distal phalanx of the 2nd toe with cellulitis. Lucency also involves the lateral aspect of the tuft of the great toe which may also be due to osteomyelitis involvement.. Please correlate with clinical findings. Dictated by: Michele Zimmerman MD 11/30/2020 16:30 Michele Zimmerman MD in [place] 11/30/2020 16:30
--- NOTE | 2020-11-30 10:30 | HMH.PHACONS ---
- Pharmacy Consult Date: 11/30/20 Time: 10:30 Referring provider: DR. ALEXANDER Reason for Consult:: VANCOMYCIN TROUGH LEVEL Allergies and ADEs:: Allergies Allergy/AdvReac Type Severity Reaction Status Date / Time Sulfa (Sulfonamide Allergy Mild Verified 08/22/20 23:19 Antibiotics) [SULFA (SULFONAMIDE ANTIBIOTICS)] levofloxacin [From LEVAQUIN] Allergy Unknown Verified 08/22/20 23:19 Home Medications:: Home Medications Medication Instructions Recorded Confirmed Type Albuterol Sulfate [Ventolin HFA 2 puffs INHALATION QIDP PRN 09/14/19 11/28/20 History Inhaler] Fluticasone/Vilanterol [Breo 1 inh INHALATION DAILY 09/14/19 11/28/20 History Ellipta 200-25 Mcg INH] Tiotropium [place] [Spiriva 1 inh INHALATION DAILY 09/14/19 11/28/20 History 18mcg/puff inhaler] Sitagliptin Phosphate [Januvia 100 mg PO DAILY 09/27/19 11/28/20 History 100mg tablet] hydroxyzine pamoate 25 mg capsule 25 mg PO QIDP PRN cap 11/27/19 11/28/20 History Duloxetine HCl 30 mg PO DAILY 12/03/19 11/28/20 History Levothyroxine Sodium 112 mcg PO DAILY 12/03/19 11/28/20 History [Levothyroxine 112mcg (0.112mg) Tab] Furosemide [Furosemide 80mg Tab] 80 mg PO DAILY 11/28/20 11/28/20 History Insulin NPH Hum/Reg Insulin Hm 60 unit SQ BID 11/28/20 11/28/20 History [Novolin 70-30 Flexpen] Losartan Potassium 25 mg PO DAILY 11/28/20 11/28/20 History Oxybutynin Chloride 5 mg PO HS 11/28/20 11/28/20 History Trazodone HCl 50 mg PO HS 11/28/20 11/28/20 History clonazePAM [Clonazepam] 0.5 mg PO BIDP PRN 11/28/20 11/28/20 History Height: 1.68 m Weight: 104.326 kg Laboratory Results:: Laboratory Results - last 24 hr 11/29/20 11:02: POC Glucose 148 H 11/29/20 15:39: POC Glucose 68 L 11/29/20 16:35: POC Glucose 75 03/01/21 20:34: POC Glucose 122 H 11/29/20 22:28: Vancomycin Trough 9.0 11/29/20 23:13: POC Glucose 108 11/30/20 06:04: POC Glucose 139 H Medical History: Reports:: Anxiety, Asthma, Congestive Heart Failure, Chronic Obstructive Pulmonary Disease (COPD), Coronary Artery Disease, Depression, Diabetes Mellitus Type 2, Gastroesophageal Reflux Disease(GERD), Hyperlipidemia, Hypertension, Peripheral Vascular Disease, Urinary Tract Infection (Recurrent) Denies:: Cancer, Diabetes Mellitus Type 1, Internal Pacemaker, MRSA, Seizures Assessment and Plan (1) Sepsis due to gram-negative UTI Status: Acute Category: Medical Code(s): A41.50 - Gram-negative sepsis, unspecified; N39.0 - Urinary tract infection, site not specified (2) Sepsis Status: Acute Qualifiers: Sepsis type: sepsis due to unspecified organism Sepsis acute organ dysfunction status: without acute organ dysfunction Qualified Code(s): A41.9 - Sepsis, unspecified organism Category: Medical Code(s): A41.9 - Sepsis, unspecified organism (3) Hypokalemia Status: Acute Category: Medical Code(s): E87.6 - Hypokalemia (4) Urinary tract infection Status: Acute Category: Medical Code(s): N39.0 - Urinary tract infection, site not specified (5) Recurrent urinary tract infection Status: Acute Category: Medical Code(s): N39.0 - Urinary tract infection, site not specified (6) Type 2 diabetes mellitus Status: Acute Category: Medical Code(s): E11.9 - Type 2 diabetes mellitus without complications (7) Chronic low back pain Status: Acute Category: Medical Code(s): M54.5 - Low back pain; G89.29 - Other chronic pain (8) Degenerative disc disease Status: Acute Category: Medical (9) Hypothyroidism, postsurgical Status: Acute Category: Medical Code(s): E89.0 - Postprocedural hypothyroidism - Assessment and plan all Dx Assessment and Plan for all problems:: BASED ON PATIENT FACTORS AND VANCOMYCIN TROUGH LEVEL OF 9.0 PRIOR TO THIRD DOSE, RECOMMEND CONTINUING CURRENT DOSE OF 2000MG EVERY 18 HOURS. PHARMACY WILL CONTINUE TO MONITOR AND ADJUST DOSE APPROPRIATE. -JD WILSON PHARMD
--- NOTE | 2020-11-30 12:06 | HMH.PTWOUND ---
Rehab Inpt Wound Evaluation Rehab IP Wound Evaluation Start: 11/30/20 11:09 Freq: ONCE Status: Active Protocol: Document 11/30/20 12:00 PHOADELAIDA (Rec: 11/30/20 12:06 PHORFELIPE [id number]) Rehab PT Wound Assessment Subjective Subjective 59 yowf adm to [facility] with sepsis and UTI. She has chronic wound on the R 2nd toe that has been treated by an outside doctor. Pt reports R 2nd toe is sore and painful Wound Right Toe - 2nd Digit Wound Type Diabetic Foot Ulcer Is This a Chronic Wound Yes Wound Length (cm) 1.5 Wound Width (cm) 2.3 Wound Depth (cm) 1.0 Wound Bed Appearance [place],Yellow,[place],White, Edematous,Necrotic Percentage Granulated (%) 50 Percentage of Slough (%) 50 Wound Margins Description Indistinct Surrounding Tissue Appearance [place],Bright Red,Edematous Wound Drainage Description Purulent Drainage Amount Small Drainage Odor Slight Odor Wound Topical Solution/Irrigant Saline Irrigant Primary Dressing Composite Comment betadine, polymem 2x2 Wound Secondary Dressing Type Gauze Pad,Adhering Gauze Roll Wound Debridement Method Sharps,Forceps,Gauze Wound Debridement Amount of Tissue Moderate Removed Wound Debridement Result Necrotic Tissue Remains Dressing Change Patient Tolerance Tolerated Well Plan/Recommendation Comment Pt R 2nd toe wound probes to bone after debridement which his highly concerning for osteomyelitis. Recommend X-Ray to confirm suspicions of osteomyelitis and Podiatry consult for further recommendations. RN to change dressing as needed with betadine and gauze. Recommend outpatient wound care upon D/C . Eval Complexity Eval Charge Codes 24861 - Moderate Complexity PHYSICIAN CERTIFICATION: I certify the specified therapy services for Alejandra Healy are required, authorized, and reviewed every 30 days.
[2020-11-30 13:07] LABS: POC Glucose,Bedside 77 (70-110)
--- NOTE | 2020-11-30 13:24 | US_ITS ---
APPROVED REPORT Exam Type: Lower Extremity Segmental Pressures Document Preparer Microfilming: Emily Wiseman RVT Indications Claudication: Bilaterally Non-healing Ulcer: Right Rest Pain: Bilaterally Current Smoker PT HAS NON-HEALING ULCER RT 2ND TOE Risk Factors Hypertension Hyperlipidemia Obesity Diabetes Current Smoker Pressures/Indices Right Indices Left Indices Brachial 169.00 mmHg Brachial Low Thigh 199.00 mmHg 1.18 Low Thigh Calf 190.00 mmHg 1.12 Calf Ankle(PT) 192.00 mmHg 1.14 Ankle(PT) 206.00 mmHg 1.22 Ankle(DP) 179.00 mmHg 1.06 Ankle(DP) 211.00 mmHg 1.25 Digit 122.00 mmHg 0.72 Digit 126.00 mmHg 0.75 Findings RT PAT:1.14 LT PAT:1.25 RT TBI:0.72 LT TBI:0.75 UNABLE TO DO LT BRACHIAL B/P-PICC LINE PT WAS UNABLE TO TOLERATE COMPRESSION ON LT CALF AND THIGH DECREASED WAVEFORMS AT ALL LEVELS BILATERAL NORMAL PULSES BILATERAL Conclusion RT PAT:1.14 LT PAT:1.25 RT TBI:0.72 LT TBI:0.75 UNABLE TO DO LT BRACHIAL B/P-PICC LINE PT WAS UNABLE TO TOLERATE COMPRESSION ON LT CALF AND THIGH DECREASED WAVEFORMS AT ALL LEVELS BILATERAL NORMAL PULSES BILATERAL Normal ABIs Electronically signed by : Michele Zimmerman MD 11/30/2020 18:22:04
--- NOTE | 2020-11-30 13:27 | HMH.ORTHOCON ---
*Admission Date: 11/28/20 *Reason for consult:: Right 2nd toe ulcer, cellulitis *History of present illness: Patient reports pain to the right foot. 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 She reports doing dressing changes with Betadine at home. She states there has been a wound that has not healed. She is postop circulation studies but did not get them. Podiatry consulted for evaluation of osteomyelitis. [facility] History I have reviewed the patient's past medical history: Yes Medical History: Reports:: Anxiety, Asthma, Congestive Heart Failure, Chronic Obstructive Pulmonary Disease (COPD), Coronary Artery Disease, Depression, Diabetes Mellitus Type 2, Gastroesophageal Reflux Disease(GERD), Hyperlipidemia, Hypertension, Peripheral Vascular Disease, Urinary Tract Infection (Recurrent) Denies:: Cancer, Diabetes Mellitus Type 1, Internal Pacemaker, MRSA, Seizures *Have you ever received a pneumonia vaccine?: Yes *Have you received a flu vaccine this season?: Yes Other Medical History: Reports: Anemia, Arthritis, Hormone Therapy, Hypothyroidism, Liver Disease, Thyroid Disease, Other Laterality Cases: Bilateral: Tonsillectomy, Other (Bilateral knee problems. Left most recently) Other Surgeries: Yes: Appendectomy, Cardiac Catheterization, Cholecystectomy, Colonoscopy, , Dilation and Curettage, EGD, Hernia Repair, Hysterectomy-Total, Hysterectomy-Partial, Thyroidectomy, Tubal Ligation, Other (toe amputation, uretheral dilation). No: Pacemaker Amputation: No Fractures: Yes - *Social History Smoking Status: Current every day smoker Tobacco Type: cigarettes # Packs/Day (cigarettes): 1 Alcohol Intake: current Alcohol Intake Frequency:: other Substance Use Type: denies use, IV drugs *Occupational Status:: disabled Housing: apartment Household Members: children (She has 3 sons) *Travel in the last 8 weeks: None - Psychiatric History Pschychiatric History:: Reports:: Anxiety, Depression Family Hx:: Cancer, Coronary Artery Disease, Diabetes, Hyperlipidemia, Hypertension Review of Systems - Review of Systems Review of systems:: pertinent systems reviewed and negative unless documented below - Constitutional Reports fatigue - Eyes Denies blind spots - ENT Denies abnormal hearing - *Cardiovascular Denies chest pain, Denies shortness of breath - *Respiratory Denies cough - *Gastrointestinal Reports nausea, Denies abdominal pain - *Genitourinary Denies abnormal periods - *Musculoskeletal Reports numbness - Integumentary/Breasts Reports hair loss, Reports dry skin - *Neurologic Reports abnormal walking, Denies seizure-like activity - Psychiatric Denies abnormal sleep pattern - Endocrine Reports cold intolerance - Hematologic/Lymphatic Reports easy bruising - Allergic/Immunologic Reports GI upset with certain foods Meds Home Medications Medication Instructions Recorded Confirmed Type Albuterol Sulfate [Ventolin HFA 2 puffs INHALATION QIDP PRN 09/14/19 11/28/20 History Inhaler] Fluticasone/Vilanterol [Breo 1 inh INHALATION DAILY 09/14/19 11/28/20 History Ellipta 200-25 Mcg INH] Tiotropium [place] [Spiriva 1 inh INHALATION DAILY 09/14/19 11/28/20 History 18mcg/puff inhaler] Sitagliptin Phosphate [Januvia 100 mg PO DAILY 09/27/19 11/28/20 History 100mg tablet] hydroxyzine pamoate 25 mg capsule 25 mg PO QIDP PRN cap 11/27/19 11/28/20 History Duloxetine HCl 30 mg PO DAILY 12/03/19 11/28/20 History Levothyroxine Sodium 112 mcg PO DAILY 12/03/19 11/28/20 History [Levothyroxine 112mcg (0.112mg) Tab] Furosemide [Furosemide 80mg Tab] 80 mg PO DAILY 11/28/20 11/28/20 History Insulin NPH Hum/Reg Insulin Hm 60 unit SQ BID 11/28/20 11/28/20 History [Novolin 70-30 Flexpen] Losartan Potassium 25 mg PO DAILY 11/28/20 11/28/20 History Oxybutynin Chloride 5 mg PO HS 11/28/20 11/28/20 History Trazodone HCl 50 mg PO HS 11/28/20 11/28/20 History clonaze
--- NOTE | 2020-11-30 14:05 | FL_ITS ---
PROCEDURE: FL GUIDED PICC PLACEMENT CLINICAL INDICATION: PICC LINE PLACEMENT Difficulty with PICC line placement COMPARISON: No exams were available for comparison FINDINGS: The PICC line is persistently curled in the left subclavian region. Patient was brought to the Radiology suite and under fluoroscopic guidance, a glidewire was placed through the PICC line and ago shaded into the superior vena cava. The PICC line was threaded over top of the guidewire with the tip residing in the SVC area. No immediate complications. Fluoroscopy time: 3 minutes and 14 seconds IMPRESSION: Successful fluoro guided PICC line repositioning. Dictated by: Michele Zimmerman MD 11/30/2020 17:47 Michele Zimmerman MD in [place] 11/30/2020 17:47
--- NOTE | 2020-11-30 15:57 | PC.NURSE ---
Addendum entered by Mar Duenas RN 11/30/20 15:59: 1420 - MADE ADRIENNE IN PRE-OP AWARE THAT PT'S 1200 FSBS WAS 77 AND D/T PT HAVING PICC LINE PLACED AND THEN GOING TO SURGERY SHE HAS NOT ATE SINCE 0700 THIS AM WILL NEED TO MONITOR BLOOD SUGAR. Original Note: PT DOWN TO FLUOR FOR PICC LINE PLACEMENT BY BED ACCOMPANIED BY STAFF @ 1410. PER S KAR,RN PT WILL THEN BE TAKEN TO PRE OP FOR SURGERY AFTER PICC IS PLACED.
--- NOTE | 2020-11-30 16:31 | HMH.ANESCL ---
[facility] Anesthesia Checklist - Patient Identification Patient Identification: Arm Band - Structural Data Admitted From: Inpatient Planned Operative Procedure/s: Right 2nd Toe Amputation Consent for Planned Operative Procedure(s) Verified: Yes Verified Documents: Surgical Consent, History and Physical - NPO Status Verified Time NPO: 00:00 - Additional verifications Anesthesia Reactions: No - Airway Assessment C-Spine Mobility Assessed: Yes (mp2) TMJ Mobility Assessed: Yes Dentition: Edentulous - Neurological Assessment Level of Consciousness: Awake, Alert - Anesthesia Plan Anesthesia Risk discussed: Yes Anesthesia Plan: Verified ASA Class: III Anesthesia Type: MAC [facility] History I have reviewed the patient's past medical history: Yes Medical History: Reports:: Anxiety, Asthma, Congestive Heart Failure, Chronic Obstructive Pulmonary Disease (COPD), Coronary Artery Disease, Depression, Diabetes Mellitus Type 2, Gastroesophageal Reflux Disease(GERD), Hyperlipidemia, Hypertension, Peripheral Vascular Disease, Urinary Tract Infection (Recurrent) Denies:: Cancer, Diabetes Mellitus Type 1, Internal Pacemaker, MRSA, Seizures *Have you ever received a pneumonia vaccine?: Yes *Have you received a flu vaccine this season?: Yes Other Medical History: Reports: Anemia, Arthritis, Hormone Therapy, Hypothyroidism, Liver Disease, Thyroid Disease, Other Anesthesia experience/problems:: nac Laterality Cases: Bilateral: Tonsillectomy, Other (Bilateral knee problems. Left most recently) Other Surgeries: Yes: Appendectomy, Cardiac Catheterization, Cholecystectomy, Colonoscopy, , Dilation and Curettage, EGD, Hernia Repair, Hysterectomy-Total, Hysterectomy-Partial, Thyroidectomy, Tubal Ligation, Other (toe amputation, uretheral dilation). No: Pacemaker Amputation: No Fractures: Yes - *Social History Smoking Status: Current every day smoker Tobacco Type: cigarettes # Packs/Day (cigarettes): 1 Alcohol Intake: current Alcohol Intake Frequency:: other Substance Use Type: denies use, IV drugs *Occupational Status:: disabled Housing: apartment Household Members: children (She has 3 sons) *Travel in the last 8 weeks: None - Psychiatric History Pschychiatric History:: Reports:: Anxiety, Depression Family Hx:: Cancer, Coronary Artery Disease, Diabetes, Hyperlipidemia, Hypertension
--- NOTE | 2020-11-30 16:32 | HMH.ANESI ---
[facility] Anesthesia Record Part I Intake, IV Amount: 600 Estimated blood loss (mL): 5 Urine output (mL): 0 Blood Pressure: 159/93 SaO2: 97 Pulse Rate: 62 Respiratory Rate: 16 Temperature: 97.8 F Patient is:: Drowsy, Stable Stable to PACU at:: 16:25
--- NOTE | 2020-11-30 17:08 | HMH.OPNOTE ---
Date of procedure: 11/30/20 Pre-op Diagnosis:: 1. Right 2nd toe ulcer 2. Right 2nd toe cellulitis 3. Right 2nd toe osteomyelitis Post-op Diagnosis:: Same Procedure performed:: 1. Right 2nd toe amputation 2. Right 2nd irrigation and debridement 3. Right 2nd toe ulcer excision Surgeon:: Linda Huddleston DPM [employer] OPERATOR:: Allen Carolyn Anesthesia: MAC, local (20cc 0.5% marcaine plain) Estimated blood loss (mL): 15 Clinical Note:: Right 2nd toe ulcer, infection, osteomyelitis: Radiographs of the right foot were reviewed and discussed with the patient. Report noted. FINDINGS: Exam is limited secondary to overlying bandage artifact. There has been amputation at the mid aspect of the proximal phalanx of the 3rd toe. Lytic changes are present involving the tuft of the distal phalanx of the 2nd toe. There is overlying soft tissue swelling. There is also lucency involving the lateral aspect of the tuft of the distal phalanx of the great toe. Is this also in area of clinical concern? Osteomyelitis of the great toe is also a consideration. IMPRESSION: Osteomyelitis of the tuft of the distal phalanx of the 2nd toe with cellulitis. Lucency also involves the lateral aspect of the tuft of the great toe which may also be due to osteomyelitis involvement. Please correlate with clinical findings. We discussed conservative versus surgical treatment options. Conservative treatment options include local wound care, oral and IV antibiotics, change in shoe wear, taping/padding, and off-loading. We discussed surgical intervention for amputation of the right 2nd toe. Patient understands that there is a chance that the toes can migrate to fill the gap or the foot may change shape after surgery. Patient also understands that they could have wound healing complications including delayed healing and infection. We discussed that if the wound does not heal, it is possible that they may need a more proximal amputation and could result in further loss of digits, loss of partial foot or loss of leg. We discussed the risks and benefits in great detail. Other surgical risks include: prolonged pain and swelling, further infection requiring oral or IV antibiotics, delay in healing of soft tissue or bone, nerve or blood vessel damage, CRPS/RSD, DVT, anesthesia complications, and even . All questions answered. Patient verbalized understanding. Consent obtained. Operative findings:: Right second toe preoperatively had a distal toe tip ulcer measuring 1.1 x 1.4 x 0.6 cm. The ulcer did probe to the bone. The distal phalanx was exposed through the wound bed. There was purulent drainage noted and cultured at the bedside earlier today. Intraoperatively the distal and middle phalanx were both soft and crumbly with malodor and purulence noted. The proximal phalanx head had infection and will erosions. The base of the proximal phalanx was intact. No tracking up the extensor or flexor tendons noted. No open wounds to the hallux. No obvious signs of infection to the great toe. Operative note:: On this date and time patient was deemed an appropriate surgical candidate. With informed consent signed, the patient was taken to the operating theater. The patient was positioned supine. MAC anesthesia was induced. No tourniquet used. Pre-op right second toe block given with 10 cc 0.5% marcaine plain. IV Clinda given. Right 2nd irrigation and debridement, ulcer excision, digit amputation: The right lower extremity was prepped and drapped in normal sterile fashion. Note the patient had a previous right 3rd toe amputation. Attention was directed to the right 2nd toe where a dorsal distal ulcer was noted. There was exposed deep fascia, extensor tendon and distal phalanx head. Cellulitis is noted extending to the MPJ. Wound probed directly to the bone and <0.5 cc drainage was coming from the wound site (pre-operatively). Intra-operatively, no purulence expressed. A fish mouth incision was mapped out. Utilizing a 15
[2020-11-30 17:47] LABS: POC Glucose,Bedside 95 (70-110)
[2020-11-30 17:47] LABS: POC Glucose,Bedside 61 (70-110)
[2020-11-30 18:29] LABS: Erythrocyte Sedimentation Rate 96 mm/hr (0-30)
[2020-11-30 20:32] LABS: POC Glucose,Bedside 117 (70-110)
[2020-12-01] VITALS: BP 146/77; PULSE 58; RESP 16; TEMP 36.5; O2SAT 96
[2020-12-01 03:44] VITALS: BP 141/78; PULSE 57; RESP 18; TEMP 36.6; O2SAT 96
[2020-12-01 03:48] VITALS: RESP 16
[2020-12-01 06:33] VITALS: BMI 37.9
[2020-12-01 06:39] LABS: POC Glucose,Bedside 114 (70-110)
--- NOTE | 2020-12-01 06:56 | PC.NURSE ---
no acute changes. iv patent and infusing per order. picc line in left upper arm. vss. pt does states pain that is generalized but also to right 2nd toe area. dressing in place. no drainage noted. ambulates to bathroom. call light in reach. will continue to monitor.
--- NOTE | 2020-12-01 07:24 | P.PN_ITS ---
[facility] Anesthesia Record Part II Discharge Time: 16:55 Destination: Medical Surgical Department PACU nurse assessment reviewed?: Yes Patient Condition:: Good Anesthesia Complications:: None Swallowing reflex intact?: Yes Cyanosis?: No Blood Pressure: 167/94 Pulse Rate: 59 Temperature: 97.8 F Mental Status: Alert & Oriented Pain level:: 0 Nausea and/or vomitting:: None Intake, IV Amount: 0
[2020-12-01 07:26] VITALS: BP 167/94; PULSE 59; TEMP 36.6
--- NOTE | 2020-12-01 07:55 | HMH.ACPN2 ---
Internal Medicine - PN: Subj *Date: 12/01/20 *Time: 07:55 Interval history: Patient again states today that she would like to go home. She was seen by Dr. Huddleston yesterday with diagnosis of right second toe ulcer with cellulitis and osteomyelitis. She was taken to surgery with amputation of the right second toe. This a.m. she states her foot feels better. Was able to sleep. She has been eating without difficulty. She is voiding QS. She denies chest pain and shortness of breath. Bowels are moving and she is voiding QS. She is weightbearing and has walked to the bathroom. She remains on vancomycin and Ertapenem. Exam Vital signs and Labs for Last 24 Hours: Temp Pulse Resp BP Pulse Ox 97.8 F 59 L 16 167/94 H 96 12/01/20 07:26 12/01/20 07:26 12/01/20 03:48 12/01/20 07:26 12/01/20 03:44 Laboratory Results - last 24 hr 11/30/20 12:59: POC Glucose 77 11/30/20 17:16: POC Glucose 61 L 11/30/20 17:38: C-Reactive Protein 68.0 H 11/30/20 17:40: POC Glucose 95 11/30/20 18:00: ESR 96 H 11/30/20 20:21: POC Glucose 117 H 12/01/20 06:19: POC Glucose 114 H I & O for Last 24 hours: Intake & Output 11/28/20 11/29/20 11/30/20 12/01/20 11:59 11:59 11:59 11:59 Intake Total 3240 / 3240 1380 / 1380 900 / 900 1746 / 1746 Output Total 0 / 0 Balance 3240 / 3240 1380 / 1380 900 / 900 1746 / 1746 Weight 214 lb 221 lb 230 lb 236 lb 2 oz Microbiology Reports for the Last 24 Hours: Microbiology 11/30/20 12:15 Toe,Second Right Gram Stain - Final 11/27/20 22:00 Blood Blood Culture - Preliminary Gram Positive Cocci 11/27/20 22:00 Blood Blood Culture - Preliminary Gram Positive Cocci 11/28/20 01:00 Urine,Clean Catch Urine Culture - Final Escherichia coli - Constitutional no acute distress Comments: Sitting up in the bed and appears comfortable - *Routine Respiratory Exam Present: CTA bilaterally (. Posteriorly and anteriorly) - *Routine Cardiovascular Exam Present: RRR - *Routine Abdominal Exam Present: soft, normoactive bowel sounds, obese. Absent: tenderness - *Routine Extremities Exam Absent: edema Comments: Right lower foot with clean dry dressing. To be changed by Dr. Huddleston today. - *Routine Neurological Exam Present: alert, oriented X3 Assessment and Plan (1) Sepsis due to gram-negative UTI Status: Acute Category: Medical Code(s): A41.50 - Gram-negative sepsis, unspecified; N39.0 - Urinary tract infection, site not specified (2) Sepsis Status: Acute Qualifiers: Sepsis type: sepsis due to unspecified organism Sepsis acute organ dysfunction status: without acute organ dysfunction Qualified Code(s): A41.9 - Sepsis, unspecified organism Category: Medical Code(s): A41.9 - Sepsis, unspecified organism (3) Hypokalemia Status: Acute Category: Medical Code(s): E87.6 - Hypokalemia (4) Urinary tract infection Status: Acute Category: Medical Code(s): N39.0 - Urinary tract infection, site not specified (5) Recurrent urinary tract infection Status: Acute Category: Medical Code(s): N39.0 - Urinary tract infection, site not specified (6) Type 2 diabetes mellitus Status: Acute Category: Medical Code(s): E11.9 - Type 2 diabetes mellitus without complications (7) Chronic low back pain Status: Acute Category: Medical Code(s): M54.5 - Low back pain; G89.29 - Other chronic pain (8) Degenerative disc disease Status: Acute Category: Medical (9) Hypothyroidism, postsurgical Status: Acute Category: Medical Code(s): E89.0 - Postprocedural hypothyroidism (10) Right second toe ulcer Status: Acute Category: Medical Code(s): L97.519 - Non-pressure chronic ulcer of other part of right foot with unspecified severity (11) Osteomyelitis of second toe of right foot Status: Acute Category: Medical Code(s): M86.9 - Oste
[2020-12-01 08:00] VITALS: BP 145/79; PULSE 54; RESP 18; TEMP 36.7; O2SAT 99
--- NOTE | 2020-12-01 09:15 | HMH.PTEV ---
Physical Therapy Evaluation Rehab PT IP Evaluation Start: 11/30/20 16:54 Freq: ONCE Status: Active Protocol: Document 12/01/20 08:30 PHORFELIPE (Rec: 12/01/20 09:15 PHORNE [id number]) Subjective/History History History 59 yowf adm to [facility] with sepsis , now S/P R 2nd toe amputation due to osteomyelitis. Subjective Subjective Pt reports she feels much better this am and want to go home. Rehab PT IP Eval Objective Appearance Patient Behavior Appropriate Patient Orientation Person,Place,Time Difficulty following instructions none Speech Pattern Clear Ambulation Patient Able to Ambulate Yes Ambulation Observation IP General Gait Pattern Observation Wide Based Gait Ambulation Distance (feet) 25 Ambulation Assistive Device None Ambulation Ability Supervision/Stand by Balance Ability to Arise Able, uses arms to help Sitting Balance Steady, safe Standing Balance Steady, wide stance Dynamic Sitting Balance Ability Good Dynamic Standing Balance Ability Good Transfers Bed Transfer Ability Independent Chair Transfer Ability Supervision/Stand by Sit to Stand Bed Transfer Ability Supervision/Stand by Sit to Stand Chair Transfer Ability Supervision/Stand by ROM All Extremities PT ROM Status WFL MMT All Extremities PT MMT WFL Rehab PT IP prob,goals,plan Problems Date of Evaluation: 12/01/20 Discharge Plan PT Discharge Plan Pt is independent with all mobility currently and is appropriate to return home once medically stable. No inpatient therapy needs at this time. G -code Required No Eval Complexity Eval Charge Codes 04554 - Moderate Complexity PHYSICIAN CERTIFICATION: I certify the specified therapy services for Alejandra Healy are required, authorized, and reviewed every 30 days.
--- NOTE | 2020-12-01 09:34 | HMH.ACPN ---
Internal Medicine - PN: Subj *Date: 12/01/20 *Time: 09:34 Exam Vital signs and Labs for Last 24 Hours: Temp Pulse Resp BP Pulse Ox 98.1 F 54 L 18 145/79 H 99 12/01/20 08:00 12/01/20 08:00 12/01/20 08:00 12/01/20 08:00 12/01/20 08:00 Laboratory Results - last 24 hr 11/30/20 12:59: POC Glucose 77 11/30/20 17:16: POC Glucose 61 L 11/30/20 17:38: C-Reactive Protein 68.0 H 11/30/20 17:40: POC Glucose 95 11/30/20 18:00: ESR 96 H 11/30/20 20:21: POC Glucose 117 H 12/01/20 06:19: POC Glucose 114 H I & O for Last 24 hours: Intake & Output 11/28/20 11/29/20 11/30/20 12/01/20 23:59 23:59 23:59 23:59 Intake Total 3360 / 3360 1979 1150 / 1390 1136 / 1136 Output Total 0 / 0 Balance 3360 / 3360 1979 1150 / 1390 1136 / 1136 Weight 97.069 kg 100 kg 104.326 kg 107.104 kg Microbiology Reports for the Last 24 Hours: Microbiology 11/27/20 22:00 Blood Blood Culture - Final Streptococcus anginosus 11/27/20 22:00 Blood Blood Culture - Preliminary Streptococcus anginosus 11/30/20 12:15 Toe,Second Right Gram Stain - Final 11/28/20 01:00 Urine,Clean Catch Urine Culture - Final Escherichia coli Assessment and Plan (1) Sepsis due to gram-negative UTI Status: Acute Category: Medical Code(s): A41.50 - Gram-negative sepsis, unspecified; N39.0 - Urinary tract infection, site not specified (2) Sepsis Status: Acute Qualifiers: Sepsis type: sepsis due to unspecified organism Sepsis acute organ dysfunction status: without acute organ dysfunction Qualified Code(s): A41.9 - Sepsis, unspecified organism Category: Medical Code(s): A41.9 - Sepsis, unspecified organism (3) Hypokalemia Status: Acute Category: Medical Code(s): E87.6 - Hypokalemia (4) Urinary tract infection Status: Acute Category: Medical Code(s): N39.0 - Urinary tract infection, site not specified (5) Recurrent urinary tract infection Status: Acute Category: Medical Code(s): N39.0 - Urinary tract infection, site not specified (6) Type 2 diabetes mellitus Status: Acute Category: Medical Code(s): E11.9 - Type 2 diabetes mellitus without complications (7) Chronic low back pain Status: Acute Category: Medical Code(s): M54.5 - Low back pain; G89.29 - Other chronic pain (8) Degenerative disc disease Status: Acute Category: Medical (9) Hypothyroidism, postsurgical Status: Acute Category: Medical Code(s): E89.0 - Postprocedural hypothyroidism (10) Right second toe ulcer Status: Acute Category: Medical Code(s): L97.519 - Non-pressure chronic ulcer of other part of right foot with unspecified severity (11) Osteomyelitis of second toe of right foot Status: Acute Category: Medical Code(s): M86.9 - Osteomyelitis, unspecified The patient's infection will respond to the chosen ABx?: Yes Is the patient receiving the right drug, dose, and route?: Yes Could a more targeted ABx be ordered?: No
[2020-12-01 09:49] LABS: POC Glucose,Bedside 157 (70-110)
--- NOTE | 2020-12-01 10:32 | SW/DCPLANNER ---
Addendum entered by Barbi Baker 12/01/20 13:05: Patient will not need IV Invanz q24 and IV Vanc Q18: patient is aware and is agreeable to this plan. Patient stated that her children will assist her with medication administration. Elisa with [facility] has called to discuss pricing with this patient. Patient is agreeable to calixto ($45-$50/week) and stated that Elisa has set her up with payment plans. This patient is very anxious to discharge because she has to go pay bills. Patient will discharge once Vanc dose is finished and discharge order is in. Addendum entered by Barbi Baker 12/01/20 11:59: Sudeep with [facility] has called back and stated that services will begin tomorrow for this patient for first dose of IV Invanz at home. Sudeep is also aware of dressing changes for this patient. I am currently waiting to hear back from Elisa at [facility] regarding out of pocket expense. Original Note: This patient will need IV antibiotics at time of discharge (Invanz 1 gram daily for a total of 14 days). Patient is wanting to receive antibiotic at home and stated that her children can assist her with medication. Patient information/order has been faxed to [facility] for IV medication and I will set up with [facility] for education. Patient does have PICC line, wheel chair, cane and walker at home. I have spoke with [facility] in Rehab and they will deliver this patient a short fracture boot per Dr Huddleston at time of discharge. Patient will discharge home later today.
--- NOTE | 2020-12-01 11:16 | P.PN_ITS ---
Subjective Date: 12/01/20 Time: 09:00 Principal diagnosis: Right 2nd toe osteomyelitis Interval history: Patient is resting comfortably in the bed. She reports minimal pain to the right foot. She denies nausea vomiting, fever and chills.. PN: Obj Ex Vital signs: Temp Pulse Resp BP Pulse Ox 98.1 F 54 L 18 145/79 H 99 12/01/20 08:00 12/01/20 08:00 12/01/20 08:00 12/01/20 08:00 12/01/20 08:00 - Constitutional no acute distress - Routine HEENT Exam Head: Present: normocephalic Eye: Present: EOMI ENT: Present: mucous membranes moist - Routine Neck Exam Present: supple - Routine Respiratory Exam Absent: respiratory distress - Routine Cardiovascular Exam Present: RRR - Routine Abdominal Exam Present: obese - Routine Extremities Exam Present: edema, pulses intact, extremity cold to touch, amputation (right 2-3rd toe amputation). Absent: normal capillary refill - Detailed Lower Extremity Exam Top foot image: 1 - S/p right 2nd toe amp. Sutures clean dry and intact. No purulene, drainage or malodor noted. Edema and erythema is improving. No pain to palpation noted. CFT delayed. Weakly palpable pedal pulses noted. Prior 3rd toe amputation. - Routine Neurological Exam Present: alert, oriented X3 - Routine Psychiatric Exam Present: normal affect Progress Note: A&P (1) Sepsis due to gram-negative UTI Status: Acute (2) Sepsis Status: Acute (3) Hypokalemia Status: Acute (4) Urinary tract infection Status: Acute (5) Recurrent urinary tract infection Status: Acute (6) Type 2 diabetes mellitus Status: Acute (7) Chronic low back pain Status: Acute (8) Degenerative disc disease Status: Acute (9) Hypothyroidism, postsurgical Status: Acute (10) Right second toe ulcer Status: Acute (11) Osteomyelitis of second toe of right foot Status: Acute Assessment and Plan for All Diagnoses:: Sx 11/30/20, s/p right 2nd toe amputation: POD#1 Labs, 11/30/20: wbc 9.4, esr 96, crp 68 11/30/20, intra-op specimens: Right 2nd distal toe bone culture, bone pathology: pending Right 2nd proximal toe bone culture, bone pathology: pending Sutures are clean dry and intact. The edema and erythema has improved. Patient denies pain. No drainage, malodor or purulence noted. Wound cleansed with Betadine and a Betadine soaked gauze applied with a dry sterile dressing. Patient is to maintain dressing clean dry and intact until follow-up with podiatry or home health care changes. 1. Patient is to maintain dressing clean dry and intact. 2. [facility]: dressing changes twice weekly: cleanse the skin, dry thoroughly. Apply Xeroform, Betadine soaked gauze, dry 4x4's, jay/kerlix and secure with Nikolai. 3. Continue antibiotics. PICC, IV Abx per PCP. Ok for po Zyvox. 4. Partial weight bearing to the right lower extremity with DME assistance (walker or wheelchair). Will need post op shoe or short fracture boot. 5. Stable for discharge from a Podiatry stand point. 6. Follow up with Podiatry
[2020-12-01 12:35] LABS: POC Glucose,Bedside 95 (70-110)
--- NOTE | 2020-12-01 12:45 | PC.NURSE ---
calls placed to case management to ensure home health needs, and call made to md to relay that patient with anxious to leave. still awaiting discharge order
--- NOTE | 2020-12-01 12:53 | DIET.NUTRFU ---
PO intakes 75%, BG WNL-120. Pt has received diet education for DM and low sodium diet. No nutritional concerns at this time, continuing to monitor.
--- NOTE | 2020-12-02 11:56 | HMH.DCSUM ---
General - General Admission date:: 11/28/20 Discharge date: 12/01/20 HPI HPI: This 59-year-old white female is diabetic and is a patient of Dr. Jesus Ott. She is admitted to the hospital through the emergency room. She presented with fever and evidence of sepsis. She has a history of recurrent urinary tract infections and has been seen by Dr. Gutierrez. She states that she had diarrhea twice a day prior to admission. She denies abdominal pain. In the ER her white count was elevated. Her urine eventually came back showing evidence of urinary tract infection. Culture is pending. Unfortunately in the emergency room the patient did not receive any antibiotics though the ER physician's note indicates his desire to give her Zosyn and vancomycin. No orders for antibiotics were placed. Apparently blood cultures have been obtained. When I saw the patient on rounds she had shaking chills and a fever of greater than 103. Invanz and vancomycin were ordered. Tylenol and ibuprofen were ordered. Hospital Course Hospital Course: Patient's chest x-ray showed nothing acute. She was started on Invanz and vancomycin and ibuprofen and Tylenol were ordered. By 11/29/2020, the patient was feeling much better. Her white blood cell count had normalized. Her urine was growing gram-negative rods. She was continued on antibiotics awaiting her final urine. Her urine culture grew out ESBL positive E. coli. Her blood cultures were also positive showing a Streptococcus species. A PICC line was ordered for outpatient antibiotics. The patient's second digit on the right foot was noted to be swollen with some drainage. She stated she was under the care for this by air drier machine operator in [place]. An x-ray was ordered and showed osteomyelitis of the tuft of the distal phalanx of the second toe with cellulitis. She was seen by Dr. Huddleston and was placed n.p.o. for right second toe amputation. She did have an extremity arterial study showing normal ABIs. Dr. Huddleston took the patient to the OR on 11/30/2020 and performed a right second toe amputation with irrigation and debridement as well as an ulcer excision. She felt the patient should remain on antibiotics and could be partial weightbearing to the right lower extremity with a walker or wheelchair. By 12/01/2020, the patient was feeling well and wanted to go home. She had been up and walked to the bathroom. Her wound cultures are still pending but it was felt she could be discharged home on vancomycin and Invanz. Her blood cultures grew out Streptococcus anginosis which was sensitive to vancomycin. She will need to follow-up with both Dr. Arechiga and Dr. Huddleston. Objective Vital signs: Temp Pulse Resp BP Pulse Ox 98.1 F 54 L 18 145/79 H 99 12/01/20 08:00 12/01/20 08:00 12/01/20 08:00 12/01/20 08:00 12/01/20 08:00 Narrative: - Constitutional moderate distress (Shaking chills and fever when I first saw her. Now more comfortable.) - *Routine HEENT Exam Head: Present: normocephalic Eye: Present: PERRL ENT: Present: mucous membranes moist - *Routine Neck Exam Present: supple. Absent: JVD - Routine Chest/Breast/Axilla Exam Chest wall: Absent: tenderness Breast: Absent: tenderness - *Routine Respiratory Exam Present: CTA bilaterally - *Routine Cardiovascular Exam Present: RRR - *Routine Abdominal Exam Present: soft, obese. Absent: tenderness, organomegaly - *Routine Extremities Exam Present: edema (Only trace. Tattoo noted left lower extremity.) - *Routine Skin Exam Absent: scars (Some tattoos) - *Routine Neurological Exam Present: alert, oriented X3, moving all extremities, hearing grossly intact - Routine Psychiatric Exam Present: normal affect (Cogent) Results Labs on day of discharge: Labs from last 24 hours 12/01/20 12:27 POC Glucose 95 Preliminary micro results at discharge 11/30/20 12:15 Wound Culture - Preliminary Toe,Second Right
== END 2020-12-01 14:27 | disposition home health service (06) | DRG 854 ==
LOC: ER 11-28 00:40 → 2ND 11-28 10:55
PROVIDERS: Podiatrist; Admitting Provider Family Medicine; Emergency Provider Emergency Medicine; PCP Internal Medicine; Visit Provider Family Medicine
PROC: 0Y6R0Z1 Detachment at Right 2nd Toe, High, Open Approach (ICD-10-PCS; CPT 28825; principal; 2020-11-30 13:30)
DX: A41.59 Other Gram-negative sepsis (principal); N39.0 Urinary tract infection, site not specified; Z16.12 Extended spectrum beta lactamase (ESBL) resistance; M86.171 Other acute osteomyelitis, right ankle and foot; L97.516 Non-pressure chronic ulcer of other part of right foot with bone involvement without evidence of necrosis; B96.29 Other Escherichia coli [E. coli] as the cause of diseases classified elsewhere; E89.0 Postprocedural hypothyroidism; E11.69 Type 2 diabetes mellitus with other specified complication; Z79.4 Long term (current) use of insulin; E11.621 Type 2 diabetes mellitus with foot ulcer; L03.031 Cellulitis of right toe; I11.0 Hypertensive heart disease with heart failure; I50.9 Heart failure, unspecified; I25.10 Atherosclerotic heart disease of native coronary artery without angina pectoris; J44.9 Chronic obstructive pulmonary disease, unspecified; Z72.0 Tobacco use; Z88.2 Allergy status to sulfonamides; Z88.1 Allergy status to other antibiotic agents; Z79.51 Long term (current) use of inhaled steroids; Z79.899 Other long term (current) drug therapy; G89.29 Other chronic pain; E87.6 Hypokalemia; Z79.890 Hormone replacement therapy
CPT/HCPCS: 28825; 36569; 36415; 71045; 73660; 77001; 80048; 80053; 80202; 81001; 82550; 82962; 83036; 83690; 84443; 85007; 85025; 85651; 86140; 87040; 87070; 87077; 87086; 87088; 87186; 87205; 88305; 88311; 93923; 96365; 96366; 97116; 97162; 97760; 99284; C1751; C1769; J1335; J3370; U0003

== ENCOUNTER → 2020-12-02 11:15 | Outpatient (CLI) | payer MEDICARE, MEDICAID, SELFPAY ==
[2020-12-02 13:21] LABS: Vancomycin,Trough 20.4 ug/mL (5.0-10.0)
== END ==
PROVIDERS: Visit Provider Family Medicine
DX: Z51.81 Encounter for therapeutic drug level monitoring (principal)
CPT/HCPCS: 80202

== ENCOUNTER 2020-12-06 02:03 | Emergency (ER) | payer MEDICARE, MEDICAID, SELFPAY ==
[2020-12-06 02:05] VITALS: BP 165/76; PULSE 83; RESP 18; TEMP 36.7; O2SAT 97; BMI 37.8
--- NOTE | 2020-12-06 02:28 | CT_ITS ---
PROCEDURE: CT ABDOMEN PELVIS W CON CLINICAL INDICATION: pain Lower abdominal pain, right-sided pain, back pain COMPARISON: CT CT ABDOMEN PELVIS W CON from 01/22/2020 TECHNIQUE: IV Contrast: 75ML Isovue 370 Oral Contrast None Axial images obtained with sagittal and coronal reformats. All CT scans at the facility use one or more dose reduction, viz: automated exposure control, ma/kV adjustment per patient size (including targeted exams where dose is matched to indication, i.e. head), or iterative reconstruction technique. FINDINGS: LOWER THORAX: Coronary artery and mitral valve annular calcifications. ABDOMEN & PELVIS: Mild hepatomegaly. The liver measures 24 cm cephalad caudad. Prior cholecystectomy. No focal liver lesion is evident. There is a small splenic artery aneurysm at 11 mm. Spleen is enlarged at 5 cm. The adrenal glands have an unremarkable appearance. There is pancreatic atrophy. Cortical scarring involves the right kidney with a small calcification along the right lateral cortex at 3 mm. No nephrolithiasis. No ureteral calculi or hydronephrosis. There is a mild amount of retained colonic feces. No evidence of appendicitis or diverticulitis. No intestinal obstruction or free air. Prior hysterectomy. Surgical clip is present in the left lower quadrant. No pelvic mass or abnormal fluid collection apparent. Postsurgical changes are present involving the anterior abdominal wall. Mild lumbar scoliosis convex left. Mild degenerative changes lumbar spine and hips with bony exostosis of the greater trochanters and iliac crest. Chronic appearing fracture of the right 9th rib and probable right 7th and 8th ribs IMPRESSION: 1. Hepatosplenomegaly. 2. Moderate amount of retained colonic feces. 3. Other nonacute findings as described above Dictated by: Michele Zimmerman MD 12/06/2020 05:34 Michele Zimmerman MD in [place] 12/06/2020 05:34
[2020-12-06 02:30] VITALS: BP 121/61; PULSE 76; RESP 17; O2SAT 98
--- NOTE | 2020-12-06 02:36 | HMH.EDBACK ---
ED Disposition Clinical Impression: Lumbar radicular pain Disposition: Home, Self-Care Condition on Discharge: Good Instructions: DI for Lumbar Radiculopathy Additional Instructions: resume meds at this time Referrals: Jesus Ott [Primary Care Provider] - - Critical Care Critical Care Time: No Attestation: On 12/06/20, the high probability of a clinically significant, sudden or life threatening deterioration of the following system(s) required my full and direct attention, intervention and personal management. The time I documented below is in addition to time spent performing reported procedures but includes the following listed in this critical care notation. Medical Decision Making - Medical Records Medical records reviewed: Yes: I reviewed the patient's medical records. - Bryan Inquiry Pt receiving controlled substance: No Vital Signs: 12/06/20 02:05 12/06/20 02:30 Temperature 98.1 F Temperature Source Oral Pulse Rate [Right] 83 76 Respiratory Rate 18 17 Blood Pressure [Right Arm] 165/76 H 121/61 Blood Pressure Mean [Right Arm] 105 81 Blood Pressure Source [Right Arm] Automatic Cuff Blood Pressure Position [Right Arm] Supine 02 Sat by Pulse Oximetry 97 98 Oxygen Delivery Method Room Air - Lab Data Lab results reviewed: Yes: I reviewed the patient's lab results. Lab Results 12/06/20 02:15: Urine Color Yellow, Urine Appearance Clear, Urine pH 6.5, Ur Specific [place] 1.020, Urine Protein Trace, Urine Glucose (UA) Negative, Urine Ketones Negative, Urine Blood Negative, Urine Nitrate Negative, Urine Bilirubin Negative, Urine Urobilinogen 0.2, Ur Leukocyte Esterase Negative, Ur Squamous Epith Cells 20-50 12/06/20 02:30: WBC 10.0, RBC 4.18 L, Hgb 12.3, Hct 36.5 L, MCV 87.4, MCH 29.4, MCHC 33.7, RDW 13.7, Plt Count 388, MPV 7.9, Neut % (Auto) 60.7, Lymph % (Auto) 27.8, [place] % (Auto) 6.5, Eos % (Auto) 4.3, Baso % (Auto) 0.7, Neut # (Auto) 6.1, Lymph # (Auto) 2.8, [place] # (Auto) 0.7, Eos # (Auto) 0.4, Baso # (Auto) 0.1, ESR 68 H 12/06/20 02:30: Sodium 139, Potassium 3.7, Chloride 107, Carbon Dioxide 28, Anion Gap 7.7, BUN 12, Creatinine 0.60, Estimated Creat Clear 99, Estimated GFR 102, Est GFR ( Amer) 123, Glucose 204 H, Calcium 10.0, Total Bilirubin 0.3, AST 20, ALT 20, Alkaline Phosphatase 93, C-Reactive Protein 6.8 H, Total Protein 7.1, Albumin 4.0, Globulin 3.1, Albumin/Globulin Ratio 1.3, Procalcitonin 0.292 Result diagrams: 12/06/20 02:30 12/06/20 02:30 Orders (Tests/Meds): ED MEDICATIONS Generic Name Dose Route Start Last Admin Trade Name Freq PRN Reason Stop Dose Admin Sodium Chloride 1,000 mls @ 999 mls/hr 12/06/20 02:45 12/06/20 02:34 Sod Chlor 0.9% 1000ml Bag IV 12/06/20 03:45 999 mls/hr .Q1H1M CARLITOS Administration Discontinued Medications Generic Name Dose Route Start Last Admin Trade Name Freq PRN Reason Stop Dose Admin Iopamidol 100 ml 12/06/20 03:30 12/06/20 03:30 Iopamidol-370 (76%);100ml Bottle IV 12/06/20 03:31 100 ml ONCE ONE Administration Ketorolac Tromethamine 30 mg 12/06/20 02:31 12/06/20 02:34 Ketorolac 30mg/Ml Vial IV 12/06/20 02:32 30 mg ONCE ONE Administration Sodium Chloride 10 ml 12/06/20 03:30 12/06/20 03:30 Sodium Chloride 0.9% 10ml Syr (Rad Only) IV 12/06/20 03:31 10 ml ONCE ONE Administration ORDERS Category Date Time Status CT abdomen pelvis w con Stat Cat Scan 12/06/20 02:[address] lumbar spine w con Stat Cat Scan 12/06/20 03:06 Taken - CT Data CT Scan: Abdomen, Pelvis, L-Spine Time Received: 04:[address] Reviewed: Yes: I have viewed the radiologist's interpretation Preliminary Findings: Abnormal, No Fracture Seen Medical Decision Narrative: has radicular pain but has pain meds at home - neg evid of myelitis and abd ok and inf markers dec Back Pain HPI - General Chief Complaint: Abdominal Pain Stated Complaint: Back Pain and down both legs and in groin Time Seen by Prov
[2020-12-06 02:40] LABS: Basophils # 0.1 K/mm3 (0-0.2); Basophils % 0.7 % (0.1-2.0); Eosinophils # 0.4 K/mm3 (0.0-0.4); Eosinophils % 4.3 % (0.1-12.0); Hematocrit 36.5 % (37.0-47.0); Hemoglobin 12.3 g/dL (12.2-16.2); Lymphocytes # 2.8 K/mm3 (0.7-4.5); Lymphocytes % 27.8 % (10-50); Mean Corpuscular HGB Conc 33.7 g/dL (31.8-35.4); Mean Corpuscular Hemoglobin 29.4 pg (27.0-31.2); Mean Corpuscular Volume 87.4 fl (81-99); Mean Platelet Volume 7.9 fl (7.4-10.4); Monocytes # 0.7 K/mm3 (0.1-1.0); Monocytes % 6.5 % (1.7-9.3); Neutrophils # 6.1 K/mm3 (1.8-7.8); Neutrophils % 60.7 % (37.0-80.0); Platelet Count 388 K/mm3 (142-424); Red Blood Count 4.18 M/mm3 (4.20-5.40); Red Cell Distribution Width 13.7 % (11.5-17.5)
[2020-12-06 02:41] LABS: Microscopic, Urine URINE MICROSCOPIC (MICROSCOPIC)
[2020-12-06 02:55] LABS: Alanine Aminotransferase 20 U/L (12-78); Albumin/Globulin Ratio 1.3 (1.1-1.8); Alkaline Phosphatase 93 U/L (38-126); Anion Gap 7.7 mEq/L (5-15); Aspartate Amino Transferase 20 U/L (14-36); Bilirubin,Total 0.3 mg/dl (0.2-1.3); Blood Urea Nitrogen 12 mg/dl (7-17); Carbon Dioxide 28 mmol/L (22.0-30.0); Chloride 107 mmol/L (98-107); Creatinine Clearance Estimated 99 mL/min (50-200); Estimated Glomerular Filt Rate 102 ml/min (>60); GFR (African American) 123 ML/MIN (>60); Globulin 3.1 g/dL (1.3-3.2); Glucose 204 mg/dl (74-100); Potassium 3.7 mmoL/L (3.5-5.1); Sodium 139 mmol/L (136-145); Total Protein,Serum 7.1 g/dl (6.3-8.2)
[2020-12-06 03:02] LABS: C-Reactive Protein 6.8 mg/L (0-4)
--- NOTE | 2020-12-06 03:06 | CT_ITS ---
PROCEDURE: CT LUMBAR SPINE W CON CLINICAL HISTORY: lower back pain Low back pain and right-sided back pain. COMPARISON: CT CT LUMBAR SPINE WO CON from 08/22/2020 TECHNIQUE: Axial images obtained with sagittal and coronal reformats. All CT scans at the facility use one or more dose reduction, viz: automated exposure control, ma/kV adjustment per patient size (including targeted exams where dose is matched to indication, i.e. head), or iterative reconstruction technique. FINDINGS: There is normal alignment. There is mild lumbar scoliosis convex left. There is generalized osteopenia. T11-T12: Anterior osteophyte on the left with degenerative disc disease and canal stenosis. T12-L1: Mild chronic wedge compression changes are present at L1 with loss of height anteriorly of approximately 25 percent similar to the previous exam. L1-L2: Degenerative disc disease with facet and ligamentum hypertrophy with bilateral foraminal narrowing right greater than left. L2-L3: Unremarkable. L3-L4: Degenerative disc disease with facet and ligamentum hypertrophy with bulging disc and bilateral foraminal narrowing L4-5: Degenerative disc disease with bulging disc with moderate facet and ligamentum hypertrophy with canal stenosis, bilateral lateral recess narrowing and bilateral foraminal narrowing. L5-S1: Degenerative disc disease with bulging disc and broad-based central and left paracentral disc protrusion with canal stenosis lateral recess narrowing and bilateral foraminal narrowing. The foraminal narrowing and lateral recess narrowing is severe on the left and moderate to severe on the right. Facet hypertrophic changes are greater on the left with subchondral cystic changes of the facets on the left. Intravenous contrast was given for the CT scan performed for this exam with opacification in both renal collecting systems and urinary bladder. There is moderate to severe cortical scarring of the right kidney. There is some subcutaneous edema in the posterior lumbar area. IMPRESSION: Multilevel lumbar spondylosis with degenerative disc disease, bulging disc, facet and ligamentum hypertrophy resulting in lateral recess and foraminal narrowing and canal stenosis. Broad-based central left paracentral disc protrusion at L5-S1. Consider MRI for further evaluation to determine the degree of neural impingement. No acute fracture. There is chronic wedge compression changes at L1. PLEASE SEE ABOVE FOR DETAILED DESCRIPTION AT EACH LEVEL. Dictated by: Michele Zimmerman MD 12/06/2020 05:42 Michele Zimmerman MD in [place] 12/06/2020 05:42
[2020-12-06 03:11] LABS: Appearance,Urine CLEAR (Clear); Bilirubin,Urine Negative (Negative); Blood, Urine Negative (Negative); Color,Urine YELLOW (Yellow); Glucose,Urine (UA) Negative (Negative); Ketones,Urine Negative (Negative); Leukocyte Esterase,Urine Negative (Negative); Nitrate,Urine Negative (Negative); PH,Urine 6.5 (5.0-8.5); Protein,Urine TRACE (Negative); Urobilinogen,Urine 0.2 EU/dl (0.2)
[2020-12-06 03:15] LABS: Procalcitonin 0.292 ng/mL (0.0-2.0)
[2020-12-06 03:15] LABS: Squamous Epithelial Cell,Urine 20-50 #/hpf (0-5)
[2020-12-06 03:19] LABS: Erythrocyte Sedimentation Rate 68 mm/hr (0-30)
[2020-12-06 04:29] VITALS: BP 147/74; PULSE 89; RESP 16; TEMP 36.6; O2SAT 96
== END 2020-12-06 04:31 | disposition home or self-care (01) ==
PROVIDERS: Emergency Provider Emergency Medicine; PCP Internal Medicine
DX: M54.16 Radiculopathy, lumbar region (principal); E11.9 Type 2 diabetes mellitus without complications; J44.9 Chronic obstructive pulmonary disease, unspecified; F41.8 Other specified anxiety disorders; I50.9 Heart failure, unspecified; K21.9 Gastro-esophageal reflux disease without esophagitis; I10 Essential (primary) hypertension; E78.5 Hyperlipidemia, unspecified; E03.9 Hypothyroidism, unspecified; F17.210 Nicotine dependence, cigarettes, uncomplicated; I73.9 Peripheral vascular disease, unspecified; Z79.899 Other long term (current) drug therapy
CPT/HCPCS: 72132; 74177; 80053; 81001; 84145; 85025; 85651; 86140; 96375; 99283; Q9967

== ENCOUNTER → 2020-12-07 10:21 | Outpatient (CLI) | payer MEDICARE, MEDICAID, SELFPAY ==
[2020-12-07 10:59] LABS: Chloride 106 mmol/L (98-107); Sodium 137 mmol/L (136-145)
[2020-12-07 11:00] LABS: Potassium 4.4 mmoL/L (3.5-5.1)
[2020-12-07 11:02] LABS: Alanine Aminotransferase 20 U/L (12-78); Albumin Level 3.7 g/dl (3.5-5.0); Albumin/Globulin Ratio 1.1 (1.1-1.8); Alkaline Phosphatase 100 U/L (38-126); Anion Gap 9.4 mEq/L (5-15); Aspartate Amino Transferase 23 U/L (14-36); Bilirubin,Total 0.3 mg/dl (0.2-1.3); Blood Urea Nitrogen 11 mg/dl (7-17); Calcium 9.7 mg/dl (8.4-10.2); Carbon Dioxide 26 mmol/L (22.0-30.0); Estimated Glomerular Filt Rate 125 ml/min (>60); GFR (African American) 152 ML/MIN (>60); Globulin 3.3 g/dL (1.3-3.2); Glucose 224 mg/dl (74-100)
[2020-12-07 11:05] LABS: Basophils # 0.1 K/mm3 (0-0.2); Basophils % 0.7 % (0.1-2.0); Eosinophils # 0.3 K/mm3 (0.0-0.4); Eosinophils % 4.3 % (0.1-12.0); Hematocrit 35.3 % (37.0-47.0); Hemoglobin 11.7 g/dL (12.2-16.2); Lymphocytes # 1.6 K/mm3 (0.7-4.5); Lymphocytes % 21.8 % (10-50); Mean Corpuscular Hemoglobin 29.4 pg (27.0-31.2); Mean Corpuscular Volume 88.9 fl (81-99); Monocytes # 0.4 K/mm3 (0.1-1.0); Neutrophils # 4.8 K/mm3 (1.8-7.8); Neutrophils % 67.2 % (37.0-80.0); Platelet Count 347 K/mm3 (142-424); Red Blood Count 3.97 M/mm3 (4.20-5.40); Red Cell Distribution Width 13.6 % (11.5-17.5); White Blood Count 7.1 K/mm3 (4.8-10.8)
[2020-12-07 11:08] LABS: C-Reactive Protein 20.5 mg/L (0-4)
[2020-12-07 11:46] LABS: Vancomycin,Trough 5.9 ug/mL (5.0-10.0)
[2020-12-07 11:52] LABS: Erythrocyte Sedimentation Rate 63 mm/hr (0-30)
== END ==
PROVIDERS: Visit Provider Family Medicine
DX: M86.171 Other acute osteomyelitis, right ankle and foot (principal); Z79.2 Long term (current) use of antibiotics
CPT/HCPCS: 80053; 80202; 85025; 85651; 86140

== ENCOUNTER → 2020-12-13 10:43 | Outpatient (CLI) | payer MEDICARE, MEDICAID, SELFPAY ==
[2020-12-13 11:04] LABS: Basophils # 0.1 K/mm3 (0-0.2); Eosinophils # 0.2 K/mm3 (0.0-0.4); Eosinophils % 3.2 % (0.1-12.0); Hematocrit 41.9 % (37.0-47.0); Hemoglobin 14.1 g/dL (12.2-16.2); Lymphocytes # 2.1 K/mm3 (0.7-4.5); Lymphocytes % 26.7 % (10-50); Mean Corpuscular HGB Conc 33.8 g/dL (31.8-35.4); Mean Corpuscular Hemoglobin 29.4 pg (27.0-31.2); Mean Corpuscular Volume 87.1 fl (81-99); Mean Platelet Volume 7.8 fl (7.4-10.4); Monocytes # 0.4 K/mm3 (0.1-1.0); Monocytes % 5.5 % (1.7-9.3); Neutrophils # 4.9 K/mm3 (1.8-7.8); Neutrophils % 63.6 % (37.0-80.0); Platelet Count 285 K/mm3 (142-424); Red Blood Count 4.81 M/mm3 (4.20-5.40); Red Cell Distribution Width 13.4 % (11.5-17.5); White Blood Count 7.7 K/mm3 (4.8-10.8)
[2020-12-13 11:13] LABS: Chloride 115 mmol/L (98-107); Sodium 141 mmol/L (136-145)
[2020-12-13 11:14] LABS: Potassium 3.4 mmoL/L (3.5-5.1)
[2020-12-13 11:16] LABS: Alanine Aminotransferase 39 U/L (12-78); Albumin Level 2.9 g/dl (3.5-5.0); Alkaline Phosphatase 84 U/L (38-126); Aspartate Amino Transferase 34 U/L (14-36); Bilirubin,Total 0.3 mg/dl (0.2-1.3); Blood Urea Nitrogen 11 mg/dl (7-17); Calcium 7.8 mg/dl (8.4-10.2); Carbon Dioxide 24 mmol/L (22.0-30.0); Estimated Glomerular Filt Rate 162 ml/min (>60); GFR (African American) 196 ML/MIN (>60); Glucose 180 mg/dl (74-100); Total Protein,Serum 5.9 g/dl (6.3-8.2)
[2020-12-13 11:22] LABS: C-Reactive Protein 1.6 mg/L (0-4)
[2020-12-13 11:32] LABS: Erythrocyte Sedimentation Rate 22 mm/hr (0-30)
[2020-12-13 11:35] LABS: Vancomycin,Trough 27.9 ug/mL (5.0-10.0)
== END ==
PROVIDERS: Visit Provider Family Medicine
DX: M86.171 Other acute osteomyelitis, right ankle and foot (principal); Z79.2 Long term (current) use of antibiotics
CPT/HCPCS: 80053; 80202; 85025; 85651; 86140

== ENCOUNTER → 2020-12-20 12:29 | Outpatient (CLI) | payer MEDICARE, MEDICAID, SELFPAY ==
[2020-12-20 13:06] LABS: Chloride 109 mmol/L (98-107); Sodium 139 mmol/L (136-145)
[2020-12-20 13:07] LABS: Basophils # 0.1 K/mm3 (0-0.2); Basophils % 0.8 % (0.1-2.0); Eosinophils # 0.3 K/mm3 (0.0-0.4); Eosinophils % 3.3 % (0.1-12.0); Hematocrit 37.1 % (37.0-47.0); Hemoglobin 12.1 g/dL (12.2-16.2); Lymphocytes # 2.3 K/mm3 (0.7-4.5); Mean Corpuscular HGB Conc 32.7 g/dL (31.8-35.4); Mean Corpuscular Hemoglobin 29.1 pg (27.0-31.2); Mean Platelet Volume 7.5 fl (7.4-10.4); Monocytes # 0.6 K/mm3 (0.1-1.0); Monocytes % 6.2 % (1.7-9.3); Neutrophils # 6.3 K/mm3 (1.8-7.8); Neutrophils % 65.7 % (37.0-80.0); Platelet Count 291 K/mm3 (142-424); Potassium 3.8 mmoL/L (3.5-5.1); Red Blood Count 4.17 M/mm3 (4.20-5.40); Red Cell Distribution Width 13.7 % (11.5-17.5); White Blood Count 9.5 K/mm3 (4.8-10.8)
[2020-12-20 13:09] LABS: Alanine Aminotransferase 38 U/L (12-78); Albumin Level 3.5 g/dl (3.5-5.0); Albumin/Globulin Ratio 1.2 (1.1-1.8); Alkaline Phosphatase 89 U/L (38-126); Anion Gap 7.8 mEq/L (5-15); Aspartate Amino Transferase 37 U/L (14-36); Bilirubin,Total 0.4 mg/dl (0.2-1.3); Blood Urea Nitrogen 9 mg/dl (7-17); Carbon Dioxide 26 mmol/L (22.0-30.0); Estimated Glomerular Filt Rate 125 ml/min (>60); GFR (African American) 152 ML/MIN (>60); Globulin 2.9 g/dL (1.3-3.2); Total Protein,Serum 6.4 g/dl (6.3-8.2)
[2020-12-20 13:10] LABS: Calcium 8.8 mg/dl (8.4-10.2); Glucose 185 mg/dl (74-100)
[2020-12-20 13:15] LABS: C-Reactive Protein 7.9 mg/L (0-4)
[2020-12-20 13:42] LABS: Vancomycin,Trough < 5.0 ug/mL (5.0-10.0)
[2020-12-20 15:35] LABS: Erythrocyte Sedimentation Rate 39 mm/hr (0-30)
== END ==
LOC: LAB 12:30 → LAB.DROPOF 12:47
PROVIDERS: Visit Provider Family Medicine
DX: M86.171 Other acute osteomyelitis, right ankle and foot (principal); Z51.81 Encounter for therapeutic drug level monitoring; Z79.2 Long term (current) use of antibiotics
CPT/HCPCS: 80053; 80202; 85025; 85651; 86140

== ENCOUNTER → 2020-12-27 12:17 | Outpatient (CLI) | payer MEDICARE, MEDICAID, SELFPAY ==
[2020-12-27 12:53] LABS: Basophils # 0.1 K/mm3 (0-0.2); Basophils % 0.8 % (0.1-2.0); Eosinophils # 0.3 K/mm3 (0.0-0.4); Eosinophils % 4.6 % (0.1-12.0); Hematocrit 39.2 % (37.0-47.0); Hemoglobin 13.2 g/dL (12.2-16.2); Lymphocytes # 2.3 K/mm3 (0.7-4.5); Lymphocytes % 31.3 % (10-50); Mean Corpuscular HGB Conc 33.6 g/dL (31.8-35.4); Mean Corpuscular Hemoglobin 29.3 pg (27.0-31.2); Mean Corpuscular Volume 87.5 fl (81-99); Mean Platelet Volume 7.5 fl (7.4-10.4); Monocytes # 0.4 K/mm3 (0.1-1.0); Monocytes % 5.3 % (1.7-9.3); Neutrophils # 4.3 K/mm3 (1.8-7.8); Platelet Count 259 K/mm3 (142-424); Red Blood Count 4.48 M/mm3 (4.20-5.40); Red Cell Distribution Width 13.6 % (11.5-17.5); White Blood Count 7.4 K/mm3 (4.8-10.8)
[2020-12-27 13:01] LABS: Alanine Aminotransferase 21 U/L (12-78); Albumin Level 4.1 g/dl (3.5-5.0); Albumin/Globulin Ratio 1.3 (1.1-1.8); Alkaline Phosphatase 98 U/L (38-126); Anion Gap 9.9 mEq/L (5-15); Aspartate Amino Transferase 25 U/L (14-36); Bilirubin,Total 0.4 mg/dl (0.2-1.3); Blood Urea Nitrogen 7 mg/dl (7-17); Calcium 9.8 mg/dl (8.4-10.2); Carbon Dioxide 27 mmol/L (22.0-30.0); Chloride 107 mmol/L (98-107); Estimated Glomerular Filt Rate 101 ml/min (>60); GFR (African American) 123 ML/MIN (>60); Globulin 3.2 g/dL (1.3-3.2); Glucose 156 mg/dl (74-100); Potassium 3.9 mmoL/L (3.5-5.1); Sodium 140 mmol/L (136-145); Total Protein,Serum 7.3 g/dl (6.3-8.2)
[2020-12-27 13:06] LABS: C-Reactive Protein 2.6 mg/L (0-4)
[2020-12-27 13:21] LABS: Vancomycin,Trough < 5.0 ug/mL (5.0-10.0)
[2020-12-27 13:45] LABS: Erythrocyte Sedimentation Rate 28 mm/hr (0-30)
== END ==
PROVIDERS: Visit Provider Family Medicine
DX: M86.171 Other acute osteomyelitis, right ankle and foot (principal); Z51.81 Encounter for therapeutic drug level monitoring; Z79.2 Long term (current) use of antibiotics
CPT/HCPCS: 80053; 80202; 85025; 85651; 86140

== ENCOUNTER → 2021-01-07 15:00 | Outpatient (CLI) | payer MEDICARE, MEDICAID, SELFPAY ==
--- NOTE | 2021-01-07 15:16 | XR_ITS ---
PROCEDURE: XR CHEST 2V CLINICAL HISTORY: SOB Shortness of breath and wheezing, smoker COMPARISON: CT CT CHEST WO CON from 03/19/2020 CR XR CHEST 2V from 08/22/2020 CR XR CHEST PORTABLE from 11/27/2020 CR XR CHEST PORTABLE PICC PLAC from 11/30/2020 FINDINGS: The cardiomediastinal silhouette and pulmonary vascularity are within normal limits. The lungs are clear without infiltrates, suspicious nodules, or pleural effusions. Degenerative changes thoracic spine IMPRESSION: No acute findings. Dictated by: Michele Zimmerman MD 01/07/2021 17:44 Michele Zimmerman MD in [place] 01/07/2021 17:44
[2021-01-07 15:25] LABS: Basophils # 0.1 K/mm3 (0-0.2); Basophils % 0.9 % (0.1-2.0); Eosinophils # 0.3 K/mm3 (0.0-0.4); Hematocrit 36.5 % (37.0-47.0); Hemoglobin 11.9 g/dL (12.2-16.2); Lymphocytes # 2.3 K/mm3 (0.7-4.5); Lymphocytes % 27.6 % (10-50); Mean Corpuscular HGB Conc 32.7 g/dL (31.8-35.4); Mean Corpuscular Hemoglobin 28.8 pg (27.0-31.2); Mean Corpuscular Volume 87.9 fl (81-99); Mean Platelet Volume 7.3 fl (7.4-10.4); Monocytes # 0.4 K/mm3 (0.1-1.0); Monocytes % 5.3 % (1.7-9.3); Neutrophils # 5.1 K/mm3 (1.8-7.8); Neutrophils % 62.1 % (37.0-80.0); Platelet Count 242 K/mm3 (142-424); Red Blood Count 4.16 M/mm3 (4.20-5.40); Red Cell Distribution Width 13.3 % (11.5-17.5); White Blood Count 8.2 K/mm3 (4.8-10.8)
[2021-01-07 16:09] LABS: Alanine Aminotransferase 18 U/L (12-78); Albumin Level 4.1 g/dl (3.5-5.0); Albumin/Globulin Ratio 1.5 (1.1-1.8); Alkaline Phosphatase 80 U/L (38-126); Anion Gap 10.5 mEq/L (5-15); Aspartate Amino Transferase 26 U/L (14-36); Bilirubin,Total 0.3 mg/dl (0.2-1.3); Blood Urea Nitrogen 13 mg/dl (7-17); Calcium 9.3 mg/dl (8.4-10.2); Carbon Dioxide 27 mmol/L (22.0-30.0); Chloride 106 mmol/L (98-107); Estimated Glomerular Filt Rate 85 ml/min (>60); GFR (African American) 103 ML/MIN (>60); Globulin 2.7 g/dL (1.3-3.2); Glucose 98 mg/dl (74-100); Potassium 4.5 mmoL/L (3.5-5.1); Sodium 139 mmol/L (136-145); Total Protein,Serum 6.8 g/dl (6.3-8.2)
[2021-01-07 16:18] LABS: NT Pro Brain Natriuretic Pep. 144 pg/mL (0-125)
== END ==
PROVIDERS: Visit Provider Physician Assistant
DX: R06.02 Shortness of breath (principal)
CPT/HCPCS: 36415; 71046; 80053; 83880; 85025

== ENCOUNTER 2021-01-11 15:21 | Emergency (ER) | payer MEDICARE, MEDICAID, SELFPAY ==
--- NOTE | 2021-01-11 15:23 | HMH.EDGENADL ---
ED Disposition Clinical Impression: Opiate withdrawal Chronic pain Qualifiers: Chronic pain type: other chronic pain Qualified Code(s): G89.29 - Other chronic pain Disposition: Home, Self-Care Condition on Discharge: Good Referrals: Aliyah Arechiga MD [Primary Care Provider] - 3 days Time of Disposition: 17:22 - Critical Care Critical Care Time: No Attestation: On , the high probability of a clinically significant, sudden or life threatening deterioration of the following system(s) required my full and direct attention, intervention and personal management. The time I documented below is in addition to time spent performing reported procedures but includes the following listed in this critical care notation. Medical Decision Making - Medical Records Medical records reviewed: Yes: I reviewed the patient's medical records. - Bryan Inquiry Pt receiving controlled substance: No Vital Signs: 01/11/21 15:31 01/11/21 15:33 01/11/21 16:14 Temperature 98.5 F Temperature Source Oral Pulse Rate 65 Pulse Rate [Right Brachial] 72 Respiratory Rate 16 Blood Pressure 133/71 124/46 L Blood Pressure [Right Arm] 119/42 L Blood Pressure Mean 72 Blood Pressure Mean [Right Arm] 67 Blood Pressure Source [Right Arm] Automatic Cuff 02 Sat by Pulse Oximetry 98 98 97 Oxygen Delivery Method Room Air - Lab Data Lab results reviewed: Yes: I reviewed the patient's lab results. Lab Results 01/11/21 15:57: WBC 9.9, RBC 4.68, Hgb 13.3, Hct 40.7, MCV 86.9, MCH 28.5, MCHC 32.8, RDW 13.8, Plt Count 298, MPV 7.2 L, Neut % (Auto) 67.3, Lymph % (Auto) 23.1, [place] % (Auto) 4.7, Eos % (Auto) 4.1, Baso % (Auto) 0.9, Neut # (Auto) 6.7, Lymph # (Auto) 2.3, [place] # (Auto) 0.5, Eos # (Auto) 0.4, Baso # (Auto) 0.1 01/11/21 15:57: Sodium 137, Potassium 3.8, Chloride 101, Carbon Dioxide 27, Anion Gap 12.8, BUN 18 H, Creatinine 0.80, Estimated Creat Clear 92, Estimated GFR 73, Est GFR ( Amer) 88, Glucose 182 H, Calcium 9.8 01/11/21 15:57: Urine Color Yellow, Urine Appearance Clear, Urine pH 6.0, Ur Specific [place] 1.010, Urine Protein Negative, Urine Glucose (UA) Negative, Urine Ketones Negative, Urine Blood Negative, Urine Nitrate Negative, Urine Bilirubin Negative, Urine Urobilinogen 0.2, Ur Leukocyte Esterase Negative 01/11/21 15:57: Lactate 1.7 Result diagrams: 01/11/21 15:57 01/11/21 15:57 Orders (Tests/Meds): ORDERS Category Date Time Status UA [Urinalysis and Microscopic] Stat Lab 01/11/21 15:57 Results Blood Culture Stat Micro 01/11/21 15:42 Received Medical Decision Narrative: 60yo F evaluated for hernia all over, runny nose, fatigue. Patient is in no acute distress on this evaluation. Her resting heart rate is 65 and she reports excruciating pain in that she needs something to control her pain. Further discussion with the patient reveals that she typically takes chronic pain medication but ran out 3 to 4 days ago. Her symptoms began 3 to 4 days ago. She reports her next prescription is not due until the . Extensive work-up has been initiated given the patient's history. Patient labs are nonactionable. Her lactic acid is negative. Patient's urinalysis shows no sign of infection. Patient does not need any change in her current antibiotic regiment. I believe the patient symptoms are secondary to early opiate withdrawal. Counseled the patient her symptoms would likely worsen before they got better. Informed the patient her chronic opiate prescriptions could not be refilled to the emergency department. Patient is to follow-up with her PCP as directed. General Adult HPI - General Stated complaint: shaking,runny nose,hurts all over Time Seen by Provider: 01/11/21 15:23 - History of Present Illness HPI narrative: 60yo F with complicated past medical history and recently admitted for sepsis and having her right great toe amputated secondary to MRSA presents the emergency department on
[2021-01-11 15:31] VITALS: BP 133/71; PULSE 65; O2SAT 98
[2021-01-11 15:33] VITALS: BP 119/42; PULSE 72; RESP 16; TEMP 36.9; O2SAT 98; BMI 35.5
[2021-01-11 16:11] LABS: Microscopic, Urine URINE MICROSCOPIC (MICROSCOPIC)
[2021-01-11 16:14] VITALS: BP 124/46; O2SAT 97
[2021-01-11 16:20] LABS: Basophils # 0.1 K/mm3 (0-0.2); Basophils % 0.9 % (0.1-2.0); Eosinophils # 0.4 K/mm3 (0.0-0.4); Eosinophils % 4.1 % (0.1-12.0); Hematocrit 40.7 % (37.0-47.0); Hemoglobin 13.3 g/dL (12.2-16.2); Lymphocytes # 2.3 K/mm3 (0.7-4.5); Lymphocytes % 23.1 % (10-50); Mean Corpuscular HGB Conc 32.8 g/dL (31.8-35.4); Mean Corpuscular Hemoglobin 28.5 pg (27.0-31.2); Mean Corpuscular Volume 86.9 fl (81-99); Mean Platelet Volume 7.2 fl (7.4-10.4); Monocytes # 0.5 K/mm3 (0.1-1.0); Monocytes % 4.7 % (1.7-9.3); Neutrophils # 6.7 K/mm3 (1.8-7.8); Neutrophils % 67.3 % (37.0-80.0); Platelet Count 298 K/mm3 (142-424); Red Blood Count 4.68 M/mm3 (4.20-5.40); Red Cell Distribution Width 13.8 % (11.5-17.5); White Blood Count 9.9 K/mm3 (4.8-10.8)
[2021-01-11 16:23] LABS: Chloride 101 mmol/L (98-107); Sodium 137 mmol/L (136-145)
[2021-01-11 16:24] LABS: Potassium 3.8 mmoL/L (3.5-5.1)
[2021-01-11 16:27] LABS: Anion Gap 12.8 mEq/L (5-15); Blood Urea Nitrogen 18 mg/dl (7-17); Calcium 9.8 mg/dl (8.4-10.2); Carbon Dioxide 27 mmol/L (22.0-30.0); Creatinine Clearance Estimated 92 mL/min (50-200); Estimated Glomerular Filt Rate 73 ml/min (>60); GFR (African American) 88 ML/MIN (>60); Glucose 182 mg/dl (74-100)
[2021-01-11 16:36] LABS: Lactic Acid 1.7 mmol/L (0.7-2.1)
[2021-01-11 17:15] LABS: Appearance,Urine CLEAR (Clear); Bilirubin,Urine Negative (Negative); Blood, Urine Negative (Negative); Color,Urine YELLOW (Yellow); Glucose,Urine (UA) Negative (Negative); Ketones,Urine Negative (Negative); Leukocyte Esterase,Urine Negative (Negative); Nitrate,Urine Negative (Negative); Protein,Urine Negative (Negative); Urobilinogen,Urine 0.2 EU/dl (0.2)
[2021-01-11 17:26] LABS: Bacteria,Urine Trace /lpf; RBC,Urine Occasional #/hpf (0-3); Squamous Epithelial Cell,Urine Occasional #/hpf (0-5); WBC,Urine Occasional #/hpf (0-3)
[2021-01-11 17:32] VITALS: BP 132/57; PULSE 70; RESP 20; TEMP 36.9; O2SAT 99
== END 2021-01-11 17:35 | disposition home or self-care (01) ==
PROVIDERS: Emergency Provider Family Medicine; PCP Family Medicine
DX: F11.23 Opioid dependence with withdrawal (principal); G89.29 Other chronic pain; N39.0 Urinary tract infection, site not specified; K21.9 Gastro-esophageal reflux disease without esophagitis; E03.9 Hypothyroidism, unspecified; J44.9 Chronic obstructive pulmonary disease, unspecified; E78.5 Hyperlipidemia, unspecified; I10 Essential (primary) hypertension; F41.8 Other specified anxiety disorders; F17.210 Nicotine dependence, cigarettes, uncomplicated; Z88.2 Allergy status to sulfonamides; Z79.899 Other long term (current) drug therapy; Z89.411 Acquired absence of right great toe
CPT/HCPCS: 80048; 81001; 83605; 85025; 87040; 99283

== ENCOUNTER → 2021-01-23 12:21 | Outpatient (CLI) | payer MEDICARE, MEDICAID, SELFPAY ==
[2021-01-23 13:41] LABS: Adenovirus F 40/41, stool Not Detected (NotDetected); Astrovirus Not Detected (NotDetected); Campylobacter Not Detected (NotDetected); Clostridium Difficile A/B, PCR Not Detected (NotDetected); Cryptosporidium Not Detected (NotDetected); Cyclospora Cayetanesis Not Detected (NotDetected); Entamoeba histolytica Not Detected (NotDetected); Enteroaggregative E coli Not Detected (NotDetected); Enteropathogenic E coli Not Detected (NotDetected); Enterotoxigenic E coli Not Detected (NotDetected); Giardia lamblia Not Detected (NotDetected); Norovirus Not Detected (NotDetected); Plesimonas Shigalloides, PCR Not Detected (NotDetected); Rotavirus A Not Detected (NotDetected); Salmonella, PCR Not Detected (NotDetected); Sapovirus Not Detected (NotDetected); Shiga-like toxin E coli Not Detected (NotDetected); Shigella Enterovasive E coli Not Detected (NotDetected); Vibrio Cholerae Not Detected (NotDetected); Vibrio, PCR Not Detected (NotDetected); Yersinia Entercolitica, PCR Not Detected (NotDetected)
== END ==
PROVIDERS: PCP Family Medicine; Visit Provider Family Medicine
DX: R19.7 Diarrhea, unspecified (principal)
CPT/HCPCS: 87507

== ENCOUNTER → 2021-02-07 14:00 | Outpatient (CLI) | payer MEDICARE, MEDICAID, SELFPAY ==
--- NOTE | 2021-02-07 | CA_ITS ---
APPROVED REPORT Right Lower Extremity Venous Study for DVT. Blood Tester Fowl: JUANITA Indications Lower Extremity Pain: Right Lower Extremity Edema: Right Current Smoker HLD, HTN, DM. Patient had 2nd toe of the RLE amputated on 11/28/20 due to infection and osteomyelitis. Patient states she has pain and edema since then in the RLE. Risk Factors Obesity Post OP Current Smoker Vein Imaging CFV (R): compressive, spontaneous, phasic, augmentation FEM (R): compressive, spontaneous, phasic, augmentation POP (R): compressive, spontaneous, phasic, augmentation PTV (R): Compressible GSV (R): compressive, spontaneous, phasic, augmentation SSV (R): Compressible Peroneals (R):Compressible GAS (R): Compressible Findings No evidence of DVT or superficial thrombophlebitis in the veins scanned of the right lower extremity. Conclusion No evidence of DVT or superficial thrombophlebitis in the veins scanned of the right lower extremity. Electronically signed by : Laura Padilla, 02/07/2021 17:13:27
== END ==
PROVIDERS: PCP Family Medicine; Visit Provider Family Medicine
DX: M79.604 Pain in right leg (principal)
CPT/HCPCS: 93971

== ENCOUNTER 2021-02-24 14:00 | Outpatient (RCR) | payer MEDICARE, MEDICAID, SELFPAY ==
--- NOTE | 2021-02-14 10:31 | HMH.PTOPEV ---
PT Outpatient Evaluation Rehab PT Outpatient Evaluation Start: 02/14/21 10:09 Freq: Status: Active Protocol: Document 02/14/21 10:10 ALPA (Rec: 02/14/21 10:31 ALPA [id number]) Electronically Signed By Martell Mckee PT 02/14/21 10:10 Outpatient Therapy Subjective History Subjective History This is the initial Physical Therapy evalaution for Alejandra Healy. Pt is a 60 y/o female referred to PT for c/o LBP and BLE pain. Pt reports she has had back pain for years but her legs started hurting after she was admitted to the hospital for sepsis and R foot toe amputation. Pt reports she has pain in BLE w / alternating Left and Right. Pt also reports she has weakness and her legs give out on her. Pt reports she has to stand for a minute after transferring to from sitting to standing to make sure her legs don't give out . Chief Complaint Pain,Spasms,Stiff Symptom Type Ache,Throb,Sharp,Dull,Stabbing ,Numbness Symptoms Relieved By Rest/Positioning Symptoms Aggravated By Standing,Physical Activity, Walking Current Functional Limitations Housework,Driving,Sleeping, Standing,Recreation Activity, Walking,Stairs Symptom Description Constant but Variable Level of pain today (0-10) 7 Pain scale - at its best (0-10) 6 Pain scale - at its worst (0-10) 8 Lumbopelvic Eval Posture Thoracic Spine Posture Standing Position Increased Kyphosis Palapation tenderness bilateral lumbar spinal tenderness Yes paraspinal tenderness Yes buttock tenderness Yes Accessory Movement L3 bilateral L4 bilateral L5 bilateral S1 bilateral Range of Motion Lumbar Spine Active Flexion Range of 30 Motion (degrees) Lumbar Spine Active Extension Range of 5 Motion (degrees) Left Lumbar Spine Lateral Flexion Active 15 Range of Motion (degrees) Right Lumbar Spine Lateral Flexion 15 Active Range of Motion (degrees) Lumbar Spine ROM Limitations Pain Special Tests Lumbar Spine
== END 2021-02-24 14:05 | disposition home or self-care (01) ==
LOC: PT 14:00
PROVIDERS: PCP Family Medicine; Visit Provider Family Medicine
DX: S98.131A Complete traumatic amputation of one right lesser toe, initial encounter (principal); M79.604 Pain in right leg; M54.5 Low back pain; Z89.421 Acquired absence of other right toe(s)
CPT/HCPCS: 97014; 97110; 97163; G0283

== ENCOUNTER 2021-02-25 14:04 | Emergency (ER) | payer MEDICARE, MEDICAID, SELFPAY ==
--- NOTE | 2021-02-25 14:09 | HMH.EDGENADL ---
ED Disposition Clinical Impression: Opiate overdose Qualifiers: Encounter type: initial encounter Injury intent: accidental or unintentional Qualified Code(s): T40.601A - Poisoning by unspecified narcotics, accidental (unintentional), initial encounter Disposition: Home, Self-Care Condition on Discharge: Good Additional Instructions: Avoid opiate medications. Follow-up with your PCP on Sunday. Return to emergency department for shortness of breath or confusion. Referrals: Aliyah Arechiga MD [Primary Care Provider] - 03/01/21 Time of Disposition: 19:41 - Critical Care Critical Care Time: No Attestation: On , the high probability of a clinically significant, sudden or life threatening deterioration of the following system(s) required my full and direct attention, intervention and personal management. The time I documented below is in addition to time spent performing reported procedures but includes the following listed in this critical care notation. Medical Decision Making - Medical Records Medical records reviewed: Yes: I reviewed the patient's medical records. - Bryan Inquiry Pt receiving controlled substance: No Vital Signs: 02/25/21 14:13 02/25/21 14:19 02/25/21 14:30 Temperature 98.4 F Temperature Source Oral Pulse Rate 91 H 92 H Pulse Rate [Right Radial] 89 Respiratory Rate 16 12 18 Blood Pressure 109/63 L 114/67 Blood Pressure [Right Arm] 85/46 L Blood Pressure Mean 74 74 Blood Pressure Mean [Right Arm] 59 02 Sat by Pulse Oximetry 86 L 88 L 94 L Oxygen Delivery Method Nasal Cannula 02/25/21 15:00 Temperature Temperature Source Pulse Rate 81 Pulse Rate [Right Radial] Respiratory Rate 16 Blood Pressure 91/57 L Blood Pressure [Right Arm] Blood Pressure Mean 67 Blood Pressure Mean [Right Arm] 02 Sat by Pulse Oximetry 94 L Oxygen Delivery Method - Lab Data Lab results reviewed: Yes: I reviewed the patient's lab results. Lab Results 02/25/21 14:10: WBC 14.0 H, RBC 4.34, Hgb 12.3, Hct 38.6, MCV 89.0, MCH 28.5, MCHC 32.0, RDW 13.1, Plt Count 252, MPV 6.5 L, Neut % (Auto) 91.1 H, Lymph % (Auto) 4.4 L, Taney % (Auto) 3.5, Eos % (Auto) 0.8, Baso % (Auto) 0.3, Neut # (Auto) 12.7 H, Lymph # (Auto) 0.6 L, Taney # (Auto) 0.5, Eos # (Auto) 0.1, Baso # (Auto) 0.0, Total Counted 100, Neutrophils % (Manual) 88 H, Lymphocytes % (Manual) 10, Monocytes % (Manual) 2, Platelet Estimate Normal, RBC Morphology Normal 02/25/21 14:10: Sodium 131 L, Potassium 5.3 H, Chloride 98, Carbon Dioxide 25, Anion Gap 13.3, BUN 31 H, Creatinine 1.40 H, Estimated Creat Clear 39, Estimated GFR 38 L, Est GFR ( Amer) 46 L, Glucose 249 H, Calcium 8.8, Total Bilirubin 0.7, AST 45 H, ALT 32, Alkaline Phosphatase 101, Total Protein 7.5, Albumin 4.4, Globulin 3.1, Albumin/Globulin Ratio 1.4 Result diagrams: 02/25/21 14:10 02/25/21 14:10 Orders (Tests/Meds): ED MEDICATIONS Discontinued Medications Generic Name Dose Route Start Last Admin Trade Name Karthikq PRN Reason Stop Dose Admin Lactated Ringer's 1,000 mls @ 999 mls/hr 02/25/21 16:00 02/25/21 16:01 Lactated Ringer's 1000 Ml Bag IV 02/25/21 17:00 999 mls/hr .Q1H1M CARLITOS Administration Naloxone HCl 2 mg 02/25/21 14:40 02/25/21 14:43 Naloxone 2mg/2ml Syringe IV 02/25/21 14:41 2 mg ONCE ONE Administration Naloxone HCl 2 mg 02/25/21 14:40 02/25/21 14:43 Naloxone 2mg/2ml Syringe IV 02/25/21 14:41 2 mg ONCE ONE Administration Naloxone HCl 4 mg 02/25/21 16:00 02/25/21 16:02 Naloxone 2mg/2ml Syringe IV 02/25/21 16:01 4 mg ONCE ONE Administration ORDERS Category Date Time Status UDS [Drug Screen,Urine] Stat Lab 02/25/21 14:09 Ordered Urinalysis and Microscopic Stat Lab 02/25/21 14:09 Ordered - Radiology Data #1 Image(s): Chest Preliminary Findings: Normal/NAD Medical Decision Narrative: 60yo F presented to the emergency department with concerning signs for opiate overdose. Patient
[2021-02-25 14:13] VITALS: BP 109/63; PULSE 91; RESP 16; O2SAT 86
[2021-02-25 14:19] VITALS: BP 85/46; PULSE 89; RESP 12; TEMP 36.9; O2SAT 88; BMI 41.9
[2021-02-25 14:27] LABS: Basophils % 0.3 % (0.1-2.0); Eosinophils # 0.1 K/mm3 (0.0-0.4); Eosinophils % 0.8 % (0.1-12.0); Hematocrit 38.6 % (37.0-47.0); Hemoglobin 12.3 g/dL (12.2-16.2); Lymphocytes # 0.6 K/mm3 (0.7-4.5); Lymphocytes % 4.4 % (10-50); Mean Corpuscular Hemoglobin 28.5 pg (27.0-31.2); Mean Platelet Volume 6.5 fl (7.4-10.4); Monocytes # 0.5 K/mm3 (0.1-1.0); Monocytes % 3.5 % (1.7-9.3); Neutrophils # 12.7 K/mm3 (1.8-7.8); Neutrophils % 91.1 % (37.0-80.0); Platelet Count 252 K/mm3 (142-424); Red Blood Count 4.34 M/mm3 (4.20-5.40); Red Cell Distribution Width 13.1 % (11.5-17.5)
[2021-02-25 14:30] VITALS: BP 114/67; PULSE 92; RESP 18; O2SAT 94
[2021-02-25 14:30] LABS: MANUAL DIFFERENTIAL MANUAL DIFFERENTIAL (MANUAL DIFF)
[2021-02-25 14:36] LABS: Lymphocytes % 10 % (10-50); Monocytes % 2 % (2-9); Neutrophils % 88 % (42-76); Platelet Estimate Normal; RBC Morphology Normal; Total Cells Counted 100
--- NOTE | 2021-02-25 14:58 | XR_ITS ---
PROCEDURE: XR CHEST PORTABLE CLINICAL HISTORY: elevated wbc COMPARISON: CT CT CHEST WO CON from 03/19/2020 CR XR CHEST PORTABLE from 11/27/2020 CR XR CHEST PORTABLE PICC PLAC from 11/30/2020 CR XR CHEST 2V from 01/07/2021 FINDINGS: This is a slightly poor inspiratory effort resulting in some crowding of vascular markings at the lung bases. There is no definite pneumonic infiltrate. There is mild generalized cardiomegaly however the vascularity is normal is no pleural fluid. There monitor lines overlying the chest. IMPRESSION: Mild generalized cardiomegaly, no acute chest pathology noted Dictated by: Dr. Percy France MD 02/25/2021 15:40 Dr. Percy France MD in [facility] 02/25/2021 15:40
[2021-02-25 15:00] VITALS: BP 91/57; PULSE 81; RESP 16; O2SAT 94
[2021-02-25 15:18] LABS: Alanine Aminotransferase 32 U/L (12-78); Albumin Level 4.4 g/dl (3.5-5.0); Albumin/Globulin Ratio 1.4 (1.1-1.8); Alkaline Phosphatase 101 U/L (38-126); Anion Gap 13.3 mEq/L (5-15); Aspartate Amino Transferase 45 U/L (14-36); Bilirubin,Total 0.7 mg/dl (0.2-1.3); Blood Urea Nitrogen 31 mg/dl (7-17); Calcium 8.8 mg/dl (8.4-10.2); Carbon Dioxide 25 mmol/L (22.0-30.0); Chloride 98 mmol/L (98-107); Creatinine Clearance Estimated 39 mL/min (50-200); Estimated Glomerular Filt Rate 38 ml/min (>60); GFR (African American) 46 ML/MIN (>60); Globulin 3.1 g/dL (1.3-3.2); Glucose 249 mg/dl (74-100); Potassium 5.3 mmoL/L (3.5-5.1); Sodium 131 mmol/L (136-145); Total Protein,Serum 7.5 g/dl (6.3-8.2)
--- NOTE | 2021-02-25 16:21 | PC.NURSE ---
Pt ambulated to the bathroom without assistance. Pt states that she wants to go home. Son at [facility] aware of pt request and states that pt will need to go AMA. PT and son are aware of this and the understanding of what that consist of. Son is calling pt mother to discuss further care.
--- NOTE | 2021-02-25 16:22 | PC.NURSE ---
Pt sitting in the bed eating at this time. Denies any issues. Pt states that her sugar bottomed out and other than that the pt states nothing is wrong with her. Pt and family understand that her glucose was 270 per EMS without any interventions when arrived at the pt house when she was lethargic and was given 8 mg of narcan to reach this present alertness.
[2021-02-25 19:52] VITALS: BP 112/74; PULSE 83; RESP 14; TEMP 36.9; O2SAT 95
== END 2021-02-25 19:55 | disposition home or self-care (01) ==
PROVIDERS: Emergency Provider Family Medicine; PCP Family Medicine
DX: T40.601A Poisoning by unspecified narcotics, accidental (unintentional), initial encounter (principal); R41.82 Altered mental status, unspecified; E11.65 Type 2 diabetes mellitus with hyperglycemia; F41.8 Other specified anxiety disorders; I50.9 Heart failure, unspecified; J44.9 Chronic obstructive pulmonary disease, unspecified; I25.10 Atherosclerotic heart disease of native coronary artery without angina pectoris; K21.9 Gastro-esophageal reflux disease without esophagitis; E78.5 Hyperlipidemia, unspecified; I10 Essential (primary) hypertension; F17.210 Nicotine dependence, cigarettes, uncomplicated; Z88.2 Allergy status to sulfonamides; Z79.899 Other long term (current) drug therapy
CPT/HCPCS: 71045; 80053; 85007; 85025; 96365; 96375; 96376; 99283; J2310

== ENCOUNTER → 2021-04-11 14:29 | Outpatient (CLI) | payer MEDICARE, MEDICAID, SELFPAY ==
--- NOTE | 2021-04-11 | CA_ITS ---
APPROVED REPORT EXAM: Comprehensive 2D, Doppler, and color-flow [employer] [employer] Controls Engineer: Salena Salgado CRT Ht: 5 ft 6 in Wt: 225lbs BSA: 2.10 BP: 124/73 mmHg Indications: Congestive Heart Failure, COPD, Diabetes, Obesity, CAD, Hyperlipidemia, GERD, Smoker 2D Dimensions LVOT 1.96 cm (M/F) 1.5-2.5 LA Volume 49.70 mL LA Volume Index 23.70 mL/m2 (M/F) 16-34 M-Mode Dimensions RVDd 3.19 cm (0.9-2.6) LA Diam 3.61 cm (1.9-4.0) LVDd 4.93 cm (3.5-5.7) Ao Diam 4.09 cm (2.0-3.7) LVDs 3.53 cm (3.5-5.7) IVSd 1.97 cm (0.6-1.1) PWd 0.84 cm (0.6-1.1) EF (Teich) 54.60% FS 28.40% EDV (Teich) 114.40 mL ESV (Teich) 51.90 mL LV Diastology E Decel Time 153.00 (160-240 msec) E/A Ratio 1.22 Aortic Valve LVOT Max 162.00 (70-110 cm/s) LVOT VTI 29.53 cm AoV Peak Jer. 163.00 (50-130 cm/s) AO Peak GR. 10.70 mmHg AO Mean GR. 6.30 (<5 mmHg) AO VTI 29.80 (18-25 cm) BLAIR (VTI) 2.99 (2.5-4.5 cm2) Mitral Valve MV E Max Jer. 96.00 (40-130 cm/s) MV A Velocity 79.00 (40-130 cm/s) E/A Ratio 1.22 MV Decel. Time 153.00 (160-240 ms) MV Mean Gr. 2.90 (<2mmHg) MV PHT 45.00 ms Pulmonary Valve PV Peak Velocity 85.00 (50-150 cm/s) Tricuspid Valve TR P. Velocity 179.00 cm/s RAP Estimate 10.00 mmHg RVSP 22.80 mmHg Left Ventricle Left atrium is mildly enlarged, left ventricle is normal size, mild concentric left ventricular hypertrophy, visually estimated ejection fraction 55% with no regional wall motion abnormality, diastolic parameters are inconclusive. Right Ventricle Right atrium and right ventricle are normal size and contractility. Aortic Valve Aortic valve is thickened and calcified without aortic stenosis or aortic insufficiency, ascending aorta above sinotubular junction is not enlarged measuring 3.8 cm. Mitral Valve Mitral valve grossly normal, there is trace mitral regurgitation. Tricuspid Valve Tricuspid valve grossly normal, there is trace tricuspid regurgitation, tricuspid regurgitation jet velocity is inadequate for calculation of the right ventricular systolic pressure. Pulmonic Valve Pulmonic valve is poorly visualized. Great Vessels Aortic root is normal size. Pericardium No significant pericardial effusion noted. Conclusion 1. Mildly enlarged left atrium, normal left ventricular size, mild concentric left ventricular hypertrophy, visually estimated ejection fraction 55% with no regional wall motion abnormality, diastolic parameters are inconclusive. 2. Mildly enlarged ascending aorta above sinotubular junction measuring 3.8 cm. There is no aortic stenosis or aortic insufficiency. 3. Trace mitral and tricuspid regurgitation. 4. No significant pericardial effusion noted. Electronically signed by : Reagan Luciano, 04/11/2021 23:07:55
== END ==
PROVIDERS: PCP Family Medicine; Visit Provider Family Medicine
DX: R60.0 Localized edema (principal)
CPT/HCPCS: 93306

== ENCOUNTER → 2021-05-13 14:51 | Outpatient (CLI) | payer MEDICARE, MEDICAID, SELFPAY | PROVIDERS: PCP Internal Medicine; Visit Provider Internal Medicine | DX: Z20.822 Contact with and (suspected) exposure to COVID-19 (principal) | CPT/HCPCS: U0003 ==

== ENCOUNTER → 2021-06-03 16:11 | Outpatient (CLI) | payer MEDICARE, MEDICAID, SELFPAY ==
--- NOTE | 2021-06-03 16:13 | MM_ITS ---
PROCEDURE: MM DIG SCREENING MAMM BI W/CAD Digital Breast Tomosynthesis Included CLINICAL INDICATION: SCREENING COMPARISON: MG DIGMAMMS MAMMOGRAM SCREEN-PRINTING SERVICES COORDINATOR N/C from 12/06/1999 MG DIGMAMMS MAMMOGRAM SCREEN-PRINTING SERVICES COORDINATOR N/C from 07/14/2004 MG DMSB DIGITAL MAMM-SCREEN BILATERAL from 04/24/2011 MG DMSB DIGITAL MAMM-SCREEN BILATERAL from 11/29/2012 TECHNIQUE: Standard CC and MLO images and 3D Tomosynthesis was obtained. R2 CAD reviewed. FINDINGS: There are scattered areas of fibroglandular density. No suspicious appearing mass, malignant-appearing microcalcification, architectural distortion, or skin thickening.. There are bilateral benign-appearing calcifications. No change IMPRESSION: Benign findings. No change with no evidence of malignancy. BI-RAD Category: 2 Benign Finding FOLLOW-UP: 1 YR 1 Year Follow-up Technologist notes that the patient reports a palpable nodule in the left axillary region. A marker was placed in this area showing no obvious mammographic abnormality. If there is indeed a palpable nodule then, ultrasound would be recommended for further evaluation. This study was ordered as a screening exam. (A letter has been sent to the patient regarding results of the study.) Dictated by: Michele Zimmerman MD 06/14/2021 16:35 Michele Zimmerman MD in [facility] 06/14/2021 16:35
== END ==
PROVIDERS: PCP Internal Medicine; Visit Provider Internal Medicine
DX: Z12.31 Encounter for screening mammogram for malignant neoplasm of breast (principal)
CPT/HCPCS: 77063; 77067

== ENCOUNTER → 2021-06-10 13:12 | Outpatient (CLI) | payer MEDICARE, MEDICAID, SELFPAY ==
--- NOTE | 2021-06-10 13:23 | XR_ITS ---
PROCEDURE: XR KNEE LT 4V CLINICAL INDICATION: BL knee pain COMPARISON: CR XR KNEE LT 3V from 01/22/2020 CR XR KNEE LT 3V from 05/13/2020 CR XR KNEE LT 4V from 05/20/2020 CR XR KNEE LT 3V from 08/22/2020 FINDINGS: Mild osteoarthritic change of the medial compartment and patellofemoral joint. No fracture or dislocation. No lytic or blastic change. Other findings:None. IMPRESSION: Mild osteoarthritic change not significantly changed Dictated by: Michele Zimmerman MD 06/10/2021 16:30 Michele Zimmerman MD in [facility] 06/10/2021 16:30
--- NOTE | 2021-06-10 13:23 | XR_ITS ---
PROCEDURE: XR HIP RT 2-3V W/PELVIS CR XR HIP LT 2-3V W/PELVIS CLINICAL INDICATION: BL hip pain COMPARISON: CR XR PELVIS 1-2V from 05/13/2020 CR XR HIP LT 2-3V W/PELVIS from 06/10/2021 FINDINGS: There are mild bilateral osteoarthritic changes of the hips. Bony hypertrophy is present at the greater trochanter on both sides with heterotopic ossification along the lateral aspect of the greater trochanter on the right and superior aspect of the left greater trochanter. No lytic or blastic change apparent. Surgical clips are present in the lower pelvic region. Bony hypertrophy also noted involving the iliac crest laterally on both sides. IMPRESSION: Mild osteoarthritis of both hips as described above Dictated by: Michele Zimmerman MD 06/10/2021 16:28 Michele Zimmerman MD in [facility] 06/10/2021 16:28
--- NOTE | 2021-06-10 13:23 | XR_ITS ---
This report is currently processing and HAS NOT BEEN OFFICIALLY SIGNED BY THE PHYSICIAN - ESTIMATED TIME OF APPROVAL IS 06/10/2021 16:31. PROCEDURE: XR HIP RT 2-3V W/PELVIS CR XR HIP LT 2-3V W/PELVIS CLINICAL INDICATION: BL hip pain COMPARISON: CR XR PELVIS 1-2V from 05/13/2020 CR XR HIP LT 2-3V W/PELVIS from 06/10/2021 FINDINGS: There are mild bilateral osteoarthritic changes of the hips. Bony hypertrophy is present at the greater trochanter on both sides with heterotopic ossification along the lateral aspect of the greater trochanter on the right and superior aspect of the left greater trochanter. No lytic or blastic change apparent. Surgical clips are present in the lower pelvic region. Bony hypertrophy also noted involving the iliac crest laterally on both sides. IMPRESSION: Mild osteoarthritis of both hips as described above Dictated by: Michele Zimmerman MD 06/10/2021 16:28 in [facility]
--- NOTE | 2021-06-10 13:23 | XR_ITS ---
PROCEDURE: XR KNEE RT 4V CLINICAL INDICATION: BL knee pain COMPARISON: CR XR KNEE LT 3V from 01/22/2020 CR XR KNEE LT 3V from 05/13/2020 CR XR KNEE LT 4V from 05/20/2020 CR XR KNEE LT 3V from 08/22/2020 FINDINGS: No fracture or dislocation. No lytic or blastic change. There is normal mineralization. Mild osteoarthritic changes of the medial compartment and patellofemoral joint. Other findings:None. IMPRESSION: Mild osteoarthritis Dictated by: Michele Zimmerman MD 06/10/2021 16:29 Michele Zimmerman MD in [facility] 06/10/2021 16:29
== END ==
PROVIDERS: PCP Internal Medicine; Visit Provider Orthopaedic Surgery
DX: M25.561 Pain in right knee (principal); M25.562 Pain in left knee; M25.551 Pain in right hip; M25.552 Pain in left hip
CPT/HCPCS: 73502; 73564

== ENCOUNTER → 2021-06-28 11:13 | Outpatient (CLI) | payer MEDICARE, MEDICAID, SELFPAY | PROVIDERS: Visit Provider Ophthalmology | DX: Z01.812 Encounter for preprocedural laboratory examination (principal); Z11.52 Encounter for screening for COVID-19 | CPT/HCPCS: C9803; U0003; U0005 ==

== ENCOUNTER 2021-07-30 11:13 | Emergency (ER) | payer MEDICARE, MEDICAID, SELFPAY ==
[2021-07-30 11:14] VITALS: BP 147/88; PULSE 106; RESP 16; TEMP 36.9; O2SAT 96; BMI 37.1
[2021-07-30 11:30] VITALS: BP 142/86; PULSE 112; RESP 26; TEMP 36.6; O2SAT 97; BMI 37.1
--- NOTE | 2021-07-30 11:52 | PC.NURSE ---
PATIENT SENT TO ER PER Gerardo GREENE APRN FOR FURTHER EVALUATION. DURING ASSESSMENT PATIENT C/O CHEST PAIN THAT RADIATES INTO HER JAW. REPORT GIVEN TO Katy MA RN
--- NOTE | 2021-07-30 12:00 | ECG_ITS ---
APPROVED REPORT Exam: Resting ECG HR:104 bpm ECG Measurements Heart Rate 104 AXES WY 210 P 10 QRSd 90 QRS -12 QT 336 T 61 QTc 441 Conclusion Sinus tachycardia with 1st degree AV block Moderate voltage criteria for LVH, may be normal variant Borderline ECG Electronically signed by : Saravanan Katz MD 07/31/2021 09:03:23
--- NOTE | 2021-07-30 12:15 | XR_ITS ---
PROCEDURE INFORMATION: Exam: XR Chest Exam date and time: 07/30/2021 12:15 PM Age: 60 years old Clinical indication: Chest wall pain; Additional info: Chest pain TECHNIQUE: Imaging protocol: XR of the chest. Views: 1 view. COMPARISON: CR XR CHEST PORTABLE 02/25/2021 3:02 PM FINDINGS: Lungs: Unremarkable. No consolidation. Pleural spaces: Unremarkable. No pleural effusion. No pneumothorax. Heart/Mediastinum: Unremarkable. No cardiomegaly. Bones/joints: Unremarkable. IMPRESSION: No acute findings.
[2021-07-30 12:38] LABS: Coronavirus 19, PCR Not Detected (NotDetected); Influenza A, PCR Not Detected (NotDetected); Influenza B, PCR Not Detected (NotDetected)
[2021-07-30 12:42] LABS: Basophils # 0.1 K/mm3 (0-0.2); Basophils % 0.9 % (0.1-2.0); Eosinophils # 0.1 K/mm3 (0.0-0.4); Eosinophils % 1.5 % (0.1-12.0); Hematocrit 44.9 % (37.0-47.0); Hemoglobin 14.3 g/dL (12.2-16.2); Lymphocytes # 2.9 K/mm3 (0.7-4.5); Lymphocytes % 31.1 % (10-50); Mean Corpuscular HGB Conc 31.9 g/dL (31.8-35.4); Mean Corpuscular Hemoglobin 29.7 pg (27.0-31.2); Mean Platelet Volume 8.3 fl (7.4-10.4); Monocytes # 0.5 K/mm3 (0.1-1.0); Monocytes % 5.4 % (1.7-9.3); Neutrophils # 5.7 K/mm3 (1.8-7.8); Platelet Count 314 K/mm3 (142-424); Red Blood Count 4.82 M/mm3 (4.20-5.40); Red Cell Distribution Width 14.1 % (11.5-17.5); White Blood Count 9.4 K/mm3 (4.8-10.8)
[2021-07-30 12:45] VITALS: BP 140/85; PULSE 73; O2SAT 96
[2021-07-30 12:49] LABS: Chloride 103 mmol/L (98-107); Potassium 3.3 mmoL/L (3.5-5.1); Sodium 138 mmol/L (136-145)
[2021-07-30 12:52] LABS: Anion Gap 13.3 mEq/L (5-15); Blood Urea Nitrogen 16 mg/dl (7-17); Carbon Dioxide 25 mmol/L (22.0-30.0); Creatinine Clearance Estimated 96 mL/min (50-200); Estimated Glomerular Filt Rate 85 ml/min (>60); GFR (African American) 103 ML/MIN (>60)
[2021-07-30 12:53] LABS: Calcium 9.1 mg/dl (8.4-10.2); Glucose 267 mg/dl (74-100)
[2021-07-30 13:00] VITALS: BP 133/80; PULSE 81; O2SAT 97
[2021-07-30 13:07] LABS: Troponin I < 0.01 ng/ml (0.00-0.034)
--- NOTE | 2021-07-30 13:21 | HMH.EDGENADL ---
ED Disposition Clinical Impression: URI (upper respiratory infection) Qualifiers: URI type: unspecified viral URI Qualified Code(s): J06.9 - Acute upper respiratory infection, unspecified Disposition: Home, Self-Care Condition on Discharge: Good Additional Instructions: You were evaluated in the emergency department today for cough, congestion and there is no need for further emergent evaluation at this time. Rapid Covid test is negative. Most likely cause of symptoms viral respiratory infection. Use ibuprofen and acetaminophen as needed for symptomatic management, home albuterol MDI as needed, follow-up with PCP in next 3 to 5 days for monitoring of any persistent symptoms and coordination of ongoing care needs, and return to the emergency department without hesitation with any new or worsening symptoms. Referrals: Jesus Ott [Primary Care Provider] - - Critical Care Critical Care Time: No Attestation: On 07/30/21, the high probability of a clinically significant, sudden or life threatening deterioration of the following system(s) required my full and direct attention, intervention and personal management. The time I documented below is in addition to time spent performing reported procedures but includes the following listed in this critical care notation. Medical Decision Making - Bryan Inquiry Pt receiving controlled substance: No Vital Signs: 07/30/21 11:14 07/30/21 11:30 07/30/21 12:45 Temperature 98.4 F 97.9 F Temperature Source Oral Oral Pulse Rate 73 Pulse Rate [Right Brachial] 106 H 112 H Respiratory Rate 16 26 H Blood Pressure 140/85 Blood Pressure [Right Arm] 147/88 H 142/86 H Blood Pressure Mean [Right Arm] 107 104 Blood Pressure Source [Right Arm] Automatic Cuff Automatic Cuff Blood Pressure Position [Right Arm] Sitting Sitting 02 Sat by Pulse Oximetry 96 97 96 Oxygen Delivery Method Room Air Room Air 07/30/21 13:00 Temperature Temperature Source Pulse Rate 81 Pulse Rate [Right Brachial] Respiratory Rate Blood Pressure 133/80 Blood Pressure [Right Arm] Blood Pressure Mean [Right Arm] Blood Pressure Source [Right Arm] Blood Pressure Position [Right Arm] 02 Sat by Pulse Oximetry 97 Oxygen Delivery Method - Lab Data Lab Results 07/30/21 12:08: WBC 9.4, RBC 4.82, Hgb 14.3, Hct 44.9, MCV 93.0, MCH 29.7, MCHC 31.9, RDW 14.1, Plt Count 314, MPV 8.3, Neut % (Auto) 61.0, Lymph % (Auto) 31.1, Anson % (Auto) 5.4, Eos % (Auto) 1.5, Baso % (Auto) 0.9, Neut # (Auto) 5.7, Lymph # (Auto) 2.9, Anson # (Auto) 0.5, Eos # (Auto) 0.1, Baso # (Auto) 0.1 07/30/21 12:08: Sodium 138, Potassium 3.3 L, Chloride 103, Carbon Dioxide 25, Anion Gap 13.3, BUN 16, Creatinine 0.70, Estimated Creat Clear 96, Estimated GFR 85, Est GFR ( Amer) 103, Glucose 267 H, Calcium 9.1, Troponin I < 0.01 07/30/21 12:08: SARS-CoV-2 (PCR) Not detected, Influenza A Untype (PCR) Not detected, Influenza Type B (PCR) Not detected Result diagrams: 07/30/21 12:08 07/30/21 12:08 Orders (Tests/Meds): ORDERS Category Date Time Status Troponin I Q3H Lab 07/30/21 15:30 Ordered Troponin I Q3H Lab 07/30/21 18:30 Ordered Medical Decision Narrative: In summary, the patient is a 60-year-old comorbid female presenting for evaluation of 4 days of mild dry cough, difficulty breathing, nasal congestion. She is in no acute distress, afebrile and hemodynamically stable, nontoxic in appearance. Physical exam demonstrates comfortable appearing female normal cardiopulmonary exam, soft nontender abdomen, normal neurologic exam, mild nasal congestion, normal extremity exam. Differential diagnosis includes but not limited to viral respiratory infection including COVID-19, pneumonia, allergic rhinitis. Will obtain basic laboratory analysis, chest x-ray, and survey rodman acetaminophen and reassess clinically. Reassessment: Patient continues to be in no acute distress and hemodynamically stable. Vital signs continue
[2021-07-30 13:27] VITALS: BP 133/80; PULSE 75; RESP 18; TEMP 36.6; O2SAT 97
== END 2021-07-30 13:34 | disposition home or self-care (01) ==
LOC: UTC 11:26 → ER 11:51
PROVIDERS: Emergency Provider Student in an Organized Health Care Education/Training Program; PCP Internal Medicine
DX: J06.9 Acute upper respiratory infection, unspecified (principal); Z20.822 Contact with and (suspected) exposure to COVID-19; J44.9 Chronic obstructive pulmonary disease, unspecified; I10 Essential (primary) hypertension; F17.210 Nicotine dependence, cigarettes, uncomplicated; Z88.2 Allergy status to sulfonamides
CPT/HCPCS: 71045; 80048; 84484; 85025; 93005; 99283; C9803; U0003; U0005

== ENCOUNTER → 2021-08-08 10:37 | Outpatient (CLI) | payer MEDICARE, MEDICAID, SELFPAY ==
--- NOTE | 2021-08-08 10:45 | XR_ITS ---
PROCEDURE: XR CHEST 2V CLINICAL HISTORY: COUGH,COPD, COMPARISON: CT CT CHEST WO CON from 03/19/2020 CR XR CHEST 2V from 01/07/2021 CR XR CHEST PORTABLE from 02/25/2021 CR XR CHEST PORTABLE from 07/30/2021 FINDINGS: The cardiomediastinal silhouette and pulmonary vascularity are within normal limits. The lungs are clear without infiltrates, suspicious nodules, or pleural effusions. Mild thoracic scoliosis convex right with mild degenerative changes in the thoracic spine. IMPRESSION: No acute findings. Dictated by: Michele Zimmerman MD 08/08/2021 12:13 Michele Zimmerman MD in [facility] 08/08/2021 12:13
== END ==
PROVIDERS: PCP Internal Medicine; Visit Provider Internal Medicine
DX: J44.1 Chronic obstructive pulmonary disease with (acute) exacerbation (principal); R05.1 Acute cough
CPT/HCPCS: 71046

== ENCOUNTER 2021-08-16 11:27 | Emergency (ER) | payer MEDICARE, MEDICAID, SELFPAY ==
[2021-08-16 11:28] VITALS: BP 129/58; PULSE 89; RESP 20; TEMP 36.6; O2SAT 97; BMI 37.1
--- NOTE | 2021-08-16 11:52 | XR_ITS ---
PROCEDURE: XR CHEST PORTABLE CLINICAL HISTORY: SOA, cough, weakness COMPARISON: CT CT CHEST WO CON from 03/19/2020 CR XR CHEST PORTABLE from 02/25/2021 CR XR CHEST PORTABLE from 07/30/2021 CR XR CHEST 2V from 08/08/2021 FINDINGS: The cardiomediastinal silhouette and pulmonary vascularity are within normal limits. The lungs are clear without infiltrates, suspicious nodules, or pleural effusions. Mild thoracic scoliosis convex right IMPRESSION: No acute findings. Dictated by: Michele Zimmerman MD 08/16/2021 12:25 Michele Zimmerman MD in [facility] 08/16/2021 12:25
[2021-08-16 12:00] LABS: Coronavirus 19, PCR Not Detected (NotDetected); Influenza A, PCR Not Detected (NotDetected); Influenza B, PCR Not Detected (NotDetected)
[2021-08-16 12:06] LABS: Microscopic, Urine URINE MICROSCOPIC (MICROSCOPIC)
[2021-08-16 12:09] LABS: Appearance,Urine CLEAR (Clear); Basophils # 0.1 K/mm3 (0-0.2); Basophils % 0.5 % (0.1-2.0); Bilirubin,Urine Negative (Negative); Blood, Urine Negative (Negative); Color,Urine YELLOW (Yellow); Eosinophils # 0.1 K/mm3 (0.0-0.4); Eosinophils % 0.6 % (0.1-12.0); Glucose,Urine (UA) 3+ (Negative); Hematocrit 41.7 % (37.0-47.0); Hemoglobin 13.5 g/dL (12.2-16.2); Ketones,Urine Negative (Negative); Leukocyte Esterase,Urine Negative (Negative); Lymphocytes # 3.1 K/mm3 (0.7-4.5); Lymphocytes % 25.3 % (10-50); Mean Corpuscular HGB Conc 32.3 g/dL (31.8-35.4); Mean Corpuscular Hemoglobin 29.9 pg (27.0-31.2); Mean Corpuscular Volume 92.5 fl (81-99); Mean Platelet Volume 8.5 fl (7.4-10.4); Monocytes # 0.5 K/mm3 (0.1-1.0); Monocytes % 4.2 % (1.7-9.3); Neutrophils # 8.4 K/mm3 (1.8-7.8); Neutrophils % 69.5 % (37.0-80.0); Nitrate,Urine Negative (Negative); Platelet Count 363 K/mm3 (142-424); Protein,Urine Negative (Negative); Red Cell Distribution Width 13.7 % (11.5-17.5); Specific Gravity, Urine <= 1.005 (1.005-1.030); Urobilinogen,Urine 0.2 EU/dl (0.2); White Blood Count 12.1 K/mm3 (4.8-10.8)
[2021-08-16 12:18] LABS: Alanine Aminotransferase 24 U/L (12-78); Albumin Level 3.8 g/dl (3.5-5.0); Albumin/Globulin Ratio 1.3 (1.1-1.8); Alkaline Phosphatase 138 U/L (38-126); Anion Gap 12.1 mEq/L (5-15); Aspartate Amino Transferase 23 U/L (14-36); Bilirubin,Total 0.4 mg/dl (0.2-1.3); Blood Urea Nitrogen 23 mg/dl (7-17); Carbon Dioxide 23 mmol/L (22.0-30.0); Chloride 103 mmol/L (98-107); Creatinine Clearance Estimated 96 mL/min (50-200); Estimated Glomerular Filt Rate 101 ml/min (>60); GFR (African American) 123 ML/MIN (>60); Globulin 2.9 g/dL (1.3-3.2); Potassium 4.1 mmoL/L (3.5-5.1); Sodium 134 mmol/L (136-145); Total Protein,Serum 6.7 g/dl (6.3-8.2)
[2021-08-16 12:21] LABS: Lactic Acid 2.8 mmol/L (0.7-2.1)
[2021-08-16 12:22] LABS: Glucose 479 mg/dl (74-100)
--- NOTE | 2021-08-16 12:25 | HMH.EDGENADL ---
ED Disposition Clinical Impression: Hyperglycemia Upper respiratory infection Qualifiers: URI type: unspecified URI Qualified Code(s): J06.9 - Acute upper respiratory infection, unspecified Diarrhea Qualifiers: Diarrhea type: unspecified type Qualified Code(s): R19.7 - Diarrhea, unspecified Chronic back pain Qualifiers: Back pain location: low back pain Back pain laterality: unspecified Sciatica presence: with sciatica Sciatica laterality: bilateral sciatica Qualified Code(s): M54.41 - Lumbago with sciatica, right side; M54.42 - Lumbago with sciatica, left side; G89.29 - Other chronic pain Disposition: Home, Self-Care Condition on Discharge: Good Instructions: DI for Chronic Pain -- Adult, DI for Diarrhea and Traveler's Diarrhea -- Adult, DI for Viral Upper Respiratory Infection -- Adult, DI for Hyperglycemia -- Adult Additional Instructions: Call your primary care doctor today or tomorrow to schedule follow-up in his office, earliest available appointment. Return to the emergency department if symptoms worsen. Referrals: Jesus Ott [Primary Care Provider] - - Critical Care Critical Care Time: No Attestation: On 08/16/21, the high probability of a clinically significant, sudden or life threatening deterioration of the following system(s) required my full and direct attention, intervention and personal management. The time I documented below is in addition to time spent performing reported procedures but includes the following listed in this critical care notation. Medical Decision Making - Bryan Inquiry Pt receiving controlled substance: No Vital Signs: 08/16/21 11:28 Temperature 97.9 F Temperature Source Oral Pulse Rate [Right Radial] 89 Respiratory Rate 20 Blood Pressure [Right Arm] 129/58 L Blood Pressure Mean [Right Arm] 81 Blood Pressure Source [Right Arm] Automatic Cuff Blood Pressure Position [Right Arm] Sitting 02 Sat by Pulse Oximetry 97 Oxygen Delivery Method Room Air - Lab Data Lab Results 08/16/21 11:37: SARS-CoV-2 (PCR) Not detected, Influenza A Untype (PCR) Not detected, Influenza Type B (PCR) Not detected 08/16/21 12:00: WBC 12.1 H, RBC 4.50, Hgb 13.5, Hct 41.7, MCV 92.5, MCH 29.9, MCHC 32.3, RDW 13.7, Plt Count 363, MPV 8.5, Neut % (Auto) 69.5, Lymph % (Auto) 25.3, [place] % (Auto) 4.2, Eos % (Auto) 0.6, Baso % (Auto) 0.5, Neut # (Auto) 8.4 H, Lymph # (Auto) 3.1, [place] # (Auto) 0.5, Eos # (Auto) 0.1, Baso # (Auto) 0.1 08/16/21 12:00: Sodium 134 L, Potassium 4.1, Chloride 103, Carbon Dioxide 23, Anion Gap 12.1, BUN 23 H, Creatinine 0.60, Estimated Creat Clear 96, Estimated GFR 101, Est GFR ( Amer) 123, Glucose 479 H*, Calcium 9.0, Total Bilirubin 0.4, AST 23, ALT 24, Alkaline Phosphatase 138 H, Total Protein 6.7, Albumin 3.8, Globulin 2.9, Albumin/Globulin Ratio 1.3 08/16/21 12:00: Lactate 2.8 H 08/16/21 12:00: Urine Color Yellow, Urine Appearance Clear, Urine pH 6.0, Ur Specific [place] <= 1.005, Urine Protein Negative, Urine Glucose (UA) 3+, Urine Ketones Negative, Urine Blood Negative, Urine Nitrate Negative, Urine Bilirubin Negative, Urine Urobilinogen 0.2, Ur Leukocyte Esterase Negative, Ur Squamous Epith Cells 3-5 08/16/21 12:00: Troponin I < 0.01 08/16/21 12:38: VBG pH 7.32, VBG pCO2 41.4, VBG pO2 72.3 H, VBG HCO3 20.9 L, VBG Total CO2 22.1 L, VBG O2 Saturation 94.5 H, VBG Base Excess -5.2 L 08/16/21 14:11: POC Glucose 207 H Result diagrams: 08/16/21 12:00 08/16/21 12:00 Orders (Tests/Meds): ED MEDICATIONS Discontinued Medications Generic Name Dose Route Start Last Admin Trade Name Freq PRN Reason Stop Dose Admin Insulin Human Regular 10 unit 08/16/21 12:38 08/16/21 12:54 Insulin Human Regular 100 Units/Ml 10ml Vial IVP 08/16/21 12:39 10 unit ONCE ONE Administration ORDERS Category Date Time Status Acetone, Serum (Rapid) Stat Lab 08/16/21 12:00 Ordered Troponin I Q3H Lab 08/16/21 15:45 Ordered Troponin I Q3H Lab 08/16/21 18:45 Ordered
--- NOTE | 2021-08-16 12:43 | ECG_ITS ---
APPROVED REPORT Exam: Resting ECG HR:86 bpm ECG Measurements Heart Rate 86 AXES UT 174 P 37 QRSd 90 QRS -16 QT 374 T 51 QTc 447 Conclusion Normal sinus rhythm Voltage criteria for left ventricular hypertrophy Abnormal ECG Electronically signed by : Saravanan Katz MD 08/16/2021 22:08:06
[2021-08-16 12:48] LABS: VBG Base Excess -5.2 mmol/L (-2.4-2.3); VBG HCO3 20.9 mmol/L (23-30); VBG Oxygen Saturation 94.5 % (50-70); VBG PCO2 41.4 mmol/L (35-51); VBG PH 7.32 mmol/L (7.31-7.41); VBG PO2 72.3 mmol/L (28-40); VBG Total CO2 22.1 mmol/L (23-27)
[2021-08-16 13:08] LABS: Troponin I < 0.01 ng/ml (0.00-0.034)
[2021-08-16 14:13] VITALS: BP 105/51; PULSE 84; RESP 20; O2SAT 96
[2021-08-16 14:19] LABS: POC Glucose,Bedside 207 (70-110)
[2021-08-16 14:30] VITALS: BP 122/53; PULSE 83; RESP 20; O2SAT 96
[2021-08-16 14:40] VITALS: BP 122/53; PULSE 87; RESP 20; TEMP 36.6; O2SAT 99
[2021-08-16 16:07] LABS: Reflex Lactic Add Lactic Reflex
== END 2021-08-16 14:40 | disposition home or self-care (01) ==
PROVIDERS: Emergency Provider Emergency Medicine; PCP Internal Medicine
DX: J06.9 Acute upper respiratory infection, unspecified (principal); J44.9 Chronic obstructive pulmonary disease, unspecified; G89.29 Other chronic pain; M54.42 Lumbago with sciatica, left side; F17.210 Nicotine dependence, cigarettes, uncomplicated; E03.9 Hypothyroidism, unspecified; I25.10 Atherosclerotic heart disease of native coronary artery without angina pectoris; F41.8 Other specified anxiety disorders; Z20.822 Contact with and (suspected) exposure to COVID-19; Z88.2 Allergy status to sulfonamides
CPT/HCPCS: 71045; 80053; 81001; 82803; 82962; 83605; 84484; 85025; 87040; 93005; 96374; 99284; C9803; U0003; U0005

== ENCOUNTER 2021-08-23 09:00 | Outpatient (RCR) | payer MEDICARE, MEDICAID, SELFPAY ==
--- NOTE | 2021-08-10 15:18 | HMH.PTOPEV ---
PT Outpatient Evaluation Rehab PT Outpatient Evaluation Start: 08/10/21 15:07 Freq: Status: Active Protocol: Document 08/10/21 15:07 TACOS (Rec: 08/10/21 15:18 TACOS [id number]) Electronically Signed By Ashwin Ann, PT 08/10/21 15:07 Outpatient Therapy Subjective History Subjective History Pt reports h/o chronic left knee pain since falling on it in 2019, and right knee pain for ~10-11 months d/t compensation from gait changes . Pt reports severe LBP as well, and N&T from bilateral knees to feet. Pt reports anterior bilateral knee pain this pm, with referred pain into medial and lateral jt lines. PMH: bilateral knee OA Chief Complaint Pain,Stiff,Swelling, Paresthesia,Weakness Symptom Type Ache,Dull,Numbness,Tingling Symptoms Relieved By Rest/Positioning Symptoms Aggravated By Standing,Physical Activity, Walking Prior Functional Limitations Housework,Standing,Walking, Stairs Current Functional Limitations Housework,Standing,Walking, Stairs Symptom Description Constant but Variable Level of pain today (0-10) 8 Pain scale - at its best (0-10) 8 Pain scale - at its worst (0-10) 10 Hip/Knee Eval Gait Observation General Gait Pattern Observation Antalgic Gait,Ataxic Gait, Shuffling Step Assistive Device Assistive Devices Straight Cane Palpation Tenderness bilateral Knee Palpation Finding Tenderness Knee Palpation Overall Comment 3/4 anterior/medial/lateral jt lines MMT Hip Flexion Strength Grade 3+ Fair+ Hip Abduction Strength Grade 3- Fair- Hip Adduction Strength Grade 3- Fair- Hip Extension Strength Grade 3- Fair- Hip External Rotation Strength Grade 3+ Fair+ Hip Internal Rotation Strength Grade 3+ Fair+ Knee Extension Strength Grade 4- Good- Knee Flexion Strength Grade 4- Good- ROM left Knee Flexion Active Range of Motion ( 0-90 degrees) right Knee Flexion Active Range of Motion ( 0-78 degrees) Knee ROM Limitations Pain Effusion joint effusion knee exam standard right Mid - Patellar Circumerential Measure ( 45 cm) Special Tests Knee Valgus Stress Test Negative Left,Negative Right Knee Varus Stress Test Negative Le
== END 2021-08-23 09:05 | disposition home or self-care (01) ==
LOC: PT 09:00
PROVIDERS: PCP Internal Medicine; Visit Provider Orthopaedic Surgery
DX: M17.0 Bilateral primary osteoarthritis of knee (principal)
CPT/HCPCS: 97014; 97033; 97110; 97163; G0283

== ENCOUNTER → 2021-09-13 11:04 | Outpatient (POV) | payer MEDICARE, MEDICAID, SELFPAY ==
[2021-09-13 11:31] VITALS: BP 153/62; PULSE 89; RESP 18; O2SAT 95; BMI 38.7
--- NOTE | 2021-09-13 11:44 | HMH.PMCON ---
Assessment and Plan (1) Degenerative disc disease, lumbar Status: Acute Category: Medical Code(s): M51.36 - Other intervertebral disc degeneration, lumbar region (2) Myofascial pain syndrome, cervical Status: Acute Category: Medical Code(s): M79.18 - Myalgia, other site (3) Facet arthropathy Status: Acute Category: Medical Code(s): M47.819 - Spondylosis without myelopathy or radiculopathy, site unspecified (4) Spondylosis Status: Acute Category: Medical Code(s): M47.9 - Spondylosis, unspecified - Assessment and plan all Dx Assessment and Plan for all problems:: PROCEDURE: CT LUMBAR SPINE W CON CLINICAL HISTORY: lower back pain Low back pain and right-sided back pain. COMPARISON: CT CT LUMBAR SPINE WO CON from 08/22/2020 TECHNIQUE: Axial images obtained with sagittal and coronal reformats. All CT scans at the facility use one or more dose reduction, viz: automated exposure control, ma/kV adjustment per patient size (including targeted exams where dose is matched to indication, i.e. head), or iterative reconstruction technique. FINDINGS: There is normal alignment. There is mild lumbar scoliosis convex left. There is generalized osteopenia. T11-T12: Anterior osteophyte on the left with degenerative disc disease and canal stenosis. T12-L1: Mild chronic wedge compression changes are present at L1 with loss of height anteriorly of approximately 25 percent similar to the previous exam. L1-L2: Degenerative disc disease with facet and ligamentum hypertrophy with bilateral foraminal narrowing right greater than left. L2-L3: Unremarkable. L3-L4: Degenerative disc disease with facet and ligamentum hypertrophy with bulging disc and bilateral foraminal narrowing L4-5: Degenerative disc disease with bulging disc with moderate facet and ligamentum hypertrophy with canal stenosis, bilateral lateral recess narrowing and bilateral foraminal narrowing. L5-S1: Degenerative disc disease with bulging disc and broad-based central and left paracentral disc protrusion with canal stenosis lateral recess narrowing and bilateral foraminal narrowing. The foraminal narrowing and lateral recess narrowing is severe on the left and moderate to severe on the right. Facet hypertrophic changes are greater on the left with subchondral cystic changes of the facets on the left. Intravenous contrast was given for the CT scan performed for this exam with opacification in both renal collecting systems and urinary bladder. There is moderate to severe cortical scarring of the right kidney. There is some subcutaneous edema in the posterior lumbar area. IMPRESSION: Multilevel lumbar spondylosis with degenerative disc disease, bulging disc, facet and ligamentum hypertrophy resulting in lateral recess and foraminal narrowing and canal stenosis. Broad-based central left paracentral disc protrusion at L5-S1. Consider MRI for further evaluation to determine the degree of neural impingement. No acute fracture. There is chronic wedge compression changes at L1. PLEASE SEE ABOVE FOR DETAILED DESCRIPTION AT EACH LEVEL. Dictated by: Michele Zimmerman MD 12/06/2020 05:42 Michele Zimmerman MD in [place] 12/06/2020 05:42 Patient has tried and failed conservative therapies such as oral medication, physical therapy, and at home exercise program 6 weeks in the past. Per the recent lumbar imaging, patient has multiple level facet arthropathy, degenerative disc disease, and spondylosis. Based on the patient's symptoms, we will schedule the patient for a lumbar epidural steroid injection. Patient has diabetes and needs to have her sugar monitored during the procedure. Patient is currently not on any blood thinners. Risks and benefits of the procedure have been explained to the patient. Patient would like to proceed with the procedure. If patient get minimal relief from this procedure, patient did have a positive Kemps t
== END ==
PROVIDERS: Visit Provider Clinical Nurse Specialist Family Health
DX: M51.36 Other intervertebral disc degeneration, lumbar region (principal); M79.18 Myalgia, other site; M47.819 Spondylosis without myelopathy or radiculopathy, site unspecified; M47.9 Spondylosis, unspecified
CPT/HCPCS: 99202; G0463

== ENCOUNTER 2021-09-14 13:08 | Emergency (ER) | payer MEDICARE, MEDICAID, SELFPAY ==
[2021-09-14 13:10] VITALS: BP 153/94; PULSE 84; RESP 16; TEMP 36.8; O2SAT 98; BMI 38.7
--- NOTE | 2021-09-14 13:29 | ECG_ITS ---
APPROVED REPORT Exam: Resting ECG HR:96 bpm ECG Measurements Heart Rate 96 AXES MD 198 P 10 QRSd 84 QRS -13 QT 346 T 55 QTc 437 Conclusion Normal sinus rhythm Moderate voltage criteria for LVH, may be normal variant Borderline ECG Electronically signed by : Saravanan Katz MD 09/14/2021 21:11:27
--- NOTE | 2021-09-14 14:36 | XR_ITS ---
PROCEDURE: XR CHEST PORTABLE CLINICAL HISTORY: dyspnea, cough COMPARISON: CT CT CHEST WO CON from 03/19/2020 CR XR CHEST PORTABLE from 07/30/2021 CR XR CHEST 2V from 08/08/2021 CR XR CHEST PORTABLE from 08/16/2021 FINDINGS: The cardiomediastinal silhouette and pulmonary vascularity are within normal limits. The lungs are clear without infiltrates, suspicious nodules, or pleural effusions. No acute bony abnormalities. Mild thoracic curvature convex right. Suture line in the left paratracheal region above the aortic knob. IMPRESSION: No acute findings. Dictated by: Michele Zimmerman MD 09/14/2021 15:35 Michele Zimmerman MD in [place] 09/14/2021 15:35
[2021-09-14 15:59] LABS: Microscopic, Urine URINE MICROSCOPIC (MICROSCOPIC)
[2021-09-14 16:01] LABS: Coronavirus 19, PCR Not Detected (NotDetected); Influenza A, PCR Not Detected (NotDetected); Influenza B, PCR Not Detected (NotDetected)
[2021-09-14 16:02] LABS: Basophils # 0.1 K/mm3 (0-0.2); Basophils % 0.6 % (0.1-2.0); Eosinophils # 0.2 K/mm3 (0.0-0.4); Eosinophils % 1.3 % (0.1-12.0); Hematocrit 43.6 % (37.0-47.0); Hemoglobin 14.9 g/dL (12.2-16.2); Lymphocytes % 28.3 % (10-50); Mean Corpuscular HGB Conc 34.2 g/dL (31.8-35.4); Mean Corpuscular Hemoglobin 29.7 pg (27.0-31.2); Mean Corpuscular Volume 86.8 fl (81-99); Mean Platelet Volume 7.1 fl (7.4-10.4); Monocytes # 0.6 K/mm3 (0.1-1.0); Monocytes % 4.4 % (1.7-9.3); Neutrophils # 9.1 K/mm3 (1.8-7.8); Neutrophils % 65.4 % (37.0-80.0); Platelet Count 419 K/mm3 (142-424); Red Blood Count 5.02 M/mm3 (4.20-5.40); Red Cell Distribution Width 14.3 % (11.5-17.5)
[2021-09-14 16:05] LABS: Alanine Aminotransferase 21 U/L (12-78); Albumin Level 4.2 g/dl (3.5-5.0); Albumin/Globulin Ratio 1.3 (1.1-1.8); Alkaline Phosphatase 127 U/L (38-126); Anion Gap 8.7 mEq/L (5-15); Aspartate Amino Transferase 25 U/L (14-36); Bilirubin,Total 0.5 mg/dl (0.2-1.3); Blood Urea Nitrogen 18 mg/dl (7-17); Calcium 9.5 mg/dl (8.4-10.2); Carbon Dioxide 31 mmol/L (22.0-30.0); Chloride 104 mmol/L (98-107); Creatinine Clearance Estimated 100 mL/min (50-200); Estimated Glomerular Filt Rate 85 ml/min (>60); GFR (African American) 103 ML/MIN (>60); Globulin 3.2 g/dL (1.3-3.2); Glucose 133 mg/dl (74-100); Potassium 3.7 mmoL/L (3.5-5.1); Sodium 140 mmol/L (136-145); Total Protein,Serum 7.4 g/dl (6.3-8.2)
[2021-09-14 16:06] LABS: Appearance,Urine CLEAR (Clear); Bilirubin,Urine Negative (Negative); Blood, Urine Negative (Negative); Color,Urine YELLOW (Yellow); Glucose,Urine (UA) 3+ (Negative); Ketones,Urine Negative (Negative); Leukocyte Esterase,Urine Negative (Negative); Nitrate,Urine Negative (Negative); Protein,Urine TRACE (Negative); Urobilinogen,Urine 0.2 EU/dl (0.2)
[2021-09-14 16:45] LABS: Bacteria,Urine 3+ /lpf
[2021-09-14 16:46] LABS: Yeast,Urine 1+ /lpf
--- NOTE | 2021-09-14 16:54 | HMH.EDWEAK ---
ED Disposition Clinical Impression: Cough, UTI (urinary tract infection) Disposition: Home, Self-Care Condition on Discharge: Good Additional Instructions: Please follow-up with your primary care physician in 2 to 3 days for further management. Take abx as prescribed. Please take Tylenol and ibuprofen for pain control and for fever. Please continue to drink plenty of water and eat 3 balanced meals a day. If worsening symptoms such as difficulty breathing, chest pain, inability to eat and drink or any other concerning symptoms please return to the emergency department. Prescriptions: Cefdinir [Cefdinir 250mg/5ml Oral Susp] 250 mg PO BID #14 ml Transmission Status: [facility] to [facility] Referrals: Jesus Ott [Primary Care Provider] - Time of Disposition: 17:20 - Critical Care Critical Care Time: No Attestation: On 09/14/21, the high probability of a clinically significant, sudden or life threatening deterioration of the following system(s) required my full and direct attention, intervention and personal management. The time I documented below is in addition to time spent performing reported procedures but includes the following listed in this critical care notation. Medical Decision Making - Medical Records Medical records reviewed: Yes: I reviewed the patient's medical records. - Bryan Inquiry Pt receiving controlled substance: No Vital Signs: 09/14/21 13:10 09/14/21 17:15 Temperature 98.2 F 97.6 F Temperature Source Oral Oral Pulse Rate 88 Pulse Rate [Right] 84 Respiratory Rate 16 16 Blood Pressure 141/89 H Blood Pressure [Right Arm] 153/94 H Blood Pressure Mean [Right Arm] 113 Blood Pressure Source Automatic Cuff Blood Pressure Source [Right Arm] Automatic Cuff Blood Pressure Position Supine Blood Pressure Position [Right Arm] Sitting 02 Sat by Pulse Oximetry 98 Oxygen Delivery Method Room Air Room Air - Lab Data Lab results reviewed: Yes: I reviewed the patient's lab results. Lab Results 09/14/21 15:31: WBC 14.0 H, RBC 5.02, Hgb 14.9, Hct 43.6, MCV 86.8, MCH 29.7, MCHC 34.2, RDW 14.3, Plt Count 419, MPV 7.1 L, Neut % (Auto) 65.4, Lymph % (Auto) 28.3, [place] % (Auto) 4.4, Eos % (Auto) 1.3, Baso % (Auto) 0.6, Neut # (Auto) 9.1 H, Lymph # (Auto) 4.0, [place] # (Auto) 0.6, Eos # (Auto) 0.2, Baso # (Auto) 0.1 09/14/21 15:31: Sodium 140, Potassium 3.7, Chloride 104, Carbon Dioxide 31 H, Anion Gap 8.7, BUN 18 H, Creatinine 0.70, Estimated Creat Clear 100, Estimated GFR 85, Est GFR ( Amer) 103, Glucose 133 H, Calcium 9.5, Total Bilirubin 0.5, AST 25, ALT 21, Alkaline Phosphatase 127 H, Total Protein 7.4, Albumin 4.2, Globulin 3.2, Albumin/Globulin Ratio 1.3 09/14/21 15:31: SARS-CoV-2 (PCR) Not detected, Influenza A Untype (PCR) Not detected, Influenza Type B (PCR) Not detected 09/14/21 15:31: Urine Color Yellow, Urine Appearance Clear, Urine pH 6.0, Ur Specific [place] 1.020, Urine Protein Trace, Urine Glucose (UA) 3+, Urine Ketones Negative, Urine Blood Negative, Urine Nitrate Negative, Urine Bilirubin Negative, Urine Urobilinogen 0.2, Ur Leukocyte Esterase Negative, Urine RBC None, Urine WBC 3-5, Ur Squamous Epith Cells 3-5, Urine Bacteria 3+, Urine Yeast 1+ Result diagrams: 09/14/21 15:31 12 15:31 Orders (Tests/Meds): ED MEDICATIONS Discontinued Medications Generic Name Dose Route Start Last Admin Trade Name Freq PRN Reason Stop Dose Admin Sodium Chloride 1,000 mls @ 999 mls/hr 09/14/21 14:45 09/14/21 15:38 Sod Chlor 0.9% 1000ml Bag IV 09/14/21 15:45 999 mls/hr .Q1H1M CARLITOS Administration ORDERS Category Date Time Status Urine Culture Stat Micro 09/14/21 15:31 Received Medical Decision Narrative: Ms. Healy is a 60-year-old female who presents to the emergency department with cough and congestion and generalized malaise for 8 weeks. Patient has been seen in the emergency department multiple times for similar symptoms and is currently being
[2021-09-14 17:15] VITALS: BP 141/89; PULSE 88; RESP 16; TEMP 36.4; O2SAT 97
== END 2021-09-14 17:16 | disposition home or self-care (01) ==
PROVIDERS: Emergency Provider Student in an Organized Health Care Education/Training Program; PCP Internal Medicine
DX: N30.00 Acute cystitis without hematuria (principal); F41.8 Other specified anxiety disorders; K21.9 Gastro-esophageal reflux disease without esophagitis; E78.5 Hyperlipidemia, unspecified; I10 Essential (primary) hypertension; I50.9 Heart failure, unspecified; J44.9 Chronic obstructive pulmonary disease, unspecified; I25.10 Atherosclerotic heart disease of native coronary artery without angina pectoris; E11.9 Type 2 diabetes mellitus without complications; F17.210 Nicotine dependence, cigarettes, uncomplicated; Z79.899 Other long term (current) drug therapy
CPT/HCPCS: 71045; 80053; 81001; 85025; 87086; 87088; 87186; 93005; 96365; 99284; C9803; U0003; U0005

== ENCOUNTER → 2021-09-26 11:25 | Outpatient (CLI) | payer MEDICARE, MEDICAID, SELFPAY ==
--- NOTE | 2021-09-26 | ECG_ITS ---
APPROVED REPORT Exam: Resting ECG HR:80 bpm ECG Measurements Heart Rate 80 AXES NH 184 P 42 QRSd 82 QRS -14 QT 390 T 61 QTc 449 Conclusion Normal sinus rhythm with sinus arrhythmia Moderate voltage criteria for LVH, may be normal variant Borderline ECG Electronically signed by : Jesus Ott MD 09/26/2021 13:03:09
--- NOTE | 2021-09-26 11:38 | XR_ITS ---
PROCEDURE: XR CHEST 2V CLINICAL HISTORY: CHEST PAIN, EDEMA, SOB COMPARISON: CT CT CHEST WO CON from 03/19/2020 CR XR CHEST 2V from 08/08/2021 CR XR CHEST PORTABLE from 08/16/2021 CR XR CHEST PORTABLE from 09/14/2021 FINDINGS: The cardiomediastinal silhouette and pulmonary vascularity are within normal limits. There are vague increased markings in the right lower lung zone suggesting atelectasis or infiltrate. The remaining lungs are clear. Mild thoracic scoliosis convex right. IMPRESSION: Vague increased markings in the right lower lobe which may be due to atelectasis or infiltrate versus vascular crowding. Dictated by: Michele Zimmerman MD 09/26/2021 12:05 Michele Zimmerman MD in [place] 09/26/2021 12:05
[2021-09-26 11:46] LABS: Chloride 98 mmol/L (98-107)
[2021-09-26 11:47] LABS: Sodium 137 mmol/L (136-145)
[2021-09-26 11:49] LABS: Blood Urea Nitrogen 14 mg/dl (7-17); Estimated Glomerular Filt Rate 56 ml/min (>60); GFR (African American) 68 ML/MIN (>60)
[2021-09-26 11:50] LABS: Calcium 9.1 mg/dl (8.4-10.2); Carbon Dioxide 30 mmol/L (22.0-30.0); Glucose 214 mg/dl (74-100)
[2021-09-26 12:03] LABS: NT Pro Brain Natriuretic Pep. 124 pg/mL (0-125)
[2021-09-26 12:07] LABS: Troponin I < 0.01 ng/ml (0.00-0.034)
== END ==
PROVIDERS: Visit Provider Internal Medicine
DX: R06.02 Shortness of breath (principal); R07.9 Chest pain, unspecified; R60.9 Edema, unspecified
CPT/HCPCS: 36415; 71046; 80048; 83880; 84484; 93005

== ENCOUNTER → 2021-10-04 13:44 | Outpatient (CLI) | payer MEDICARE, MEDICAID, SELFPAY ==
[2021-10-04 14:45] LABS: Anion Gap 10.1 mEq/L (5-15); Blood Urea Nitrogen 23 mg/dl (7-17); Calcium 9.2 mg/dl (8.4-10.2); Carbon Dioxide 29 mmol/L (22.0-30.0); Chloride 101 mmol/L (98-107); Estimated Glomerular Filt Rate 63 ml/min (>60); GFR (African American) 77 ML/MIN (>60); Glucose 207 mg/dl (74-100); Potassium 4.1 mmoL/L (3.5-5.1); Sodium 136 mmol/L (136-145)
== END ==
PROVIDERS: Visit Provider Internal Medicine
DX: M86.171 Other acute osteomyelitis, right ankle and foot (principal); Z79.2 Long term (current) use of antibiotics
CPT/HCPCS: 80048

== ENCOUNTER → 2021-11-10 11:25 | Outpatient (CLI) | payer MEDICARE, MEDICAID, SELFPAY ==
[2021-11-11 09:04] LABS: Covid-19 Nasal PCR Sendout Lex NOT DETECTED
== END ==
PROVIDERS: Visit Provider Nurse Practitioner
DX: Z20.822 Contact with and (suspected) exposure to COVID-19 (principal)
CPT/HCPCS: C9803; U0004; U0005

== ENCOUNTER 2021-11-24 12:24 | Emergency (ER) | payer MEDICARE, MEDICAID, SELFPAY ==
--- NOTE | 2021-11-24 12:28 | XR_ITS ---
FINAL REPORT CLINICAL HISTORY: FALL FINDINGS: RIGHT ANKLE 3 views of the right ankle were obtained. There is no acute fracture or dislocation. The mortise is intact. There is a moderate plantar spur. There is an osteophyte along the inferior margin of the medial malleolus. Visualized joint spaces are normally aligned. Soft tissues are unremarkable. IMPRESSION: No acute bony abnormality. Reviewed, Interpreted and Dictated by Rich Zambrano MD Transcribed by Maryam Sainz Authenticated by Rich Zambrano MD on 11/24/2021 02:08:[address] [facility]
--- NOTE | 2021-11-24 12:28 | XR_ITS ---
FINAL REPORT CLINICAL HISTORY: FALL FINDINGS: RIGHT KNEE 3 views of the right knee were obtained. There is no acute fracture or dislocation. There is sharpening of the tibial spine. Visualized joint spaces are normally aligned. Soft tissues are unremarkable. IMPRESSION: No acute bony abnormality. Reviewed, Interpreted and Dictated by Rich Zambrano MD Transcribed by Maryam Sainz Authenticated by Rich Zambrano MD on 11/24/2021 02:09:10 PM [facility]
[2021-11-24 13:00] VITALS: BP 117/84; PULSE 75; RESP 18; TEMP 36.7; O2SAT 97; BMI 38.9
--- NOTE | 2021-11-24 13:25 | HMH.EDUTC ---
[facility] [place] Disposition Clinical Impression: Knee sprain Qualifiers: Encounter type: initial encounter Involved ligament of knee: other ligament Laterality: right Qualified Code(s): S83.8X1A - Sprain of other specified parts of right knee, initial encounter Ankle sprain Qualifiers: Encounter type: initial encounter Involved ligament of ankle: other ligament Laterality: left Qualified Code(s): S93.492A - Sprain of other ligament of left ankle, initial encounter Disposition: Home, Self-Care Condition on Discharge: Good Instructions: How to Choose and Use a Walker, How To Perform RICE (Rest, Ice, Compress, Elevate) Additional Instructions: *weight bearing as tolerated Use your Walker to get around and help you walk *RICE, Rest the extremity, Ice 15-20 minutes 3-4 times daily, Compress- wear the nikolai wrap as discussed as much as possible to help reduce swelling and pain, Elevate the extremity when at rest *Nikolai wrap is for support and help control swelling, use it except in the shower. Be sure that is not to tight but not to loose either *Elevate when resting *Ibuprofen as directed on package every 6-8 hours as needed for pain an inflammation. If need something more can take Tylenol in between doses of Ibuprofen to help Immediately follow up with your family doctor for new or worsening of symptoms, or no noticeable improvement over the next 3-5 days Follow up with your Orthopedic Doctor for further evaluation and treatment Return if needed Straight to ER if any life threatening symptoms Referrals: Jesus Ott [Primary Care Provider] - As needed Time of Disposition: 13:41 Medical Decision Making - Bryan Inquiry Pt receiving controlled substance: No Bryan was queried for this patient: No Vital Signs: 11/24/21 13:00 Temperature 98.1 F Temperature Source Oral Pulse Rate [Right Brachial] 75 Respiratory Rate 18 Blood Pressure [Right Arm] 117/84 Blood Pressure Mean [Right Arm] 95 Blood Pressure Source [Right Arm] Automatic Cuff Blood Pressure Position [Right Arm] Sitting 02 Sat by Pulse Oximetry 97 Orders (Tests/Meds): ED MEDICATIONS Discontinued Medications Generic Name Dose Route Start Last Admin Trade Name Freq PRN Reason Stop Dose Admin Ketorolac Tromethamine 30 mg 11/24/21 13:32 11/24/21 13:45 Ketorolac 60mg/2ml Vial IM 11/24/21 13:33 30 mg ONCE ONE Administration ORDERS Category Date Time Status XR ankle RT min 3V Stat Exams 11/24/21 12:28 Taken XR knee RT 3V Stat Exams 11/24/21 12:28 Taken - Radiology Data #1 Image(s): Knee Image Reviewed: Yes I reviewed the patient's radiology image Preliminary Findings: No Fracture Seen no acute finding #2 Image(s): Ankle Image Reviewed: Yes I reviewed the patient's radiology image Preliminary Findings: Normal/NAD no acute fracture noted [facility] [place] HPI - General Stated complaint: lt knee/foot pain Time Seen by Provider: 11/24/21 13:25 Description of Symptoms (Recalled from Triage Doc. by RN): pt states she was getting into her family members car yesterday when she twisted her rt knee and ankle. States she has a history of knee problems. HEENT Symptoms (Recalled from RN notes): No Resp Symptoms (Recalled from RN notes): No Skin Symptoms (Recalled from RN notes): No MS Symptoms (Recalled from RN notes): No Functional Status (Recalled from RN notes): wnl - History of Present Illness Provider Complaint: Patient states that she has a history of knee problems and she has been seeing Orthpedics States that she was getting in her daughters car when her right knee give out and twisted State that she is now having pain in her right knee and ankle so she came in to get it checked out denies any other injury - Related Data Home Medications Medication Instructions Recorded Confirmed Albuterol Sulfate [Ventolin HFA 2 puffs INHALATION QIDP PRN 09/14/19 08/05/21 Inhaler] Fluticasone/Vilanterol [Breo 1 inh INHALATION DAILY 09/14/19 11
[2021-11-24 14:30] VITALS: BP 117/84; PULSE 75; RESP 18; TEMP 36.7; O2SAT 97
== END 2021-11-24 14:31 | disposition home or self-care (01) ==
PROVIDERS: Emergency Provider Nurse Practitioner; PCP Internal Medicine
DX: S93.492A Sprain of other ligament of left ankle, initial encounter (principal); S83.8X1A Sprain of other specified parts of right knee, initial encounter; X50.1XXA Overexertion from prolonged static or awkward postures, initial encounter; Y92.89 Other specified places as the place of occurrence of the external cause
CPT/HCPCS: G0463; 73562; 73610; 96372; 99202

== ENCOUNTER → 2021-11-28 13:22 | Outpatient (CLI) | payer MEDICARE, MEDICAID, SELFPAY ==
[2021-11-28 14:12] LABS: Basophils # 0.1 K/mm3 (0-0.2); Basophils % 0.9 % (0.1-2.0); Eosinophils # 0.2 K/mm3 (0.0-0.4); Eosinophils % 1.6 % (0.1-12.0); Hematocrit 42.4 % (37.0-47.0); Hemoglobin 13.8 g/dL (12.2-16.2); Lymphocytes # 2.6 K/mm3 (0.7-4.5); Lymphocytes % 26.8 % (10-50); Mean Corpuscular HGB Conc 32.6 g/dL (31.8-35.4); Mean Corpuscular Hemoglobin 29.1 pg (27.0-31.2); Mean Corpuscular Volume 89.2 fl (81-99); Mean Platelet Volume 7.4 fl (7.4-10.4); Monocytes # 0.5 K/mm3 (0.1-1.0); Monocytes % 5.2 % (1.7-9.3); Neutrophils # 6.4 K/mm3 (1.8-7.8); Neutrophils % 65.5 % (37.0-80.0); Platelet Count 324 K/mm3 (142-424); Red Blood Count 4.76 M/mm3 (4.20-5.40); Red Cell Distribution Width 14.2 % (11.5-17.5); White Blood Count 9.8 K/mm3 (4.8-10.8)
[2021-11-28 15:05] LABS: C-Reactive Protein 9.2 mg/L (0-4)
[2021-12-03 05:21] LABS: D001-IgE D pteronyssinus <0.10 kU/L (Class 0); D002-IgE D farinae <0.10 kU/L (Class 0); E001-IgE Cat Dander <0.10 kU/L (Class 0); E005-IgE Dog Dander <0.10 kU/L (Class 0); E072-IgE Mouse Urine <0.10 kU/L (Class 0); G002-IgE Bermuda Grass <0.10 kU/L (Class 0); G006-IgE Timothy Grass <0.10 kU/L (Class 0); I006-IgE Cockroach, German <0.10 kU/L (Class 0); Immunoglobulin E, Total 8 IU/mL (6-495); M001-IgE Penicillium chrysogen <0.10 kU/L (Class 0); M002-IgE Cladosporium herbarum <0.10 kU/L (Class 0); M003-IgE Aspergillus fumigatus <0.10 kU/L (Class 0); M006-IgE Alternaria alternata <0.10 kU/L (Class 0); T001-IgE Maple/Box Elder <0.10 kU/L (Class 0); T003-IgE Common Silver Birch <0.10 kU/L (Class 0); T006-IgE Cedar, Mountain <0.10 kU/L (Class 0); T007-IgE Oak, White <0.10 kU/L (Class 0); T008-IgE Elm, American <0.10 kU/L (Class 0); T010-IgE Walnut <0.10 kU/L (Class 0); T011-IgE Maple Leaf Sycamore <0.10 kU/L (Class 0); T014-IgE Cottonwood <0.10 kU/L (Class 0); T015-IgE Ash, White <0.10 kU/L (Class 0); T022-IgE Pecan, Hickory <0.10 kU/L (Class 0); T070-IgE White Mulberry <0.10 kU/L (Class 0); W001-IgE Ragweed, Short <0.10 kU/L (Class 0); W011-IgE Thistle, Russian <0.10 kU/L (Class 0); W014-IgE Pigweed, Common <0.10 kU/L (Class 0); W018-IgE Sheep Sorrel <0.10 kU/L (Class 0)
== END ==
PROVIDERS: PCP Internal Medicine; Visit Provider Internal Medicine Pulmonary Disease
DX: J45.909 Unspecified asthma, uncomplicated (principal); R06.00 Dyspnea, unspecified
CPT/HCPCS: 36415; 82785; 85025; 86003; 86140

== ENCOUNTER → 2021-11-30 16:45 | Outpatient (CLI) | payer MEDICARE, MEDICAID, SELFPAY | PROVIDERS: Visit Provider Internal Medicine | DX: E11.59 Type 2 diabetes mellitus with other circulatory complications (principal); I10 Essential (primary) hypertension; Z79.4 Long term (current) use of insulin | CPT/HCPCS: 82043 ==

== ENCOUNTER 2021-12-19 10:03 | Inpatient (IN) | payer MEDICARE, MEDICAID, SELFPAY ==
[2021-12-19] VITALS (37 sets, daily range): BP systolic 60–142; BP diastolic 30–100; PULSE 40–87; RESP 10–29; TEMP 35.7–39.5; O2SAT 90–100; BMI 41.5; BMI 42.9
--- NOTE | 2021-12-19 09:24 | ECG_ITS ---
APPROVED REPORT Exam: Resting ECG HR:69 bpm ECG Measurements Heart Rate 69 AXES QRSd 85 QRS 1 QT 396 T 36 QTc 415 Conclusion ATRIAL FIBRILLATION LOW QRS VOLTAGE IN PRECORDIAL LEADS [QRS DEFLECTION < 1.0 mV IN CHEST LEADS] ST DEVIATION AND MODERATE T-WAVE ABNORMALITY, CONSIDER LATERAL ISCHEMIA [-0.1+ mV T-WAVE IN I/aVL/V5/V6] ABNORMAL ECG WARNING: DATA QUALITY MAY AFFECT INTERPRETATION UNCONFIRMED REPORT Electronically signed by : Saravanan Katz MD 12/20/2021 16:39:26
[2021-12-19 09:34] LABS: Microscopic, Urine URINE MICROSCOPIC (MICROSCOPIC)
[2021-12-19 09:37] LABS: Appearance,Urine CLEAR (Clear); Bilirubin,Urine Negative (Negative); Blood, Urine Negative (Negative); Color,Urine YELLOW (Yellow); Glucose,Urine (UA) 3+ (Negative); Ketones,Urine Negative (Negative); Leukocyte Esterase,Urine Negative (Negative); Nitrate,Urine Negative (Negative); PH,Urine 5.5 (5.0-8.5); Protein,Urine 1+ (Negative); Specific Gravity, Urine 1.025 (1.005-1.030); Urobilinogen,Urine 0.2 EU/dl (0.2)
--- NOTE | 2021-12-19 09:37 | CT_ITS ---
FINAL REPORT TECHNIQUE: Axial CT images were performed through the head. Coronal reformatted images were submitted. This study was performed with techniques to keep radiation doses as low as reasonably achievable (ALARA). Individualized dose reduction techniques using automated exposure control or adjustment of mA and/or kV according to the patient's size were employed. CLINICAL HISTORY: Hx COPD, found unresposive, hypoxic and hypotensiv COMPARISON: 03/19/2020 FINDINGS: An ET tube is present. The ventricles are normal in size. There is no evidence of hemorrhage. There is no mass or edema identified. There is no abnormal extra-axial fluid seen. The sinuses are demonstrate mild mucoperiosteal thickening of the right maxillary sinus. IMPRESSION: No acute intracranial process. Reviewed, Interpreted and Dictated by Rich Zambrano MD Transcribed by Klaudia Chavez Authenticated by Rich Zambrano MD on 12/19/2021 10:57:35 AM [facility]
--- NOTE | 2021-12-19 09:37 | CT_ITS ---
FINAL REPORT TECHNIQUE: Axial imaging of the chest was obtained without contrast. Reformatted images were also obtained and reviewed.This study was performed with techniques to keep radiation doses as low as reasonably achievable, (ALARA). Individualized dose reduction technique using automated exposure control or adjustment of mA and/or kV according to the patient's size were employed. CLINICAL HISTORY: Hx COPD, found unresposive, hypoxic and hypotensiv FINDINGS: There is an ET tube with tip 1 cm superior the altaf. There are a few, small reactive mediastinal lymph nodes. There is no axillary adenopathy. There is no hilar or mediastinal mass or adenopathy. Heart size is normal. There is no pericardial or pleural effusion. Patchy airspace opacity is seen in the posterior upper lobes, left greater than right with minimal patchy airspace opacities at the lung bases. There is associated atelectasis. There is no pneumothorax. IMPRESSION: ET tube tip 1 cm superior to altaf. Patchy bilateral airspace opacities. Reviewed, Interpreted and Dictated by Rich Zambrano MD Transcribed by Klaudia Chavez Authenticated by Rich Zambrano MD on 12/19/2021 10:59:09 AM [facility]
[2021-12-19 09:38] LABS: Basophils # 0.1 K/mm3 (0-0.2); Basophils % 0.4 % (0.1-2.0); Eosinophils # 0.1 K/mm3 (0.0-0.4); Eosinophils % 0.9 % (0.1-12.0); Hematocrit 46.7 % (37.0-47.0); Hemoglobin 13.7 g/dL (12.2-16.2); Lymphocytes # 1.5 K/mm3 (0.7-4.5); Lymphocytes % 9.1 % (10-50); Mean Corpuscular HGB Conc 29.3 g/dL (31.8-35.4); Mean Corpuscular Hemoglobin 28.8 pg (27.0-31.2); Mean Corpuscular Volume 98.3 fl (81-99); Mean Platelet Volume 7.2 fl (7.4-10.4); Monocytes # 0.8 K/mm3 (0.1-1.0); Monocytes % 5.3 % (1.7-9.3); Neutrophils # 13.4 K/mm3 (1.8-7.8); Neutrophils % 84.3 % (37.0-80.0); Platelet Count 555 K/mm3 (142-424); Red Blood Count 4.75 M/mm3 (4.20-5.40); Red Cell Distribution Width 14.6 % (11.5-17.5); White Blood Count 15.9 K/mm3 (4.8-10.8)
[2021-12-19 09:39] LABS: Chloride 109 mmol/L (98-107); Potassium 4.9 mmoL/L (3.5-5.1); Sodium 139 mmol/L (136-145)
[2021-12-19 09:42] LABS: Alanine Aminotransferase 41 U/L (12-78); Albumin Level 3.1 g/dl (3.5-5.0); Albumin/Globulin Ratio 1.2 (1.1-1.8); Alkaline Phosphatase 90 U/L (38-126); Anion Gap 17.9 mEq/L (5-15); Aspartate Amino Transferase 67 U/L (14-36); Bilirubin,Total 0.3 mg/dl (0.2-1.3); Blood Urea Nitrogen 29 mg/dl (7-17); Calcium 6.8 mg/dl (8.4-10.2); Carbon Dioxide 17 mmol/L (22.0-30.0); Estimated Glomerular Filt Rate 29 ml/min (>60); GFR (African American) 34 ML/MIN (>60); Globulin 2.5 g/dL (1.3-3.2); Glucose 369 mg/dl (74-100); Total Protein,Serum 5.6 g/dl (6.3-8.2)
--- NOTE | 2021-12-19 09:42 | PC.NURSE ---
Radiology at bedside
[2021-12-19 09:43] LABS: MANUAL DIFFERENTIAL MANUAL DIFFERENTIAL (MANUAL DIFF)
--- NOTE | 2021-12-19 09:51 | XR_ITS ---
FINAL REPORT CLINICAL HISTORY: INTUBATED/ line placement COMPARISON: September 26, 2021 FINDINGS: An endotracheal to terminates approximately 1 cm superior to the altaf. The heart size is normal. The mediastinum is normal. There is crowding of markings in the perihilar regions. There are no pleural effusions. There is no pneumothorax. There is no osseous abnormality. IMPRESSION: ET tube approximately 1 cm superior to the altaf. Crowding of markings in the perihilar regions. Reviewed, Interpreted and Dictated by Rich Zambrano MD Transcribed by Brannon Ramos Authenticated by Rich Zambrano MD on 12/19/2021 10:41:31 AM [facility]
[2021-12-19 09:52] LABS: Opiate Screen,Urine Negative ng/ml (<300); Phencyclidine Screen,Urine Negative ng/ml (<25)
[2021-12-19 09:55] LABS: Amphetamine/Metha Screen,Urine Negative ng/ml (<1000); Barbiturates Screen,Urine Negative ng/ml (<200)
[2021-12-19 09:56] LABS: Benzodiazepines Screen,Urine Negative ng/ml (<200)
[2021-12-19 09:57] LABS: Cannabinoid Screen,Urine Positive ng/ml (<50); Cocaine Screen,Urine Negative ng/ml (<300)
[2021-12-19 09:58] LABS: Methadone Screen,Urine Negative ng/ml (<300)
--- NOTE | 2021-12-19 09:58 | HMH.ITSTN ---
CTA ordered -- however labs GFRis 29 too low for contrast - discussed with ER and he will do just chest without contrast
--- NOTE | 2021-12-19 10:09 | PC.NURSE ---
patient to CT with Nurse and respiratory techs
[2021-12-19 10:15] LABS: ABG PH 7.11 mmol/L (7.35-7.45)
[2021-12-19 10:16] LABS: ABG Base Excess -13.8 mmol/L (-2.4-2.3); ABG HCO3 15.9 mmhg (22.0-26.0); ABG Oxygen Saturation 99 % (90-100); ABG PO2 125.6 mmhg (80-100); ABG TCO2 17.5 mmhg (23-27); Allen's Test Patient Unable; Oxygen 80 %; PEEP 5; Source Right Radial; Tidal Volume 440; Vent Rate 24
[2021-12-19 10:30] LABS: Bacteria,Urine 3+ /lpf; WBC,Urine Occasional #/hpf (0-3)
--- NOTE | 2021-12-19 10:33 | HMH.EDGENADL ---
ED Disposition Clinical Impression: Sepsis Qualifiers: Sepsis type: sepsis due to unspecified organism Sepsis acute organ dysfunction status: with acute organ dysfunction Severe sepsis acute organ dysfunction type: acute respiratory failure Acute respiratory failure type: with hypoxia Severe sepsis shock status: with septic shock Qualified Code(s): A41.9 - Sepsis, unspecified organism Disposition: Admitted As Inpatient Condition on Discharge: Critical - Critical Care Critical Care Time: Yes Attestation: On 12/19/21, the high probability of a clinically significant, sudden or life threatening deterioration of the following system(s) required my full and direct attention, intervention and personal management. The time I documented below is in addition to time spent performing reported procedures but includes the following listed in this critical care notation. Total Critical Care Time: 50 Vital system(s) involved:: Circulatory Failure, Respiratory Failure, Shock (Septic) My critical care processes included: Assessment & monitoring of V/S, Initial and Re-exams, Data Review/Interpretation, Coordinating Care, Medication Orders and management, Documentation Medical Decision Making - Medical Records Medical records reviewed: Yes: I reviewed the patient's medical records. - Bryan Inquiry Pt receiving controlled substance: No Bryan was queried for this patient: No Vital Signs: 12/19/21 09:13 12/19/21 10:00 Pulse Rate [Radial] 87 Respiratory Rate 10 L 24 Blood Pressure [Right Arm] 73/31 L Blood Pressure Mean [Right Arm] 45 Blood Pressure Position [Right Arm] Sitting 02 Sat by Pulse Oximetry 94 L 98 Oxygen Delivery Method Room Air - Lab Data Lab Results 12/19/21 09:15: Urine Color Yellow, Urine Appearance Clear, Urine pH 5.5, Ur Specific [place] 1.025, Urine Protein 1+, Urine Glucose (UA) 3+, Urine Ketones Negative, Urine Blood Negative, Urine Nitrate Negative, Urine Bilirubin Negative, Urine Urobilinogen 0.2, Ur Leukocyte Esterase Negative, Urine RBC None, Urine WBC Occasional, Ur Squamous Epith Cells None, Urine Bacteria 3+ 12/19/21 09:15: Urine Opiates Screen Negative, Urine Methadone Screen Negative, Ur Barbituates Screen Negative, Ur Phencyclidine Scrn Negative, Ur Amphetamines Screen Negative, U Benzodiazepines Scrn Negative, Urine Cocaine Screen Negative, U Marijuana (THC) Screen Positive H 12/19/21 09:24: WBC 15.9 H, RBC 4.75, Hgb 13.7, Hct 46.7, MCV 98.3, MCH 28.8, MCHC 29.3 L, RDW 14.6, Plt Count 555 H, MPV 7.2 L, Neut % (Auto) 84.3 H, Lymph % (Auto) 9.1 L, Hall % (Auto) 5.3, Eos % (Auto) 0.9, Baso % (Auto) 0.4, Neut # (Auto) 13.4 H, Lymph # (Auto) 1.5, Hall # (Auto) 0.8, Eos # (Auto) 0.1, Baso # (Auto) 0.1, Total Counted 100, Neutrophils % (Manual) 84 H, Lymphocytes % (Manual) 9 L, Monocytes % (Manual) 7, Platelet Estimate Normal, Anisocytosis 1+ 12/19/21 09:24: Sodium 139, Potassium 4.9, Chloride 109 H, Carbon Dioxide 17 L, Anion Gap 17.9 H, BUN 29 H, Creatinine 1.80 H, Estimated GFR 29 L, Est GFR ( Amer) 34 L, Glucose 369 H, Calcium 6.8 L, Total Bilirubin 0.3, AST 67 H, ALT 41, Alkaline Phosphatase 90, Troponin I 0.10 H, Total Protein 5.6 L, Albumin 3.1 L, Globulin 2.5, Albumin/Globulin Ratio 1.2 12/19/21 09:24: NT-Pro-B Natriuret Pep 1230 H 12/19/21 10:07: Specimen Source Right radial, O2 % 80, ABG pH 7.11 L*, ABG pCO2 51.0 H, ABG pO2 125.6 H, ABG HCO3 15.9 L, ABG Total CO2 17.5 L, ABG O2 Saturation 99, ABG Base Excess -13.8 L, Mihcele Test Patient unable, Vent Rate 24, Tidal Volume 440, PEEP 5 12/19/21 10:45: SARS-CoV-2 (PCR) Not detected, Influenza A Untype (PCR) Not detected, Influenza Type B (PCR) Not detected 12/19/21 11:26: Specimen Source Right radial, O2 % 80, ABG pH 7.21 L*, ABG pCO2 42.9, ABG pO2 143.0 H, ABG HCO3 16.7 L, ABG Total CO2 18.1 L, ABG O2 Saturation 99, ABG Base Excess -11.2 L, Michele Test Patient unable, Vent Rate 24, Tidal Volume 440, PEEP 5 12/19/21 11:30: Lactate 1.8 Result diagrams:
[2021-12-19 10:37] LABS: NT Pro Brain Natriuretic Pep. 1230 pg/mL (0-125)
[2021-12-19 11:08] LABS: Coronavirus 19, PCR Not Detected (NotDetected); Influenza A, PCR Not Detected (NotDetected); Influenza B, PCR Not Detected (NotDetected)
--- NOTE | 2021-12-19 11:17 | PC.NURSE ---
LAB AT BEDSIDE
--- NOTE | 2021-12-19 11:18 | PC.NURSE ---
WAITING TO START ANTIBIOTICS UNTIL BLOOD CULTURES ARE DRAWN
[2021-12-19 11:29] LABS: ABG Base Excess -11.2 mmol/L (-2.4-2.3); ABG HCO3 16.7 mmhg (22.0-26.0); ABG Oxygen Saturation 99 % (90-100); ABG PCO2 42.9 mmhg (35.0-45.0); ABG PH 7.21 mmol/L (7.35-7.45); ABG TCO2 18.1 mmhg (23-27)
[2021-12-19 11:34] LABS: Allen's Test Patient Unable; Oxygen 80 %; PEEP 5; Source Right Radial; Tidal Volume 440; Vent Rate 24
--- NOTE | 2021-12-19 11:35 | PC.NURSE ---
LABS AND BLOOD CULTURES DRAWN
[2021-12-19 11:44] LABS: Lymphocytes % 9 % (10-50); Monocytes % 7 % (2-9); Neutrophils % 84 % (42-76); Total Cells Counted 100
[2021-12-19 11:45] LABS: Anisocytosis 1+; Platelet Estimate Normal
--- NOTE | 2021-12-19 11:52 | PC.NURSE ---
DR WINN TURNED DOWN O2 ON VENT TO 40%
[2021-12-19 12:03] LABS: Lactic Acid 1.8 mmol/L (0.7-2.1)
--- NOTE | 2021-12-19 12:14 | PC.NURSE ---
AMI FORBES on phone with DR. Raines
--- NOTE | 2021-12-19 12:15 | PC.NURSE ---
LEVOPHED STARTED AT 4MCG/HR
--- NOTE | 2021-12-19 12:16 | PC.NURSE ---
LEVOPHED STARTED AT 4MCG/MIN
--- NOTE | 2021-12-19 12:17 | PC.NURSE ---
AMI FROBES on phone with Dr. Harris
--- NOTE | 2021-12-19 12:18 | PC.NURSE ---
ED MD at
--- NOTE | 2021-12-19 12:39 | HMH.PULMCON ---
*Admission Date: 12/19/21 *Reason for consult:: Acute hypercarbic respiratory failure *History of present illness: Patient intubated and sedated, much of the history is obtained from chart review and ER physician. Ms. Healy is a 60-year-old female history of ACO, diabetes, recurrent UTIs presented to hospital with altered mentation and ABG hypercarbic respiratory failure, intubated for airway protection altered mentation and pulmonary was called for further management. [facility] History I have reviewed the patient's past medical history: Yes Medical History: Reports:: Anxiety, Asthma, Congestive Heart Failure, Chronic Obstructive Pulmonary Disease (COPD), Coronary Artery Disease, Depression, Diabetes Mellitus Type 2, Gastroesophageal Reflux Disease(GERD), Hyperlipidemia, Hypertension, MRSA, Peripheral Vascular Disease, Urinary Tract Infection Denies:: Cancer, Diabetes Mellitus Type 1, Internal Pacemaker, Seizures *Have you ever received a pneumonia vaccine?: No *Have you received a flu vaccine this season?: No Other Medical History: Reports: Anemia, Arthritis, Hormone Therapy, Hypothyroidism, Liver Disease, Thyroid Disease, Other Laterality Cases: Bilateral: Tonsillectomy, Other Other Surgeries: Yes: No Previous Surgery, Appendectomy, Cardiac Catheterization, Cholecystectomy, Colonoscopy, , Dilation and Curettage, EGD, Hernia Repair, Hysterectomy-Total, Hysterectomy-Partial, Thyroidectomy, Tubal Ligation, Other. No: Pacemaker Amputation: Yes (Right 2nd toe, right 3rd toe ) Fractures: Yes - *Social History Last grade of school completed: Some college Smoking Status: Current every day smoker Tobacco Type: cigarettes # Packs/Day (cigarettes): 1 Alcohol Intake: never Alcohol Intake Frequency:: other Substance Use Type: denies use, IV drugs Last Used Substance: unknown *Occupational Status:: disabled Housing: apartment Household Members: family *Travel in the last 8 weeks: Inside the [facility] - Psychiatric History Expresses thoughts of harming self/others: Vague Pschychiatric History:: Reports:: Anxiety, Depression Family Hx:: Cancer, Coronary Artery Disease, Diabetes, Hyperlipidemia, Hypertension ROS - Review of Systems Review of systems:: unable to obtain Intubated and sedated Meds Home Medications Medication Instructions Recorded Confirmed Type RX: Albuterol Sulfate [Ventolin 2 puffs IH QIDP PRN 09/14/19 12/20/21 History HFA Inhaler] RX: Fluticasone/Vilanterol [Breo 1 puff IH DAILY 09/14/19 12/20/21 History Ellipta 200-25 Mcg INH] RX: Tiotropium [place] [Spiriva 1 puff IH DAILY 09/14/19 12/20/21 History 18mcg/puff inhaler] RX: Sitagliptin Phosphate [Januvia 100 mg PO DAILY 09/27/19 12/19/21 History 100mg tablet] hydroxyzine pamoate 25 mg capsule 25 mg PO QIDP PRN cap 11/27/19 12/19/21 History RX: Duloxetine HCl 30 mg PO DAILY 12/03/19 12/19/21 History RX: Levothyroxine Sodium 112 mcg PO DAILY 12/03/19 12/19/21 History [Levothyroxine 112mcg (0.112mg) Tab] RX: Insulin NPH Hum/Reg Insulin Hm 60 unit SQ BID 11/28/20 12/19/21 History [Novolin 70-30 Flexpen] RX: Losartan Potassium 25 mg PO DAILY 11/28/20 12/19/21 History RX: Trazodone HCl 50 mg PO HS 11/28/20 12/19/21 History aspirin 81 mg tablet,delayed 81 mg PO DAILY 02/07/21 12/19/21 History release clonazepam 1 mg tablet 1 mg PO TIDP PRN tab 12/02/21 12/20/21 History Lidocaine [Lidoderm 5% transdermal 1 each TP Q24H 12/19/21 12/19/21 History patch] RX: Oxybutynin Chloride 15 mg PO DAILY 12/19/21 12/19/21 History [Oxybutynin Chloride ER] Empagliflozin [Jardiance] 25 mg PO DAILY 12/20/21 12/20/21 History Gabapentin [Neurontin 600mg 600 mg PO TID 12/20/21 12/20/21 History tablet] Montelukast Sodium [Singulair 10mg 10 mg PO PM 12/20/21 12/20/21 History tablet] RX: Cetirizine HCl 10 mg PO DAILY 12/20/21 12/20/21 History Spironolactone [Spironolactone 25 mg PO DAILY 12/20/21 12/20/21 History 25mg Tablet]
--- NOTE | 2021-12-19 12:43 | PC.NURSE ---
Mauricio called down to let us know they are working on getting patients room
--- NOTE | 2021-12-19 12:52 | PC.NURSE ---
Dr. Harris at BS
--- NOTE | 2021-12-19 12:53 | PC.NURSE ---
ED MD at
[2021-12-19 13:08] LABS: INR 0.96 (0.9-1.1); Prothrombin Time 10.9 seconds (10.1-12.5)
--- NOTE | 2021-12-19 13:15 | PC.NURSE ---
FAMILY At BEDSIDE UPDATED ON PLAN OF CARE
--- NOTE | 2021-12-19 13:34 | HMH.PHACONS ---
- Pharmacy Consult Date: 12/19/21 Time: 13:34 Referring provider: DR MONTEMAYOR Reason for Consult:: VANCOMYCIN DOSING CONSULT Allergies and ADEs:: Allergies Allergy/AdvReac Type Severity Reaction Status Date / Time Sulfa (Sulfonamide Allergy Mild Unknown Verified 12/02/21 13:07 Antibiotics) allergy [SULFA (SULFONAMIDE reaction ANTIBIOTICS)] levofloxacin [From LEVAQUIN] Allergy Unknown Unknown Verified 12/02/21 13:07 allergy reaction Home Medications:: Home Medications Medication Instructions Recorded Confirmed Type Albuterol Sulfate [Ventolin HFA 2 puffs INHALATION QIDP PRN 09/14/19 12/19/21 History Inhaler] Fluticasone/Vilanterol [Breo 1 inh INHALATION DAILY 09/14/19 12/19/21 History Ellipta 200-25 Mcg INH] Tiotropium [place] [Spiriva 1 inh INHALATION DAILY 09/14/19 12/19/21 History 18mcg/puff inhaler] Sitagliptin Phosphate [Januvia 100 mg PO DAILY 09/27/19 12/19/21 History 100mg tablet] hydroxyzine pamoate 25 mg capsule 25 mg PO QIDP PRN cap 11/27/19 12/19/21 History Duloxetine HCl 30 mg PO DAILY 12/03/19 12/19/21 History Levothyroxine Sodium 112 mcg PO DAILY 12/03/19 12/19/21 History [Levothyroxine 112mcg (0.112mg) Tab] Furosemide [Furosemide 80mg Tab] 80 mg PO DAILY 11/28/20 12/19/21 History Insulin NPH Hum/Reg Insulin Hm 60 unit SQ BID 11/28/20 12/19/21 History [Novolin 70-30 Flexpen] Losartan Potassium 25 mg PO DAILY 11/28/20 12/19/21 History Oxybutynin Chloride 5 mg PO HS 11/28/20 12/19/21 History Trazodone HCl 50 mg PO HS 11/28/20 12/19/21 History Gabapentin [Neurontin 100mg 200 mg PO TID 01/11/21 12/19/21 History cap] aspirin 81 mg tablet,delayed 81 mg PO DAILY 02/07/21 12/19/21 History release clonazepam 1 mg tablet 1 mg PO DAILY tab 12/02/21 12/19/21 History Diclofenac Sodium [Voltaren 4 g TOPICAL QID 12/19/21 12/19/21 History Arthritis Pain] Lidocaine [Lidoderm 5% transdermal 1 each TP Q24H 12/19/21 12/19/21 History patch] Oxybutynin Chloride [Oxybutynin 15 mg PO DAILY 12/19/21 12/19/21 History Chloride ER] Height: 1.65 m Weight: 113.398 kg Laboratory Results:: Laboratory Results - last 24 hr 12/19/21 09:15: Urine Color Yellow, Urine Appearance Clear, Urine pH 5.5, Ur Specific [place] 1.025, Urine Protein 1+, Urine Glucose (UA) 3+, Urine Ketones Negative, Urine Blood Negative, Urine Nitrate Negative, Urine Bilirubin Negative, Urine Urobilinogen 0.2, Ur Leukocyte Esterase Negative, Urine RBC None, Urine WBC Occasional, Ur Squamous Epith Cells None, Urine Bacteria 3+ 12/19/21 09:15: Urine Opiates Screen Negative, Urine Methadone Screen Negative, Ur Barbituates Screen Negative, Ur Phencyclidine Scrn Negative, Ur Amphetamines Screen Negative, U Benzodiazepines Scrn Negative, Urine Cocaine Screen Negative, U Marijuana (THC) Screen Positive H 12/19/21 09:24: WBC 15.9 H, RBC 4.75, Hgb 13.7, Hct 46.7, MCV 98.3, MCH 28.8, MCHC 29.3 L, RDW 14.6, Plt Count 555 H, MPV 7.2 L, Neut % (Auto) 84.3 H, Lymph % (Auto) 9.1 L, Town[place] % (Auto) 5.3, Eos % (Auto) 0.9, Baso % (Auto) 0.4, Neut # (Auto) 13.4 H, Lymph # (Auto) 1.5, [place] # (Auto) 0.8, Eos # (Auto) 0.1, Baso # (Auto) 0.1, Total Counted 100, Neutrophils % (Manual) 84 H, Lymphocytes % (Manual) 9 L, Monocytes % (Manual) 7, Platelet Estimate Normal, Anisocytosis 1+ 12/19/21 09:24: Sodium 139, Potassium 4.9, Chloride 109 H, Carbon Dioxide 17 L, Anion Gap 17.9 H, BUN 29 H, Creatinine 1.80 H, Estimated GFR 29 L, Est GFR ( Amer) 34 L, Glucose 369 H, Calcium 6.8 L, Total Bilirubin 0.3, AST 67 H, ALT 41, Alkaline Phosphatase 90, Troponin I 0.10 H, Total Protein 5.6 L, Albumin 3.1 L, Globulin 2.5, Albumin/Globulin Ratio 1.2 12/19/21 09:24: NT-Pro-B Natriuret Pep 1230 H 12/19/21 10:07: Specimen Source Right radial, O2 % 80, ABG pH 7.11 L*, ABG pCO2 51.0 H, ABG pO2 125.6 H, ABG HCO3 15.9 L, ABG Total CO2 17.5 L, ABG O2 Saturation 99, ABG Base Excess -13.8 L, Michele Test Patient unable, Vent Rate 24, Tidal Volume 44
--- NOTE | 2021-12-19 13:34 | PC.NURSE ---
Family at BS
--- NOTE | 2021-12-19 13:44 | PC.NURSE ---
Emilee RN calling HOUSE regarding patients bed status
--- NOTE | 2021-12-19 13:50 | PC.NURSE ---
family at bs
[2021-12-19 13:58] LABS: Troponin I 0.29 ng/ml (0.00-0.034)
--- NOTE | 2021-12-19 14:00 | PC.NURSE ---
Md aware trop of 0.29
--- NOTE | 2021-12-19 14:01 | PC.NURSE ---
Dr Matta called for a consult
--- NOTE | 2021-12-19 14:01 | PC.NURSE ---
MESSAGE LEFT FOR CARDIOLOGY CONSULT
--- NOTE | 2021-12-19 14:05 | ECG_ITS ---
APPROVED REPORT Exam: Resting ECG HR:85 bpm ECG Measurements Heart Rate 85 AXES QRSd 95 QRS -12 QT 360 T 76 QTc 402 Conclusion ATRIAL FIBRILLATION ABNORMAL RHYTHM ECG UNCONFIRMED REPORT Electronically signed by : Saravanan Katz MD 12/20/2021 16:37:26
--- NOTE | 2021-12-19 14:07 | PC.NURSE ---
2nd EKG done at 1405
--- NOTE | 2021-12-19 14:10 | HMH.CNCARD ---
History of Present Illness Consult date: 12/19/21 Requesting physician: Sean Raines Chief complaint: Resp Failure, elevated troponins Additional Medical History:: 1. CAD A. ?prior DELMY to LAD and CX B. [facility], 2016, non-flow limiting CAD with hyperdynamic LV consistent with hypertensive heart disease, severely elevated LVEDP consistent with diastolic dysfunction, moderate and possibly severe pulmonary hypertension based on extrapolating the severely elevated LVEDP. C. [facility] myoview, 2018, No ischemia, EF 63% 2. DEYA, mild to moderate, 06/2017 3. HTN A. Echo, 03/2021, 1. Mildly enlarged left atrium, normal left ventricular size, mild concentric left ventricular hypertrophy, visually estimated ejection fraction 55% with no regional wall motion abnormality, diastolic parameters are inconclusive. 2. Mildly enlarged ascending aorta above sinotubular junction measuring 3.8 cm. There is no aortic stenosis or aortic insufficiency. 3. Trace mitral and tricuspid regurgitation. 4. No significant pericardial effusion noted. Electronically signed by : Reagan Luciano, 04/11/2021 23:07:55 4. HLD 5. GERD 6. DM2 7. COPD/Asthma 8. PVD 9. Hypothyroidism, on replacement therapy 10. Obesity History of present illness: Patient is a 60-year-old female who arrives to the emergency department unresponsive with EMS, EMS was called out originally by the patient's son after she was found unresponsive this morning, he states that he went into her room to wake her up today, as he had not seen her yet this morning, states that he could not arouse her, states over the last couple of days she has been coughing, with shortness of breath and fevers, states that she has been feeling unwell. EMS arrived to the patient unresponsive, began [id number] ventilation, and a pulse was easily detectable and CPR was not started. Patient brought to the emergency department unresponsive unable to provide history, on chart review patient has history of COPD, mild heart failure with preserved ejection fraction, and has been seen here multiple times for COPD exacerbation in the past. Ms Healy is a 60 year old female who presents to the ED today in extremis, currently being [id number] ventilated by EMS, moved over to our stretcher, initial heart rate and vital signs obtained with a heart rate of irregularly irregular rhythm atrial fibrillation at a rate of 80-90, EKG was obtained with no evidence of ST elevation or depression, initial blood pressure with a mean arterial pressure of 46, we gave 200 mcg of IV phenylephrine for this, and blood pressure gilda to a mean arterial pressure of 70, given the patient was unresponsive, GCS of 3 we have done endotracheal intubation for her in order to secure her airway. Patient was given approximately 1 L of IV fluids as well, although given history of CHF we will stop here as her pressure has been stable after intubation, started on IV fentanyl drip at a rate of 25, and we have increased this rate to 100 for patient agitation. I obtained a CT head scan without contrast which did not show any evidence of intracranial bleeding on my examination, and a CT chest. X-ray obtained after intubation shows the ET tube was deep and was retracted 1 cm. Patient stable on the initial ventilator settings. Given 3.375 IV Zosyn every 6 hours, 125 mg Solu-Medrol every 8, continuous nebulizer treatment, endotracheal sputum ordered, Legionella and strep urinary antigens obtained. Consulted with Dr. Raines for admission, we have also consulted with pulmonology for ventilator recommendations, patient to be admitted to inpatient, in the interim time patient developed hypotension, we have started Levophed at 8 micrograms per minute. The above per Dr. Osorio Patient is sedated and on the ventilator. All information obtained from the chart as noted above. She was last seen in our office in March 2018. [facility] History Medical History: Reports:
--- NOTE | 2021-12-19 14:12 | PC.NURSE ---
REPORT CALLED TO LUIS ALBERTO FOOTE
--- NOTE | 2021-12-19 14:33 | PC.NURSE ---
Staff nurse with respiratory moving pt the floor
--- NOTE | 2021-12-19 15:01 | PC.NURSE ---
RESP CARE NOTE: Pt ET tube withdrawn 2 cm to 22 at the teeth. Will continue to monitor.
--- NOTE | 2021-12-19 15:33 | HMH.PHAVTE ---
[facility] Pharmacy VTE Monitoring - Patient Demographics Admission date: 12/19/21 Report Date: 12/19/21 Time: 15:33 Allergies/Adverse Reactions: Patient Allergies Sulfa (Sulfonamide Antibiotics) [SULFA (SULFONAMIDE ANTIBIOTICS)] Allergy (Mild, Verified 12/02/21 13:07) Unknown allergy reaction levofloxacin [From LEVAQUIN] Allergy (Unknown, Verified 12/02/21 13:07) Unknown allergy reaction Height: 1.65 m Weight: 113.398 kg Patient Problems: Current Active Problems Hypertension (Acute) Diabetes mellitus (Acute) Obesity (Acute) Sepsis (Acute) CAD in [place] artery (Acute) History of coronary artery stent placement (Acute) - VTE Risk Labs: VTE Related Lab Results Hgb 13.7 g/dL (12.2-16.2) 12/19/21 09:24 Hct 46.7 % (37.0-47.0) 12/19/21 09:24 Plt Count 555 K/mm3 (142-424) H 12/19/21 09:24 PT 10.9 seconds (10.1-12.5) 12/19/21 09:24 INR 0.96 (0.9-1.1) 12/19/21 09:24 BUN 29 mg/dl (7-17) H 12/19/21 09:24 Creatinine 1.80 mg/dl (0.52-1.04) H 12/19/21 09:24 Clinical Trial Participant: No - Prophylaxis VTE Prophylaxis Ordered?: Yes Types of VTE Prophylaxis: TEDS Knee High
--- NOTE | 2021-12-19 15:37 | CA_ITS ---
APPROVED REPORT EXAM: Comprehensive 2D, Doppler, and color-flow Echocardiogram Sheet Metal Smith: Emily Wiseman RVT Ht: 5 ft 5 in Wt: 250lbs BSA: 2.17 BP: 115/73 mmHg Indications: ELEVATED TROP,CAD,COPD,DM,HTN,HLD,SMOKER,GERD,INTUBATED TDS PT INTUBATED FLAT ON BACK 2D Dimensions LVOT 2.19 cm (M/F) 1.5-2.5 LA Volume 34.50 mL LA Volume Index 15.89 mL/m2 (M/F) 16-34 M-Mode Dimensions RVDd 3.43 cm (0.9-2.6) LA Diam 3.36 cm (1.9-4.0) LVDd 4.27 cm (3.5-5.7) Ao Diam 3.12 cm (2.0-3.7) LVDs 3.03 cm (3.5-5.7) IVSd 1.16 cm (0.6-1.1) PWd 1.33 cm (0.6-1.1) EF (Teich) 56.10% FS 29.00% EDV (Teich) 81.70 mL TAPSE 1.75 (<1.7) ESV (Teich) 35.90 mL Aortic Valve AO Peak GR. 5.10 mmHg Pulmonary Valve PV Peak Velocity 110.00 (50-150 cm/s) Tricuspid Valve TR P. Velocity 253.00 cm/s RAP Estimate 10.00 mmHg RVSP 35.50 mmHg Left Ventricle Left atrium is mildly enlarged, left ventricle is normal size, mild concentric left ventricular hypertrophy, visually estimated ejection fraction 50% with no obvious regional wall motion abnormality, endocardial surfaces are poorly visualized, diastolic parameters are inconclusive. Right Ventricle Right atrium and right ventricle mildly enlarged with normal contractility. Aortic Valve Aortic valve is minimally thickened and fibrosed, there is no aortic stenosis or aortic insufficiency. Mitral Valve Mitral valve has mitral calcification, leaflets are minimally thickened, there is no mitral stenosis. Tricuspid Valve Tricuspid valve is grossly normal, there is mild tricuspid regurgitation, tricuspid regurgitation jet velocity is inadequate for calculation of the right ventricular systolic pressure. Pulmonic Valve Pulmonic valve is poorly visualized. Great Vessels Aortic root is normal size. Inferior vena cava is poorly visualized. Pericardium No significant pericardial effusion noted. Conclusion 1. Mild biatrial enlargement, normal left ventricular size, mild concentric left ventricular hypertrophy, visually estimated ejection fraction 50% with no regional wall motion abnormality, endocardial surface of poorly visualized, diastolic parameters are inconclusive. 2. Mildly enlarged right ventricle with normal contractility. 3. Mild mitral and tricuspid regurgitation. 4. No significant pericardial effusion. 5. Inferior vena cava is poorly visualized. Electronically signed by : Reagan Luciano MD 12/19/2021 20:53:21
--- NOTE | 2021-12-19 18:37 | PC.WOUNDNOTE ---
right 2nd and 3rd toe amputations. right lateral malleolus stage II
--- NOTE | 2021-12-19 19:21 | HMH.HP ---
*Admission Date: 12/19/21 *History of present illness: Patient is a 60-year-old white female with a history of COPD exacerbations, CHF, hypothyroidism and diabetes who arrived in the emergency room today sponsor of and hypotensive. Patient had a GCS score of 3. EMS services were called to the house, found the patient down and unresponsive. Their call had been preceded by several days of coughing and congestion. Patient was bagged aggressively and intubated shortly after arrival to the emergency room. She was noted to be hypotensive, was given a liter of fluid and Levophed was started. Pulmonary service has been consultative on the patient for ventilator management. Continues to be intubated and on the Levophed drip. Cardiac history was gleaned by chart review/consult and is as follows 1. CAD A. ?prior DELMY to LAD and CX B. C, 2016, non-flow limiting CAD with hyperdynamic LV consistent with hypertensive heart disease, severely elevated LVEDP consistent with diastolic dysfunction, moderate and possibly severe pulmonary hypertension based on extrapolating the severely elevated LVEDP. C. Irvin myoview, 2018, No ischemia, EF 63% 2. DEYA, mild to moderate, 06/2017 3. HTN A. Echo, 03/2021, 1. Mildly enlarged left atrium, normal left ventricular size, mild concentric left ventricular hypertrophy, visually estimated ejection fraction 55% with no regional wall motion abnormality, diastolic parameters are inconclusive. 2. Mildly enlarged ascending aorta above sinotubular junction measuring 3.8 cm. There is no aortic stenosis or aortic insufficiency. 3. Trace mitral and tricuspid regurgitation. 4. No significant pericardial effusion noted. Electronically signed by : Reagan Luciano, 04/11/2021 23:07:55 CT chest showed patchy infiltrates. Ct brain showed no acute process. [facility] History Medical History: Reports:: Anxiety, Asthma, Congestive Heart Failure, Chronic Obstructive Pulmonary Disease (COPD), Coronary Artery Disease, Depression, Diabetes Mellitus Type 2, Gastroesophageal Reflux Disease(GERD), Hyperlipidemia, Hypertension, MRSA, Peripheral Vascular Disease, Urinary Tract Infection Denies:: Cancer, Diabetes Mellitus Type 1, Internal Pacemaker, Seizures *Have you ever received a pneumonia vaccine?: No *Have you received a flu vaccine this season?: No Other Medical History: Reports: Anemia, Arthritis, Hormone Therapy, Hypothyroidism, Liver Disease, Thyroid Disease, Other Laterality Cases: Bilateral: Tonsillectomy, Other Other Surgeries: Yes: No Previous Surgery, Appendectomy, Cardiac Catheterization, Cholecystectomy, Colonoscopy, , Dilation and Curettage, EGD, Hernia Repair, Hysterectomy-Total, Hysterectomy-Partial, Thyroidectomy, Tubal Ligation, Other. No: Pacemaker Amputation: Yes (Right 2nd toe, right 3rd toe ) Fractures: Yes - *Social History Smoking Status: Current every day smoker Tobacco Type: cigarettes # Packs/Day (cigarettes): 1 Alcohol Intake: never Alcohol Intake Frequency:: other Substance Use Type: denies use, IV drugs *Occupational Status:: disabled Housing: apartment Household Members: family *Travel in the last 8 weeks: Inside the [place] - Psychiatric History Pschychiatric History:: Reports:: Anxiety, Depression Family Hx:: Cancer, Coronary Artery Disease, Diabetes, Hyperlipidemia, Hypertension Review of Systems - Review of Systems Review of systems:: unable to obtain Meds Home Medications Medication Instructions Recorded Confirmed Type Albuterol Sulfate [Ventolin HFA 2 puffs INHALATION QIDP PRN 09/14/19 12/19/21 History Inhaler] Fluticasone/Vilanterol [Breo 1 inh INHALATION DAILY 09/14/19 12/19/21 History Ellipta 200-25 Mcg INH] Tiotropium [place] [Spiriva 1 inh INHALATION DAILY 09/14/19 12/19/21 History 18mcg/puff inhaler] Sitagliptin Phosphate [Januvia 100 mg PO DAILY 09/27/19 12/19/21 History 100mg tablet] hydroxyzine pamoate 25 mg capsule 25 mg PO QID
--- NOTE | 2021-12-19 22:04 | PC.NURSE ---
notified MD Vázquez sap basis consultant for MD Raines that pt's temp is 103.1 orally, ordered 650mg tylenol suppository q4 for fever, will give and continue to monitor
--- NOTE | 2021-12-19 22:20 | PC.NURSE ---
removed excess blankets, placed fan on pt, and applied ice packs to pt for fever
--- NOTE | 2021-12-19 23:04 | PC.NURSE ---
2000-fsbs 273, increased insulin drip to 6units/hr 2015-bp 111/60 (77), decreased levo drip to 3mcg/min 2145-88/52 (64), increased levo drip to 4mcg/min 2200-83/46 (58), increased levo drip to 6mcg/min; fsbs 253, increased insulin drip to 7units/hr 2215-89/53 (65), increased levo drip to 7mcg/min 2230-92/51 (64) 2245-104/53 (70) 2300-105/58 (73)
--- NOTE | 2021-12-19 23:48 | PC.NURSE ---
fsbs 239, increasing insulin drip to 8units/hr
[2021-12-20] VITALS (45 sets, daily range): BP systolic 91–160; BP diastolic 48–93; PULSE 60–118; RESP 18–25; TEMP 36.3–38.1; O2SAT 88–97; BMI 43.7
[2021-12-20 02:30] LABS: POC Glucose,Bedside 253 (70-110)
[2021-12-20 02:30] LABS: POC Glucose,Bedside 303 (70-110)
[2021-12-20 02:30] LABS: POC Glucose,Bedside 273 (70-110)
[2021-12-20 02:30] LABS: POC Glucose,Bedside 239 (70-110)
--- NOTE | 2021-12-20 02:32 | PC.NURSE ---
fsbs 160, decreased insulin drip to 4units/hr
--- NOTE | 2021-12-20 04:27 | PC.NURSE ---
bp 123/76 (91), decreased levo drip to 6mcg/min; fsbs 162, no changes to insulin drip (at 4units/hr)
--- NOTE | 2021-12-20 05:39 | PC.NURSE ---
0500-bp 125/79 (94) decreased levo to 5mcg/min 0530-123/66 (85) decreased levo to 4mcg/min
--- NOTE | 2021-12-20 06:00 | XR_ITS ---
FINAL REPORT CLINICAL HISTORY: Resp failure-- fu COMPARISON: 12/19/2021 FINDINGS: A single view of the chest was obtained. The endotracheal tube tip lies 3.5 cm superior to the altaf. The nasogastric tube tip is in the gastric antrum. The heart is normal in size. The mediastinum is unremarkable. The lungs are underinflated. There is mild bibasilar atelectasis. There is no pleural effusion. There is no pneumothorax. There is no acute osseous abnormality. IMPRESSION: Mild bibasilar atelectasis. Reviewed, Interpreted and Dictated by Rich Zambrano MD Transcribed by Caryn Mejia Authenticated by Rich Zambrano MD on 12/20/2021 01:53:[address] [facility]
--- NOTE | 2021-12-20 06:01 | PC.NURSE ---
fsbs 205, increased insulin drip to 5units/hr
--- NOTE | 2021-12-20 07:01 | PC.NURSE ---
0545-129/74 (92), decreased levo drip to 3mcg/min 0615-118/72 (87), decreased levo drip to 2mcg/min 0630-100/67 (78) 0645-101/60 (73) 0700-98/61 (73)
--- NOTE | 2021-12-20 09:25 | HMH.PULMPN ---
Internal Medicine - PN: Subj *Date: 12/20/21 *Time: 12:05 Interval history: No acute respiratory events overnight. Continues to remain on minimal ventilator settings. Exam - Constitutional Constitutional:: Present: no acute distress, comfortable - HENMT Exam HENMT: Present: normocephalic - Eye Exam Eyes:: Present: normal appearance both eyes and related structures - Neck Exam Neck:: Present: normal visual inspection - Respiratory Exam Respiratory:: Present: no respiratory distress. Absent: crackles, wheezing - Cardiovascular Exam Cardiac:: Present: S1, S2 - GI Exam GI:: Present: soft - Skin Exam Skin: Present: warm - Neurological Exam Neurological: Absent: alert, awake, normal cognition - Extremities Exam Extremities: Present: no cyanosis, no clubbing, edema - Psychiatric Exam Psychiatric: Present: normal affect Assessment and Plan (1) Sepsis Status: Acute Qualifiers: Sepsis type: sepsis due to unspecified organism Sepsis acute organ dysfunction status: with acute organ dysfunction Severe sepsis acute organ dysfunction type: acute respiratory failure Acute respiratory failure type: with hypoxia Severe sepsis shock status: with septic shock Qualified Code(s): A41.9 - Sepsis, unspecified organism; R65.21 - Severe sepsis with septic shock; J96.01 - Acute respiratory failure with hypoxia Category: Medical Code(s): A41.9 - Sepsis, unspecified organism (2) Diabetes mellitus Status: Acute Qualifiers: Diabetes mellitus type: type 2 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 Diabetes mellitus complication status: with other specified complication Qualified Code(s): E11.69 - Type 2 diabetes mellitus with other specified complication Category: Medical Code(s): E11.9 - Type 2 diabetes mellitus without complications (3) Hypertension Status: Acute Category: Medical Code(s): I10 - Essential (primary) hypertension (4) Obesity Status: Acute Qualifiers: Obesity type: due to excess calories Obesity classification: adult class 3 (BMI >= 40) Serious obesity comorbidity presence: with serious comorbidity Body mass index: BMI 40.0-44.9 Qualified Code(s): E66.01 - Morbid (severe) obesity due to excess calories; Z68.41 - Body mass index [BMI] 40.0-44.9, adult Category: Medical Code(s): E66.9 - Obesity, unspecified (5) CAD in [place] artery Status: Acute Category: Medical Code(s): I25.10 - Atherosclerotic heart disease of [place] coronary artery without angina pectoris (6) Amputation of toe of right foot Status: Acute Category: Medical Code(s): S98.131A - Complete traumatic amputation of one right lesser toe, initial encounter (7) CHF (congestive heart failure), NYHA class I Status: Acute Category: Medical Code(s): I50.9 - Heart failure, unspecified (8) Chronic low back pain Status: Acute Qualifiers: Back pain laterality: bilateral Sciatica presence: with sciatica Sciatica laterality: bilateral sciatica Qualified Code(s): M54.42 - Lumbago with sciatica, left side; M54.41 - Lumbago with sciatica, right side; G89.29 - Other chronic pain Category: Medical Code(s): M54.5 - Low back pain; G89.29 - Other chronic pain (9) History of coronary artery stent placement Status: Acute Category: Surgical Code(s): Z95.5 - Presence of coronary angioplasty implant and graft (10) Hyperglycemia Status: Acute Category: Medical Code(s): R73.9 - Hyperglycemia, unspecified (11) Insulin dependent diabetes mellitus Status: Acute Category: Medical Code(s): E11.9 - Type 2 diabetes mellitus without complications; Z79.4 - retirement (current) use of insulin (12) Type 2 diabetes mellitus Status: Acute Category: Medical Code(s): E11.9 - Type 2 diabetes mellitus without complications (13) PNA (pneumonia) Status: Acute Category: Medical Code(s): J18.9 - Pneumonia, unspecifi
--- NOTE | 2021-12-20 09:35 | HMH.ACPN2 ---
Internal Medicine - PN: Subj *Date: 12/20/21 *Time: 19:23 Interval history: 60-year-old female patient resting quietly in bed on ventilator no respiratory distress noted. Fentanyl is currently off for anticipated spontaneous breathing trial. Levophed has been weaned off Exam Vital signs and Labs for Last 24 Hours: Temp Pulse Resp BP Pulse Ox 100.3 F H 70 24 101/60 L 95 12/20/21 04:00 12/20/21 06:51 12/20/21 08:27 12/20/21 06:51 12/20/21 08:27 Laboratory Results - last 24 hr 12/19/21 09:15: Urine Color Yellow, Urine Appearance Clear, Urine pH 5.5, Ur Specific [place] 1.025, Urine Protein 1+, Urine Glucose (UA) 3+, Urine Ketones Negative, Urine Blood Negative, Urine Nitrate Negative, Urine Bilirubin Negative, Urine Urobilinogen 0.2, Ur Leukocyte Esterase Negative, Urine RBC None, Urine WBC Occasional, Ur Squamous Epith Cells None, Urine Bacteria 3+ 12/19/21 09:15: Urine Opiates Screen Negative, Urine Methadone Screen Negative, Ur Barbituates Screen Negative, Ur Phencyclidine Scrn Negative, Ur Amphetamines Screen Negative, U Benzodiazepines Scrn Negative, Urine Cocaine Screen Negative, U Marijuana (THC) Screen Positive H 12/19/21 09:24: WBC 15.9 H, RBC 4.75, Hgb 13.7, Hct 46.7, MCV 98.3, MCH 28.8, MCHC 29.3 L, RDW 14.6, Plt Count 555 H, MPV 7.2 L, Neut % (Auto) 84.3 H, Lymph % (Auto) 9.1 L, [place] % (Auto) 5.3, Eos % (Auto) 0.9, Baso % (Auto) 0.4, Neut # (Auto) 13.4 H, Lymph # (Auto) 1.5, [place] # (Auto) 0.8, Eos # (Auto) 0.1, Baso # (Auto) 0.1, Total Counted 100, Neutrophils % (Manual) 84 H, Lymphocytes % (Manual) 9 L, Monocytes % (Manual) 7, Platelet Estimate Normal, Anisocytosis 1+ 12/19/21 09:24: Sodium 139, Potassium 4.9, Chloride 109 H, Carbon Dioxide 17 L, Anion Gap 17.9 H, BUN 29 H, Creatinine 1.80 H, Estimated GFR 29 L, Est GFR ( Amer) 34 L, Glucose 369 H, Calcium 6.8 L, Total Bilirubin 0.3, AST 67 H, ALT 41, Alkaline Phosphatase 90, Troponin I 0.10 H, Total Protein 5.6 L, Albumin 3.1 L, Globulin 2.5, Albumin/Globulin Ratio 1.2 12/19/21 09:24: NT-Pro-B Natriuret Pep 1230 H 12/19/21 09:24: PT 10.9, INR 0.96 12/19/21 10:07: Specimen Source Right radial, O2 % 80, ABG pH 7.11 L*, ABG pCO2 51.0 H, ABG pO2 125.6 H, ABG HCO3 15.9 L, ABG Total CO2 17.5 L, ABG O2 Saturation 99, ABG Base Excess -13.8 L, Michele Test Patient unable, Vent Rate 24, Tidal Volume 440, PEEP 5 12/19/21 10:45: SARS-CoV-2 (PCR) Not detected, Influenza A Untype (PCR) Not detected, Influenza Type B (PCR) Not detected 12/19/21 11:26: Specimen Source Right radial, O2 % 80, ABG pH 7.21 L*, ABG pCO2 42.9, ABG pO2 143.0 H, ABG HCO3 16.7 L, ABG Total CO2 18.1 L, ABG O2 Saturation 99, ABG Base Excess -11.2 L, Michele Test Patient unable, Vent Rate 24, Tidal Volume 440, PEEP 5 12/19/21 11:30: Lactate 1.8 12/19/21 12:32: Troponin I 0.29 H 12/19/21 17:02: POC Glucose 303 H* 12/19/21 20:18: POC Glucose 273 H 12/19/21 21:57: POC Glucose 253 H 12/19/21 23:48: POC Glucose 239 H I & O for Last 24 hours: Intake & Output 12/17/21 12/18/21 12/19/21 12/20/21 23:59 23:59 23:59 23:59 Intake Total 3027.661 / 3027.661 420 / 420 Output Total 410 / 410 1245 / 1245 Balance 2617.661 / 2617.661 -825 / -825 Weight 258 lb 262 lb 4.8 oz Microbiology Reports for the Last 24 Hours: Microbiology 12/19/21 09:15 Urine,Catheterized Urine Culture - Preliminary NO GROWTH AFTER 24 HOURS 12/19/21 09:24 Sputum - Endotracheal Tube Aspirate Gram Stain - Final - Constitutional no acute distress - *Routine HEENT Exam Head: Present: normocephalic Eye: Present: EOMI ENT: Present: mucous membranes moist - *Routine Neck Exam Present: trachea midline. Absent: tracheal deviation - *Routine Respiratory Exam Present: patient mechanically ventilated, CTA bilaterally. Absent: accessory muscle use - *Routine Cardiovascular Exam Present: RRR - *Routine Abdominal Exam Present: soft, normoactive bowel sounds. Absent: firm - *Routine Ex
--- NOTE | 2021-12-20 10:00 | HMH.PNCARD ---
Subjective Date: 12/20/21 Time: 10:00 Principal diagnosis: Sepsis, mild elevated troponins Interval history: 60-year-old white female remains sedated and on mechanical ventilation. Blood pressure has improved with ability to decrease IV pressors. Echocardiogram shows preserved ejection fraction. Exam Vital signs and Labs for Last 24 Hours: Temp Pulse Resp BP Pulse Ox 100.3 F H 83 24 101/60 L 95 12/20/21 04:00 12/20/21 08:00 12/20/21 08:27 12/20/21 06:51 12/20/21 08:27 Laboratory Results - last 24 hr 12/19/21 09:15: Urine Color Yellow, Urine Appearance Clear, Urine pH 5.5, Ur Specific [place] 1.025, Urine Protein 1+, Urine Glucose (UA) 3+, Urine Ketones Negative, Urine Blood Negative, Urine Nitrate Negative, Urine Bilirubin Negative, Urine Urobilinogen 0.2, Ur Leukocyte Esterase Negative, Urine RBC None, Urine WBC Occasional, Ur Squamous Epith Cells None, Urine Bacteria 3+ 12/19/21 09:24: Total Counted 100, Neutrophils % (Manual) 84 H, Lymphocytes % (Manual) 9 L, Monocytes % (Manual) 7, Platelet Estimate Normal, Anisocytosis 1+ 12/19/21 09:24: NT-Pro-B Natriuret Pep 1230 H 12/19/21 09:24: PT 10.9, INR 0.96 12/19/21 10:07: Specimen Source Right radial, O2 % 80, ABG pH 7.11 L*, ABG pCO2 51.0 H, ABG pO2 125.6 H, ABG HCO3 15.9 L, ABG Total CO2 17.5 L, ABG O2 Saturation 99, ABG Base Excess -13.8 L, Michele Test Patient unable, Vent Rate 24, Tidal Volume 440, PEEP 5 12/19/21 10:45: SARS-CoV-2 (PCR) Not detected, Influenza A Untype (PCR) Not detected, Influenza Type B (PCR) Not detected 12/19/21 11:26: Specimen Source Right radial, O2 % 80, ABG pH 7.21 L*, ABG pCO2 42.9, ABG pO2 143.0 H, ABG HCO3 16.7 L, ABG Total CO2 18.1 L, ABG O2 Saturation 99, ABG Base Excess -11.2 L, Michele Test Patient unable, Vent Rate 24, Tidal Volume 440, PEEP 5 12/19/21 11:30: Lactate 1.8 12/19/21 12:32: Troponin I 0.29 H 12/19/21 17:02: POC Glucose 303 H* 12/19/21 20:18: POC Glucose 273 H 12/19/21 21:57: POC Glucose 253 H 12/19/21 23:48: POC Glucose 239 H I & O for Last 24 hours: Intake & Output 12/17/21 12/18/21 12/19/21 12/20/21 11:59 11:59 11:59 11:59 Intake Total 3447.661 / 3447.661 Output Total 1655 / 1655 Balance 1792.661 / 1792.661 Weight 250 lb 262 lb 4.8 oz Microbiology Reports for the Last 24 Hours: Microbiology 12/19/21 09:15 Urine,Catheterized Urine Culture - Preliminary NO GROWTH AFTER 24 HOURS 12/19/21 09:24 Sputum - Endotracheal Tube Aspirate Gram Stain - Final - *Routine Respiratory Exam Present: patient mechanically ventilated, CTA bilaterally - *Routine Cardiovascular Exam Present: RRR Progress Note: A&P (1) Sepsis Status: Acute (2) Diabetes mellitus Status: Acute (3) Hypertension Status: Acute (4) Obesity Status: Acute (5) CAD in [place] artery Status: Acute (6) Amputation of toe of right foot Status: Acute (7) CHF (congestive heart failure), NYHA class I Status: Acute (8) Chronic low back pain Status: Acute (9) History of coronary artery stent placement Status: Acute (10) Hyperglycemia Status: Acute (11) Insulin dependent diabetes mellitus Status: Acute (12) Type 2 diabetes mellitus Status: Acute (13) PNA (pneumonia) Status: Acute Assessment and Plan for All Diagnoses:: Cardiac status is stable. Echocardiogram shows preserved ejection fraction with no wall motion abnormalities. Patient has a history of only mild coronary artery disease by cardiac catheterization in 2016. Nothing further to add at this time. Please call if needed.
--- NOTE | 2021-12-20 11:08 | DIET.NUTRFU ---
Addendum entered by Mayte Castañeda RD, LD 12/20/21 13:08: Spoke to nursing and plans are to extubate, once extubated will review for oral diet post 24 hours. Original Note: Patient is NPO with vent tx in place. If unable to extubate-when medically feasible start: glucerna 20ml/hr to start with goal rate of 80ml/hr ATC= 1840kcal, 76gm protein and 1569ml free water with flush of 100ml XVR=[id number], total fluid of 1869ml/day. Some IVF provided with IV medications per pharmacy. Current Propofol of 6.8ml/zu=[id number]. using ABW of 74kg. RD also consult for low delfina score with right lateral malleolus stage II, amputation of toes and excoriation on bottom-redness noted.
[2021-12-20 12:00] LABS: Chloride 110 mmol/L (98-107); Potassium 3.7 mmoL/L (3.5-5.1); Sodium 138 mmol/L (136-145)
[2021-12-20 12:03] LABS: Anion Gap 13.7 mEq/L (5-15); Blood Urea Nitrogen 41 mg/dl (7-17); Calcium 8.3 mg/dl (8.4-10.2); Carbon Dioxide 18 mmol/L (22.0-30.0); Creatinine Clearance Estimated 36 mL/min (50-200); Estimated Glomerular Filt Rate 38 ml/min (>60); GFR (African American) 46 ML/MIN (>60); Glucose 175 mg/dl (74-100)
[2021-12-20 12:09] LABS: POC Glucose,Bedside 139 (70-110)
[2021-12-20 12:09] LABS: POC Glucose,Bedside 161 (70-110)
--- NOTE | 2021-12-20 12:09 | HMH.PHAINT ---
MEDICATION RECONCILIATION COMPLETED ON PATIENT USING EXTERNAL FILL HISTORY FROM PHARMACY. -JD WILSON, NAOMYD
--- NOTE | 2021-12-20 15:42 | PC.WOUNDNOTE ---
Photo from am assessment
--- NOTE | 2021-12-20 16:57 | PC.NURSE ---
on sbt since 1614
--- NOTE | 2021-12-20 17:51 | PC.NURSE ---
propofol stopped at 0745 this am in preparation for SBT fentanyl turned down to 25mcg at 0745 for SBT bp was 141/73, levo stopped at 0800 insulin drip stopped per Dr Harris v/o at 1020 fentanyl drip increased to 50mcg at 1700 r/t agitation/restlessness.
[2021-12-20 21:30] LABS: POC Glucose,Bedside 295 (70-110)
[2021-12-21] VITALS (53 sets, daily range): BP systolic 88–133; BP diastolic 43–83; PULSE 74–130; RESP 16–24; TEMP 36.7–39; O2SAT 89–95; BMI 42.2
--- NOTE | 2021-12-21 06:00 | XR_ITS ---
PROCEDURE INFORMATION: Exam: XR Chest Exam date and time: 12/21/2021 5:11 AM Age: 60 years old Clinical indication: Condition or disease and device placement; Ett placement (vent status); Lung condition and disease; Respiratory failure; Additional info: Resp failure TECHNIQUE: Imaging protocol: XR of the chest. Views: 1 view. COMPARISON: CR XR CHEST PORTABLE 12/20/2021 12:44 PM FINDINGS: Tubes, catheters and devices: Endotracheal tube terminates approximately 3.2 cm above the altaf. Enteric tube terminates in the region of the gastric antrum. Lungs: Similar patchy bibasilar airspace opacities. Pleural spaces: Unremarkable. No pleural effusion. No pneumothorax. Heart/Mediastinum: Unremarkable. No cardiomegaly. Bones/joints: Unremarkable. IMPRESSION: 1. Endotracheal tube terminates approximately 3.2 cm above the altaf. 2. Similar patchy bibasilar airspace opacities.
[2021-12-21 07:34] LABS: Anion Gap 13.5 mEq/L (5-15); Blood Urea Nitrogen 52 mg/dl (7-17); Calcium 8.5 mg/dl (8.4-10.2); Carbon Dioxide 16 mmol/L (22.0-30.0); Chloride 114 mmol/L (98-107); Creatinine Clearance Estimated 36 mL/min (50-200); Estimated Glomerular Filt Rate 38 ml/min (>60); GFR (African American) 46 ML/MIN (>60); Glucose 335 mg/dl (74-100); Potassium 3.5 mmoL/L (3.5-5.1); Sodium 140 mmol/L (136-145)
[2021-12-21 07:35] LABS: Basophils # 0.1 K/mm3 (0-0.2); Basophils % 0.2 % (0.1-2.0); Eosinophils % 0.1 % (0.1-12.0); Hematocrit 46.1 % (37.0-47.0); Hemoglobin 14.8 g/dL (12.2-16.2); Mean Corpuscular HGB Conc 32.2 g/dL (31.8-35.4); Mean Corpuscular Hemoglobin 29.1 pg (27.0-31.2); Mean Corpuscular Volume 90.5 fl (81-99); Mean Platelet Volume 7.9 fl (7.4-10.4); Monocytes % 2.9 % (1.7-9.3); Neutrophils # 31.5 K/mm3 (1.8-7.8); Neutrophils % 93.7 % (37.0-80.0); Platelet Count 349 K/mm3 (142-424); Red Blood Count 5.09 M/mm3 (4.20-5.40); Red Cell Distribution Width 14.8 % (11.5-17.5); White Blood Count 33.6 K/mm3 (4.8-10.8)
[2021-12-21 07:54] LABS: MANUAL DIFFERENTIAL MANUAL DIFFERENTIAL (MANUAL DIFF)
--- NOTE | 2021-12-21 08:41 | PC.NURSE ---
notified Dr Vázquez/group face to face of pt ESBL+ urine culture. nno [id number]
[2021-12-21 08:51] LABS: Allen's Test ACCEPTABLE; Oxygen 40 %; PEEP 5; Pressure Support 10; Source Left Radial
[2021-12-21 08:52] LABS: ABG Base Excess -7.6 mmol/L (-2.4-2.3); ABG HCO3 17.2 mmhg (22.0-26.0); ABG Oxygen Saturation 92 % (90-100); ABG PCO2 28.7 mmhg (35.0-45.0); ABG PO2 63.8 mmhg (80-100); ABG TCO2 18.1 mmhg (23-27)
[2021-12-21 08:56] LABS: Lymphocytes % 5 % (10-50); Monocytes % 2 % (2-9); Neutrophils % 93 % (42-76); Total Cells Counted 100
[2021-12-21 08:57] LABS: Platelet Estimate Normal
--- NOTE | 2021-12-21 09:15 | HMH.PULMPN ---
Internal Medicine - PN: Subj *Date: 12/21/21 *Time: 11:36 Interval history: No acute respiratory events overnight. Patient continued to remain on minimal vent settings. Mentation improved. Exam - Constitutional Constitutional:: Present: no acute distress, comfortable - HENMT Exam HENMT: Present: normocephalic, atraumatic - Eye Exam Eyes:: Present: normal appearance both eyes and related structures - Neck Exam Neck:: Present: normal visual inspection - Respiratory Exam Respiratory:: Present: no respiratory distress, crackles. Absent: wheezing - Cardiovascular Exam Cardiac:: Present: S1, S2 - GI Exam GI:: Present: soft - Skin Exam Skin: Present: warm, no rash - Neurological Exam Neurological: Present: awake. Absent: alert, normal cognition - Extremities Exam Extremities: Present: no cyanosis, no clubbing, edema Assessment and Plan (1) Sepsis Status: Acute Qualifiers: Sepsis type: sepsis due to unspecified organism Sepsis acute organ dysfunction status: with acute organ dysfunction Severe sepsis acute organ dysfunction type: acute respiratory failure Acute respiratory failure type: with hypoxia Severe sepsis shock status: with septic shock Qualified Code(s): A41.9 - Sepsis, unspecified organism; R65.21 - Severe sepsis with septic shock; J96.01 - Acute respiratory failure with hypoxia Category: Medical Code(s): A41.9 - Sepsis, unspecified organism (2) Diabetes mellitus Status: Acute Qualifiers: Diabetes mellitus type: type 2 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 Diabetes mellitus complication status: with other specified complication Qualified Code(s): E11.69 - Type 2 diabetes mellitus with other specified complication Category: Medical Code(s): E11.9 - Type 2 diabetes mellitus without complications (3) Hypertension Status: Acute Category: Medical Code(s): I10 - Essential (primary) hypertension (4) Obesity Status: Acute Qualifiers: Obesity type: due to excess calories Obesity classification: adult class 3 (BMI >= 40) Serious obesity comorbidity presence: with serious comorbidity Body mass index: BMI 40.0-44.9 Qualified Code(s): E66.01 - Morbid (severe) obesity due to excess calories; Z68.41 - Body mass index [BMI] 40.0-44.9, adult Category: Medical Code(s): E66.9 - Obesity, unspecified (5) CAD in [place] artery Status: Acute Category: Medical Code(s): I25.10 - Atherosclerotic heart disease of [place] coronary artery without angina pectoris (6) Amputation of toe of right foot Status: Acute Category: Medical Code(s): S98.131A - Complete traumatic amputation of one right lesser toe, initial encounter (7) CHF (congestive heart failure), NYHA class I Status: Acute Category: Medical Code(s): I50.9 - Heart failure, unspecified (8) Chronic low back pain Status: Acute Qualifiers: Back pain laterality: bilateral Sciatica presence: with sciatica Sciatica laterality: bilateral sciatica Qualified Code(s): M54.42 - Lumbago with sciatica, left side; M54.41 - Lumbago with sciatica, right side; G89.29 - Other chronic pain Category: Medical Code(s): M54.5 - Low back pain; G89.29 - Other chronic pain (9) History of coronary artery stent placement Status: Acute Category: Surgical Code(s): Z95.5 - Presence of coronary angioplasty implant and graft (10) Hyperglycemia Status: Acute Category: Medical Code(s): R73.9 - Hyperglycemia, unspecified (11) Insulin dependent diabetes mellitus Status: Acute Category: Medical Code(s): E11.9 - Type 2 diabetes mellitus without complications; Z79.4 - FDC (current) use of insulin (12) Type 2 diabetes mellitus Status: Acute Category: Medical Code(s): E11.9 - Type 2 diabetes mellitus without complications (13) PNA (pneumonia) Status: Acute Category: Medical Code(s): J18.9 - Pneumonia, unspecified or
--- NOTE | 2021-12-21 10:18 | ECG_ITS ---
APPROVED REPORT Exam: Resting ECG HR:127 bpm ECG Measurements Heart Rate 127 AXES QRSd 104 QRS -18 QT 291 T 120 QTc 366 Conclusion ATRIAL FIBRILLATION WITH RAPID VENTRICULAR RESPONSE VOLTAGE CRITERIA FOR LVH [MEETS CRITERIA IN ONE OF: R(aVL), S(V1), R(V5), R(V5/V6)+S(V1)] ST DEVIATION AND MODERATE T-WAVE ABNORMALITY, CONSIDER LATERAL ISCHEMIA [-0.1+ mV T-WAVE IN I/aVL/V5/V6] ABNORMAL ECG UNCONFIRMED REPORT Electronically signed by : Saravanan Katz MD 12/21/2021 18:12:06
--- NOTE | 2021-12-21 10:36 | PC.NURSE ---
=at approx 1015 pt was noted to be in rapid rate at 160's. order for metoptolol 5mg iv received and given at 1018, EKG obtained with order from Dr Harris, Afib with RVR. pt rate still noted to be in the 120-130 range. 2nd dose of metoprolol 5mg iv received and given at 1023. Enzo Peguero in cardiology notified of afib at 1042
--- NOTE | 2021-12-21 10:41 | HMH.ACPN2 ---
Internal Medicine - PN: Subj *Date: 12/21/21 *Time: 08:20 Interval history: pt on trial vent settings: vc supp,fi02 40,tv 440,pressure support 10,peep 5,rr 20 temp 102.2 Exam Vital signs and Labs for Last 24 Hours: Temp Pulse Resp BP Pulse Ox 102.2 F H 113 H 17 109/61 L 93 L 12/21/21 08:38 12/21/21 09:00 12/21/21 09:00 12/21/21 09:00 12/21/21 09:00 Laboratory Results - last 24 hr 12/20/21 08:09: POC Glucose 161 H 12/20/21 11:47: Sodium 138, Potassium 3.7 D, Chloride 110 H, Carbon Dioxide 18 L, Anion Gap 13.7, BUN 41 H D, Creatinine 1.40 H D, Estimated Creat Clear 36, Estimated GFR 38 L, Est GFR ( Amer) 46 L D, Glucose 175 H, Calcium 8.3 L 12/20/21 11:48: POC Glucose 139 H 12/20/21 20:39: POC Glucose 295 H 12/21/21 05:44: WBC 33.6 H* D, RBC 5.09, Hgb 14.8, Hct 46.1, MCV 90.5, MCH 29.1, MCHC 32.2, RDW 14.8, Plt Count 349 D, MPV 7.9, Neut % (Auto) 93.7 H, Lymph % (Auto) 3.0 L, [place] % (Auto) 2.9, Eos % (Auto) 0.1, Baso % (Auto) 0.2, Neut # (Auto) 31.5 H, Lymph # (Auto) 1.0, [place] # (Auto) 1.0, Eos # (Auto) 0.0, Baso # (Auto) 0.1, Total Counted 100, Neutrophils % (Manual) 93 H, Lymphocytes % (Manual) 5 L, Monocytes % (Manual) 2, Platelet Estimate Normal 12/21/21 05:44: Sodium 140, Potassium 3.5, Chloride 114 H, Carbon Dioxide 16 L, Anion Gap 13.5, BUN 52 H D, Creatinine 1.40 H, Estimated Creat Clear 36, Estimated GFR 38 L, Est GFR ( Amer) 46 L, Glucose 335 H D, Calcium 8.5 03/23/22 08:49: Specimen Source Left radial, O2 % 40, ABG pH 7.40, ABG pCO2 28.7 L, ABG pO2 63.8 L, ABG HCO3 17.2 L, ABG Total CO2 18.1 L, ABG O2 Saturation 92, ABG Base Excess -7.6 L, Michele Test Acceptable, ABG Lactate 2.0, PEEP 5 I & O for Last 24 hours: Intake & Output 12/18/21 12/19/21 12/20/21 12/21/21 11:59 11:59 11:59 11:59 Intake Total 3595.661 / 3595.661 215 / 215 Output Total 2140 / 2140 2680 / 2680 Balance 1455.661 / 1455.661 -2465 / -2465 Weight 250 lb 262 lb 4.896 oz 253 lb 6 oz Microbiology Reports for the Last 24 Hours: Microbiology 12/19/21 09:15 Urine,Catheterized Urine Culture - Final Escherichia coli 12/19/21 09:24 Sputum - Endotracheal Tube Aspirate Gram Stain - Final 12/19/21 09:24 Sputum - Endotracheal Tube Aspirate Sputum Culture - Preliminary Klebsiella pneumoniae - Constitutional no acute distress, obese - *Routine HEENT Exam Head: Present: normocephalic Eye: Present: PERRL ENT: Present: mucous membranes moist - *Routine Neck Exam Present: supple. Absent: lymphadenopathy - *Routine Respiratory Exam Present: patient mechanically ventilated - *Routine Cardiovascular Exam Present: RRR - *Routine Abdominal Exam Present: soft, normoactive bowel sounds. Absent: tenderness - *Routine Extremities Exam Present: normal capillary refill. Absent: cyanosis, clubbing, edema - *Routine Skin Exam Present: warm. Absent: rash - *Routine Neurological Exam sleeping Assessment and Plan (1) Sepsis Status: Acute Qualifiers: Sepsis type: sepsis due to unspecified organism Sepsis acute organ dysfunction status: with acute organ dysfunction Severe sepsis acute organ dysfunction type: acute respiratory failure Acute respiratory failure type: with hypoxia Severe sepsis shock status: with septic shock Qualified Code(s): A41.9 - Sepsis, unspecified organism; R65.21 - Severe sepsis with septic shock; J96.01 - Acute respiratory failure with hypoxia Category: Medical Code(s): A41.9 - Sepsis, unspecified organism (2) Diabetes mellitus Status: Acute Qualifiers: Diabetes mellitus type: type 2 Diabetes mellitus chcf insulin use: unspecified medical terminologist insulin use status Diabetes mellitus complication status: with other specified complication Qualified Code(s): E11.69 - Type 2 diabetes mellitus with other specified complication Category: Medical Code(s): E11.9 - Type 2 diabetes mellitus wi
--- NOTE | 2021-12-21 11:11 | HMH.PNCARD ---
Subjective Date: 12/21/21 Time: 11:11 Principal diagnosis: A. fib with RVR, sepsis Interval history: 60-year-old white female sedated still on mechanical ventilation. Nursing called due to onset of atrial fibrillation with rapid ventricular response. Patient has had a prior episode during this admission that either spontaneously converted back to sinus rhythm or was resolved quickly with IV medication. Heart rate is in the 140 to 160 bpm range at this time which did improve after 10 mg of IV Lopressor into the 120 bpm range. Nursing was instructed to start IV Cardizem and if needed Yung-Synephrine for blood pressure support. Reportedly patient is improving with consideration for extubation later today if heart rate remains controlled. After the initial 10 mg Cardizem bolus was given patient did briefly convert to sinus rhythm for less than a minute with heart rate in the 70s. Exam Vital signs and Labs for Last 24 Hours: Temp Pulse Resp BP Pulse Ox 102.2 F H 119 H 18 98/63 L 93 L 12/21/21 08:38 12/21/21 10:47 12/21/21 10:47 12/21/21 10:47 12/21/21 10:47 Laboratory Results - last 24 hr 12/20/21 08:09: POC Glucose 161 H 12/20/21 11:47: Sodium 138, Potassium 3.7 D, Chloride 110 H, Carbon Dioxide 18 L, Anion Gap 13.7, BUN 41 H D, Creatinine 1.40 H D, Estimated Creat Clear 36, Estimated GFR 38 L, Est GFR ( Amer) 46 L D, Glucose 175 H, Calcium 8.3 L 12/20/21 11:48: POC Glucose 139 H 12/20/21 20:39: POC Glucose 295 H 12/21/21 05:44: WBC 33.6 H* D, RBC 5.09, Hgb 14.8, Hct 46.1, MCV 90.5, MCH 29.1, MCHC 32.2, RDW 14.8, Plt Count 349 D, MPV 7.9, Neut % (Auto) 93.7 H, Lymph % (Auto) 3.0 L, [place] % (Auto) 2.9, Eos % (Auto) 0.1, Baso % (Auto) 0.2, Neut # (Auto) 31.5 H, Lymph # (Auto) 1.0, [place] # (Auto) 1.0, Eos # (Auto) 0.0, Baso # (Auto) 0.1, Total Counted 100, Neutrophils % (Manual) 93 H, Lymphocytes % (Manual) 5 L, Monocytes % (Manual) 2, Platelet Estimate Normal 12/21/21 05:44: Sodium 140, Potassium 3.5, Chloride 114 H, Carbon Dioxide 16 L, Anion Gap 13.5, BUN 52 H D, Creatinine 1.40 H, Estimated Creat Clear 36, Estimated GFR 38 L, Est GFR ( Amer) 46 L, Glucose 335 H D, Calcium 8.5 12/21/21 08:49: Specimen Source Left radial, O2 % 40, ABG pH 7.40, ABG pCO2 28.7 L, ABG pO2 63.8 L, ABG HCO3 17.2 L, ABG Total CO2 18.1 L, ABG O2 Saturation 92, ABG Base Excess -7.6 L, Michele Test Acceptable, ABG Lactate 2.0, PEEP 5 I & O for Last 24 hours: Intake & Output 12/18/21 12/19/21 12/20/21 12/21/21 11:59 11:59 11:59 11:59 Intake Total 3595.661 / 3595.661 265 / 265 Output Total 2140 / 2140 2855 / 2855 Balance 1455.661 / 1455.661 -2590 / -2590 Weight 250 lb 262 lb 4.896 oz 253 lb 6 oz Microbiology Reports for the Last 24 Hours: Microbiology 12/19/21 09:15 Urine,Catheterized Urine Culture - Final Escherichia coli 12/19/21 09:24 Sputum - Endotracheal Tube Aspirate Gram Stain - Final 12/19/21 09:24 Sputum - Endotracheal Tube Aspirate Sputum Culture - Preliminary Klebsiella pneumoniae - *Routine Respiratory Exam Present: CTA bilaterally - *Routine Cardiovascular Exam Present: RRR Progress Note: A&P (1) Sepsis Status: Acute (2) Diabetes mellitus Status: Acute (3) Hypertension Status: Acute (4) Obesity Status: Acute (5) CAD in [place] artery Status: Acute (6) Amputation of toe of right foot Status: Acute (7) CHF (congestive heart failure), NYHA class I Status: Acute (8) Chronic low back pain Status: Acute (9) History of coronary artery stent placement Status: Acute (10) Hyperglycemia Status: Acute (11) Insulin dependent diabetes mellitus Status: Acute (12) Type 2 diabetes mellitus Status: Acute (13) PNA (pneumonia) Status: Acute (14) Paroxysmal atrial fibrillation with rapid ventricular response Status: Acute Assessment and Plan for All Diagnoses:: 1. Paroxysmal atria
[2021-12-21 12:05] LABS: POC Glucose,Bedside 358 (70-110)
--- NOTE | 2021-12-21 12:15 | PC.NURSE ---
1044 zach bolanos ordered pt to have 10mg cardizem bolus then start cardizem drip at 10mg. zach bolanos notified pt bp before cardizem was 98/63. order was received for pt to also be placed on neodrip and tritrate for sbp greater than 100 and map greater than 65
[2021-12-21 13:17] LABS: POC Glucose,Bedside 224 (70-110)
--- NOTE | 2021-12-21 13:46 | PC.NURSE ---
pt extubated by RT with little to no difficulty. pt was placed on venti mask at 1338 r/t o2 in the upper 80's. pt hr remains in afib/aflutter with rates in the 115-130's
--- NOTE | 2021-12-21 13:55 | DIET.NUTRFU ---
Spoke to nursing on unit, continue to trial patient off vent. Successfully extubated pt. Will followup with oral diet in 24 hours. Labs reviewed 12/21 Na 140, K 3.5, BUN 52H (41H), Cr 1.4H, glucose 335H and as high as 358H. Insulin in place. Lasix tx completed 12/21. propofol discontinued 12/19
--- NOTE | 2021-12-21 14:49 | PC.NURSE ---
Yung drip started at ordered rate of 40mcg at approx 1110. drip decreased to 30mcg at 1200 r/t bp 120/83 drip decreased to 20mcg at 1415 r/t bp 128/72
[2021-12-21 15:19] LABS: Body Fluid Culture, Sterile Not indicated. (.); Organism ID Not indicated. (.); Specimen Source Urine (.); Streptococcus pneumoniae Ag Negative (Negative)
[2021-12-21 16:18] LABS: Legionella pneumophila Urinary Negative (Negative)
--- NOTE | 2021-12-21 17:29 | PC.NURSE ---
per j hill wean moises as tolerated and wean/adjust cardizem to keep hr below 100.
--- NOTE | 2021-12-21 19:48 | PC.WOUNDNOTE ---
photo from am assessment
[2021-12-22] VITALS (21 sets, daily range): BP systolic 91–121; BP diastolic 41–70; PULSE 70–106; RESP 16–26; TEMP 36.4–38.1; O2SAT 90–99; BMI 42.2
[2021-12-22 01:36] LABS: POC Glucose,Bedside 337 (70-110)
[2021-12-22 05:39] LABS: POC Glucose,Bedside 272 (70-110)
--- NOTE | 2021-12-22 06:00 | XR_ITS ---
PROCEDURE INFORMATION: Exam: XR Chest Exam date and time: 12/22/2021 4:56 AM Age: 60 years old Clinical indication: Condition or disease; Lung condition and disease; Respiratory failure; Additional info: Resp failure TECHNIQUE: Imaging protocol: XR of the chest. Views: 1 view. COMPARISON: CR XR CHEST PORTABLE 12/21/2021 5:11 AM FINDINGS: Tubes, catheters and devices: Interval removal of endotracheal and nasogastric tubes. Lungs: Suboptimal inspiratory effort. Ill-defined perihilar and lower lung opacities. Pleural spaces: Unremarkable. No pleural effusion. No pneumothorax. Heart/Mediastinum: Unremarkable. No cardiomegaly. Bones/joints: Unremarkable. IMPRESSION: 1. Interval removal of endotracheal and nasogastric tubes. 2. Suboptimal inspiratory effort. 3. Ill-defined perihilar and lower lung atelectasis/airspace disease.
[2021-12-22 06:45] LABS: Basophils # 0.1 K/mm3 (0-0.2); Basophils % 0.2 % (0.1-2.0); Hematocrit 44.7 % (37.0-47.0); Hemoglobin 14.7 g/dL (12.2-16.2); Lymphocytes # 1.3 K/mm3 (0.7-4.5); Lymphocytes % 5.2 % (10-50); Mean Corpuscular HGB Conc 32.8 g/dL (31.8-35.4); Mean Corpuscular Hemoglobin 29.2 pg (27.0-31.2); Mean Corpuscular Volume 89.1 fl (81-99); Mean Platelet Volume 7.6 fl (7.4-10.4); Monocytes # 0.9 K/mm3 (0.1-1.0); Monocytes % 3.4 % (1.7-9.3); Neutrophils # 22.9 K/mm3 (1.8-7.8); Neutrophils % 91.2 % (37.0-80.0); Platelet Count 332 K/mm3 (142-424); Red Blood Count 5.02 M/mm3 (4.20-5.40); Red Cell Distribution Width 14.8 % (11.5-17.5); White Blood Count 25.1 K/mm3 (4.8-10.8)
[2021-12-22 06:51] LABS: MANUAL DIFFERENTIAL MANUAL DIFFERENTIAL (MANUAL DIFF)
[2021-12-22 06:52] LABS: Blood Urea Nitrogen 70 mg/dl (7-17); Calcium 8.4 mg/dl (8.4-10.2); Carbon Dioxide 24 mmol/L (22.0-30.0); Chloride 116 mmol/L (98-107); Creatinine Clearance Estimated 36 mL/min (50-200); Estimated Glomerular Filt Rate 38 ml/min (>60); GFR (African American) 46 ML/MIN (>60); Glucose 271 mg/dl (74-100); Sodium 149 mmol/L (136-145)
[2021-12-22 08:17] LABS: Lymphocytes % 6 % (10-50); Monocytes % 5 % (2-9); Neutrophils % 89 % (42-76); Total Cells Counted 100
[2021-12-22 08:18] LABS: Platelet Estimate Normal; RBC Morphology Normal
--- NOTE | 2021-12-22 08:35 | PC.NURSE ---
RESP CARE NOTE: Pt FIO2 decreased to 40% SPO2 at 92% will continue to monitor patient.
--- NOTE | 2021-12-22 09:24 | HMH.PULMPN ---
Internal Medicine - PN: Subj *Date: 12/22/21 *Time: 11:34 Interval history: No acute respiratory vents overnight. Patient extubated to Venti mask. Still lethargic. Responding to commands. Exam - Constitutional Constitutional:: Present: comfortable. Absent: no acute distress - HENMT Exam HENMT: Present: normocephalic - Eye Exam Eyes:: Present: normal appearance both eyes and related structures - Neck Exam Neck:: Present: normal visual inspection - Respiratory Exam Respiratory:: Present: normal respiratory effort, rhonchi. Absent: wheezing - Cardiovascular Exam Cardiac:: Present: S1, S2 - GI Exam GI:: Present: soft - Skin Exam Skin: Present: warm - Neurological Exam Neurological: Present: awake. Absent: alert, normal cognition - Extremities Exam Extremities: Present: no cyanosis, no clubbing, edema Assessment and Plan (1) Sepsis Status: Acute Qualifiers: Sepsis type: sepsis due to unspecified organism Sepsis acute organ dysfunction status: with acute organ dysfunction Severe sepsis acute organ dysfunction type: acute respiratory failure Acute respiratory failure type: with hypoxia Severe sepsis shock status: with septic shock Qualified Code(s): A41.9 - Sepsis, unspecified organism; R65.21 - Severe sepsis with septic shock; J96.01 - Acute respiratory failure with hypoxia Category: Medical Code(s): A41.9 - Sepsis, unspecified organism (2) Diabetes mellitus Status: Acute Qualifiers: Diabetes mellitus type: type 2 Diabetes mellitus 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 insulin use: unspecified [facility] insulin use status Diabetes mellitus complication status: with other specified complication Qualified Code(s): E11.69 - Type 2 diabetes mellitus with other specified complication Category: Medical Code(s): E11.9 - Type 2 diabetes mellitus without complications (3) Hypertension Status: Acute Category: Medical Code(s): I10 - Essential (primary) hypertension (4) Obesity Status: Acute Qualifiers: Obesity type: due to excess calories Obesity classification: adult class 3 (BMI >= 40) Serious obesity comorbidity presence: with serious comorbidity Body mass index: BMI 40.0-44.9 Qualified Code(s): E66.01 - Morbid (severe) obesity due to excess calories; Z68.41 - Body mass index [BMI] 40.0-44.9, adult Category: Medical Code(s): E66.9 - Obesity, unspecified (5) CAD in [place] artery Status: Acute Category: Medical Code(s): I25.10 - Atherosclerotic heart disease of [place] coronary artery without angina pectoris (6) Amputation of toe of right foot Status: Acute Category: Medical Code(s): S98.131A - Complete traumatic amputation of one right lesser toe, initial encounter (7) CHF (congestive heart failure), NYHA class I Status: Acute Category: Medical Code(s): I50.9 - Heart failure, unspecified (8) Chronic low back pain Status: Acute Qualifiers: Back pain laterality: bilateral Sciatica presence: with sciatica Sciatica laterality: bilateral sciatica Qualified Code(s): M54.42 - Lumbago with sciatica, left side; M54.41 - Lumbago with sciatica, right side; G89.29 - Other chronic pain Category: Medical Code(s): M54.5 - Low back pain; G89.29 - Other chronic pain (9) History of coronary artery stent placement Status: Acute Category: Surgical Code(s): Z95.5 - Presence of coronary angioplasty implant and graft (10) Hyperglycemia Status: Acute Category: Medical Code(s): R73.9 - Hyperglycemia, unspecified (11) Insulin dependent diabetes mellitus Status: Acute Category: Medical Code(s): E11.9 - Type 2 diabetes mellitus without complications; Z79.4 - halfway (current) use of insulin (12) Type 2 diabetes mellitus Status: Acute Category: Medical Code(s): E11.9 - Type 2 diabetes mellitus without complications (13) PNA (pneumonia) Status: Acute Category: Medical Code(s): J18.9 - Pneumonia, unspecified organism
--- NOTE | 2021-12-22 10:34 | HMH.PNCARD ---
Subjective Date: 12/22/21 Time: 10:34 Principal diagnosis: A. fib with RVR, sepsis Interval history: 60-year-old white female in bed on oxygen by nonrebreather. Telemetry shows sinus rhythm She remains on Cardizem at 10 mg/h Yung-Synephrine recently discontinued with blood pressure systolic of 110 mmHg. Nursing relates that patient is not clearing secretions or taking deep breaths on her own and may require intubation again. Exam Vital signs and Labs for Last 24 Hours: Temp Pulse Resp BP Pulse Ox 100.5 F H 79 20 108/56 L 91 L 12/22/21 05:00 12/22/21 06:05 12/22/21 06:00 12/22/21 06:00 12/22/21 06:05 Laboratory Results - last 24 hr 12/19/21 10:44: Ur L.pneumophila Ag Negative 12/19/21 10:44: Fluid Culture Not indicated., S. pneumoniae Antigen Negative, S. pneumoniae Ag Source Urine, Organism ID Not indicated. 12/20/21 16:49: POC Glucose 224 H 12/21/21 11:40: POC Glucose 358 H* 12/21/21 17:00: POC Glucose 337 H* 12/22/21 05:32: POC Glucose 272 H 12/22/21 05:33: WBC 25.1 H* D, RBC 5.02, Hgb 14.7, Hct 44.7, MCV 89.1, MCH 29.2, MCHC 32.8, RDW 14.8, Plt Count 332, MPV 7.6, Neut % (Auto) 91.2 H, Lymph % (Auto) 5.2 L, [place] % (Auto) 3.4, Eos % (Auto) 0.0 L, Baso % (Auto) 0.2, Neut # (Auto) 22.9 H, Lymph # (Auto) 1.3, [place] # (Auto) 0.9, Eos # (Auto) 0.0, Baso # (Auto) 0.1, Total Counted 100, Neutrophils % (Manual) 89 H, Lymphocytes % (Manual) 6 L, Monocytes % (Manual) 5, Platelet Estimate Normal, RBC Morphology Normal 12/22/21 05:33: Sodium 149 H, Potassium 3.0 L, Chloride 116 H, Carbon Dioxide 24, Anion Gap 12.0, BUN 70 H D, Creatinine 1.40 H, Estimated Creat Clear 36, Estimated GFR 38 L, Est GFR ( Amer) 46 L, Glucose 271 H, Calcium 8.4 I & O for Last 24 hours: Intake & Output 12/19/21 12/20/21 12/21/21 12/22/21 11:59 11:59 11:59 11:59 Intake Total 3595.661 / 3595.661 265 / 265 954 / 954 Output Total 2140 / 2140 2980 / 2980 2332 / 2332 Balance 1455.661 / 1455.661 -2715 / -2715 -1378 / -1378 Weight 250 lb 262 lb 4.896 oz 253 lb 6 oz 253 lb 6 oz Microbiology Reports for the Last 24 Hours: Microbiology 12/19/21 11:30 Blood Blood Culture - Preliminary NO GROWTH AFTER 48 HOURS 12/19/21 11:30 Blood Blood Culture - Preliminary NO GROWTH AFTER 48 HOURS 12/19/21 09:24 Sputum - Endotracheal Tube Aspirate Gram Stain - Final 12/19/21 09:24 Sputum - Endotracheal Tube Aspirate Sputum Culture - Final Klebsiella pneumoniae 12/19/21 09:15 Urine,Catheterized Urine Culture - Final Escherichia coli - Constitutional no acute distress, somnolent - *Routine Respiratory Exam Present: rhonchi, wheezes - *Routine Cardiovascular Exam Present: RRR Progress Note: A&P (1) Sepsis Status: Acute (2) Diabetes mellitus Status: Acute (3) Hypertension Status: Acute (4) Obesity Status: Acute (5) CAD in [place] artery Status: Acute (6) Amputation of toe of right foot Status: Acute (7) CHF (congestive heart failure), NYHA class I Status: Acute (8) Chronic low back pain Status: Acute (9) History of coronary artery stent placement Status: Acute (10) Hyperglycemia Status: Acute (11) Insulin dependent diabetes mellitus Status: Acute (12) Type 2 diabetes mellitus Status: Acute (13) PNA (pneumonia) Status: Acute (14) Paroxysmal atrial fibrillation with rapid ventricular response Status: Acute Assessment and Plan for All Diagnoses:: 1. Paroxysmal atrial fibrillation with rapid ventricular response. CHADS-VASC score of 4 (HTN, CHF, DM, female) with annual adjusted stroke rate of 4 %/year. She will need long-term anticoagulation but will use Lovenox until taking oral medications. Continue IV Cardizem for now as patient may be intubated again later today. 2. Sepsis/pneumonia per pulmonary 3. Respiratory distress, now extubated but
[2021-12-22 11:33] LABS: Magnesium 3.4 mg/dl (1.6-2.3)
--- NOTE | 2021-12-22 11:33 | HMH.PTEV ---
Physical Therapy Evaluation Rehab PT IP Evaluation Start: 12/22/21 10:33 Freq: ONCE Status: Active Protocol: Document 12/22/21 11:29 PHORFELIPE (Rec: 12/22/21 11:33 PHORNE [id number]) Subjective/History History History 60 yowf adm to [facility] with AMS and found to be septic. She was intubated upon arrival and has now been extubated for ~ 1 day. She reports she was living with her son and was independent with all mobility prior to adm. Subjective Subjective Pt reports feeling very tired this am. Rehab PT IP Eval Objective Appearance Patient Behavior Appropriate Patient Orientation Person,Place Difficulty following instructions none Speech Pattern Clear,Soft-Spoken Ambulation Patient Able to Ambulate No Balance Ability to Arise Unable Sitting Balance Leans or slides in chair Dynamic Sitting Balance Ability Poor Transfers Bed Transfer Ability Moderate x 2 (50% assist) Rehab PT IP prob,goals,plan Problems Date of Evaluation: 12/22/21 PT IP Problems Bed Mobility,Transfers,Gait Rehab Potential Rehab Potential Fair Plan PT Intervention Plan Bed Mobility,Transfers,Gait, Therapeutic Exercise PT Plan Frequency BID Duration LOS Discharge Goals Bed Transfer Ability Minimal x 2 (25% assist) Sit to Stand Chair Transfer Ability Moderate x 2 (50% assist) Ambulation Assistive Device Rolling Walker Ambulation Distance (feet) 5 Discharge Plan PT Discharge Plan Pt is currently most appropriate for rehab placement once medically stable. G -code Required No Eval Complexity Eval Charge Codes 48481 - High Complexity PHYSICIAN CERTIFICATION: I certify the specified therapy services for Alejandra Healy are required, authorized, and reviewed every 30 days.
--- NOTE | 2021-12-22 11:57 | HMH.OTEV ---
OT Inpatient Evaluation Rehab OT IP Evaluation Start: 12/22/21 10:33 Freq: ONCE Status: Complete Protocol: Document 12/22/21 11:51 [facility] (Rec: 12/22/21 11:57 [facility] [id number]) Rehab OT IP Assessment Subjective History Pt oriented x 2 on arrival. Pt agreeable to engage in therapy evaluation. Pt was admitted on 12/19/21 via ED due to sepsis and was intubated on arrival. Pt was extubated yesterday. Pt reports prior to becoming ill she lived at home with her son oRe. Pt claims she was independent with all ADLs such as dressing , feeding, and bathing. However, she was dependent upon her son for completion of all IADLs such as cooking, cleaning, laundry, etc. She does use a walker during ambulation. Subjective Pt reports she is very tired on arrival. Objective Patient Orientation Person,Birthday Upper Extremity Gross ROM Mod Limitation 50% Shoulder ROM Limitations Muscle Weakness Elbow ROM Limitations Muscle Weakness Wrist Limitations of Range of Motion Muscle Weakness Bed Mobility bed mobility-scooting,bed mobility - supine/sit,bed mobility - rolling Assist Level Moderate x 2 (50% assist) Rehab OT IP prob,goals,plan Problems Date of Evaluation: 12/22/21 OT IP Problems Bed Mobility,Transfers,Gait, Balance,Self care,Safety Rehab Potential Rehab Potential Fair Equipment Needs Assistive Devices Rolling / Wheeled Walker Plan OT intervention Plan Bed Mobility,Transfers,Gait, Balance,Self care,Safety, Therapeutic Exercise OT Plan Frequency BID Duration LOS Discharge Goals Bed Mobility Ability Assistance x1 Sit to Stand Chair Transfer Ability Minimal x 1 (25% assist) Chair Transfer Ability Moderate x 1 (50% assist) Chair Transfer Technique Sit to/from Ambulatory Chair Transfer Assistive Devices Rolling Walker Feeding Ability Assist with Tray Set Up Lower Body Dressing Ability Assistance X1 Upper Body Dressing Ability Standby Assistance Bathing Ability Assista
--- NOTE | 2021-12-22 12:30 | DIET.NUTRFU ---
Extubated yesterday, waiting for COLLECTIONS TECHNICIAN to determine safe oral diet. Labs reviewed: Na 149H, K 3.0, BUN 7.0, Cr 1.4, glucose 271H. IVF hydration started. Hypokalemic potassium 3, will replete with 30 IV KCl. Will continue to follow for oral diet
--- NOTE | 2021-12-22 12:48 | HMH.ACPN2 ---
Internal Medicine - PN: Subj *Date: 12/22/21 *Time: 19:01 Interval history: extubated this morning awake,groggy Exam Vital signs and Labs for Last 24 Hours: Temp Pulse Resp BP Pulse Ox 97.5 F L 85 16 107/52 L 90 L 12/22/21 08:00 12/22/21 12:00 12/22/21 12:00 12/22/21 12:00 12/22/21 12:00 Laboratory Results - last 24 hr 12/19/21 10:44: Ur L.pneumophila Ag Negative 12/19/21 10:44: Fluid Culture Not indicated., S. pneumoniae Antigen Negative, S. pneumoniae Ag Source Urine, Organism ID Not indicated. 12/20/21 16:49: POC Glucose 224 H 12/21/21 17:00: POC Glucose 337 H* 12/22/21 05:32: POC Glucose 272 H 12/22/21 05:33: WBC 25.1 H* D, RBC 5.02, Hgb 14.7, Hct 44.7, MCV 89.1, MCH 29.2, MCHC 32.8, RDW 14.8, Plt Count 332, MPV 7.6, Neut % (Auto) 91.2 H, Lymph % (Auto) 5.2 L, [place] % (Auto) 3.4, Eos % (Auto) 0.0 L, Baso % (Auto) 0.2, Neut # (Auto) 22.9 H, Lymph # (Auto) 1.3, [place] # (Auto) 0.9, Eos # (Auto) 0.0, Baso # (Auto) 0.1, Total Counted 100, Neutrophils % (Manual) 89 H, Lymphocytes % (Manual) 6 L, Monocytes % (Manual) 5, Platelet Estimate Normal, RBC Morphology Normal 12/22/21 05:33: Sodium 149 H, Potassium 3.0 L, Chloride 116 H, Carbon Dioxide 24, Anion Gap 12.0, BUN 70 H D, Creatinine 1.40 H, Estimated Creat Clear 36, Estimated GFR 38 L, Est GFR ( Amer) 46 L, Glucose 271 H, Calcium 8.4 12/22/21 05:33: Magnesium 3.4 H I & O for Last 24 hours: Intake & Output 12/19/21 12/20/21 12/21/21 12/22/21 23:59 23:59 23:59 23:59 Intake Total 3027.661 / 3027.661 705 / 710 792 / 864 290 / 290 Output Total 410 / 410 3990 / 3990 2555 / 2615 497 / 497 Balance 2617.661 / 2617.661 -3285 / -3280 -1763 / -1751 -207 / -207 Weight 258 lb 262 lb 4.896 oz 253 lb 6 oz 253 lb 6 oz Microbiology Reports for the Last 24 Hours: Microbiology 12/19/21 11:30 Blood Blood Culture - Preliminary NO GROWTH AFTER 48 HOURS 12/19/21 11:30 Blood Blood Culture - Preliminary NO GROWTH AFTER 48 HOURS 12/19/21 09:24 Sputum - Endotracheal Tube Aspirate Gram Stain - Final 12/19/21 09:24 Sputum - Endotracheal Tube Aspirate Sputum Culture - Final Klebsiella pneumoniae - Constitutional chronically ill appearing - *Routine HEENT Exam Head: Present: normocephalic Eye: Present: EOMI, PERRL ENT: Present: mucous membranes moist - *Routine Neck Exam Present: supple. Absent: lymphadenopathy - *Routine Respiratory Exam Absent: accessory muscle use, respiratory distress, wheezes - *Routine Cardiovascular Exam Present: RRR - *Routine Abdominal Exam Present: soft, normoactive bowel sounds. Absent: tenderness - *Routine Extremities Exam Present: amputation. Absent: cyanosis, calf tenderness - *Routine Skin Exam Present: warm. Absent: jaundice, rash - *Routine Neurological Exam Present: alert, moving all extremities. Absent: oriented X3 Assessment and Plan (1) Sepsis Status: Acute Qualifiers: Sepsis type: sepsis due to unspecified organism Sepsis acute organ dysfunction status: with acute organ dysfunction Severe sepsis acute organ dysfunction type: acute respiratory failure Acute respiratory failure type: with hypoxia Severe sepsis shock status: with septic shock Qualified Code(s): A41.9 - Sepsis, unspecified organism; R65.21 - Severe sepsis with septic shock; J96.01 - Acute respiratory failure with hypoxia Category: Medical Code(s): A41.9 - Sepsis, unspecified organism (2) Diabetes mellitus Status: Acute Qualifiers: Diabetes mellitus type: type 2 Diabetes mellitus correction insulin use: unspecified correction insulin use status Diabetes mellitus complication status: with other specified complication Qualified Code(s): E11.69 - Type 2 diabetes mellitus with other specified complication Category: Medical Code(s): E11.9 - Type 2 diabetes mellitus without complications (3) Hypertension Stat
--- NOTE | 2021-12-22 14:54 | HMH.ACPN2 ---
Internal Medicine - PN: Subj *Date: 12/22/21 *Time: 14:54 Exam Vital signs and Labs for Last 24 Hours: Temp Pulse Resp BP Pulse Ox 99 F 81 16 91/52 L 90 L 12/22/21 14:00 12/22/21 14:00 12/22/21 14:00 12/22/21 14:00 12/22/21 14:00 Laboratory Results - last 24 hr 12/19/21 10:44: Ur L.pneumophila Ag Negative 12/19/21 10:44: Fluid Culture Not indicated., S. pneumoniae Antigen Negative, S. pneumoniae Ag Source Urine, Organism ID Not indicated. 12/21/21 17:00: POC Glucose 337 H* 12/22/21 05:32: POC Glucose 272 H 12/22/21 05:33: WBC 25.1 H* D, RBC 5.02, Hgb 14.7, Hct 44.7, MCV 89.1, MCH 29.2, MCHC 32.8, RDW 14.8, Plt Count 332, MPV 7.6, Neut % (Auto) 91.2 H, Lymph % (Auto) 5.2 L, [place] % (Auto) 3.4, Eos % (Auto) 0.0 L, Baso % (Auto) 0.2, Neut # (Auto) 22.9 H, Lymph # (Auto) 1.3, [place] # (Auto) 0.9, Eos # (Auto) 0.0, Baso # (Auto) 0.1, Total Counted 100, Neutrophils % (Manual) 89 H, Lymphocytes % (Manual) 6 L, Monocytes % (Manual) 5, Platelet Estimate Normal, RBC Morphology Normal 12/22/21 05:33: Sodium 149 H, Potassium 3.0 L, Chloride 116 H, Carbon Dioxide 24, Anion Gap 12.0, BUN 70 H D, Creatinine 1.40 H, Estimated Creat Clear 36, Estimated GFR 38 L, Est GFR ( Amer) 46 L, Glucose 271 H, Calcium 8.4 12/22/21 05:33: Magnesium 3.4 H I & O for Last 24 hours: Intake & Output 12/19/21 12/20/21 12/21/21 12/22/21 23:59 23:59 23:59 23:59 Intake Total 3027.661 / 3027.661 705 / 710 792 / 864 290 / 290 Output Total 410 / 410 3990 / 3990 2555 / 2615 497 / 497 Balance 2617.661 / 2617.661 -3285 / -3280 -1763 / -1751 -207 / -207 Weight 117.027 kg 118.98 kg 114.929 kg 114.929 kg Microbiology Reports for the Last 24 Hours: Microbiology 12/19/21 11:30 Blood Blood Culture - Preliminary NO GROWTH AFTER 48 HOURS 12/19/21 11:30 Blood Blood Culture - Preliminary NO GROWTH AFTER 48 HOURS 12/19/21 09:24 Sputum - Endotracheal Tube Aspirate Gram Stain - Final 12/19/21 09:24 Sputum - Endotracheal Tube Aspirate Sputum Culture - Final Klebsiella pneumoniae Assessment and Plan (1) Sepsis Status: Acute Qualifiers: Sepsis type: sepsis due to unspecified organism Sepsis acute organ dysfunction status: with acute organ dysfunction Severe sepsis acute organ dysfunction type: acute respiratory failure Acute respiratory failure type: with hypoxia Severe sepsis shock status: with septic shock Qualified Code(s): A41.9 - Sepsis, unspecified organism; R65.21 - Severe sepsis with septic shock; J96.01 - Acute respiratory failure with hypoxia Category: Medical Code(s): A41.9 - Sepsis, unspecified organism (2) Diabetes mellitus Status: Acute Qualifiers: Diabetes mellitus type: type 2 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 insulin use status Diabetes mellitus complication status: with other specified complication Qualified Code(s): E11.69 - Type 2 diabetes mellitus with other specified complication Category: Medical Code(s): E11.9 - Type 2 diabetes mellitus without complications (3) Hypertension Status: Acute Category: Medical Code(s): I10 - Essential (primary) hypertension (4) Obesity Status: Acute Qualifiers: Obesity type: due to excess calories Obesity classification: adult class 3 (BMI >= 40) Serious obesity comorbidity presence: with serious comorbidity Body mass index: BMI 40.0-44.9 Qualified Code(s): E66.01 - Morbid (severe) obesity due to excess calories; Z68.41 - Body mass index [BMI] 40.0-44.9, adult Category: Medical Code(s): E66.9 - Obesity, unspecified (5) CAD in [place] artery Status: Acute Category: Medical Code(s): I25.10 - Atherosclerotic heart disease of [place] coronary artery without angina pectoris (6) Amputation of toe of right foot Status: Acute Category: Medical Code(s): S98.131A - Complete traumatic amputation of one r
--- NOTE | 2021-12-22 15:51 | HMH.SLDYSPHA ---
Speech & Language Evaluation Speech/Language Dysphagia Evaluation Start: 12/22/21 15:26 Freq: ONCE Status: Active Protocol: Document 12/22/21 15:26 PORTIANEGIN (Rec: 12/22/21 15:50 PRICILA [id number]) Dysphagia Assess/Goals/Plan Assessment Date of Evaluation: 12/22/21 Evaluation Type Initial Certification Assessment/Problems Dysphagia post-extubation Does Patient Qualify for Service Yes Qualify/Failure Comment Based on the results of the clinical swallow evaluation, patient does qualify for skilled speech therapy services at this time. Recommendations PHYSICIAN CERTIFICATION: The specified therapy services are required, authorized, and reviewed every 30 days. Pt will be seen # times/week 3 for # weeks 4 Diet Recommendations NPO Plan Pt/Guardian verbally ack understanding Yes of dx/prognosis/goals Pt/Guardian verbally ack understanding Yes of/consent to tx prog G -code Required No STG-Other Comment/Non-Specific Patient will upgrade to least restrictive PO diet and tolerate trials without any overt s/sxs of aspiration. Lathe Tender Goals Pt will be able to eat foods w/more Yes normal consistency Education Instructions provided Assessment results discussed with pt and family, who express understanding. Pt/Caregiver able to recall information Able to recall/restate Reinforcement needed No Speech & Language HPI History Present Illness Description of Patient Problem Pt is a 60 year old female presenting on this date s/p extubation. She was admitted to [facility] with AMS and found to be septic. She was intubated upon arrival on 12/19/21. She was extubated at 13:30 on . She has been NPO following extubation. Pt/Caregiver Concerns Family reports previous history of choking at home and needing to be careful while eating and drinking. Rehab Services Assessed Speech therapy Is this evaluation r/t stroke? No Language Primary Language Spanish General Information General Current Food Consistancy Regular,Thin Liquids Oxygen Status Venturi Mask Facial Symmetry Symmetrical Ability to Follow Directions Fair Commun
[2021-12-22 20:34] LABS: POC Glucose,Bedside 294 (70-110)
[2021-12-22 20:34] LABS: POC Glucose,Bedside 255 (70-110)
[2021-12-23] VITALS (17 sets, daily range): BP systolic 103–128; BP diastolic 47–80; PULSE 70–109; RESP 16–29; TEMP 37–38.3; O2SAT 89–95
--- NOTE | 2021-12-23 03:53 | PC.NURSE ---
Pt alert to self and place. Has remained on venti mask this shift with sats in low 90s. BP has remained stable. She has had a low grade temp this shift. Medicated per nov. Pt remains on Diltiazem gtt. Titrated per protocol. She is currently infusing @ 10 ml/hr. Pt has had 2 BMs. F/C draining to bedside. Turned Q2h. No other concerns. Will continue to monitor. Diltiazem titration: 3- decreased to 5 ml/hr 9 - Increased to 10 ml/hr
[2021-12-23 06:35] LABS: Basophils # 0.1 K/mm3 (0-0.2); Basophils % 0.2 % (0.1-2.0); Eosinophils % 0.1 % (0.1-12.0); Hematocrit 43.9 % (37.0-47.0); Hemoglobin 13.8 g/dL (12.2-16.2); Lymphocytes # 1.3 K/mm3 (0.7-4.5); Lymphocytes % 5.8 % (10-50); Mean Corpuscular HGB Conc 31.5 g/dL (31.8-35.4); Mean Corpuscular Hemoglobin 29.1 pg (27.0-31.2); Mean Corpuscular Volume 92.5 fl (81-99); Mean Platelet Volume 8.6 fl (7.4-10.4); Monocytes % 4.6 % (1.7-9.3); Neutrophils # 19.5 K/mm3 (1.8-7.8); Neutrophils % 89.2 % (37.0-80.0); Platelet Count 290 K/mm3 (142-424); Red Blood Count 4.75 M/mm3 (4.20-5.40); Red Cell Distribution Width 14.7 % (11.5-17.5); White Blood Count 21.9 K/mm3 (4.8-10.8)
[2021-12-23 06:38] LABS: POC Glucose,Bedside 295 (70-110)
[2021-12-23 06:38] LABS: POC Glucose,Bedside 318 (70-110)
[2021-12-23 06:38] LABS: POC Glucose,Bedside 230 (70-110)
[2021-12-23 06:38] LABS: POC Glucose,Bedside 342 (70-110)
[2021-12-23 06:39] LABS: MANUAL DIFFERENTIAL MANUAL DIFFERENTIAL (MANUAL DIFF)
[2021-12-23 06:50] LABS: Anion Gap 12.3 mEq/L (5-15); Blood Urea Nitrogen 70 mg/dl (7-17); Calcium 8.6 mg/dl (8.4-10.2); Carbon Dioxide 22 mmol/L (22.0-30.0); Chloride 124 mmol/L (98-107); Creatinine Clearance Estimated 42 mL/min (50-200); Estimated Glomerular Filt Rate 46 ml/min (>60); GFR (African American) 55 ML/MIN (>60); Glucose 266 mg/dl (74-100); Potassium 3.3 mmoL/L (3.5-5.1)
[2021-12-23 07:13] LABS: Sodium 155 mmol/L (136-145)
[2021-12-23 08:25] LABS: Lymphocytes % 6 % (10-50); Monocytes % 3 % (2-9); Neutrophils % 91 % (42-76); Platelet Estimate Normal; Total Cells Counted 100
--- NOTE | 2021-12-23 08:37 | HMH.PULMPN ---
Internal Medicine - PN: Subj *Date: 12/23/21 *Time: 10:54 Interval history: No acute respiratory events overnight. Patient still appears somnolent. Exam - Constitutional Constitutional:: Absent: no acute distress, comfortable - HENMT Exam HENMT: Present: normocephalic - Eye Exam Eyes:: Present: normal appearance both eyes and related structures - Neck Exam Neck:: Present: normal visual inspection - Respiratory Exam Respiratory:: Present: able to speak in complete sentences, respiratory distress, crackles, rhonchi - Cardiovascular Exam Cardiac:: Present: S1, S2 - GI Exam GI:: Present: soft - Skin Exam Skin: Present: warm, no rash - Neurological Exam Neurological: Present: awake. Absent: alert, normal cognition - Extremities Exam Extremities: Present: no cyanosis, no clubbing, edema. Absent: no edema Assessment and Plan (1) Sepsis Status: Acute Qualifiers: Sepsis type: sepsis due to unspecified organism Sepsis acute organ dysfunction status: with acute organ dysfunction Severe sepsis acute organ dysfunction type: acute respiratory failure Acute respiratory failure type: with hypoxia Severe sepsis shock status: with septic shock Qualified Code(s): A41.9 - Sepsis, unspecified organism; R65.21 - Severe sepsis with septic shock; J96.01 - Acute respiratory failure with hypoxia Category: Medical Code(s): A41.9 - Sepsis, unspecified organism (2) Diabetes mellitus Status: Acute Qualifiers: Diabetes mellitus type: type 2 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 assisted insulin use status Diabetes mellitus complication status: with other specified complication Qualified Code(s): E11.69 - Type 2 diabetes mellitus with other specified complication Category: Medical Code(s): E11.9 - Type 2 diabetes mellitus without complications (3) Hypertension Status: Acute Category: Medical Code(s): I10 - Essential (primary) hypertension (4) Obesity Status: Acute Qualifiers: Obesity type: due to excess calories Obesity classification: adult class 3 (BMI >= 40) Serious obesity comorbidity presence: with serious comorbidity Body mass index: BMI 40.0-44.9 Qualified Code(s): E66.01 - Morbid (severe) obesity due to excess calories; Z68.41 - Body mass index [BMI] 40.0-44.9, adult Category: Medical Code(s): E66.9 - Obesity, unspecified (5) CAD in [place] artery Status: Acute Category: Medical Code(s): I25.10 - Atherosclerotic heart disease of [place] coronary artery without angina pectoris (6) Amputation of toe of right foot Status: Acute Category: Medical Code(s): S98.131A - Complete traumatic amputation of one right lesser toe, initial encounter (7) CHF (congestive heart failure), NYHA class I Status: Acute Category: Medical Code(s): I50.9 - Heart failure, unspecified (8) Chronic low back pain Status: Acute Qualifiers: Back pain laterality: bilateral Sciatica presence: with sciatica Sciatica laterality: bilateral sciatica Qualified Code(s): M54.42 - Lumbago with sciatica, left side; M54.41 - Lumbago with sciatica, right side; G89.29 - Other chronic pain Category: Medical Code(s): M54.5 - Low back pain; G89.29 - Other chronic pain (9) History of coronary artery stent placement Status: Acute Category: Surgical Code(s): Z95.5 - Presence of coronary angioplasty implant and graft (10) Hyperglycemia Status: Acute Category: Medical Code(s): R73.9 - Hyperglycemia, unspecified (11) Insulin dependent diabetes mellitus Status: Acute Category: Medical Code(s): E11.9 - Type 2 diabetes mellitus without complications; Z79.4 - terminal make up operator (current) use of insulin (12) Type 2 diabetes mellitus Status: Acute Category: Medical Code(s): E11.9 - Type 2 diabetes mellitus without complications (13) PNA (pneumonia) Status: Acute Category: Medical Code(s): J18.9 - Pneumonia, unspecified organism
--- NOTE | 2021-12-23 08:58 | HMH.ACPN2 ---
Internal Medicine - PN: Subj *Date: 12/23/21 *Time: 13:51 Interval history: 58-year-old female patient resting in bed quietly Ventimask intact, she is nonverbal and does not answer questions or follow instructions. She does moan when bilateral lower extremities and abdomen are palpated, but shows no reaction when other areas of the body are palpated. Cardizem drip infusing at 10 cc an hour, patient temp during the night 101.4 rectally, she is on Invanz for ESBL and Klebsiella coverage Exam Vital signs and Labs for Last 24 Hours: Temp Pulse Resp BP Pulse Ox 98.6 F 89 24 119/71 92 L 12/23/21 06:00 12/23/21 06:08 12/23/21 06:00 12/23/21 06:00 12/23/21 06:08 Laboratory Results - last 24 hr 12/21/21 06:04: POC Glucose 342 H* 12/21/21 21:14: POC Glucose 318 H* 12/22/21 05:33: Magnesium 3.4 H 12/22/21 11:39: POC Glucose 294 H 12/22/21 15:37: POC Glucose 255 H 12/22/21 20:55: POC Glucose 295 H 12/23/21 05:19: WBC 21.9 H*, RBC 4.75, Hgb 13.8, Hct 43.9, MCV 92.5, MCH 29.1, MCHC 31.5 L, RDW 14.7, Plt Count 290, MPV 8.6, Neut % (Auto) 89.2 H, Lymph % (Auto) 5.8 L, [place] % (Auto) 4.6, Eos % (Auto) 0.1, Baso % (Auto) 0.2, Neut # (Auto) 19.5 H, Lymph # (Auto) 1.3, [place] # (Auto) 1.0, Eos # (Auto) 0.0, Baso # (Auto) 0.1, Total Counted 100, Neutrophils % (Manual) 91 H, Lymphocytes % (Manual) 6 L, Monocytes % (Manual) 3, Platelet Estimate Normal 12/23/21 05:19: Sodium 155 H*, Potassium 3.3 L, Chloride 124 H, Carbon Dioxide 22, Anion Gap 12.3, BUN 70 H, Creatinine 1.20 H, Estimated Creat Clear 42, Estimated GFR 46 L, Est GFR ( Amer) 55 L, Glucose 266 H, Calcium 8.6 12/23/21 06:28: POC Glucose 230 H I & O for Last 24 hours: Intake & Output 12/20/21 12/21/21 12/22/21 12/23/21 23:59 23:59 23:59 23:59 Intake Total 705 / 710 792 / 864 693 / 693 104 / 104 Output Total 3990 / 3990 2555 / 2615 497 / 1447 1400 / 1400 Balance -3285 / -3280 -1763 / -1751 196 / -754 -1296 / -1296 Weight 262 lb 4.896 oz 253 lb 6 oz 253 lb 6 oz - Constitutional no acute distress, chronically ill appearing - *Routine HEENT Exam Head: Present: normocephalic ENT: Present: mucous membranes moist - *Routine Neck Exam Present: trachea midline. Absent: tracheal deviation - *Routine Respiratory Exam Present: rhonchi. Absent: accessory muscle use - *Routine Cardiovascular Exam Present: RRR - *Routine Abdominal Exam Present: soft, normoactive bowel sounds, tenderness. Absent: firm - *Routine Extremities Exam Present: edema, calf tenderness. Absent: cyanosis - *Routine Skin Exam Present: intact, dry. Absent: cyanosis, erythema - *Routine Neurological Exam Present: altered mental status - Routine Psychiatric Exam Present: unable to assess Assessment and Plan (1) Sepsis Status: Acute Qualifiers: Sepsis type: sepsis due to unspecified organism Sepsis acute organ dysfunction status: with acute organ dysfunction Severe sepsis acute organ dysfunction type: acute respiratory failure Acute respiratory failure type: with hypoxia Severe sepsis shock status: with septic shock Qualified Code(s): A41.9 - Sepsis, unspecified organism; R65.21 - Severe sepsis with septic shock; J96.01 - Acute respiratory failure with hypoxia Category: Medical Code(s): A41.9 - Sepsis, unspecified organism (2) Diabetes mellitus Status: Acute Qualifiers: Diabetes mellitus type: type 2 Diabetes mellitus assisted insulin use: unspecified assisted insulin use status Diabetes mellitus complication status: with other specified complication Qualified Code(s): E11.69 - Type 2 diabetes mellitus with other specified complication Category: Medical Code(s): E11.9 - Type 2 diabetes mellitus without complications (3) Hypertension Status: Acute Category: Medical Code(s): I10 - Essential (primary) hypertension (4) Obesity Status: Acute Qualifiers: Obesity type: due to excess calories Obesity classification: adul
--- NOTE | 2021-12-23 09:00 | CT_ITS ---
FINAL REPORT TECHNIQUE: Axial images through the abdomen and pelvis were performed without contrast. This study was performed with techniques to keep radiation doses as low as reasonably achievable, (ALARA). Individualized dose reduction techniques using automated exposure control or adjustment of mA and/or kV according to the patient's size were employed. CLINICAL HISTORY: Abd pain FINDINGS: Abdomen: There are extensive patchy bibasilar airspace infiltrates consistent with multifocal pneumonia. The liver parenchyma is homogeneous. The gallbladder is absent. There appears to be a an 8 mm peripherally calcified structure in the splenic hilum that may be due to a splenic artery aneurysm. The right kidney is lobular which may be due to multiple prior infarcts. The adrenal glands are unremarkable. The spleen is unremarkable. There are multiple air-filled loops of small bowel in the upper and mid abdomen. Small bowel loops are dilated up to 4.5 cm. The mid and distal small bowel is relatively decompressed. Pelvis: There is extensive mucosal thickening of the mid sigmoid colon up to 2 cm. There is mild pericolonic inflammation at the proximal sigmoid colon. There is circumferential mucosal thickening of the inferior rectum. The urinary bladder is decompressed around a Dexter catheter. IMPRESSION: Extensive mucosal thickening of the proximal sigmoid colon which may be due to colitis. Underlying mass cannot be excluded. Lower endoscopy may be of value. Dilated proximal small bowel with relatively decompressed distal small bowel. Unclear if this represents a segmental ileus or partial small bowel obstruction. Extensive bibasilar airspace infiltrates consistent with multifocal pneumonia. Reviewed, Interpreted and Dictated by Rich Zambrano MD Transcribed by Brannon Ramos Authenticated by Rich Zambrano MD on 12/23/2021 10:56:22 AM [facility]
--- NOTE | 2021-12-23 09:01 | CA_ITS ---
FINAL REPORT TECHNIQUE: Bilateral lower extremity venous duplex was performed with augmentation and compression. CLINICAL HISTORY: Painful BLE, pt responds to painful stimuli only. Obesity, DM, CAD, Pt moved thru out exam. Difficult exam FINDINGS: Proper flow is seen throughout the deep venous systems bilaterally. There is no evidence of deep venous thrombosis. IMPRESSION: No evidence of deep venous thrombosis. Reviewed, Interpreted and Dictated by Rich Zambrano MD Transcribed by Maryam Sainz Authenticated by Rich Zambrano MD on 12/23/2021 11:24:[address] [facility]
--- NOTE | 2021-12-23 09:30 | DIET.NUTRFU ---
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 This morning she was able to tolerate MSOFT with thin via straw to start at lunch. Will continue to monitor fluid intake. Labs Na 155, K 3.3L, BUN 70H, Cr 1.2. No hydration replacement ordered at this time. If oral intake cannot meet needs may benefit from some hydration.
--- NOTE | 2021-12-23 09:40 | HMH.PNCARD ---
Subjective Date: 12/23/21 Time: 09:40 Principal diagnosis: A. fib with RVR, sepsis Interval history: 60-year-old white female in bed on oxygen by Ventimask. More alert today and actually interacts with questioning today. Complains of discomfort all over. Nursing relates some leg discomfort for which a venous Doppler is being ordered. Also abdominal discomfort which is CT scan is being ordered. Telemetry shows sinus rhythm with controlled rate. Nursing relates brief (less than 2 minutes) of atrial flutter overnight x3. She remains on IV Cardizem at 10 mg/h with blood pressure controlled. Exam Vital signs and Labs for Last 24 Hours: Temp Pulse Resp BP Pulse Ox 98.6 F 89 24 119/71 92 L 12/23/21 06:00 12/23/21 06:08 12/23/21 06:00 12/23/21 06:00 12/23/21 06:08 Laboratory Results - last 24 hr 12/21/21 06:04: POC Glucose 342 H* 12/21/21 21:14: POC Glucose 318 H* 12/22/21 05:33: Magnesium 3.4 H 12/22/21 11:39: POC Glucose 294 H 12/22/21 15:37: POC Glucose 255 H 12/22/21 20:55: POC Glucose 295 H 12/23/21 05:19: WBC 21.9 H*, RBC 4.75, Hgb 13.8, Hct 43.9, MCV 92.5, MCH 29.1, MCHC 31.5 L, RDW 14.7, Plt Count 290, MPV 8.6, Neut % (Auto) 89.2 H, Lymph % (Auto) 5.8 L, [place] % (Auto) 4.6, Eos % (Auto) 0.1, Baso % (Auto) 0.2, Neut # (Auto) 19.5 H, Lymph # (Auto) 1.3, [place] # (Auto) 1.0, Eos # (Auto) 0.0, Baso # (Auto) 0.1, Total Counted 100, Neutrophils % (Manual) 91 H, Lymphocytes % (Manual) 6 L, Monocytes % (Manual) 3, Platelet Estimate Normal 12/23/21 05:19: Sodium 155 H*, Potassium 3.3 L, Chloride 124 H, Carbon Dioxide 22, Anion Gap 12.3, BUN 70 H, Creatinine 1.20 H, Estimated Creat Clear 42, Estimated GFR 46 L, Est GFR ( Amer) 55 L, Glucose 266 H, Calcium 8.6 12/23/21 06:28: POC Glucose 230 H I & O for Last 24 hours: Intake & Output 12/20/21 12/21/21 12/22/21 12/23/21 11:59 11:59 11:59 11:59 Intake Total 3595.661 / 3595.661 265 / 265 954 / 954 507 / 507 Output Total 2140 / 2140 2980 / 2980 2332 / 2332 1400 / 1400 Balance 1455.661 / 1455.661 -2715 / -2715 -1378 / -1378 -893 / -893 Weight 262 lb 4.896 oz 253 lb 6 oz 253 lb 6 oz - Constitutional no acute distress - *Routine Respiratory Exam Present: rhonchi - *Routine Cardiovascular Exam Present: RRR - *Routine Neurological Exam Present: alert Progress Note: A&P (1) Sepsis Status: Acute (2) Diabetes mellitus Status: Acute (3) Hypertension Status: Acute (4) Obesity Status: Acute (5) CAD in [place] artery Status: Acute (6) Amputation of toe of right foot Status: Acute (7) CHF (congestive heart failure), NYHA class I Status: Acute (8) Chronic low back pain Status: Acute (9) History of coronary artery stent placement Status: Acute (10) Hyperglycemia Status: Acute (11) Insulin dependent diabetes mellitus Status: Acute (12) Type 2 diabetes mellitus Status: Acute (13) PNA (pneumonia) Status: Acute Assessment and Plan for All Diagnoses:: 1. Paroxysmal atrial fibrillation with rapid ventricular response. CHADS-VASC score of 4 (HTN, CHF, DM, female) with annual adjusted stroke rate of 4 %/year. She will need long-term anticoagulation but will use Lovenox until taking oral medications. Continue IV Cardizem for now. Patient is n.p.o. for abdominal CT scan but if no plans for surgery and patient can begin taking oral medications will switch Cardizem to 240 mg daily. 2. Sepsis/pneumonia, per pulmonary. No longer on blood pressure support medications. 3. Respiratory distress, now extubated but continues on supplemental oxygen. 4. Diabetes mellitus, per PCP 5. History of diastolic congestive heart failure in addition to above respiratory issues. Ejection fraction 50% on echocardiogram this admission. No diuretics at this time due to hypotension.
--- NOTE | 2021-12-23 12:01 | HMH.PHACONS ---
- Pharmacy Consult Date: 12/23/21 Time: 12:01 Referring provider: DR. MONTEMAYOR Reason for Consult:: GENTAMICIN DOSING Allergies and ADEs:: Allergies Allergy/AdvReac Type Severity Reaction Status Date / Time Sulfa (Sulfonamide Allergy Mild Unknown Verified 12/02/21 13:07 Antibiotics) allergy [SULFA (SULFONAMIDE reaction ANTIBIOTICS)] levofloxacin [From LEVAQUIN] Allergy Unknown Unknown Verified 12/02/21 13:07 allergy reaction Home Medications:: Home Medications Medication Instructions Recorded Confirmed Type Albuterol Sulfate [Ventolin HFA 2 puffs IH QIDP PRN 09/14/19 12/20/21 History Inhaler] Fluticasone/Vilanterol [Breo 1 puff IH DAILY 09/14/19 12/20/21 History Ellipta 200-25 Mcg INH] Tiotropium [place] [Spiriva 1 puff IH DAILY 09/14/19 12/20/21 History 18mcg/puff inhaler] Sitagliptin Phosphate [Januvia 100 mg PO DAILY 09/27/19 12/19/21 History 100mg tablet] hydroxyzine pamoate 25 mg capsule 25 mg PO QIDP PRN cap 11/27/19 12/19/21 History Duloxetine HCl 30 mg PO DAILY 12/03/19 12/19/21 History Levothyroxine Sodium 112 mcg PO DAILY 12/03/19 12/19/21 History [Levothyroxine 112mcg (0.112mg) Tab] Insulin NPH Hum/Reg Insulin Hm 60 unit SQ BID 11/28/20 12/19/21 History [Novolin 70-30 Flexpen] Losartan Potassium 25 mg PO DAILY 11/28/20 12/19/21 History Trazodone HCl 50 mg PO HS 11/28/20 12/19/21 History aspirin 81 mg tablet,delayed 81 mg PO DAILY 02/07/21 12/19/21 History release clonazepam 1 mg tablet 1 mg PO TIDP PRN tab 12/02/21 12/20/21 History Lidocaine [Lidoderm 5% transdermal 1 each TP Q24H 12/19/21 12/19/21 History patch] Oxybutynin Chloride [Oxybutynin 15 mg PO DAILY 12/19/21 12/19/21 History Chloride ER] Cetirizine HCl 10 mg PO DAILY 12/20/21 12/20/21 History Empagliflozin [Jardiance] 25 mg PO DAILY 12/20/21 12/20/21 History Gabapentin [Neurontin 600mg 600 mg PO TID 12/20/21 12/20/21 History tablet] Montelukast Sodium [Singulair 10mg 10 mg PO PM 12/20/21 12/20/21 History tablet] Spironolactone [Spironolactone 25 mg PO DAILY 12/20/21 12/20/21 History 25mg Tablet] Tramadol HCl [Tramadol 50mg 50 mg PO Q8HP PRN 12/20/21 12/20/21 History Tab] Height: 1.65 m Weight: 114.929 kg Laboratory Results:: Laboratory Results - last 24 hr 12/21/21 06:04: POC Glucose 342 H* 12/21/21 21:14: POC Glucose 318 H* 12/22/21 11:39: POC Glucose 294 H 12/22/21 15:37: POC Glucose 255 H 12/22/21 20:55: POC Glucose 295 H 12/23/21 05:19: WBC 21.9 H*, RBC 4.75, Hgb 13.8, Hct 43.9, MCV 92.5, MCH 29.1, MCHC 31.5 L, RDW 14.7, Plt Count 290, MPV 8.6, Neut % (Auto) 89.2 H, Lymph % (Auto) 5.8 L, [place] % (Auto) 4.6, Eos % (Auto) 0.1, Baso % (Auto) 0.2, Neut # (Auto) 19.5 H, Lymph # (Auto) 1.3, [place] # (Auto) 1.0, Eos # (Auto) 0.0, Baso # (Auto) 0.1, Total Counted 100, Neutrophils % (Manual) 91 H, Lymphocytes % (Manual) 6 L, Monocytes % (Manual) 3, Platelet Estimate Normal 12/23/21 05:19: Sodium 155 H*, Potassium 3.3 L, Chloride 124 H, Carbon Dioxide 22, Anion Gap 12.3, BUN 70 H, Creatinine 1.20 H, Estimated Creat Clear 42, Estimated GFR 46 L, Est GFR ( Amer) 55 L, Glucose 266 H, Calcium 8.6 12/23/21 06:28: POC Glucose 230 H Medical History: Reports:: Anxiety, Arrhythmia, Asthma, Atrial Fibrillation, Congestive Heart Failure, Chronic Obstructive Pulmonary Disease (COPD), Coronary Artery Disease, Depression, Diabetes Mellitus Type 2, Gastroesophageal Reflux Disease(GERD), Hyperlipidemia, Hypertension, MRSA, Peripheral Vascular Disease, Urinary Tract Infection Denies:: Cancer, Diabetes Mellitus Type 1, Internal Pacemaker, Seizures Assessment and Plan (1) Sepsis Status: Acute Qualifiers: Sepsis type: sepsis due to unspecified organism Sepsis acute organ dysfunction status: with acute organ dysfunction Severe sepsis acute organ dysfunction type: acute respiratory failure Acute respiratory failure type: with hypoxia Severe sepsis shock
--- NOTE | 2021-12-23 14:17 | HMH.GSCON ---
*Admission Date: 12/19/21 *Reason for consult:: Colitis vs. neoplasm; ileus vs. partial small bowel obstruction *History of present illness: This is a 60-year-old female seen in consultation from Dr. Raines for evaluation regarding colitis versus neoplasm and ileus versus partial small bowel obstruction. She presented to emergency department on December 19 after being found unresponsive. Previously, she had complained of cough/congestion. Treatment for respiratory failure and multifocal pneumonia ensued. Over the past 48 hours she showed some signs of improvement and was extubated. Some abdominal pain noted on physical examination resulted in a CT scan. Findings per CT confirmed extensive patchy bibasilar airspace infiltrates consistent with multifocal pneumonia. In addition, multiple air-filled loops of small bowel in the upper mid abdomen were noted. Dilation up to 4.5 cm confirmed. The mid and distal small bowel was somewhat decompressed. Extensive mucosal thickening of the mid sigmoid colon was also confirmed. Some mild pericolonic inflammation at the proximal sigmoid colon also noted. Circumferential mucosal thickening of the inferior rectum also seen. Review of Systems - Review of Systems Review of systems:: unable to obtain [facility] History Medical History: Reports:: Anxiety, Arrhythmia, Asthma, Atrial Fibrillation, Congestive Heart Failure, Chronic Obstructive Pulmonary Disease (COPD), Coronary Artery Disease, Depression, Diabetes Mellitus Type 2, Gastroesophageal Reflux Disease(GERD), Hyperlipidemia, Hypertension, MRSA, Peripheral Vascular Disease, Urinary Tract Infection Denies:: Cancer, Diabetes Mellitus Type 1, Internal Pacemaker, Seizures *Have you ever received a pneumonia vaccine?: No *Have you received a flu vaccine this season?: No Other Medical History: Reports: Anemia, Arthritis, Hormone Therapy, Hypothyroidism, Liver Disease, Sinus Problems, Thyroid Disease, Other Laterality Cases: Bilateral: Tonsillectomy, Other Other Surgeries: Yes: No Previous Surgery, Appendectomy, Cardiac Catheterization, Cholecystectomy, Colonoscopy, , Dilation and Curettage, EGD, Hernia Repair, Hysterectomy-Total, Hysterectomy-Partial, Thyroidectomy, Tubal Ligation, Other. No: Pacemaker Amputation: Yes (Right 2nd toe, right 3rd toe ) Fractures: Yes - *Social History Last grade of school completed: Some college Smoking Status: Current every day smoker Tobacco Type: cigarettes # Packs/Day (cigarettes): 1 Alcohol Intake: never Alcohol Intake Frequency:: other Substance Use Type: denies use, IV drugs *Occupational Status:: unemployed Housing: apartment Household Members: family *Travel in the last 8 weeks: Inside the [place] - Psychiatric History Expresses thoughts of harming self/others: Vague Pschychiatric History:: Reports:: Anxiety, Depression Family Hx:: Cancer, Coronary Artery Disease, Diabetes, Hyperlipidemia, Hypertension Meds Home Medications Medication Instructions Recorded Confirmed Type Albuterol Sulfate [Ventolin HFA 2 puffs IH QIDP PRN 09/14/19 12/20/21 History Inhaler] Fluticasone/Vilanterol [Breo 1 puff IH DAILY 09/14/19 12/20/21 History Ellipta 200-25 Mcg INH] Tiotropium [place] [Spiriva 1 puff IH DAILY 09/14/19 12/20/21 History 18mcg/puff inhaler] Sitagliptin Phosphate [Januvia 100 mg PO DAILY 09/27/19 12/19/21 History 100mg tablet] hydroxyzine pamoate 25 mg capsule 25 mg PO QIDP PRN cap 11/27/19 12/19/21 History Duloxetine HCl 30 mg PO DAILY 12/03/19 12/19/21 History Levothyroxine Sodium 112 mcg PO DAILY 12/03/19 12/19/21 History [Levothyroxine 112mcg (0.112mg) Tab] Insulin NPH Hum/Reg Insulin Hm 60 unit SQ BID 11/28/20 12/19/21 History [Novolin 70-30 Flexpen] Losartan Potassium 25 mg PO DAILY 11/28/20 12/19/21 History Trazodone HCl 50 mg PO HS 11/28/20 12/19/21 History aspirin 81 mg tablet,delayed 81 mg PO DAILY 02/07/21 12/19/21 History release clonazepam 1 mg ta
[2021-12-23 19:08] LABS: Gentamicin,Random 14.5 ug/ml
--- NOTE | 2021-12-23 20:32 | PC.NURSE ---
pt sat up in bed and drank diet dr manning
[2021-12-24] VITALS (16 sets, daily range): BP systolic 93–138; BP diastolic 39–71; PULSE 64–97; RESP 16–33; TEMP 36.5–38.3; O2SAT 89–99; BMI 40.6
[2021-12-24 01:20] LABS: POC Glucose,Bedside 287 (70-110)
[2021-12-24 01:21] LABS: POC Glucose,Bedside 317 (70-110)
[2021-12-24 07:18] LABS: Basophils # 0.1 K/mm3 (0-0.2); Basophils % 0.7 % (0.1-2.0); Eosinophils % 0.1 % (0.1-12.0); Hematocrit 42.4 % (37.0-47.0); Hemoglobin 12.8 g/dL (12.2-16.2); Lymphocytes # 1.5 K/mm3 (0.7-4.5); Lymphocytes % 9.4 % (10-50); Mean Corpuscular HGB Conc 30.2 g/dL (31.8-35.4); Mean Corpuscular Hemoglobin 28.5 pg (27.0-31.2); Mean Corpuscular Volume 94.2 fl (81-99); Mean Platelet Volume 8.6 fl (7.4-10.4); Monocytes # 0.9 K/mm3 (0.1-1.0); Monocytes % 5.9 % (1.7-9.3); Neutrophils % 83.7 % (37.0-80.0); Platelet Count 278 K/mm3 (142-424); Red Cell Distribution Width 15.3 % (11.5-17.5); White Blood Count 15.6 K/mm3 (4.8-10.8)
[2021-12-24 07:25] LABS: MANUAL DIFFERENTIAL MANUAL DIFFERENTIAL (MANUAL DIFF)
[2021-12-24 07:26] LABS: Anion Gap 8.6 mEq/L (5-15); Calcium 8.4 mg/dl (8.4-10.2); Carbon Dioxide 22 mmol/L (22.0-30.0); Creatinine Clearance Estimated 34 mL/min (50-200); Estimated Glomerular Filt Rate 35 ml/min (>60); GFR (African American) 43 ML/MIN (>60); Glucose 265 mg/dl (74-100); Potassium 3.6 mmoL/L (3.5-5.1)
[2021-12-24 07:30] LABS: Gentamicin,Random 3.8 ug/ml
[2021-12-24 07:36] LABS: Chloride 127 mmol/L (98-107); Sodium 154 mmol/L (136-145)
[2021-12-24 07:37] LABS: Blood Urea Nitrogen 80 mg/dl (7-17)
--- NOTE | 2021-12-24 07:37 | PC.NURSE ---
Received call from lab ([facility]) reporting the following: Na 154, Cl 127, and BUN 80. Name and verified. Dr. Vázquez notified.
[2021-12-24 08:39] LABS: Lymphocytes % 12 % (10-50); Monocytes % 4 % (2-9); Neutrophils % 84 % (42-76); Platelet Estimate Normal; Total Cells Counted 100
--- NOTE | 2021-12-24 09:46 | PC.NURSE ---
received call from Dr. Harris with new orders: Initiate Vapotherm 40L/100%. Wean liter flow but keep FiO2 @ 100%. Discontinue NS @ 100mL/hr. If pt continues to swallow thins ok, then start soft diet.
--- NOTE | 2021-12-24 10:01 | P.PN_ITS ---
Subjective Narrative: No increasing abdominal pain reported Progress Note: A&P (1) Sepsis Status: Acute (2) Diabetes mellitus Status: Acute (3) Hypertension Status: Acute (4) Obesity Status: Acute (5) CAD in [place] artery Status: Acute (6) Amputation of toe of right foot Status: Acute (7) CHF (congestive heart failure), NYHA class I Status: Acute (8) Chronic low back pain Status: Acute (9) History of coronary artery stent placement Status: Acute (10) Hyperglycemia Status: Acute (11) Insulin dependent diabetes mellitus Status: Acute (12) Type 2 diabetes mellitus Status: Acute (13) PNA (pneumonia) Status: Acute (14) Ileus Status: Acute (15) Abnormal CT scan, sigmoid colon Status: Acute Assessment and plan: Most likely infectious (possible, but less likely neoplastic). Leukocytosis improving. Continue antibiotics for now Follow-up pending stool culture Outpatient colonoscopy warranted when medically stable Exam Vital signs and Labs for Last 24 Hours: Temp Pulse Resp BP Pulse Ox 101 F H 79 24 96/60 L 89 L 12/24/21 05:00 12/24/21 07:02 12/24/21 06:00 12/24/21 06:00 12/24/21 07:02 Laboratory Results - last 24 hr 12/23/21 11:11: POC Glucose 287 H 12/23/21 17:24: Random Gentamicin 14.5 12/23/21 20:34: POC Glucose 317 H* 12/24/21 06:39: WBC 15.6 H D, RBC 4.50, Hgb 12.8, Hct 42.4, MCV 94.2, MCH 28.5, MCHC 30.2 L, RDW 15.3, Plt Count 278, MPV 8.6, Neut % (Auto) 83.7 H, Lymph % (Auto) 9.4 L, [place] % (Auto) 5.9, Eos % (Auto) 0.1, Baso % (Auto) 0.7, Neut # ( Auto) 13.0 H, Lymph # (Auto) 1.5, [place] # (Auto) 0.9, Eos # (Auto) 0.0, Baso # (Auto) 0.1, Total Counted 100, Neutrophils % (Manual) 84 H, Lymphocytes % (Manual) 12, Monocytes % (Manual) 4, Platelet Estimate Normal 12/24/21 06:39: Sodium 154 H*, Potassium 3.6, Chloride 127 H, Carbon Dioxide 22, Anion Gap 8.6, BUN 80 H, Creatinine 1.50 H D, Estimated Creat Clear 34, Estimated GFR 35 L, Est GFR ( Amer) 43 L D, Glucose 265 H, Calcium 8.4 12/24/21 06:39: Random Gentamicin 3.8 I & O for Last 24 hours: Intake & Output 12/21/21 12/22/21 12/23/21 12/24/21 11:59 11:59 11:59 11:59 Intake Total 265 / 265 954 / 954 507 / 507 990 / 990 Output Total 2980 / 2980 2332 / 2332 1400 / 1400 775 / 775 Balance -2715 / -2715 -1378 / -1378 -893 / -893 215 / 215 Weight 253 lb 6 oz 253 lb 6 oz 244 lb 3.2 oz - Constitutional Comments: Somewhat more alert - *Routine Respiratory Exam Comments: Continuing with mask - *Routine Cardiovascular Exam Absent: tachycardia
--- NOTE | 2021-12-24 10:09 | HMH.ACPN2 ---
Internal Medicine - PN: Subj *Date: 12/24/21 *Time: 10:19 Interval history: more alert today vapotherm per pulmonary service ct=colitis changes proximal sigmoid airspace disease noted on imaging sputum cx=klebsiella urine culture=esbl ecoli duplex=no dvt Exam Vital signs and Labs for Last 24 Hours: Temp Pulse Resp BP Pulse Ox 101 F H 79 24 96/60 L 89 L 12/24/21 05:00 12/24/21 07:02 12/24/21 06:00 12/24/21 06:00 12/24/21 07:02 Laboratory Results - last 24 hr 12/23/21 11:11: POC Glucose 287 H 12/23/21 17:24: Random Gentamicin 14.5 12/23/21 20:34: POC Glucose 317 H* 12/24/21 06:39: WBC 15.6 H D, RBC 4.50, Hgb 12.8, Hct 42.4, MCV 94.2, MCH 28.5, MCHC 30.2 L, RDW 15.3, Plt Count 278, MPV 8.6, Neut % (Auto) 83.7 H, Lymph % (Auto) 9.4 L, [place] % (Auto) 5.9, Eos % (Auto) 0.1, Baso % (Auto) 0.7, Neut # (Auto) 13.0 H, Lymph # (Auto) 1.5, [place] # (Auto) 0.9, Eos # (Auto) 0.0, Baso # (Auto) 0.1, Total Counted 100, Neutrophils % (Manual) 84 H, Lymphocytes % (Manual) 12, Monocytes % (Manual) 4, Platelet Estimate Normal 12/24/21 06:39: Sodium 154 H*, Potassium 3.6, Chloride 127 H, Carbon Dioxide 22, Anion Gap 8.6, BUN 80 H, Creatinine 1.50 H D, Estimated Creat Clear 34, Estimated GFR 35 L, Est GFR ( Amer) 43 L D, Glucose 265 H, Calcium 8.4 12/24/21 06:39: Random Gentamicin 3.8 I & O for Last 24 hours: Intake & Output 12/21/21 12/22/21 12/23/21 12/24/21 23:59 23:59 23:59 23:59 Intake Total 792 / 864 693 / 693 1094 / 1094 Output Total 2555 / 2615 497 / 1447 1675 / 1675 500 / 500 Balance -1763 / -1751 196 / -754 -581 / -581 -500 / -500 Weight 253 lb 6 oz 253 lb 6 oz 244 lb 3.2 oz - Constitutional no acute distress, obese, chronically ill appearing, somnolent - *Routine HEENT Exam Head: Present: normocephalic Eye: Present: EOMI, PERRL ENT: Present: mucous membranes moist - *Routine Neck Exam Present: supple. Absent: lymphadenopathy - *Routine Respiratory Exam Present: prolonged expiratory phase, rhonchi, wheezes, crackles. Absent: accessory muscle use, respiratory distress - *Routine Cardiovascular Exam Present: RRR - *Routine Abdominal Exam Present: soft, obese. Absent: distended, rebound, guarding, mass - *Routine Extremities Exam Absent: cyanosis, clubbing, edema - *Routine Skin Exam Present: warm. Absent: rash - *Routine Neurological Exam Present: alert, vision grossly intact, hearing grossly intact Assessment and Plan (1) Sepsis Status: Acute Qualifiers: Sepsis type: sepsis due to unspecified organism Sepsis acute organ dysfunction status: with acute organ dysfunction Severe sepsis acute organ dysfunction type: acute respiratory failure Acute respiratory failure type: with hypoxia Severe sepsis shock status: with septic shock Qualified Code(s): A41.9 - Sepsis, unspecified organism; R65.21 - Severe sepsis with septic shock; J96.01 - Acute respiratory failure with hypoxia Category: Medical Code(s): A41.9 - Sepsis, unspecified organism (2) Diabetes mellitus Status: Acute Qualifiers: Diabetes mellitus type: type 2 Diabetes mellitus [place] insulin use: unspecified [place] insulin use status Diabetes mellitus complication status: with other specified complication Qualified Code(s): E11.69 - Type 2 diabetes mellitus with other specified complication Category: Medical Code(s): E11.9 - Type 2 diabetes mellitus without complications (3) Hypertension Status: Acute Category: Medical Code(s): I10 - Essential (primary) hypertension (4) Obesity Status: Acute Qualifiers: Obesity type: due to excess calories Obesity classification: adult class 3 (BMI >= 40) Serious obesity comorbidity presence: with serious comorbidity Body mass index: BMI 40.0-44.9 Qualified Code(s): E66.01 - Morbid (severe) obesity due to excess calories; Z68.41 - Body mass index [BMI] 40.0-44.9, adult Category: Medical Code(s): E66.9 - Obesity, unspecif
[2021-12-24 11:58] LABS: POC Glucose,Bedside 251 (70-110)
[2021-12-24 11:58] LABS: POC Glucose,Bedside 313 (70-110)
[2021-12-24 20:09] LABS: POC Glucose,Bedside 185 (70-110)
--- NOTE | 2021-12-24 20:12 | PC.NURSE ---
Dr Arnold notified of preliminary blood culture results. No new orders at this time.
[2021-12-24 21:01] LABS: POC Glucose,Bedside 218 (70-110)
[2021-12-25] VITALS (16 sets, daily range): BP systolic 93–136; BP diastolic 30–75; PULSE 58–84; RESP 21–33; TEMP 36.4–37.4; O2SAT 91–98; BMI 41.2
--- NOTE | 2021-12-25 06:00 | XR_ITS ---
PROCEDURE INFORMATION: Exam: XR Chest Exam date and time: 12/25/2021 5:50 AM Age: 61 years old Clinical indication: Shortness of breath and other: Pneumonia; Additional info: Pna TECHNIQUE: Imaging protocol: XR of the chest. Views: 1 view. COMPARISON: CR XR CHEST PORTABLE 12/22/2021 4:56 AM FINDINGS: Lungs: Low lung volumes with patchy bilateral airspace opacities. Pleural spaces: Unremarkable. No pleural effusion. No pneumothorax. Heart/Mediastinum: Unremarkable. No cardiomegaly. Bones/joints: Unremarkable. IMPRESSION: Low lung volumes with patchy bilateral airspace opacities, which may reflect atelectasis versus pneumonia.
[2021-12-25 06:04] LABS: POC Glucose,Bedside 223 (70-110)
[2021-12-25 08:40] LABS: Basophils # 0.3 K/mm3 (0-0.2); Basophils % 1.7 % (0.1-2.0); Eosinophils # 0.1 K/mm3 (0.0-0.4); Eosinophils % 0.3 % (0.1-12.0); Hematocrit 43.3 % (37.0-47.0); Hemoglobin 13.9 g/dL (12.2-16.2); Lymphocytes # 2.7 K/mm3 (0.7-4.5); Lymphocytes % 16.1 % (10-50); Mean Corpuscular Hemoglobin 29.3 pg (27.0-31.2); Mean Corpuscular Volume 91.4 fl (81-99); Mean Platelet Volume 9.4 fl (7.4-10.4); Monocytes # 0.8 K/mm3 (0.1-1.0); Monocytes % 4.8 % (1.7-9.3); Neutrophils % 77.1 % (37.0-80.0); Platelet Count 307 K/mm3 (142-424); Red Blood Count 4.73 M/mm3 (4.20-5.40); Red Cell Distribution Width 15.4 % (11.5-17.5); White Blood Count 16.8 K/mm3 (4.8-10.8)
[2021-12-25 08:52] LABS: MANUAL DIFFERENTIAL MANUAL DIFFERENTIAL (MANUAL DIFF)
[2021-12-25 09:20] LABS: Anion Gap 14.1 mEq/L (5-15); Calcium 8.3 mg/dl (8.4-10.2); Carbon Dioxide 18 mmol/L (22.0-30.0); Chloride 116 mmol/L (98-107); Creatinine Clearance Estimated 36 mL/min (50-200); Estimated Glomerular Filt Rate 38 ml/min (>60); GFR (African American) 46 ML/MIN (>60); Glucose 233 mg/dl (74-100); Potassium 5.1 mmoL/L (3.5-5.1); Sodium 143 mmol/L (136-145)
[2021-12-25 09:26] LABS: Blood Urea Nitrogen 93 mg/dl (7-17)
--- NOTE | 2021-12-25 09:27 | PC.NURSE ---
received call from lab reporting BUN 93. Name and verified. Notified Dr Vázquez.
--- NOTE | 2021-12-25 09:58 | HMH.ACPN ---
Internal Medicine - PN: Subj *Date: 12/25/21 *Time: 09:58 Exam Vital signs and Labs for Last 24 Hours: Temp Pulse Resp BP Pulse Ox 97.7 F 75 33 H 122/75 92 L 12/25/21 04:00 12/25/21 06:40 12/25/21 06:00 12/25/21 06:00 12/25/21 06:40 Laboratory Results - last 24 hr 12/24/21 05:08: POC Glucose 313 H* 12/24/21 11:43: POC Glucose 251 H 12/24/21 16:25: POC Glucose 218 H 12/24/21 20:01: POC Glucose 185 H 12/25/21 05:51: POC Glucose 223 H 12/25/21 07:30: WBC 16.8 H, RBC 4.73, Hgb 13.9, Hct 43.3, MCV 91.4, MCH 29.3, MCHC 32.0, RDW 15.4, Plt Count 307, MPV 9.4, Neut % (Auto) 77.1, Lymph % (Auto) 16.1, [place] % (Auto) 4.8, Eos % (Auto) 0.3, Baso % (Auto) 1.7, Neut # (Auto) 13.0 H, Lymph # (Auto) 2.7, [place] # (Auto) 0.8, Eos # (Auto) 0.1, Baso # (Auto) 0.3 H 12/25/21 07:30: Sodium 143, Potassium 5.1 D, Chloride 116 H, Carbon Dioxide 18 L, Anion Gap 14.1, BUN 93 H, Creatinine 1.40 H, Estimated Creat Clear 36, Estimated GFR 38 L, Est GFR ( Amer) 46 L, Glucose 233 H, Calcium 8.3 L I & O for Last 24 hours: Intake & Output 12/22/21 12/23/21 12/24/21 12/25/21 23:59 23:59 23:59 23:59 Intake Total 693 / 693 1094 / 1094 492 / 592 200 / 200 Output Total 497 / 1447 1675 / 1675 1275 / 1450 375 / 375 Balance 196 / -754 -581 / -581 -783 / -858 -175 / -175 Weight 114.929 kg 110.767 kg 112.264 kg Microbiology Reports for the Last 24 Hours: Microbiology 12/23/21 11:45 Blood Blood Culture - Preliminary 12/23/21 11:45 Blood Blood Culture - Preliminary 12/19/21 11:30 Blood Blood Culture - Final NO GROWTH AFTER 5 DAYS 12/19/21 11:30 Blood Blood Culture - Final NO GROWTH AFTER 5 DAYS Assessment and Plan (1) Sepsis Status: Acute Qualifiers: Sepsis type: sepsis due to unspecified organism Sepsis acute organ dysfunction status: with acute organ dysfunction Severe sepsis acute organ dysfunction type: acute respiratory failure Acute respiratory failure type: with hypoxia Severe sepsis shock status: with septic shock Qualified Code(s): A41.9 - Sepsis, unspecified organism; R65.21 - Severe sepsis with septic shock; J96.01 - Acute respiratory failure with hypoxia Category: Medical Code(s): A41.9 - Sepsis, unspecified organism (2) Diabetes mellitus Status: Acute Qualifiers: Diabetes mellitus type: type 2 Diabetes mellitus terminal [place] insulin use: unspecified assisted insulin use status Diabetes mellitus complication status: with other specified complication Qualified Code(s): E11.69 - Type 2 diabetes mellitus with other specified complication Category: Medical Code(s): E11.9 - Type 2 diabetes mellitus without complications (3) Hypertension Status: Acute Category: Medical Code(s): I10 - Essential (primary) hypertension (4) Obesity Status: Acute Qualifiers: Obesity type: due to excess calories Obesity classification: adult class 3 (BMI >= 40) Serious obesity comorbidity presence: with serious comorbidity Body mass index: BMI 40.0-44.9 Qualified Code(s): E66.01 - Morbid (severe) obesity due to excess calories; Z68.41 - Body mass index [BMI] 40.0-44.9, adult Category: Medical Code(s): E66.9 - Obesity, unspecified (5) CAD in [place] artery Status: Acute Category: Medical Code(s): I25.10 - Atherosclerotic heart disease of [place] coronary artery without angina pectoris (6) Amputation of toe of right foot Status: Acute Category: Medical Code(s): S98.131A - Complete traumatic amputation of one right lesser toe, initial encounter (7) CHF (congestive heart failure), NYHA class I Status: Acute Category: Medical Code(s): I50.9 - Heart failure, unspecified (8) Chronic low back pain Status: Acute Qualifiers: Back pain laterality: bilateral Sciatica presence: with sciatica Sciatica laterality: bilateral sciatica Qualified Code(s): M54.42 - Lumbago with sciatica, lef
--- NOTE | 2021-12-25 10:06 | P.PN_ITS ---
Subjective Patient reports: no new complaints Progress Note: A&P (1) Sepsis Status: Acute (2) Diabetes mellitus Status: Acute (3) Hypertension Status: Acute (4) Obesity Status: Acute (5) CAD in [place] artery Status: Acute (6) Amputation of toe of right foot Status: Acute (7) CHF (congestive heart failure), NYHA class I Status: Acute (8) Chronic low back pain Status: Acute (9) History of coronary artery stent placement Status: Acute (10) Hyperglycemia Status: Acute (11) Insulin dependent diabetes mellitus Status: Acute (12) Type 2 diabetes mellitus Status: Acute (13) PNA (pneumonia) Status: Acute (14) Ileus Status: Acute (15) Abnormal CT scan, sigmoid colon Status: Acute Assessment and plan: Continue antibiotics. Outpatient colonoscopy when medically stable. Exam Vital signs and Labs for Last 24 Hours: Temp Pulse Resp BP Pulse Ox 97.7 F 75 33 H 122/75 92 L 12/25/21 04:00 12/25/21 06:40 12/25/21 06:00 12/25/21 06:00 12/25/21 06:40 Laboratory Results - last 24 hr 12/24/21 05:08: POC Glucose 313 H* 12/24/21 11:43: POC Glucose 251 H 12/24/21 16:25: POC Glucose 218 H 12/24/21 20:01: POC Glucose 185 H 12/25/21 05:51: POC Glucose 223 H 12/25/21 07:30: WBC 16.8 H, RBC 4.73, Hgb 13.9, Hct 43.3, MCV 91.4, MCH 29.3, MCHC 32.0, RDW 15.4, Plt Count 307, MPV 9.4, Neut % (Auto) 77.1, Lymph % (Auto) 16.1, [place] % (Auto) 4.8, Eos % (Auto) 0.3, Baso % (Auto) 1.7, Neut # (Auto) 13.0 H, Lymph # (Auto) 2.7, [place] # (Auto) 0.8, Eos # (Auto) 0.1, Baso # (Auto) 0.3 H 12/25/21 07:30: Sodium 143, Potassium 5.1 D, Chloride 116 H, Carbon Dioxide 18 L, Anion Gap 14.1, BUN 93 H, Creatinine 1.40 H, Estimated Creat Clear 36, Estimated GFR 38 L, Est GFR ( Amer) 46 L, Glucose 233 H, Calcium 8.3 L I & O for Last 24 hours: Intake & Output 12/22/21 12/23/21 12/24/21 12/25/21 11:59 11:59 11:59 11:59 Intake Total 954 / 954 507 / 507 990 / 990 692 / 692 Output Total 2332 / 2332 1400 / 1400 775 / 775 1150 / 1150 Balance -1378 / -1378 -893 / -893 215 / 215 -458 / -458 Weight 253 lb 6 oz 244 lb 3.2 oz 247 lb 8 oz Microbiology Reports for the Last 24 Hours: Microbiology 12/23/21 11:45 Blood Blood Culture - Preliminary 12/23/21 11:45 Blood Blood Culture - Preliminary 12/19/21 11:30 Blood Blood Culture - Final NO GROWTH AFTER 5 DAYS 12/19/21 11:30 Blood Blood Culture - Final NO GROWTH AFTER 5 DAYS - Constitutional Comments: More alert - *Routine Respiratory Exam Absent: respiratory distress - *Routine Cardiovascular Exam Absent: tachycardia
--- NOTE | 2021-12-25 11:16 | HMH.ACPN2 ---
Internal Medicine - PN: Subj *Date: 12/25/21 *Time: 11:21 Interval history: today is 61rd birthday up in chair vapotherm 100pct at 20 rate controlled globally weakened/deconditioned physical therapy to see quiescent abdom soft w/o guarding/rebound Exam Vital signs and Labs for Last 24 Hours: Temp Pulse Resp BP Pulse Ox 97.7 F 75 33 H 122/75 92 L 12/25/21 04:00 12/25/21 06:40 12/25/21 06:00 12/25/21 06:00 12/25/21 06:40 Laboratory Results - last 24 hr 12/24/21 05:08: POC Glucose 313 H* 12/24/21 11:43: POC Glucose 251 H 12/24/21 16:25: POC Glucose 218 H 12/24/21 20:01: POC Glucose 185 H 12/25/21 05:51: POC Glucose 223 H 12/25/21 07:30: WBC 16.8 H, RBC 4.73, Hgb 13.9, Hct 43.3, MCV 91.4, MCH 29.3, MCHC 32.0, RDW 15.4, Plt Count 307, MPV 9.4, Neut % (Auto) 77.1, Lymph % (Auto) 16.1, [place] % (Auto) 4.8, Eos % (Auto) 0.3, Baso % (Auto) 1.7, Neut # (Auto) 13.0 H, Lymph # (Auto) 2.7, [place] # (Auto) 0.8, Eos # (Auto) 0.1, Baso # (Auto) 0.3 H 12/25/21 07:30: Sodium 143, Potassium 5.1 D, Chloride 116 H, Carbon Dioxide 18 L, Anion Gap 14.1, BUN 93 H, Creatinine 1.40 H, Estimated Creat Clear 36, Estimated GFR 38 L, Est GFR ( Amer) 46 L, Glucose 233 H, Calcium 8.3 L I & O for Last 24 hours: Intake & Output 12/22/21 12/23/21 12/24/21 12/25/21 23:59 23:59 23:59 23:59 Intake Total 693 / 693 1094 / 1094 492 / 592 200 / 200 Output Total 497 / 1447 1675 / 1675 1275 / 1450 375 / 375 Balance 196 / -754 -581 / -581 -783 / -858 -175 / -175 Weight 253 lb 6 oz 244 lb 3.2 oz 247 lb 8 oz Microbiology Reports for the Last 24 Hours: Microbiology 12/23/21 11:45 Blood Blood Culture - Preliminary 12/23/21 11:45 Blood Blood Culture - Preliminary 12/19/21 11:30 Blood Blood Culture - Final NO GROWTH AFTER 5 DAYS 12/19/21 11:30 Blood Blood Culture - Final NO GROWTH AFTER 5 DAYS - Constitutional no acute distress, obese, chronically ill appearing - *Routine HEENT Exam Head: Present: normocephalic Eye: Present: EOMI, PERRL ENT: Present: mucous membranes moist - *Routine Neck Exam Present: supple. Absent: lymphadenopathy - *Routine Respiratory Exam Present: rhonchi, crackles, diminished air movement. Absent: accessory muscle use, respiratory distress - *Routine Cardiovascular Exam Present: RRR - *Routine Abdominal Exam Present: soft, normoactive bowel sounds, obese. Absent: tenderness, firm, rigid - *Routine Extremities Exam Present: amputation. Absent: cyanosis, clubbing, edema - *Routine Skin Exam Present: warm. Absent: rash - *Routine Neurological Exam Present: alert, oriented X3, vision grossly intact, hearing grossly intact Assessment and Plan (1) Sepsis Status: Acute Qualifiers: Sepsis type: sepsis due to unspecified organism Sepsis acute organ dysfunction status: with acute organ dysfunction Severe sepsis acute organ dysfunction type: acute respiratory failure Acute respiratory failure type: with hypoxia Severe sepsis shock status: with septic shock Qualified Code(s): A41.9 - Sepsis, unspecified organism; R65.21 - Severe sepsis with septic shock; J96.01 - Acute respiratory failure with hypoxia Category: Medical Code(s): A41.9 - Sepsis, unspecified organism (2) Diabetes mellitus Status: Acute Qualifiers: Diabetes mellitus type: type 2 Diabetes mellitus terminal makeup operator insulin use: unspecified terminal makeup operator insulin use status Diabetes mellitus complication status: with other specified complication Qualified Code(s): E11.69 - Type 2 diabetes mellitus with other specified complication Category: Medical Code(s): E11.9 - Type 2 diabetes mellitus without complications (3) Hypertension Status: Acute Category: Medical Code(s): I10 - Essential (primary) hypertension (4) Obesity Status: Acute Qualifiers: Obesity type: due to excess calories Obesity classification:
[2021-12-25 11:30] LABS: POC Glucose,Bedside 249 (70-110)
[2021-12-25 12:45] LABS: Gentamicin,Trough 0.9 ug/ml (0.0-2.0)
--- NOTE | 2021-12-25 12:46 | PC.NURSE ---
pt sat in chair this morning for aprox 3hrs. Pt is a 2 person assist. Is unable to assist staff for repositing and/or transfers.
--- NOTE | 2021-12-25 13:03 | HMH.PHACONS ---
- Pharmacy Consult Date: 12/25/21 Time: 13:03 Referring provider: DR. MONTEMAYOR Reason for Consult:: GENTAMICIN TROUGH LEVEL Allergies and ADEs:: Allergies Allergy/AdvReac Type Severity Reaction Status Date / Time Sulfa (Sulfonamide Allergy Mild Unknown Verified 12/02/21 13:07 Antibiotics) allergy [SULFA (SULFONAMIDE reaction ANTIBIOTICS)] levofloxacin [From LEVAQUIN] Allergy Unknown Unknown Verified 12/02/21 13:07 allergy reaction Home Medications:: Home Medications Medication Instructions Recorded Confirmed Type Albuterol Sulfate [Ventolin HFA 2 puffs IH QIDP PRN 09/14/19 12/20/21 History Inhaler] Fluticasone/Vilanterol [Breo 1 puff IH DAILY 09/14/19 12/20/21 History Ellipta 200-25 Mcg INH] Tiotropium [place] [Spiriva 1 puff IH DAILY 09/14/19 12/20/21 History 18mcg/puff inhaler] Sitagliptin Phosphate [Januvia 100 mg PO DAILY 09/27/19 12/19/21 History 100mg tablet] hydroxyzine pamoate 25 mg capsule 25 mg PO QIDP PRN cap 11/27/19 12/19/21 History Duloxetine HCl 30 mg PO DAILY 12/03/19 12/19/21 History Levothyroxine Sodium 112 mcg PO DAILY 12/03/19 12/19/21 History [Levothyroxine 112mcg (0.112mg) Tab] Insulin NPH Hum/Reg Insulin Hm 60 unit SQ BID 11/28/20 12/19/21 History [Novolin 70-30 Flexpen] Losartan Potassium 25 mg PO DAILY 11/28/20 12/19/21 History Trazodone HCl 50 mg PO HS 11/28/20 12/19/21 History aspirin 81 mg tablet,delayed 81 mg PO DAILY 02/07/21 12/19/21 History release clonazepam 1 mg tablet 1 mg PO TIDP PRN tab 12/02/21 12/20/21 History Lidocaine [Lidoderm 5% transdermal 1 each TP Q24H 12/19/21 12/19/21 History patch] Oxybutynin Chloride [Oxybutynin 15 mg PO DAILY 12/19/21 12/19/21 History Chloride ER] Cetirizine HCl 10 mg PO DAILY 12/20/21 12/20/21 History Empagliflozin [Jardiance] 25 mg PO DAILY 12/20/21 12/20/21 History Gabapentin [Neurontin 600mg 600 mg PO TID 12/20/21 12/20/21 History tablet] Montelukast Sodium [Singulair 10mg 10 mg PO PM 12/20/21 12/20/21 History tablet] Spironolactone [Spironolactone 25 mg PO DAILY 12/20/21 12/20/21 History 25mg Tablet] Tramadol HCl [Tramadol 50mg 50 mg PO Q8HP PRN 12/20/21 12/20/21 History Tab] Height: 1.65 m Weight: 112.264 kg Laboratory Results:: Laboratory Results - last 24 hr 12/24/21 16:25: POC Glucose 218 H 12/24/21 20:01: POC Glucose 185 H 12/25/21 05:51: POC Glucose 223 H 12/25/21 07:30: WBC 16.8 H, RBC 4.73, Hgb 13.9, Hct 43.3, MCV 91.4, MCH 29.3, MCHC 32.0, RDW 15.4, Plt Count 307, MPV 9.4, Neut % (Auto) 77.1, Lymph % (Auto) 16.1, [place] % (Auto) 4.8, Eos % (Auto) 0.3, Baso % (Auto) 1.7, Neut # (Auto) 13.0 H, Lymph # (Auto) 2.7, [place] # (Auto) 0.8, Eos # (Auto) 0.1, Baso # (Auto) 0.3 H 12/25/21 07:30: Sodium 143, Potassium 5.1 D, Chloride 116 H, Carbon Dioxide 18 L, Anion Gap 14.1, BUN 93 H, Creatinine 1.40 H, Estimated Creat Clear 36, Estimated GFR 38 L, Est GFR ( Amer) 46 L, Glucose 233 H, Calcium 8.3 L 12/25/21 10:24: Gentamicin Trough 0.9 12/25/21 11:11: POC Glucose 249 H Medical History: Reports:: Anxiety, Arrhythmia, Asthma, Atrial Fibrillation, Congestive Heart Failure, Chronic Obstructive Pulmonary Disease (COPD), Coronary Artery Disease, Depression, Diabetes Mellitus Type 2, Gastroesophageal Reflux Disease(GERD), Hyperlipidemia, Hypertension, MRSA, Peripheral Vascular Disease, Urinary Tract Infection Denies:: Cancer, Diabetes Mellitus Type 1, Internal Pacemaker, Seizures Assessment and Plan (1) Sepsis Status: Acute Qualifiers: Sepsis type: sepsis due to unspecified organism Sepsis acute organ dysfunction status: with acute organ dysfunction Severe sepsis acute organ dysfunction type: acute respiratory failure Acute respiratory failure type: with hypoxia Severe sepsis shock status: with septic shock Qualified Code(s): A41.9 - Sepsis, unspecified organism; R65.21 - Severe sepsis with septic shock; J96.01 - Acute respiratory [place]
[2021-12-25 14:17] LABS: Lymphocytes % 16 % (10-50); Monocytes % 4 % (2-9); Neutrophils % 79 % (42-76); Total Cells Counted 100
[2021-12-25 14:18] LABS: Platelet Estimate Normal; RBC Morphology Normal
--- NOTE | 2021-12-25 16:02 | PC.NURSE ---
Courtesy round done Ice water given Trash taken out
[2021-12-25 21:25] LABS: POC Glucose,Bedside 197 (70-110)
[2021-12-25 22:41] LABS: POC Glucose,Bedside 229 (70-110)
[2021-12-26] VITALS (11 sets, daily range): BP systolic 93–129; BP diastolic 46–62; PULSE 55–81; RESP 15–22; TEMP 36.5–37.4; O2SAT 93–100; BMI 42.5
[2021-12-26 05:58] LABS: POC Glucose,Bedside 172 (70-110)
--- NOTE | 2021-12-26 06:11 | PC.NURSE ---
pt's HR decreasing into 50's frequently (and at times into the 40's but short lived), notified MD Arnold oncalejandra for MD Raines of need to stop dilt drip due to contraindicated if pt's HR is less than 60, aware drip stopped
[2021-12-26 07:30] LABS: Basophils # 0.4 K/mm3 (0-0.2); Basophils % 2.1 % (0.1-2.0); Eosinophils # 0.1 K/mm3 (0.0-0.4); Eosinophils % 0.6 % (0.1-12.0); Hematocrit 39.8 % (37.0-47.0); Hemoglobin 12.7 g/dL (12.2-16.2); Lymphocytes # 2.5 K/mm3 (0.7-4.5); Lymphocytes % 14.5 % (10-50); Mean Corpuscular HGB Conc 31.8 g/dL (31.8-35.4); Mean Corpuscular Hemoglobin 28.7 pg (27.0-31.2); Mean Corpuscular Volume 90.1 fl (81-99); Mean Platelet Volume 8.4 fl (7.4-10.4); Monocytes # 0.4 K/mm3 (0.1-1.0); Monocytes % 2.6 % (1.7-9.3); Neutrophils # 13.6 K/mm3 (1.8-7.8); Neutrophils % 80.2 % (37.0-80.0); Platelet Count 338 K/mm3 (142-424); Red Blood Count 4.42 M/mm3 (4.20-5.40); Red Cell Distribution Width 14.9 % (11.5-17.5)
[2021-12-26 07:33] LABS: Anion Gap 10.7 mEq/L (5-15); Calcium 7.8 mg/dl (8.4-10.2); Carbon Dioxide 22 mmol/L (22.0-30.0); Chloride 109 mmol/L (98-107); Creatinine Clearance Estimated 36 mL/min (50-200); Estimated Glomerular Filt Rate 38 ml/min (>60); GFR (African American) 46 ML/MIN (>60); Glucose 184 mg/dl (74-100); MANUAL DIFFERENTIAL MANUAL DIFFERENTIAL (MANUAL DIFF); Potassium 3.7 mmoL/L (3.5-5.1); Sodium 138 mmol/L (136-145)
[2021-12-26 07:56] LABS: Blood Urea Nitrogen 100 mg/dl (7-17)
--- NOTE | 2021-12-26 08:11 | P.PN_ITS ---
Subjective Narrative: Nursing reports that the patient continues to make slow progress and has been more alert over the last 24 hours. Currently she is resting. Progress Note: A&P (1) Sepsis Status: Acute (2) Diabetes mellitus Status: Acute (3) Hypertension Status: Acute (4) Obesity Status: Acute (5) CAD in [place] artery Status: Acute (6) Amputation of toe of right foot Status: Acute (7) CHF (congestive heart failure), NYHA class I Status: Acute (8) Chronic low back pain Status: Acute (9) History of coronary artery stent placement Status: Acute (10) Hyperglycemia Status: Acute (11) Insulin dependent diabetes mellitus Status: Acute (12) Type 2 diabetes mellitus Status: Acute (13) PNA (pneumonia) Status: Acute (14) Ileus Status: Acute (15) Abnormal CT scan, sigmoid colon Status: Acute Assessment and plan: Continue antibiotic therapy for now. Outpatient colonoscopy warranted when patient stable. Exam Vital signs and Labs for Last 24 Hours: Temp Pulse Resp BP Pulse Ox 98.7 F 78 15 122/48 L 94 L 12/26/21 04:00 12/26/21 07:57 12/26/21 06:00 12/26/21 06:00 12/26/21 07:57 Laboratory Results - last 24 hr 12/25/21 07:30: WBC 16.8 H, RBC 4.73, Hgb 13.9, Hct 43.3, MCV 91.4, MCH 29.3, MCHC 32.0, RDW 15.4, Plt Count 307, MPV 9.4, Neut % (Auto) 77.1, Lymph % (Auto) 16.1, [place] % (Auto) 4.8, Eos % (Auto) 0.3, Baso % (Auto) 1.7, Neut # (Auto) 13.0 H, Lymph # (Auto) 2.7, [place] # (Auto) 0.8, Eos # (Auto) 0.1, Baso # (Auto) 0.3 H, Total Counted 100, Neutrophils % (Manual) 79 H, Lymphocytes % (Manual) 16, Monocytes % (Manual) 4, Basophils % (Manual) 1.0, Platelet Estimate Normal, RBC Morphology Normal 12/25/21 07:30: Sodium 143, Potassium 5.1 D, Chloride 116 H, Carbon Dioxide 18 L, Anion Gap 14.1, BUN 93 H, Creatinine 1.40 H, Estimated Creat Clear 36, Estimated GFR 38 L, Est GFR ( Amer) 46 L, Glucose 233 H, Calcium 8.3 L 12/25/21 10:24: Gentamicin Trough 0.9 12/25/21 11:11: POC Glucose 249 H 12/25/21 16:40: POC Glucose 197 H 12/25/21 19:27: POC Glucose 229 H 12/26/21 05:31: POC Glucose 172 H 12/26/21 07:15: WBC 17.0 H, RBC 4.42, Hgb 12.7, Hct 39.8, MCV 90.1, MCH 28.7, MCHC 31.8, RDW 14.9, Plt Count 338, MPV 8.4, Neut % (Auto) 80.2 H, Lymph % (Auto) 14.5, [place] % (Auto) 2.6, Eos % (Auto) 0.6, Baso % (Auto) 2.1 H, Neut # (Auto) 13.6 H, Lymph # (Auto) 2.5, [place] # (Auto) 0.4, Eos # (Auto) 0.1, Baso # (Auto) 0.4 H 12/26/21 07:15: Sodium 138, Potassium 3.7 D, Chloride 109 H, Carbon Dioxide 22, Anion Gap 10.7, BUN 100 H, Creatinine 1.40 H, Estimated Creat Clear 36, Estimated GFR 38 L, Est GFR ( Amer) 46 L, Glucose 184 H D, Calcium 7.8 L I & O for Last 24 hours: Intake & Output 12/23/21 12/24/21 12/25/21 12/26/21 11:59 11:59 11:59 11:59 Intake Total 507 / 507 990 / 990 692 / 692 1902 / 1902 Output Total 1400 / 1400 775 / 775 1150 / 1150 1175 / 1175 Balance -893 / -893 215 / 215 -458 / -458 727 / 727 Weight 244 lb 3.2 oz 247 lb 8 oz 255 lb 8 oz Microbiology Reports for the Last 24 Hours: Microbiology 12/23/21 11:45 Blood Blood Culture - Preliminary - Constitutional no acute distress - *Routine Cardiovascular Exam Absent: tachycardia
[2021-12-26 08:47] LABS: Eosinophils % 1 % (0-3); Lymphocytes % 13 % (10-50); Monocytes % 2 % (2-9); Neutrophils % 81 % (42-76); Total Cells Counted 100
[2021-12-26 08:48] LABS: Platelet Estimate Normal; RBC Morphology KN
--- NOTE | 2021-12-26 08:56 | CT_ITS ---
FINAL REPORT CLINICAL HISTORY: BUE weakness COMPARISON: December 19, 2021 and March 19, 2020 FINDINGS: Axial images of the head were obtained without contrast. Coronal reformatted images were also obtained.This study was performed with techniques to keep radiation doses as low as reasonably achievable (ALARA). Individualized dose reduction techniques using automated exposure control or adjustment of mA and/or kV according to the patient's size were employed. There is no evidence of intracranial hemorrhage or mass. The ventricular size is within normal limits. There is no evidence of shift of the midline structures. No abnormal extra axial fluid collection is identified. No skull abnormality is seen on the bone window images. There is mucosal thickening in the sphenoid sinuses. There is a small retention cyst or polyp in the right maxillary sinus. IMPRESSION: No acute intracranial abnormality. Reviewed, Interpreted and Dictated by Gonzalez Redmond III, MD Transcribed by Maryam Sainz Authenticated by Gonzalez Redmond III, MD on 12/26/2021 10:40:50 AM [facility]
--- NOTE | 2021-12-26 08:58 | HMH.ACPN2 ---
Internal Medicine - PN: Subj *Date: 12/26/21 *Time: 09:15 Interval history: 61-year-old female patient sitting up in bed resting quietly with eyes closed, she does awaken to verbal stimuli. Oxygenation 94% on 20 L 100% Vapotherm. She does report having difficulty lifting her arms and feeding self and reports that she is feeling a little worse today. Exam Vital signs and Labs for Last 24 Hours: Temp Pulse Resp BP Pulse Ox 98.7 F 78 15 122/48 L 94 L 12/26/21 04:00 12/26/21 07:57 12/26/21 06:00 12/26/21 06:00 12/26/21 07:57 Laboratory Results - last 24 hr 12/25/21 07:30: Total Counted 100, Neutrophils % (Manual) 79 H, Lymphocytes % (Manual) 16, Monocytes % (Manual) 4, Basophils % (Manual) 1.0, Platelet Estimate Normal, RBC Morphology Normal 12/25/21 07:30: Sodium 143, Potassium 5.1 D, Chloride 116 H, Carbon Dioxide 18 L, Anion Gap 14.1, BUN 93 H, Creatinine 1.40 H, Estimated Creat Clear 36, Estimated GFR 38 L, Est GFR ( Amer) 46 L, Glucose 233 H, Calcium 8.3 L 12/25/21 10:24: Gentamicin Trough 0.9 12/25/21 11:11: POC Glucose 249 H 12/25/21 16:40: POC Glucose 197 H 12/25/21 19:27: POC Glucose 229 H 12/26/21 05:31: POC Glucose 172 H 12/26/21 07:15: WBC 17.0 H, RBC 4.42, Hgb 12.7, Hct 39.8, MCV 90.1, MCH 28.7, MCHC 31.8, RDW 14.9, Plt Count 338, MPV 8.4, Neut % (Auto) 80.2 H, Lymph % (Auto) 14.5, [place] % (Auto) 2.6, Eos % (Auto) 0.6, Baso % (Auto) 2.1 H, Neut # (Auto) 13.6 H, Lymph # (Auto) 2.5, [place] # (Auto) 0.4, Eos # (Auto) 0.1, Baso # (Auto) 0.4 H, Total Counted 100, Neutrophils % (Manual) 81 H, Lymphocytes % (Manual) 13, Monocytes % (Manual) 2, Eosinophils % (Manual) 1, Blast Cells % 3.0, Platelet Estimate Normal, RBC Morphology Kn 12/26/21 07:15: Sodium 138, Potassium 3.7 D, Chloride 109 H, Carbon Dioxide 22, Anion Gap 10.7, BUN 100 H, Creatinine 1.40 H, Estimated Creat Clear 36, Estimated GFR 38 L, Est GFR ( Amer) 46 L, Glucose 184 H D, Calcium 7.8 L I & O for Last 24 hours: Intake & Output 12/23/21 12/24/21 12/25/21 12/26/21 23:59 23:59 23:59 23:59 Intake Total 1094 / 1094 492 / 592 702 / 2002 1400 / 1400 Output Total 1675 / 1675 1275 / 1450 1100 / 1325 450 / 450 Balance -581 / -581 -783 / -858 -398 / 677 950 / 950 Weight 244 lb 3.2 oz 247 lb 8 oz 255 lb 8 oz Microbiology Reports for the Last 24 Hours: Microbiology 12/23/21 11:45 Blood Blood Culture - Preliminary - Constitutional no acute distress, chronically ill appearing - *Routine HEENT Exam Head: Present: normocephalic Eye: Present: EOMI ENT: Present: mucous membranes moist - *Routine Neck Exam Present: trachea midline. Absent: tracheal deviation - *Routine Respiratory Exam Present: rhonchi, crackles. Absent: accessory muscle use - *Routine Cardiovascular Exam Present: RRR - *Routine Abdominal Exam Present: soft, normoactive bowel sounds. Absent: tenderness, firm - *Routine Extremities Exam Present: full ROM, pulses intact, amputation. Absent: cyanosis, clubbing Comments: Right foot with #2 #3 toes amputated - *Routine Skin Exam Present: intact, dry. Absent: cyanosis, erythema - *Routine Neurological Exam Present: alert, oriented X3. Absent: motor deficit - Routine Psychiatric Exam Present: normal affect, normal thought process. Absent: visual hallucinations Assessment and Plan (1) Sepsis Status: Acute Qualifiers: Sepsis type: sepsis due to unspecified organism Sepsis acute organ dysfunction status: with acute organ dysfunction Severe sepsis acute organ dysfunction type: acute respiratory failure Acute respiratory failure type: with hypoxia Severe sepsis shock status: with septic shock Qualified Code(s): A41.9 - Sepsis, unspecified organism; R65.21 - Severe sepsis with septic shock; J96.01 - Acute respiratory failure with hypoxia Category: Medical Code(s): A41.9 - Sepsis, unspecified organism (2) Diabetes mellitus Status: Acute Qualifiers: Diabetes mellitu
--- NOTE | 2021-12-26 09:39 | HMH.ACPN ---
Internal Medicine - PN: Subj *Date: 12/26/21 *Time: 09:39 Exam Vital signs and Labs for Last 24 Hours: Temp Pulse Resp BP Pulse Ox 98.7 F 57 L 16 101/55 L 97 12/26/21 04:00 12/26/21 08:00 12/26/21 08:00 12/26/21 08:00 12/26/21 08:00 Laboratory Results - last 24 hr 12/25/21 07:30: Total Counted 100, Neutrophils % (Manual) 79 H, Lymphocytes % (Manual) 16, Monocytes % (Manual) 4, Basophils % (Manual) 1.0, Platelet Estimate Normal, RBC Morphology Normal 12/25/21 10:24: Gentamicin Trough 0.9 12/25/21 11:11: POC Glucose 249 H 12/25/21 16:40: POC Glucose 197 H 12/25/21 19:27: POC Glucose 229 H 12/26/21 05:31: POC Glucose 172 H 12/26/21 07:15: WBC 17.0 H, RBC 4.42, Hgb 12.7, Hct 39.8, MCV 90.1, MCH 28.7, MCHC 31.8, RDW 14.9, Plt Count 338, MPV 8.4, Neut % (Auto) 80.2 H, Lymph % (Auto) 14.5, [place] % (Auto) 2.6, Eos % (Auto) 0.6, Baso % (Auto) 2.1 H, Neut # (Auto) 13.6 H, Lymph # (Auto) 2.5, [place] # (Auto) 0.4, Eos # (Auto) 0.1, Baso # (Auto) 0.4 H, Total Counted 100, Neutrophils % (Manual) 81 H, Lymphocytes % (Manual) 13, Monocytes % (Manual) 2, Eosinophils % (Manual) 1, Blast Cells % 3.0, Platelet Estimate Normal, RBC Morphology 12/26/21 07:15: Sodium 138, Potassium 3.7 D, Chloride 109 H, Carbon Dioxide 22, Anion Gap 10.7, BUN 100 H, Creatinine 1.40 H, Estimated Creat Clear 36, Estimated GFR 38 L, Est GFR ( Amer) 46 L, Glucose 184 H D, Calcium 7.8 L I & O for Last 24 hours: Intake & Output 12/23/21 12/24/21 12/25/21 12/26/21 23:59 23:59 23:59 23:59 Intake Total 1094 / 1094 492 / 592 2001 1400 / 1400 Output Total 1675 / 1675 1275 / 1450 1100 / 1325 450 / 450 Balance -581 / -581 -783 / -858 -398 / 677 950 / 950 Weight 110.767 kg 112.264 kg 115.893 kg Assessment and Plan (1) Sepsis Status: Acute Qualifiers: Sepsis type: sepsis due to unspecified organism Sepsis acute organ dysfunction status: with acute organ dysfunction Severe sepsis acute organ dysfunction type: acute respiratory failure Acute respiratory failure type: with hypoxia Severe sepsis shock status: with septic shock Qualified Code(s): A41.9 - Sepsis, unspecified organism; R65.21 - Severe sepsis with septic shock; J96.01 - Acute respiratory failure with hypoxia Category: Medical Code(s): A41.9 - Sepsis, unspecified organism (2) Diabetes mellitus Status: Acute Qualifiers: Diabetes mellitus type: type 2 Diabetes mellitus medical terminologist insulin use: unspecified medical terminologist insulin use status Diabetes mellitus complication status: with other specified complication Qualified Code(s): E11.69 - Type 2 diabetes mellitus with other specified complication Category: Medical Code(s): E11.9 - Type 2 diabetes mellitus without complications (3) Hypertension Status: Acute Category: Medical Code(s): I10 - Essential (primary) hypertension (4) Obesity Status: Acute Qualifiers: Obesity type: due to excess calories Obesity classification: adult class 3 (BMI >= 40) Serious obesity comorbidity presence: with serious comorbidity Body mass index: BMI 40.0-44.9 Qualified Code(s): E66.01 - Morbid (severe) obesity due to excess calories; Z68.41 - Body mass index [BMI] 40.0-44.9, adult Category: Medical Code(s): E66.9 - Obesity, unspecified (5) CAD in [place] artery Status: Acute Category: Medical Code(s): I25.10 - Atherosclerotic heart disease of [place] coronary artery without angina pectoris (6) Amputation of toe of right foot Status: Acute Category: Medical Code(s): S98.131A - Complete traumatic amputation of one right lesser toe, initial encounter (7) CHF (congestive heart failure), NYHA class I Status: Acute Category: Medical Code(s): I50.9 - Heart failure, unspecified (8) Chronic low back pain Status: Acute Qualifiers: Back pain laterality: bilateral Sciatica presence: with sciatica Sciatica laterality: bilateral sciatica Qualified Code(s): M54.42 - Lumbago wit
--- NOTE | 2021-12-26 09:45 | HMH.PULMCON ---
*Admission Date: 12/19/21 *History of present illness: This is a 60-year-old female seen in consultation from Dr. Raines for evaluation regarding colitis versus neoplasm and ileus versus partial small bowel obstruction. She presented to emergency department on December 19 after being found unresponsive. Previously, she had complained of cough/congestion. Treatment for respiratory failure and multifocal pneumonia ensued. Over the past 48 hours she showed some signs of improvement and was extubated. Some abdominal pain noted on physical examination resulted in a CT scan. Findings per CT confirmed extensive patchy bibasilar airspace infiltrates consistent with multifocal pneumonia. In addition, multiple air-filled loops of small bowel in the upper mid abdomen were noted. Dilation up to 4.5 cm confirmed. The mid and distal small bowel was somewhat decompressed. Extensive mucosal thickening of the mid sigmoid colon was also confirmed. Some mild pericolonic inflammation at the proximal sigmoid colon also noted. Circumferential mucosal thickening of the inferior rectum also seen. [facility] History Medical History: Reports:: Anxiety, Arrhythmia, Asthma, Atrial Fibrillation, Congestive Heart Failure, Chronic Obstructive Pulmonary Disease (COPD), Coronary Artery Disease, Depression, Diabetes Mellitus Type 2, Gastroesophageal Reflux Disease(GERD), Hyperlipidemia, Hypertension, MRSA, Peripheral Vascular Disease, Urinary Tract Infection Denies:: Cancer, Diabetes Mellitus Type 1, Internal Pacemaker, Seizures *Have you ever received a pneumonia vaccine?: No *Have you received a flu vaccine this season?: No Other Medical History: Reports: Anemia, Arthritis, Hormone Therapy, Hypothyroidism, Liver Disease, Sinus Problems, Thyroid Disease, Other Laterality Cases: Bilateral: Tonsillectomy, Other Other Surgeries: Yes: No Previous Surgery, Appendectomy, Cardiac Catheterization, Cholecystectomy, Colonoscopy, , Dilation and Curettage, EGD, Hernia Repair, Hysterectomy-Total, Hysterectomy-Partial, Thyroidectomy, Tubal Ligation, Other. No: Pacemaker Amputation: Yes (Right 2nd toe, right 3rd toe ) Fractures: Yes - *Social History Last grade of school completed: Some college Smoking Status: Current every day smoker Tobacco Type: cigarettes # Packs/Day (cigarettes): 1 Alcohol Intake: never Alcohol Intake Frequency:: other Substance Use Type: denies use, IV drugs *Occupational Status:: unemployed Housing: apartment Household Members: family *Travel in the last 8 weeks: Inside the [place] - Psychiatric History Expresses thoughts of harming self/others: Vague Pschychiatric History:: Reports:: Anxiety, Depression Family Hx:: Cancer, Coronary Artery Disease, Diabetes, Hyperlipidemia, Hypertension Meds Home Medications Medication Instructions Recorded Confirmed Type Albuterol Sulfate [Ventolin HFA 2 puffs IH QIDP PRN 09/14/19 12/20/21 History Inhaler] Fluticasone/Vilanterol [Breo 1 puff IH DAILY 09/14/19 12/20/21 History Ellipta 200-25 Mcg INH] Tiotropium [place] [Spiriva 1 puff IH DAILY 09/14/19 12/20/21 History 18mcg/puff inhaler] Sitagliptin Phosphate [Januvia 100 mg PO DAILY 09/27/19 12/19/21 History 100mg tablet] hydroxyzine pamoate 25 mg capsule 25 mg PO QIDP PRN cap 11/27/19 12/19/21 History Duloxetine HCl 30 mg PO DAILY 12/03/19 12/19/21 History Levothyroxine Sodium 112 mcg PO DAILY 12/03/19 12/19/21 History [Levothyroxine 112mcg (0.112mg) Tab] Insulin NPH Hum/Reg Insulin Hm 60 unit SQ BID 11/28/20 12/19/21 History [Novolin 70-30 Flexpen] Losartan Potassium 25 mg PO DAILY 11/28/20 12/19/21 History Trazodone HCl 50 mg PO HS 11/28/20 12/19/21 History aspirin 81 mg tablet,delayed 81 mg PO DAILY 02/07/21 12/19/21 History release clonazepam 1 mg tablet 1 mg PO TIDP PRN tab 12/02/21 12/20/21 History Lidocaine [Lidoderm 5% transdermal 1 each TP Q24H 12/19/21 12/19/21 History patch] Oxybutynin Chloride [Oxybu
--- NOTE | 2021-12-26 10:03 | DIET.NUTRFU ---
Addendum entered by Mayte Castañeda RD, LD 12/26/21 14:48: Saw patient after lunch patient reported she did a little bit better. Agreeable to try glucerna with trays- strawberry Original Note: Patient had been to weak and not alert enough to really eat/drink anything till today. Nursing reporting more alert and drinking more today, will add glucerna to all trays to help with calories and protein intake. Today's breakfast observed meal intake and only ate a couple bites of breakfast. Labs are Na 138, K 3.7, BUN 100, Cr 1.4, lasix was given yesterday. No IVF in place at this time. Flagyl and zofran are in place for GI distress. Will continue to monitor meal intake
[2021-12-26 11:02] LABS: Adenovirus F 40/41, stool Not Detected (NotDetected); Astrovirus Not Detected (NotDetected); Campylobacter Not Detected (NotDetected); Clostridium Difficile A/B, PCR Not Detected (NotDetected); Cryptosporidium Not Detected (NotDetected); Cyclospora Cayetanesis Not Detected (NotDetected); Entamoeba histolytica Not Detected (NotDetected); Enteroaggregative E coli Not Detected (NotDetected); Enteropathogenic E coli Not Detected (NotDetected); Enterotoxigenic E coli Not Detected (NotDetected); Giardia lamblia Not Detected (NotDetected); Norovirus Not Detected (NotDetected); Plesimonas Shigalloides, PCR Not Detected (NotDetected); Rotavirus A Not Detected (NotDetected); Salmonella, PCR Not Detected (NotDetected); Sapovirus Not Detected (NotDetected); Shiga-like toxin E coli Not Detected (NotDetected); Shigella Enterovasive E coli Not Detected (NotDetected); Vibrio Cholerae Not Detected (NotDetected); Vibrio, PCR Not Detected (NotDetected); Yersinia Entercolitica, PCR Not Detected (NotDetected)
--- NOTE | 2021-12-26 11:25 | HMH.PNCARD ---
Subjective Date: 12/26/21 Time: 11:25 Principal diagnosis: A. fib with RVR, sepsis Interval history: This is a 60-year-old white female who initially presented to the hospital unresponsive and was intubated on the ventilator. She has been extubated and remains on oxygen this morning. The patient is alert and oriented today. She denies any chest pain or pressure. She denies any shortness of breath. She states that she does not think she is swollen. Her only complaint is some abdominal discomfort and continuing to have bowel movements. She states that she is having an excessive amount of bowel movements and this is worrisome for her. She denies any fever, chills, nausea, vomiting, PND or orthopnea. The patient did previously going to atrial fibrillation/flutter and was treated with a Cardizem drip. Her Cardizem drip was stopped today and we have converted her over to oral Cardizem. She denies any palpitations or racing of the heart. Exam Vital signs and Labs for Last 24 Hours: Temp Pulse Resp BP Pulse Ox 98.7 F 57 L 16 101/55 L 97 12/26/21 04:00 12/26/21 08:00 12/26/21 08:00 12/26/21 08:00 12/26/21 08:00 Laboratory Results - last 24 hr 12/25/21 07:30: Total Counted 100, Neutrophils % (Manual) 79 H, Lymphocytes % (Manual) 16, Monocytes % (Manual) 4, Basophils % (Manual) 1.0, Platelet Estimate Normal, RBC Morphology Normal 12/25/21 10:24: Gentamicin Trough 0.9 12/25/21 11:11: POC Glucose 249 H 12/25/21 16:40: POC Glucose 197 H 12/25/21 19:27: POC Glucose 229 H 12/26/21 05:31: POC Glucose 172 H 12/26/21 07:15: WBC 17.0 H, RBC 4.42, Hgb 12.7, Hct 39.8, MCV 90.1, MCH 28.7, MCHC 31.8, RDW 14.9, Plt Count 338, MPV 8.4, Neut % (Auto) 80.2 H, Lymph % (Auto) 14.5, [place] % (Auto) 2.6, Eos % (Auto) 0.6, Baso % (Auto) 2.1 H, Neut # (Auto) 13.6 H, Lymph # (Auto) 2.5, [place] # (Auto) 0.4, Eos # (Auto) 0.1, Baso # (Auto) 0.4 H, Total Counted 100, Neutrophils % (Manual) 81 H, Lymphocytes % (Manual) 13, Monocytes % (Manual) 2, Eosinophils % (Manual) 1, Blast Cells % 3.0, Platelet Estimate Normal, RBC Morphology 12/26/21 07:15: Sodium 138, Potassium 3.7 D, Chloride 109 H, Carbon Dioxide 22, Anion Gap 10.7, BUN 100 H, Creatinine 1.40 H, Estimated Creat Clear 36, Estimated GFR 38 L, Est GFR ( Amer) 46 L, Glucose 184 H D, Calcium 7.8 L I & O for Last 24 hours: Intake & Output 12/23/21 12/24/21 12/25/21 12/26/21 23:59 23:59 23:59 23:59 Intake Total 1094 / 1094 492 / 592 702 / 2002 1400 / 1400 Output Total 1675 / 1675 1275 / 1450 1100 / 1325 450 / 450 Balance -581 / -581 -783 / -858 -398 / 677 950 / 950 Weight 244 lb 3.2 oz 247 lb 8 oz 255 lb 8 oz Narrative: Echo shows: 1. Mild biatrial enlargement, normal left ventricular size, mild concentric left ventricular hypertrophy, visually estimated ejection fraction 50% with no regional wall motion abnormality, endocardial surface of poorly visualized, diastolic parameters are inconclusive. 2. Mildly enlarged right ventricle with normal contractility. 3. Mild mitral and tricuspid regurgitation. 4. No significant pericardial effusion. 5. Inferior vena cava is poorly visualized. - Constitutional no acute distress, morbidly obese - *Routine HEENT Exam Head: Present: normocephalic, atraumatic Eye: Present: EOMI, PERRL ENT: Present: mucous membranes moist - *Routine Neck Exam Present: supple, full ROM, normal carotid upstroke. Absent: JVD, carotid bruit, lymphadenopathy - *Routine Respiratory Exam Present: CTA bilaterally - *Routine Cardiovascular Exam Present: RRR, Normal S1, Normal S2. Absent: murmur - *Routine Abdominal Exam Present: soft, normoactive bowel sounds. Absent: tenderness, distended - *Routine Extremities Exam Present: full ROM, pulses intact, normal capillary refill. Absent: cyanosis, clubbing, edema - *Routine Skin Exam Present: intact, warm. Absent: erythema, rash - *Routine Neurological Exam Present: alert, oriented X3, CN II-XII in
--- NOTE | 2021-12-26 11:42 | HMH.PHACONS ---
- Pharmacy Consult Date: 12/26/21 Time: 11:43 Referring provider: DR. MONTEMAYOR Reason for Consult:: VANCOMYCIN DOSING Allergies and ADEs:: Allergies Allergy/AdvReac Type Severity Reaction Status Date / Time Sulfa (Sulfonamide Allergy Mild Unknown Verified 12/02/21 13:07 Antibiotics) allergy [SULFA (SULFONAMIDE reaction ANTIBIOTICS)] levofloxacin [From LEVAQUIN] Allergy Unknown Unknown Verified 12/02/21 13:07 allergy reaction Home Medications:: Home Medications Medication Instructions Recorded Confirmed Type Albuterol Sulfate [Ventolin HFA 2 puffs IH QIDP PRN 09/14/19 12/20/21 History Inhaler] Fluticasone/Vilanterol [Breo 1 puff IH DAILY 09/14/19 12/20/21 History Ellipta 200-25 Mcg INH] Tiotropium [place] [Spiriva 1 puff IH DAILY 09/14/19 12/20/21 History 18mcg/puff inhaler] Sitagliptin Phosphate [Januvia 100 mg PO DAILY 09/27/19 12/19/21 History 100mg tablet] hydroxyzine pamoate 25 mg capsule 25 mg PO QIDP PRN cap 11/27/19 12/19/21 History Duloxetine HCl 30 mg PO DAILY 12/03/19 12/19/21 History Levothyroxine Sodium 112 mcg PO DAILY 12/03/19 12/19/21 History [Levothyroxine 112mcg (0.112mg) Tab] Insulin NPH Hum/Reg Insulin Hm 60 unit SQ BID 11/28/20 12/19/21 History [Novolin 70-30 Flexpen] Losartan Potassium 25 mg PO DAILY 11/28/20 12/19/21 History Trazodone HCl 50 mg PO HS 11/28/20 12/19/21 History aspirin 81 mg tablet,delayed 81 mg PO DAILY 02/07/21 12/19/21 History release clonazepam 1 mg tablet 1 mg PO TIDP PRN tab 12/02/21 12/20/21 History Lidocaine [Lidoderm 5% transdermal 1 each TP Q24H 12/19/21 12/19/21 History patch] Oxybutynin Chloride [Oxybutynin 15 mg PO DAILY 12/19/21 12/19/21 History Chloride ER] Cetirizine HCl 10 mg PO DAILY 12/20/21 12/20/21 History Empagliflozin [Jardiance] 25 mg PO DAILY 12/20/21 12/20/21 History Gabapentin [Neurontin 600mg 600 mg PO TID 12/20/21 12/20/21 History tablet] Montelukast Sodium [Singulair 10mg 10 mg PO PM 12/20/21 12/20/21 History tablet] Spironolactone [Spironolactone 25 mg PO DAILY 12/20/21 12/20/21 History 25mg Tablet] Tramadol HCl [Tramadol 50mg 50 mg PO Q8HP PRN 12/20/21 12/20/21 History Tab] Height: 1.65 m Weight: 115.893 kg Laboratory Results:: Laboratory Results - last 24 hr 12/25/21 07:30: Total Counted 100, Neutrophils % (Manual) 79 H, Lymphocytes % (Manual) 16, Monocytes % (Manual) 4, Basophils % (Manual) 1.0, Platelet Estimate Normal, RBC Morphology Normal 12/25/21 10:24: Gentamicin Trough 0.9 12/25/21 16:40: POC Glucose 197 H 12/25/21 19:27: POC Glucose 229 H 12/26/21 05:31: POC Glucose 172 H 12/26/21 07:15: WBC 17.0 H, RBC 4.42, Hgb 12.7, Hct 39.8, MCV 90.1, MCH 28.7, MCHC 31.8, RDW 14.9, Plt Count 338, MPV 8.4, Neut % (Auto) 80.2 H, Lymph % (Auto) 14.5, [place] % (Auto) 2.6, Eos % (Auto) 0.6, Baso % (Auto) 2.1 H, Neut # (Auto) 13.6 H, Lymph # (Auto) 2.5, [place] # (Auto) 0.4, Eos # (Auto) 0.1, Baso # (Auto) 0.4 H, Total Counted 100, Neutrophils % (Manual) 81 H, Lymphocytes % (Manual) 13, Monocytes % (Manual) 2, Eosinophils % (Manual) 1, Blast Cells % 3.0, Platelet Estimate Normal, RBC Morphology 12/26/21 07:15: Sodium 138, Potassium 3.7 D, Chloride 109 H, Carbon Dioxide 22, Anion Gap 10.7, BUN 100 H, Creatinine 1.40 H, Estimated Creat Clear 36, Estimated GFR 38 L, Est GFR ( Amer) 46 L, Glucose 184 H D, Calcium 7.8 L Medical History: Reports:: Anxiety, Arrhythmia, Asthma, Atrial Fibrillation, Congestive Heart Failure, Chronic Obstructive Pulmonary Disease (COPD), Coronary Artery Disease, Depression, Diabetes Mellitus Type 2, Gastroesophageal Reflux Disease(GERD), Hyperlipidemia, Hypertension, MRSA, Peripheral Vascular Disease, Urinary Tract Infection Denies:: Cancer, Diabetes Mellitus Type 1, Internal Pacemaker, Seizures Assessment and Plan (1) Atrial flutter Status: Acute Category: Medical Code(s): I48.92 - Unspecified atrial flutter (2) Sepsis
[2021-12-26 12:15] LABS: POC Glucose,Bedside 185 (70-110)
--- NOTE | 2021-12-26 12:54 | HMH.PULMPN ---
Internal Medicine - PN: Subj *Date: 12/26/21 *Time: 12:54 Interval history: Patient denies any new complaints. Admits she is weak. Exam - Constitutional Constitutional:: Present: no acute distress, comfortable - HENMT Exam HENMT: Present: normocephalic, atraumatic - Eye Exam Eyes:: Present: normal appearance both eyes and related structures - Neck Exam Neck:: Present: normal visual inspection - Respiratory Exam Respiratory:: Present: able to speak in complete sentences, respiratory distress, rhonchi - Cardiovascular Exam Cardiac:: Present: S1, S2 - GI Exam GI:: Present: soft, distended. Absent: no tenderness - Skin Exam Skin: Present: warm, no rash - Neurological Exam Neurological: Present: alert, awake - Extremities Exam Extremities: Present: no cyanosis, no clubbing, edema Assessment and Plan (1) Atrial flutter Status: Acute Category: Medical Code(s): I48.92 - Unspecified atrial flutter (2) Sepsis Status: Acute Qualifiers: Sepsis type: sepsis due to unspecified organism Sepsis acute organ dysfunction status: with acute organ dysfunction Severe sepsis acute organ dysfunction type: acute respiratory failure Acute respiratory failure type: with hypoxia Severe sepsis shock status: with septic shock Qualified Code(s): A41.9 - Sepsis, unspecified organism; R65.21 - Severe sepsis with septic shock; J96.01 - Acute respiratory failure with hypoxia Category: Medical Code(s): A41.9 - Sepsis, unspecified organism (3) Diabetes mellitus Status: Acute Qualifiers: Diabetes mellitus type: type 2 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 insulin use status Diabetes mellitus complication status: with other specified complication Qualified Code(s): E11.69 - Type 2 diabetes mellitus with other specified complication Category: Medical Code(s): E11.9 - Type 2 diabetes mellitus without complications (4) Hypertension Status: Acute Category: Medical Code(s): I10 - Essential (primary) hypertension (5) Obesity Status: Acute Qualifiers: Obesity type: due to excess calories Obesity classification: adult class 3 (BMI >= 40) Serious obesity comorbidity presence: with serious comorbidity Body mass index: BMI 40.0-44.9 Qualified Code(s): E66.01 - Morbid (severe) obesity due to excess calories; Z68.41 - Body mass index [BMI] 40.0-44.9, adult Category: Medical Code(s): E66.9 - Obesity, unspecified (6) CAD in [place] artery Status: Acute Category: Medical Code(s): I25.10 - Atherosclerotic heart disease of [place] coronary artery without angina pectoris (7) Amputation of toe of right foot Status: Acute Category: Medical Code(s): S98.131A - Complete traumatic amputation of one right lesser toe, initial encounter (8) CHF (congestive heart failure), NYHA class I Status: Acute Category: Medical Code(s): I50.9 - Heart failure, unspecified (9) Chronic low back pain Status: Acute Qualifiers: Back pain laterality: bilateral Sciatica presence: with sciatica Sciatica laterality: bilateral sciatica Qualified Code(s): M54.42 - Lumbago with sciatica, left side; M54.41 - Lumbago with sciatica, right side; G89.29 - Other chronic pain Category: Medical Code(s): M54.5 - Low back pain; G89.29 - Other chronic pain (10) History of coronary artery stent placement Status: Acute Category: Surgical Code(s): Z95.5 - Presence of coronary angioplasty implant and graft (11) Hyperglycemia Status: Acute Category: Medical Code(s): R73.9 - Hyperglycemia, unspecified (12) Insulin dependent diabetes mellitus Status: Acute Category: Medical Code(s): E11.9 - Type 2 diabetes mellitus without complications; Z79.4 - care home (current) use of insulin (13) Type 2 diabetes mellitus Status: Acute Category: Medical Code(s): E11.9 - Type 2 diabetes mellitus without complications (14) PNA (pneumonia) Status:
[2021-12-26 16:48] LABS: POC Glucose,Bedside 128 (70-110)
--- NOTE | 2021-12-26 17:23 | PC.NURSE ---
No acute changes noted this shift, patient has had numerous liquid stools today, remains on vapotherm 20L/100%, alert and oriented, has been bradycardic on telemetry at times with HR as low as 40, very weak, has required assistance with meals, worked with PT/OT, no s/s of distress noted, vss, will continue to monitor for changes.
[2021-12-26 22:15] LABS: POC Glucose,Bedside 199 (70-110)
[2021-12-27] VITALS (10 sets, daily range): BP systolic 97–131; BP diastolic 49–62; PULSE 50–80; RESP 17–24; TEMP 36.3–37.4; O2SAT 92–99; BMI 41.5
--- NOTE | 2021-12-27 03:47 | PC.NURSE ---
No acute changes. Pt has rested well this shift. Vapotherm has been titrated from 20 L 100% to 20L 40%. O2 sats currently 93%. Pt has been Sinus to Sinus [place]. Other VSS. Medications administered per nov. No other concerns. Will continue to monitor.
[2021-12-27 06:43] LABS: POC Glucose,Bedside 127 (70-110)
[2021-12-27 06:54] LABS: Basophils # 0.2 K/mm3 (0-0.2); Basophils % 0.8 % (0.1-2.0); Eosinophils # 0.1 K/mm3 (0.0-0.4); Eosinophils % 0.7 % (0.1-12.0); Hemoglobin 13.3 g/dL (12.2-16.2); Lymphocytes # 1.9 K/mm3 (0.7-4.5); Lymphocytes % 9.2 % (10-50); Mean Corpuscular HGB Conc 32.4 g/dL (31.8-35.4); Mean Corpuscular Hemoglobin 29.3 pg (27.0-31.2); Mean Corpuscular Volume 90.2 fl (81-99); Mean Platelet Volume 9.6 fl (7.4-10.4); Monocytes # 0.8 K/mm3 (0.1-1.0); Monocytes % 3.8 % (1.7-9.3); Neutrophils % 85.5 % (37.0-80.0); Platelet Count 375 K/mm3 (142-424); Red Blood Count 4.54 M/mm3 (4.20-5.40)
[2021-12-27 07:08] LABS: MANUAL DIFFERENTIAL MANUAL DIFFERENTIAL (MANUAL DIFF)
[2021-12-27 08:26] LABS: Lymphocytes % 11 % (10-50); Monocytes % 1 % (2-9); Neutrophils % 88 % (42-76); Platelet Estimate Normal; Total Cells Counted 100
--- NOTE | 2021-12-27 09:16 | HMH.PULMPN ---
Internal Medicine - PN: Subj *Date: 12/27/21 *Time: 10:39 Interval history: No acute respiratory events overnight. Exam - Constitutional Constitutional:: Present: no acute distress, comfortable - HENMT Exam HENMT: Present: normocephalic, atraumatic - Eye Exam Eyes:: Present: normal appearance both eyes and related structures - Neck Exam Neck:: Present: normal visual inspection - Respiratory Exam Respiratory:: Present: able to speak in complete sentences, respiratory distress, rhonchi. Absent: wheezing - Cardiovascular Exam Cardiac:: Present: S1, S2 - GI Exam GI:: Present: soft, no hepatosplenomegaly - Skin Exam Skin: Present: warm, no rash - Neurological Exam Neurological: Present: alert, awake - Extremities Exam Extremities: Present: no cyanosis, no clubbing - Psychiatric Exam Psychiatric: Present: normal affect Assessment and Plan (1) Atrial flutter Status: Resolved Category: Medical Code(s): I48.92 - Unspecified atrial flutter (2) Sepsis Status: Acute Qualifiers: Sepsis type: sepsis due to unspecified organism Sepsis acute organ dysfunction status: with acute organ dysfunction Severe sepsis acute organ dysfunction type: acute respiratory failure Acute respiratory failure type: with hypoxia Severe sepsis shock status: with septic shock Qualified Code(s): A41.9 - Sepsis, unspecified organism; R65.21 - Severe sepsis with septic shock; J96.01 - Acute respiratory failure with hypoxia Category: Medical Code(s): A41.9 - Sepsis, unspecified organism (3) Diabetes mellitus Status: Acute Qualifiers: Diabetes mellitus type: type 2 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: 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 insulin use status Diabetes mellitus complication status: with other specified complication Qualified Code(s): E11.69 - Type 2 diabetes mellitus with other specified complication Category: Medical Code(s): E11.9 - Type 2 diabetes mellitus without complications (4) Hypertension Status: Acute Category: Medical Code(s): I10 - Essential (primary) hypertension (5) Obesity Status: Acute Qualifiers: Obesity type: due to excess calories Obesity classification: adult class 3 (BMI >= 40) Serious obesity comorbidity presence: with serious comorbidity Body mass index: BMI 40.0-44.9 Qualified Code(s): E66.01 - Morbid (severe) obesity due to excess calories; Z68.41 - Body mass index [BMI] 40.0-44.9, adult Category: Medical Code(s): E66.9 - Obesity, unspecified (6) CAD in [place] artery Status: Acute Category: Medical Code(s): I25.10 - Atherosclerotic heart disease of [place] coronary artery without angina pectoris (7) Amputation of toe of right foot Status: Acute Category: Medical Code(s): S98.131A - Complete traumatic amputation of one right lesser toe, initial encounter (8) CHF (congestive heart failure), NYHA class I Status: Acute Category: Medical Code(s): I50.9 - Heart failure, unspecified (9) Chronic low back pain Status: Acute Qualifiers: Back pain laterality: bilateral Sciatica presence: with sciatica Sciatica laterality: bilateral sciatica Qualified Code(s): M54.42 - Lumbago with sciatica, left side; M54.41 - Lumbago with sciatica, right side; G89.29 - Other chronic pain Category: Medical Code(s): M54.5 - Low back pain; G89.29 - Other chronic pain (10) History of coronary artery stent placement Status: Acute Category: Surgical Code(s): Z95.5 - Presence of coronary angioplasty implant and graft (11) Hyperglycemia Status: Acute Category: Medical Code(s): R73.9 - Hyperglycemia, unspecified (12) Insulin dependent diabetes mellitus Status: Acute Category: Medical Code(s): E11.9 - Type 2 diabetes mellitus without complications; Z79.4 - ferry terminal agent (current) use of insulin (13) Type 2 diabetes mellitus Status: Acute Category: Medical Code(s): E11.9 - Type 2 diabetes mellitus without comp
--- NOTE | 2021-12-27 09:19 | XR_ITS ---
FINAL REPORT CLINICAL HISTORY: hypoxia COMPARISON: December 25, 2021 FINDINGS: A single portable view of the chest was obtained. The heart size and pulmonary vascularity are within normal limits. The mediastinum is within normal limits. Compared with the prior exam, there are persistent pulmonary opacities consistent with edema or pneumonia but there is partially improved aeration. The bony thorax is intact. IMPRESSION: Persistent pulmonary opacities as above. Reviewed, Interpreted and Dictated by Gonzalez Redmond III, MD Transcribed by Caryn Mejia Authenticated by Gonzalez Redmond III, MD on 12/27/2021 10:18:54 AM [facility]
[2021-12-27 09:44] LABS: Blood Urea Nitrogen 61 mg/dl (7-17); Calcium 7.7 mg/dl (8.4-10.2); Chloride 114 mmol/L (98-107); Creatinine Clearance Estimated 50 mL/min (50-200); Estimated Glomerular Filt Rate 72 ml/min (>60); GFR (African American) 88 ML/MIN (>60); Glucose 134 mg/dl (74-100); Potassium 3.8 mmoL/L (3.5-5.1); Sodium 140 mmol/L (136-145)
--- NOTE | 2021-12-27 10:15 | HMH.PNCARD ---
Subjective Date: 12/27/21 Time: 10:00 Principal diagnosis: A. fib with RVR, sepsis Interval history: This is a 60-year-old white female who initially presented to the hospital unresponsive and was intubated and on the ventilator. She has been extubated. During her hospitalization the patient did go into atrial fibrillation/flutter with RVR and was treated with a Cardizem drip. Her Cardizem drip has been stopped and she has been switched over to oral Cardizem. She is in sinus rhythm today. This morning she denies any chest pain or pressure. She denies any shortness of breath or edema. She denies any racing of the heart or palpitations. She denies any fever, chills, nausea, vomiting, PND or orthopnea. Her only complaint today is having frequent uncontrolled bowel movements. She states that these are diarrhea bowel movements. She states that this is causing her to feel exhausted and she does have some abdominal pain/discomfort with the frequent bowel movements. Exam Vital signs and Labs for Last 24 Hours: Temp Pulse Resp BP Pulse Ox 99.4 F 58 L 19 116/62 98 12/27/21 08:00 12/27/21 08:00 12/27/21 08:00 12/27/21 08:00 12/27/21 08:00 Laboratory Results - last 24 hr 12/26/21 10:50: Stl Aeromonas (PCR) Not detected, Stl C. cayetanensis PCR Not detected, Stool Rotavirus (PCR) Not detected, Stl Adenov F 40/41 PCR Not detected, Stool Astrovirus (PCR) Not detected, Stool Campylobacter PCR Not detected, Stl C.difficile Tox PCR Not detected, Stool Cryptosporidium PCR Not detected, Stl E.coli Shiga Tox PCR Not detected, Stool E coli O157 PCR Not detected, Stl Enterotoxigenic E PCR Not detected, Stool EPEC (PCR) Not detected, Stool EAEC (PCR) Not detected, Stl E. histolytica PCR Not detected, Stool Giardia Lamblia PCR Not detected, Stool Salmonella PCR Not detected, Stool Sapovirus (PCR) Not detected, Stl P. shigelloides PCR Not detected, Stl Shigella/EIEC PCR Not detected, St Y.enterocolitica PCR Not detected, Stool Vibrio (PCR) Not detected, Stl Vibrio cholerae PCR Not detected, Stl Norovirus GI/GII PCR Not detected 12/26/21 11:51: POC Glucose 185 H 12/26/21 16:08: POC Glucose 128 H 12/26/21 19:59: POC Glucose 199 H 12/27/21 05:03: POC Glucose 127 H 12/27/21 05:59: WBC 21.0 H*, RBC 4.54, Hgb 13.3, Hct 41.0, MCV 90.2, MCH 29.3, MCHC 32.4, RDW 15.0, Plt Count 375, MPV 9.6, Neut % (Auto) 85.5 H, Lymph % (Auto) 9.2 L, [place] % (Auto) 3.8, Eos % (Auto) 0.7, Baso % (Auto) 0.8, Neut # (Auto) 18.0 H, Lymph # (Auto) 1.9, [place] # (Auto) 0.8, Eos # (Auto) 0.1, Baso # (Auto) 0.2, Total Counted 100, Neutrophils % (Manual) 88 H, Lymphocytes % (Manual) 11, Monocytes % (Manual) 1 L, Platelet Estimate Normal 12/27/21 09:07: Sodium 140, Potassium 3.8, Chloride 114 H, BUN 61 H D, Creatinine 0.80 D, Estimated Creat Clear 50, Estimated GFR 72, Est GFR ( Amer) 88 D, Glucose 134 H, Calcium 7.7 L I & O for Last 24 hours: Intake & Output 12/24/21 12/25/21 12/26/21 12/27/21 23:59 23:59 23:59 23:59 Intake Total 492 / 592 702 / 2002 2430 / 2430 140 / 140 Output Total 1275 / 1450 1100 / 1325 2450 / 2450 2125 / 2125 Balance -783 / -858 -398 / 677 -20 / - / Weight 244 lb 3.2 oz 247 lb 8 oz 255 lb 8 oz 249 lb Microbiology Reports for the Last 24 Hours: Microbiology 12/23/21 11:45 Blood Blood Culture - Preliminary Gram Positive Cocci 12/23/21 21:30 Stool - Stool Aspirate Salmonella/Shigella Screen - Final 12/23/21 21:30 Stool - Stool Aspirate - Final 12/23/21 11:45 Blood Blood Culture - Preliminary Narrative: Telemetry strip is sinus rhythm with a rate of 62. - Constitutional no acute distress, morbidly obese - *Routine HEENT Exam Head: Present: normocephalic, atraumatic Eye: Present: EOMI, PERRL ENT: Present: mucous membranes moist - *Routine Neck Exam Present: supple, full ROM, normal carotid upstroke. Absent: JVD, carotid bruit, lymphadenopathy - *Routine Respiratory Exam Prese
--- NOTE | 2021-12-27 10:16 | CT_ITS ---
FINAL REPORT CLINICAL HISTORY: r/o ant cord syndrome FINDINGS: Axial CT images of the cervical spine were obtained without contrast. Sagittal and coronal reformatted images were also obtained. This study was performed with techniques to keep radiation doses as low as reasonably achievable (ALARA). Individualized dose reduction techniques using automated exposure control or adjustment of mA and/or kV according to the patient's size were employed. There is no acute fracture. There are mild and moderate degenerative changes. There is multilevel neural foraminal narrowing greatest at C5-6. There is mild central canal stenosis with an AP diameter of the thecal sac of 8 mm at C4-5 and C6-7. At C5-6, there is mild central canal stenosis with an AP diameter of the thecal sac of 7 mm. Imaging of the upper thorax demonstrates multifocal pulmonary ground-glass opacities worrisome for pneumonia or pulmonary edema. Postoperative changes are seen in the left base of the neck. IMPRESSION: There is multilevel degenerative disc disease with areas of neural foraminal narrowing and central canal stenosis. Multifocal pulmonary ground-glass opacities worrisome for pneumonia or pulmonary edema. Reviewed, Interpreted and Dictated by Gonzalez Redmond III, MD Transcribed by Caryn Mejia Authenticated by Gonzalez Redmond III, MD on 12/28/2021 08:44:40 AM [facility]
--- NOTE | 2021-12-27 10:19 | HMH.ACPN2 ---
Internal Medicine - PN: Subj *Date: 12/27/21 *Time: 08:35 Interval history: pt with weakness. vapertherm 20 lpm,s02 40% Exam Vital signs and Labs for Last 24 Hours: Temp Pulse Resp BP Pulse Ox 99.4 F 58 L 19 116/62 98 12/27/21 08:00 12/27/21 08:00 12/27/21 08:00 12/27/21 08:00 12/27/21 08:00 Laboratory Results - last 24 hr 12/26/21 10:50: Stl Aeromonas (PCR) Not detected, Stl C. cayetanensis PCR Not detected, Stool Rotavirus (PCR) Not detected, Stl Adenov F 40/41 PCR Not detected, Stool Astrovirus (PCR) Not detected, Stool Campylobacter PCR Not detected, Stl C.difficile Tox PCR Not detected, Stool Cryptosporidium PCR Not detected, Stl E.coli Shiga Tox PCR Not detected, Stool E coli O157 PCR Not detected, Stl Enterotoxigenic E PCR Not detected, Stool EPEC (PCR) Not detected, Stool EAEC (PCR) Not detected, Stl E. histolytica PCR Not detected, Stool Giardia Lamblia PCR Not detected, Stool Salmonella PCR Not detected, Stool Sapovirus (PCR) Not detected, Stl P. shigelloides PCR Not detected, Stl Shigella/EIEC PCR Not detected, St Y.enterocolitica PCR Not detected, Stool Vibrio (PCR) Not detected, Stl Vibrio cholerae PCR Not detected, Stl Norovirus GI/GII PCR Not detected 12/26/21 11:51: POC Glucose 185 H 12/26/21 16:08: POC Glucose 128 H 12/26/21 19:59: POC Glucose 199 H 12/27/21 05:03: POC Glucose 127 H 12/27/21 05:59: WBC 21.0 H*, RBC 4.54, Hgb 13.3, Hct 41.0, MCV 90.2, MCH 29.3, MCHC 32.4, RDW 15.0, Plt Count 375, MPV 9.6, Neut % (Auto) 85.5 H, Lymph % (Auto) 9.2 L, [place] % (Auto) 3.8, Eos % (Auto) 0.7, Baso % (Auto) 0.8, Neut # (Auto) 18.0 H, Lymph # (Auto) 1.9, [place] # (Auto) 0.8, Eos # (Auto) 0.1, Baso # (Auto) 0.2, Total Counted 100, Neutrophils % (Manual) 88 H, Lymphocytes % (Manual) 11, Monocytes % (Manual) 1 L, Platelet Estimate Normal 12/27/21 09:07: Sodium 140, Potassium 3.8, Chloride 114 H, BUN 61 H D, Creatinine 0.80 D, Estimated Creat Clear 50, Estimated GFR 72, Est GFR ( Amer) 88 D, Glucose 134 H, Calcium 7.7 L I & O for Last 24 hours: Intake & Output 12/24/21 12/25/21 12/26/21 12/27/21 11:59 11:59 11:59 11:59 Intake Total 990 / 990 692 / 692 1902 / 1902 1170 / 1170 Output Total 775 / 775 1150 / 1150 1175 / 1175 4125 / 4125 Balance 215 / 215 -458 / -458 727 / 727 -2955 / -2955 Weight 244 lb 3.2 oz 247 lb 8 oz 255 lb 8 oz 249 lb Microbiology Reports for the Last 24 Hours: Microbiology 12/23/21 11:45 Blood Blood Culture - Preliminary Gram Positive Cocci 12/23/21 21:30 Stool - Stool Aspirate Salmonella/Shigella Screen - Final 12/23/21 21:30 Stool - Stool Aspirate - Final 12/23/21 11:45 Blood Blood Culture - Preliminary - Constitutional no acute distress, obese - *Routine HEENT Exam Head: Present: normocephalic Eye: Present: PERRL ENT: Present: mucous membranes moist - *Routine Neck Exam Present: supple. Absent: lymphadenopathy - *Routine Respiratory Exam Present: decreased breath sounds, rhonchi - *Routine Cardiovascular Exam Present: RRR - *Routine Abdominal Exam Present: soft, normoactive bowel sounds. Absent: tenderness - *Routine Extremities Exam Absent: cyanosis, clubbing, edema - *Routine Skin Exam Present: warm. Absent: rash Comments: scab area to ankle - *Routine Neurological Exam Present: alert, oriented X3, moving all extremities weakness Assessment and Plan (1) Atrial flutter Status: Resolved Category: Medical Code(s): I48.92 - Unspecified atrial flutter (2) Sepsis Status: Acute Qualifiers: Qualified Code(s): A41.9 - Sepsis, unspecified organism; R65.21 - Severe sepsis with septic shock; J96.01 - Acute respiratory failure with hypoxia Category: Medical Code(s): A41.9 - Sepsis, unspecified organism (3) Diabetes mellitus Status: Acute Qualifiers: Qualified Code(s): E11.69 - Type 2 diabetes mellitus with other specified complication Category: Medical Code(s): E11
--- NOTE | 2021-12-27 10:24 | HMH.PHACONS ---
- Pharmacy Consult Date: 12/27/21 Time: 10:27 Referring provider: DR. MONTEMAYOR Reason for Consult:: VANCOMCYIN DOSING CHANGE WITH RENAL FX IMPROVEMENT Allergies and ADEs:: Allergies Allergy/AdvReac Type Severity Reaction Status Date / Time Sulfa (Sulfonamide Allergy Mild Unknown Verified 12/02/21 13:07 Antibiotics) allergy [SULFA (SULFONAMIDE reaction ANTIBIOTICS)] levofloxacin [From LEVAQUIN] Allergy Unknown Unknown Verified 12/02/21 13:07 allergy reaction Home Medications:: Home Medications Medication Instructions Recorded Confirmed Type Albuterol Sulfate [Ventolin HFA 2 puffs IH QIDP PRN 09/14/19 12/20/21 History Inhaler] Fluticasone/Vilanterol [Breo 1 puff IH DAILY 09/14/19 12/20/21 History Ellipta 200-25 Mcg INH] Tiotropium [place] [Spiriva 1 puff IH DAILY 09/14/19 12/20/21 History 18mcg/puff inhaler] Sitagliptin Phosphate [Januvia 100 mg PO DAILY 09/27/19 12/19/21 History 100mg tablet] hydroxyzine pamoate 25 mg capsule 25 mg PO QIDP PRN cap 11/27/19 12/19/21 History Duloxetine HCl 30 mg PO DAILY 12/03/19 12/19/21 History Levothyroxine Sodium 112 mcg PO DAILY 12/03/19 12/19/21 History [Levothyroxine 112mcg (0.112mg) Tab] Insulin NPH Hum/Reg Insulin Hm 60 unit SQ BID 11/28/20 12/19/21 History [Novolin 70-30 Flexpen] Losartan Potassium 25 mg PO DAILY 11/28/20 12/19/21 History Trazodone HCl 50 mg PO HS 11/28/20 12/19/21 History aspirin 81 mg tablet,delayed 81 mg PO DAILY 02/07/21 12/19/21 History release clonazepam 1 mg tablet 1 mg PO TIDP PRN tab 12/02/21 12/20/21 History Lidocaine [Lidoderm 5% transdermal 1 each TP Q24H 12/19/21 12/19/21 History patch] Oxybutynin Chloride [Oxybutynin 15 mg PO DAILY 12/19/21 12/19/21 History Chloride ER] Cetirizine HCl 10 mg PO DAILY 12/20/21 12/20/21 History Empagliflozin [Jardiance] 25 mg PO DAILY 12/20/21 12/20/21 History Gabapentin [Neurontin 600mg 600 mg PO TID 12/20/21 12/20/21 History tablet] Montelukast Sodium [Singulair 10mg 10 mg PO PM 12/20/21 12/20/21 History tablet] Spironolactone [Spironolactone 25 mg PO DAILY 12/20/21 12/20/21 History 25mg Tablet] Tramadol HCl [Tramadol 50mg 50 mg PO Q8HP PRN 12/20/21 12/20/21 History Tab] Height: 1.65 m Weight: 112.945 kg Laboratory Results:: Laboratory Results - last 24 hr 12/26/21 10:50: Stl Aeromonas (PCR) Not detected, Stl C. cayetanensis PCR Not detected, Stool Rotavirus (PCR) Not detected, Stl Adenov F 40/41 PCR Not detected, Stool Astrovirus (PCR) Not detected, Stool Campylobacter PCR Not detected, Stl C.difficile Tox PCR Not detected, Stool Cryptosporidium PCR Not detected, Stl E.coli Shiga Tox PCR Not detected, Stool E coli O157 PCR Not detected, Stl Enterotoxigenic E PCR Not detected, Stool EPEC (PCR) Not detected, Stool EAEC (PCR) Not detected, Stl E. histolytica PCR Not detected, Stool Giardia Lamblia PCR Not detected, Stool Salmonella PCR Not detected, Stool Sapovirus (PCR) Not detected, Stl P. shigelloides PCR Not detected, Stl Shigella/EIEC PCR Not detected, St Y.enterocolitica PCR Not detected, Stool Vibrio (PCR) Not detected, Stl Vibrio cholerae PCR Not detected, Stl Norovirus GI/GII PCR Not detected 12/26/21 11:51: POC Glucose 185 H 12/26/21 16:08: POC Glucose 128 H 12/26/21 19:59: POC Glucose 199 H 12/27/21 05:03: POC Glucose 127 H 12/27/21 05:59: WBC 21.0 H*, RBC 4.54, Hgb 13.3, Hct 41.0, MCV 90.2, MCH 29.3, MCHC 32.4, RDW 15.0, Plt Count 375, MPV 9.6, Neut % (Auto) 85.5 H, Lymph % (Auto) 9.2 L, [place] % (Auto) 3.8, Eos % (Auto) 0.7, Baso % (Auto) 0.8, Neut # (Auto) 18.0 H, Lymph # (Auto) 1.9, [place] # (Auto) 0.8, Eos # (Auto) 0.1, Baso # (Auto) 0.2, Total Counted 100, Neutrophils % (Manual) 88 H, Lymphocytes % (Manual) 11, Monocytes % (Manual) 1 L, Platelet Estimate Normal 12/27/21 09:07: Sodium 140, Potassium 3.8, Chloride 114 H, BUN 61 H D, Creatinine 0.80 D, Estimated Creat Clear 50, Estimated GFR 72, Est GFR ( Amer
[2021-12-27 10:51] LABS: Anion Gap 17.8 mEq/L (5-15); Carbon Dioxide 12 mmol/L (22.0-30.0)
--- NOTE | 2021-12-27 10:52 | DIET.NUTRFU ---
During rounds today, patient was much more alert. Sitting up in bed. Reported she wanted to get in chair today. Therapy is following her. Currently she is needing assistance with meals. Reports she does better with mugs than cups. Nursing noting 10% at lunch yesterday, 50% with dinner and this AM she ate eggs and cereal for breakfast. This RD did start her on Glucerna with meals to help with calorie intake till appetite improves. Patient and nursing did report multiple loose stool yesterday, negative for C-diff. She is on ABT tx which may cause loose BM. Urine output looked good. Renal labs improving BUN 61 (100), Cr 0.80 (1.4). Glucose also showing some improvement at 134, had been as high as 184, insulin in place. Will continue to monitor meal intake
--- NOTE | 2021-12-27 11:55 | PC.NURSE ---
RESP CARE NOTE: Pt placed on 3 lpm nasal cannula, we will continue to monitor patient.
[2021-12-27 20:23] LABS: POC Glucose,Bedside 154 (70-110)
[2021-12-28] VITALS (7 sets, daily range): BP systolic 110–131; BP diastolic 39–63; PULSE 60–74; RESP 17–24; TEMP 36.4–37.2; O2SAT 93–99; BMI 41.6
[2021-12-28 06:20] LABS: Basophils # 0.2 K/mm3 (0-0.2); Eosinophils # 0.1 K/mm3 (0.0-0.4); Eosinophils % 0.9 % (0.1-12.0); Hematocrit 38.6 % (37.0-47.0); Hemoglobin 12.5 g/dL (12.2-16.2); Lymphocytes # 2.1 K/mm3 (0.7-4.5); Lymphocytes % 13.3 % (10-50); MANUAL DIFFERENTIAL MANUAL DIFFERENTIAL (MANUAL DIFF); Mean Corpuscular HGB Conc 32.5 g/dL (31.8-35.4); Mean Corpuscular Hemoglobin 28.7 pg (27.0-31.2); Mean Corpuscular Volume 88.5 fl (81-99); Mean Platelet Volume 9.9 fl (7.4-10.4); Monocytes # 0.9 K/mm3 (0.1-1.0); Monocytes % 5.7 % (1.7-9.3); Neutrophils # 12.7 K/mm3 (1.8-7.8); Neutrophils % 79.2 % (37.0-80.0); Platelet Count 346 K/mm3 (142-424); Red Blood Count 4.37 M/mm3 (4.20-5.40); Red Cell Distribution Width 15.2 % (11.5-17.5)
[2021-12-28 06:50] LABS: Blood Urea Nitrogen 37 mg/dl (7-17); Calcium 7.6 mg/dl (8.4-10.2); Carbon Dioxide 16 mmol/L (22.0-30.0); Chloride 115 mmol/L (98-107); Creatinine Clearance Estimated 50 mL/min (50-200); Estimated Glomerular Filt Rate 72 ml/min (>60); GFR (African American) 88 ML/MIN (>60); Glucose 156 mg/dl (74-100); Sodium 138 mmol/L (136-145)
[2021-12-28 08:50] LABS: Lymphocytes % 17 % (10-50); Monocytes % 2 % (2-9); Neutrophils % 81 % (42-76); Total Cells Counted 100
[2021-12-28 08:53] LABS: Platelet Estimate Normal
--- NOTE | 2021-12-28 10:13 | PC.NURSE ---
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 Witnessed by Karol Sharpe SRNA
--- NOTE | 2021-12-28 11:33 | P.PN_ITS ---
Internal Medicine - PN: Subj *Date: 12/28/21 *Time: 11:33 Interval history: No acute respiratory vents overnight. Patient admits continued improvement in her respiratory symptoms. Exam - Constitutional Constitutional:: Present: no acute distress, comfortable - HENMT Exam HENMT: Present: normocephalic, atraumatic - Eye Exam Eyes:: Present: normal appearance both eyes and related structures - Neck Exam Neck:: Present: normal visual inspection - Respiratory Exam Respiratory:: Present: able to speak in complete sentences, no respiratory distress, rhonchi - Cardiovascular Exam Cardiac:: Present: S1, S2 - GI Exam GI:: Present: soft - Skin Exam Skin: Present: warm, no rash - Neurological Exam Neurological: Present: alert, awake - Extremities Exam Extremities: Present: no cyanosis, no clubbing, no edema Assessment and Plan - Assessment and plan all Dx Assessment and Plan for all problems:: # Pneumonia 2/2 Klebsiella pneumonia #Septic shock: # Staphylococcus bactremia: Much of the history is obtained from chart review. Ms. Healy is a 60-year-old female carries a diagnosis of ACO was seen for the first time in pulmonary clinic in October 2021, uncontrolled diabetes, recurrent UTIs, COPD, on Breo and Spiriva presented to the hospital with altered mentation, found to be in hypercarbic respiratory failure intubated and pulmonary was called for further management. Patient presented with a pH of 7.1 and a PCO2 51 however repeat pH showed normal PCO2 and a pH of 7.21 concerning for metabolic acidosis/septic shock. Leukocytosis on admission. Chest x-ray bilateral pulmonary infiltrates. Echocardiogram from 2020 normal EF no wall motion abnormalities, inconclusive diastolic parameters. CT is evaluated, showed bilateral upper lobe predominant airspace disease left greater than right. ET tube 1 cm above the altaf, will retract. Follow blood urine and tracheal aspirate cultures. Patient was initiated on Zosyn and was escalated to vancomycin, however Sputum culture growing Klebsiella sensitive to Zosyn & cefepime. Urine cultures growing E. coli sensitive to Zosyn and resistant to cefepime and antibiotics were just deescalated to Zosyn, however this was eventually escalated to ertapenem by primary team Her mentation improved and she was eventually extubated to nasal cannula and then was eventually escalated to Ventimask and 5 flow nasal cannula. Her hospi chalo course is also complicated by A. fib RVR. GI PCR panel including C. difficile toxin PCR negative. Interval update: Patient respiratory status continued to improve, weaned to room air this morning with saturations maintained at 90% and above. She continued to receive ertapenem along with vancomycin and metronidazole. Leukocytosis improving. Chest x-ray showed continued improving pulmonary improved except worsening of right lower lobe infiltrate though showed improved aeration. We will closely monitor especially in setting of improving oxygen requirements. Plan: -Continue oxygen supplementation as needed to maintain O2 saturation goal of 90% and above. -Incentive spirometry -Ertapenem x 10 days for pneumonia. -Vancomycin x 14 days for bacteremia. Pending repeat blood cultures. -Continue DuoNebs every 6 hours along with budesonide every 12 schedule -Continue PT OT Thank you for involving pulmonary in this patient care. We will continue to follow.
--- NOTE | 2021-12-28 12:40 | PC.NURSE ---
Pt's jewelry give to her son Roe to take home, witnessed by Tre Sharpe, SRNA
--- NOTE | 2021-12-28 13:04 | HMH.ACPN2 ---
Internal Medicine - PN: Subj *Date: 12/28/21 *Time: 08:40 Interval history: pt sitting up in chair. rectal tone checked pt has no rectal tone. upper ext weakness 1/5 Exam Vital signs and Labs for Last 24 Hours: Temp Pulse Resp BP Pulse Ox 98.2 F 68 21 126/58 L 98 12/28/21 11:59 12/28/21 11:59 12/28/21 11:59 12/28/21 11:59 12/28/21 11:59 Laboratory Results - last 24 hr 12/27/21 20:01: POC Glucose 154 H 12/28/21 05:53: WBC 16.0 H, RBC 4.37, Hgb 12.5, Hct 38.6, MCV 88.5, MCH 28.7, MCHC 32.5, RDW 15.2, Plt Count 346, MPV 9.9, Neut % (Auto) 79.2, Lymph % (Auto) 13.3, [place] % (Auto) 5.7, Eos % (Auto) 0.9, Baso % (Auto) 1.0, Neut # (Auto) 12.7 H, Lymph # (Auto) 2.1, [place] # (Auto) 0.9, Eos # (Auto) 0.1, Baso # (Auto) 0.2, Total Counted 100, Neutrophils % (Manual) 81 H, Lymphocytes % (Manual) 17, Monocytes % (Manual) 2, Platelet Estimate Normal 12/28/21 05:53: Sodium 138, Potassium 4.0, Chloride 115 H, Carbon Dioxide 16 L, Anion Gap 11.0, BUN 37 H D, Creatinine 0.80, Estimated Creat Clear 50, Estimated GFR 72, Est GFR ( Amer) 88, Glucose 156 H, Calcium 7.6 L I & O for Last 24 hours: Intake & Output 12/26/21 12/27/21 12/28/21 12/29/21 11:59 11:59 11:59 11:59 Intake Total 1902 / 1902 1170 / 1170 1920 / 1920 Output Total 1175 / 1175 4125 / 4350 4725 / 4725 Balance 727 / 727 -2955 / -3180 -2805 / -2805 Weight 255 lb 8 oz 249 lb 250 lb Microbiology Reports for the Last 24 Hours: Microbiology 12/23/21 11:45 Blood Blood Culture - Final Staphylococcus hominis 12/23/21 11:45 Blood Blood Culture - Preliminary Gram Positive Cocci - Constitutional no acute distress, obese, chronically ill appearing - *Routine HEENT Exam Head: Present: normocephalic Eye: Present: PERRL ENT: Present: mucous membranes moist - *Routine Neck Exam Present: supple. Absent: lymphadenopathy - *Routine Respiratory Exam Present: decreased breath sounds, rhonchi - *Routine Cardiovascular Exam Present: RRR - *Routine Abdominal Exam Present: soft, normoactive bowel sounds. Absent: tenderness - *Routine Rectal Exam Visual: Present: heme (+) stool. Absent: normal rectal tone Comments: no rectal tone - *Routine Extremities Exam Absent: cyanosis, clubbing, edema - *Routine Skin Exam Present: warm. Absent: rash - *Routine Neurological Exam Present: alert, oriented X3 upper est weakness Assessment and Plan (1) CAD in [place] artery Status: Acute Category: Medical Code(s): I25.10 - Atherosclerotic heart disease of [place] coronary artery without angina pectoris (2) CHF (congestive heart failure), NYHA class I Status: Acute Category: Medical Code(s): I50.9 - Heart failure, unspecified (3) Diabetes mellitus Status: Acute Qualifiers: Diabetes mellitus type: type 2 Diabetes mellitus longterm insulin use: unspecified longterm insulin use status Diabetes mellitus complication status: with other specified complication Qualified Code(s): E11.69 - Type 2 diabetes mellitus with other specified complication Category: Medical Code(s): E11.9 - Type 2 diabetes mellitus without complications (4) Obesity Status: Acute Qualifiers: Obesity type: due to excess calories Obesity classification: adult class 3 (BMI >= 40) Serious obesity comorbidity presence: with serious comorbidity Body mass index: BMI 40.0-44.9 Qualified Code(s): E66.01 - Morbid (severe) obesity due to excess calories; Z68.41 - Body mass index [BMI] 40.0-44.9, adult Category: Medical Code(s): E66.9 - Obesity, unspecified (5) PNA (pneumonia) Status: Acute Category: Medical Code(s): J18.9 - Pneumonia, unspecified organism - Assessment and plan all Dx Assessment and Plan for all problems:: rounded with dr lockett all orders per dr lockett spoke with for transfer for poss central cord syndrome spoke with dr sellers and
[2021-12-28 13:31] LABS: Occult Blood,Stool Positive (Negative)
--- NOTE | 2021-12-28 14:43 | [facility].DCSUM ---
General - General Admission date:: 12/19/21 Discharge date: 12/28/21 HPI HPI: Patient is a 60-year-old white female with a history of COPD exacerbations, CHF, hypothyroidism and diabetes who arrived in the emergency room today sponsor of and hypotensive. Patient had a GCS score of 3. EMS services were called to the house, found the patient down and unresponsive. Their call had been preceded by several days of coughing and congestion. Patient was bagged aggressively and intubated shortly after arrival to the emergency room. She was noted to be hypotensive, was given a liter of fluid and Levophed was started. Pulmonary service has been consultative on the patient for ventilator management. Continues to be intubated and on the Levophed drip. Cardiac history was gleaned by chart review/consult and is as follows 1. CAD A. ?prior DELMY to LAD and CX B. [facility], 2016, non-flow limiting CAD with hyperdynamic LV consistent with hypertensive heart disease, severely elevated LVEDP consistent with diastolic dysfunction, moderate and possibly severe pulmonary hypertension based on extrapolating the severely elevated LVEDP. C. [facility] myoview, 2018, No ischemia, EF 63% 2. DEYA, mild to moderate, 06/2017 3. HTN A. Echo, 03/2021, 1. Mildly enlarged left atrium, normal left ventricular size, mild concentric left ventricular hypertrophy, visually estimated ejection fraction 55% with no regional wall motion abnormality, diastolic parameters are inconclusive. 2. Mildly enlarged ascending aorta above sinotubular junction measuring 3.8 cm. There is no aortic stenosis or aortic insufficiency. 3. Trace mitral and tricuspid regurgitation. 4. No significant pericardial effusion noted. Electronically signed by : Reagan Luciano, 04/11/2021 23:07:55 CT chest showed patchy infiltrates. Ct brain showed no acute process. Hospital Course Hospital Course: Abnormal Lab Results 12/27/21 20:01: POC Glucose 154 H 12/28/21 05:53: WBC 16.0 H, Neut # (Auto) 12.7 H, Neutrophils % (Manual) 81 H 12/28/21 05:53: Chloride 115 H, Carbon Dioxide 16 L, BUN 37 H D, Glucose 156 H, Calcium 7.6 L 12/28/21 09:20: Stool Occult Blood Positive A Microbiology 12/23/21 11:45 Blood Blood Culture - Final Staphylococcus hominis 12/23/21 11:45 Blood Blood Culture - Preliminary Gram Positive Cocci 12/23/21 21:30 Stool - Stool Aspirate Salmonella/Shigella Screen - Final 12/23/21 21:30 Stool - Stool Aspirate - Final 12/19/21 11:30 Blood Blood Culture - Final NO GROWTH AFTER 5 DAYS 12/19/21 11:30 Blood Blood Culture - Final NO GROWTH AFTER 5 DAYS 12/19/21 09:24 Sputum - Endotracheal Tube Aspirate Gram Stain - Final 12/19/21 09:24 Sputum - Endotracheal Tube Aspirate Sputum Culture - Final Klebsiella pneumoniae 12/19/21 09:15 Urine,Catheterized Urine Culture - Final Escherichia coli Ordering Physician: Ulises Osorio MD Date of Service: 12/19/21 Procedure(s): CT chest wo con Accession Number(s): [id number] cc: Rich Zambrano MD; Provider,Opal FORBES; Ulises Osorio MD~ FINAL REPORT TECHNIQUE: Axial imaging of the chest was obtained without contrast. Reformatted images were also obtained and reviewed.This study was performed with techniques to keep radiation doses as low as reasonably achievable, (ALARA). Individualized dose reduction technique using automated exposure control or adjustment of mA and/or kV according to the patient's size were employed. CLINICAL HISTORY: Hx COPD, found unresposive, hypoxic and hypotensiv FINDINGS: There is an ET tube with tip 1 cm superior the altaf. There are a few, small reactive mediastinal lymph nodes. There is no axillary adenopathy. There is no hilar or mediastinal mass or adenopathy. Heart size is normal. There
--- NOTE | 2021-12-28 15:33 | PC.NURSE ---
ATTEMPTED TO CALL REPORT BUT THERE WAS NO ANSWER; WILL TRY AGAIN SHORTLY
--- NOTE | 2021-12-28 15:53 | PC.NURSE ---
report called to chaya flaherty at [facility]
--- NOTE | 2021-12-28 15:53 | PC.NURSE ---
attempted to call ems for transport but no answer
--- NOTE | 2021-12-28 16:13 | PC.NURSE ---
Pt will be going to [facility], [id number]; [phone]
--- NOTE | 2021-12-28 16:18 | PC.NURSE ---
[facility] states they will be here shortly to transport patient; Mr Anders (pt's emergency contact) notified of patients transport. Attempted to notify pt's mother but didn't get an answer. Mr Anders said she was with him and would let her know.
--- NOTE | 2021-12-28 16:37 | PC.NURSE ---
ambulance here to transport pt
== END 2021-12-28 16:39 | disposition short-term general hospital (02) | DRG 871 ==
LOC: ER 10:45 → ICU 12:42 → 2ND 15:50
PROVIDERS: Internal Medicine Pulmonary Disease; Nurse Practitioner Family; Physician Assistant; Admitting Provider Family Medicine; Emergency Provider Student in an Organized Health Care Education/Training Program; PCP Internal Medicine; Visit Provider Family Medicine
DX: A41.50 Gram-negative sepsis, unspecified (principal); J96.01 Acute respiratory failure with hypoxia; J15.0 Pneumonia due to Klebsiella pneumoniae; R65.21 Severe sepsis with septic shock; Z68.41 Body mass index [BMI] 40.0-44.9, adult; N17.9 Acute kidney failure, unspecified; Z16.39 Resistance to other specified antimicrobial drug; I50.32 Chronic diastolic (congestive) heart failure; E87.0 Hyperosmolality and hypernatremia; K56.7 Ileus, unspecified; N39.0 Urinary tract infection, site not specified; I48.92 Unspecified atrial flutter; I11.0 Hypertensive heart disease with heart failure; E11.51 Type 2 diabetes mellitus with diabetic peripheral angiopathy without gangrene; I25.10 Atherosclerotic heart disease of native coronary artery without angina pectoris; Z79.4 Long term (current) use of insulin; J44.9 Chronic obstructive pulmonary disease, unspecified; E78.5 Hyperlipidemia, unspecified; F17.210 Nicotine dependence, cigarettes, uncomplicated; Z89.421 Acquired absence of other right toe(s); E03.9 Hypothyroidism, unspecified; M19.90 Unspecified osteoarthritis, unspecified site; F41.9 Anxiety disorder, unspecified; F32.A Depression, unspecified; Z20.822 Contact with and (suspected) exposure to COVID-19; M54.50 Low back pain, unspecified; G89.29 Other chronic pain; Z95.5 Presence of coronary angioplasty implant and graft; E66.01 Morbid (severe) obesity due to excess calories; E11.65 Type 2 diabetes mellitus with hyperglycemia; I48.0 Paroxysmal atrial fibrillation; E87.6 Hypokalemia; B96.20 Unspecified Escherichia coli [E. coli] as the cause of diseases classified elsewhere; G83.82 Anterior cord syndrome
CPT/HCPCS: 31500; 94002; 36415; 51702; 70450; 71045; 71250; 72125; 74176; 80048; 80053; 80170; 80305; 81001; 82272; 82803; 82962; 83605; 83735; 83880; 84484; 85007; 85025; 85610; 87040; 87045; 87070; 87077; 87086; 87088; 87186; 87205; 87506; 87899; 92507; 92610; 93005; 93306; 93970; 94003; 94640; 94760; 94761; 96365; 96367; 96375; 96376; 97110; 97163; 97166; 97530; 99291; 99292; C9803; G0328; J0330; J0696; J1335; J2405; J2543; J2704; J3370; U0003; U0005